=== PATIENT | female | born 1980 | race Caucasian/White ===

== ENCOUNTER 2025-05-09 12:32 | Emergency (ER) | payer BC, SELFPAY ==
--- OUTSIDE RECORDS SUMMARY | 2025-05-09 12:47 | XMS_ITS | Encounter Summary ---
Author Organization [facility] Address [address] [place] [address] Care Team Providers Care Glue Clamp Operator Name Role Phone Buck Santana MD Unavailable Mar Gomez APRN Primary Care Provider [phone] Provider, Historical Unavailable Unavailable Shlomo Bess PA-C Unavailable [phone] Rosa Carr Unavailable Unavailable Buck Green MD Unavailable Sylvester Patel PA-C Unavailable Alejandra Doan RN Unavailable Unavailable Radha Duran LPN Unavailable Unavailable Theresa Colon HEALTH ASSISTANT Unavailable [phone] Little Koo MD Unavailable Mariana Schultz HEALTH ASSISTANT Unavailable Trino Wolff THREADER Unavailable Unavailable Blanca Whittington THREADER Unavailable Unavailab Blanca Monson THREADER Unavailable Unavailable Desmond Tubbs APRN Primary Care Provider [phone] Enma Sneed LPN Unavailable Unavailable Reason for Referral * Consultation (Routine) - Closed Specialty Diagnoses / Procedures Referred By Contac t Referred To Contact Diagnoses Edema, unspecified edema Left atrial dilation Mild mitral regurgitation Mild tricuspid regurgitation Mar Gomez APRN [id number] [place] [address] Phone: tel: fax: Mane Resendiz MD [address] [place] [address] Phone: tel: fax: Referral ID Status Reason Start Date Expiration Date Visits Re quested Visits Authorized [id number] Closed 02/19/2016 1 1 Encounter Details Date Type Department Care Team (Late st Contact Info) Description 02/19/2016 Orders Only [facility] [address] [place] [address] Mar Gomez APRN [address] [place], [place] [id number] Edema, unspecified edema (Primary Dx); Left atrial dilation; Mild mitral regurgitation; Mild tricuspid regurgitation Social History Tobacco Use Types Packs/Day Years Used Date Smoking Tobacco: Every Day Cigarettes 0.3 10 Smokeless Tobacco: Former Quit: 03/10/2013 Alcohol Use Standard Drinks/Week Comments No 0 (1 standard drink = 0.6 oz pur e alcohol) Comments No Sex and Gender Information Value Date Recorded Sex Assigned at Not on file Legal Sex Female 8:37 PM EST Gender Identity Not on file Sexual Orientation Not on file documented as of this encounter Plan of Treatment Scheduled Referrals Name Type Priority Associated Diagnoses Orde r Schedule Ambulatory Referral to Cardiology Outpatient Referral Routine Edema, unspecified edema Left atrial dilation Mild mitral regurgitation Mild tricuspid regurgitation Ordered: 02/19/2016 documented as of this encounter Visit Diagnoses Diagnosis Edema, unspecified edema- Primary Left atrial dilation Cardiomegaly Mild mitral regurgitation Mild tricuspid regurgitation Diseases of tricuspid valve documented in this encounter Additional Health Concerns Infection Onset Date Last Indicated Resolved Time Covid-19 (rule out) 05/07/2022 05/07/2022 05/08/20 22 12:33 AM EDT Covid-19 (confirmed) 11/05/2022 11/06/2022 023 10:12 PM EST documented as of this encounter Care Teams Glue Clamp Operator Relationship Specialty Start Date End Date Mar Gomez APRN [address] [place] [address] PCP - General Nurse Practitioner 02/18/16 10/02/24 Desmond Tubbs APRN [id number] [place] [address] PCP - General Nurse Practitioner 12/30/24 Buck Santana MD [facility] Stack[employer] [place] [id number] Orthopedic Surgery 09/21/12 Provider, Historical 10/07/16 Shlomo Bess PA-C [address] [place] [address] [address] [place] [address] Physician Licensed Loan Officer Assistant 07/13/20 Rosa Carr 09/03/21 Buck Green MD [address] [place] [address] [address] [place] [address] Obstetrics & Gynecology 09/04/21 Sylvester Patel PA-C [address] [place] [address] [address] [place] [address] Physician Licensed Loan Officer Assistant 09/09/21 Alejandra Doan, RN 09/09/21 Radha Duran LPN LPN 11/01/21 Theresa Colon APRN [address] [facility] [address] [place], [place] [id number] Nurse Practitioner 11/27/21 Little Koo MD [address] [place] [address] [address] [place] [address] Gastroenterology 11/27/21 Mariana Schultz APRN [address] [place] [address] Nurse Practitioner Gastroenterology 01/28/22 Trino Wolff, THREADER THREADER 04/16/22 Blanca Whittington, THREADER THREADER 05/05/22 Blanca Reagan, THREADER THREADER 06/30/22 Enma Sneed, THREADER THREADER 05/09/25 documented as of this encounter
--- OUTSIDE RECORDS SUMMARY | 2025-05-09 12:47 | XMS_ITS | Encounter Summary ---
Author Organization [facility] Address [address] [place] [address] Care Team Providers Care Continuous Dryout Operator Name Role Phone Buck Santana MD Unavailable Provider, Historical Unavailable Unavailable Shlomo Bess PA-C Unavailable [phone] Rosa Carr Unavailable Unavailable Buck Green MD Unavailable Sylvester Patel PA-C Unavailable [phone] Alejandra Doan RN Unavailable Unavailable Radha Duran LPN Unavailable Unavailable Theresa Colon SENIOR INVESTMENT ANALYST Unavailable [phone] Little Koo MD Unavailable Mariana Schultz SENIOR INVESTMENT ANALYST Unavailable Trino Wolff PANTS PRESSER AUTOMATIC Unavailable Unavailable Blanca Whittington PANTS PRESSER AUTOMATIC Unavailable Unavailab Blanca Monson PANTS PRESSER AUTOMATIC Unavailable Unavailable Desmond Tubbs SENIOR INVESTMENT ANALYST Primary Care Provider Enma Sneed LPN Unavailable Unavailable Reason for Visit * Reason Onset Date Comments Other 05/09/2025 Heavy Vaginal Bl eeding Encounter Details Date Type Department Care Team (Late st Contact Info) Description 05/09/2025 Telephone [facility] [address] [place] [address], [facility], [address] [place] [address] Enma Sneed LPN Other (Heavy Vaginal Bleeding) Social History Tobacco Use Types Packs/Day Years Used Date Smoking Tobacco: Former Cigarettes 0.3 15 0 10/29/2006 - 10/29/2021 Passive Smoke Exposure: Never Smokeless Tobacco: Never Quit: 03/10/2013 Alcohol Use Standard Drinks/Week Comments No 0 (1 standard drink = 0.6 oz pur e alcohol) [facility] Utilities Answer Date Recorded In the past 12 months has th e [employer], gas, oil, or water company threatened to shut off services in your home? No 07/29/2024 Humiliation, Afraid, Rape, and Kick questionnair e Answer Date Recorded Within the last year, have y ou been afraid of your partner or ex-partner? No 07/29/2024 Emotionally Abused Not on file 07/29/2024 Physically Abused Not on file 07/29/2024 Sexually Abused Not on file 07/29/2024 PHQ-2 Answer Date Recorded PHQ-2 SCORE 0 12/25/2024 Hunger Vital Sign Answer Date Recorded Worried About Running Out of Food in the Last Ye ar Not on file 07/29/2024 Within the past 12 months, t he food you bought just didn't last and you didn't have money to get more. Never true 07/29/2024 PRAPARE - Transportation Answer Date Re corded In the past 12 months, has l ack of transportation kept you from medical appointments or from getting medications? No 07/29/2024 Lack of Transportation (Non-Medical) Not on file 07/29/2024 Housing Stability Vital Sign Answer Jay e Recorded Unable to Pay for Housing in the Last Year Not o n file 07/29/2024 Number of Places Lived in the Last Year Not on f ile 07/29/2024 In the last 12 months, was t here a time when you did not have a steady place to sleep or slept in a nursing home (including now)? No 07/29/2024 Comments No Sex and Gender Information Value Date Recorded Sex Assigned at Not on file Legal Sex Female 8:37 PM EST Gender Identity Not on file Sexual Orientation Not on file documented as of this encounter Miscellaneous Notes * Telephone Encounter - Enma Sneed LPN - 05/09/2025 11:50 AM EDT Spoke with patient about her extreme heavy bleeding and pelvic pressure. Advised patient since she was out of town we would recommend going to her nearest ER. Patient verbalized understanding. documented in this encounter Plan of Treatment Not on file documented as of this encounter Visit Diagnoses Not on filedocumented in this encounter Care Teams Continuous Dryout Operator Relationship Specialty Start Date End Date Desmond Tubbs APRN [id number] [address] PCP - General Nurse Practitioner 12/30/24 Buck Santana MD [address] [place], [place] [id number] Orthopedic Surgery 09/21/12 Provider, Historical 10/07/16 Shlomo Bess PA-C [address] [place] [address] [address] [place] [address] Physician Workers Compensation Claims Assistant 07/13/20 Rosa Carr 09/03/21 Buck Green MD [address] [place] [address] [place] [address] Obstetrics & Gynecology 09/04/21 Sylvester Patel PA-C [address] [place] [address] [address] [place] [address] Physician Workers Compensation Claims Assistant 09/09/21 Alejandra Doan, RN 09/09/21 Radha Duran LPN LPN 11/01/21 Theresa Colon APRN [address] [place] [address] [address] [place] [address] Nurse Practitioner 11/27/21 Little Koo MD [address] [place] [address] Gastroenterology 11/27/21 Mariana Schultz APRN [address] [place] [address] Nurse Practitioner Gastroenterology 01/28/22 Trino Wolff, PANTS PRESSER AUTOMATIC PANTS PRESSER AUTOMATIC 04/16/22 Blanca Whittington, PANTS PRESSER AUTOMATIC PANTS PRESSER AUTOMATIC 05/05/22 Blanca Reagan, PANTS PRESSER AUTOMATIC PANTS PRESSER AUTOMATIC 06/30/22 Enma Sneed, PANTS PRESSER AUTOMATIC PANTS PRESSER AUTOMATIC 05/09/25 documented as of this encounter
--- OUTSIDE RECORDS SUMMARY | 2025-05-09 12:47 | XMS_ITS | Encounter Summary ---
Author Organization [facility] Address [address] [place] [address] Care Team Providers Care Pottery Decoration Designer Name Role Phone Bennie Jo DO Primary Care Provider [phone] Vikram Duncan MD Primary Care Provider [phone] Aniyah Trammell RETAIL BAKERY MANAGER Primary Care Provider Buck Santana MD Unavailable Mar Gomez RETAIL BAKERY MANAGER Primary Care Provider Provider, Historical Unavailable Unavailable Shlomo BessC Unavailable [phone] Rosa Carr Unavailable Unavailable Buck Green MD Unavailable [phone] Sylvester Patel-C Unavailable [phone] Alejandra Doan RN Unavailable Unavailable Radha Duran MULTICRAFT OPERATOR Unavailable Unavailable Theresa Colon RETAIL BAKERY MANAGER Unavailable [phone] Little Koo MD Unavailable [phone] Mariana Schultz RETAIL BAKERY MANAGER Unavailable [phone] Trino Wolff MULTICRAFT OPERATOR Unavailable Unavailable Blanca Whittington MULTICRAFT OPERATOR Unavailable Unavailab Blanca Monson MULTICRAFT OPERATOR Unavailable Unavailable Desmond Tubbs APRN Primary Care Provider Enma Sneed MULTICRAFT OPERATOR Unavailable Unavailable Encounter Details Date Type Department Care Team (Late st Contact Info) Description 09/19/2004 Historical Encounter Global Shae Trammell APRN [address] [facility] [place] [address] Social History Tobacco Use Types Packs/Day Years Used Date Smoking Tobacco: Never Assessed Comments Unknown Sex and Gender Information Value Date Recorded Sex Assigned at Not on file Legal Sex Female 8:37 PM EST Gender Identity Not on file Sexual Orientation Not on file documented as of this encounter Plan of Treatment Not on file documented as of this encounter Visit Diagnoses Not on filedocumented in this encounter Additional Health Concerns Infection Onset Date Last Indicated Resolved Time Covid-19 (rule out) 05/07/2022 05/07/2022 05/08/20 22 12:33 AM EDT Covid-19 (confirmed) 11/05/2022 11/06/2022 023 10:12 PM EST documented as of this encounter Care Teams Pottery Decoration Designer Relationship Specialty Start Date End Date Bennie Jo DO PCP - General 04/24/09 09/20/12 Vikram Duncan MD [address] [place] [address] PCP - General 08/14/08 04/23/09 Aniyah Trammell APRN [address] [place] [address] PCP - General Nurse Practitioner 09/21/12 02/17/16 Mar Gomez APRN [address] [place] [address] PCP - General Nurse Practitioner 02/18/16 10/02/24 Desmond Tubbs APRN [address] [address] PCP - General Nurse Practitioner 12/30/24 Buck Santana MD [facility] [place] [address] Orthopedic Surgery 09/21/12 Provider, Historical 10/07/16 Shlomo Bess PA-C [address] [place] [address] [address] [place] [address] Physician Dishwasher 07/13/20 Rosa Carr 09/03/21 Buck Green MD [address] [place] [address] [address] [place] [address] Obstetrics & Gynecology 09/04/21 Sylvester Patel PA-C [address] [place] [address] [address] [place] [address] Physician Dishwasher 09/09/21 Alejandra Doan, SHANIA 09/09/21 Radha Duran LPN LPN 11/01/21 Theresa Colon APRN [address] [place] [address] [address] [place] [address] Nurse Practitioner 11/27/21 Little Koo MD [address] [place] [address] [address] [place] [address] Gastroenterology 11/27/21 Mariana Schultz APRN [address] [place] [address] [address] [place] [address] Nurse Practitioner Gastroenterology 01/28/22 Trino Wolff LPN MULTICRAFT OPERATOR 04/16/22 Blanca Whittington, MULTICRAFT OPERATOR MULTICRAFT OPERATOR 05/05/22 Blanca Reagan, MULTICRAFT OPERATOR MULTICRAFT OPERATOR 06/30/22 Enma Sneed, MULTICRAFT OPERATOR MULTICRAFT OPERATOR 05/09/25 documented as of this encounter
--- OUTSIDE RECORDS SUMMARY | 2025-05-09 12:47 | XMS_ITS | Encounter Summary ---
Author Organization [facility] Address [address] [place] [address] Care Team Providers Care Crime Lab Technician Name Role Phone Bennie Jo DO Primary Care Provider [phone] Vikarm Duncan MD Primary Care Provider [phone] Aniyah Trammell CAR FERRY CAPTAIN Primary Care Provider Buck Santana MD Unavailable Mar Gomez CAR FERRY CAPTAIN Primary Care Provider Provider, Historical Unavailable Unavailable Shlomo BessC Unavailable [phone] Rosa Carr Unavailable Unavailable Buck Green MD Unavailable [phone] Sylvester Patel-C Unavailable [phone] Alejandra Doan RN Unavailable Unavailable Radha Duran TRAFFIC AGENT Unavailable Unavailable Theresa Colon CAR FERRY CAPTAIN Unavailable [phone] Little Koo MD Unavailable [phone] Mariana Schultz CAR FERRY CAPTAIN Unavailable [phone] Trino Wolff TRAFFIC AGENT Unavailable Unavailable Blanca Whittington TRAFFIC AGENT Unavailable Unavailab Blanca Monson TRAFFIC AGENT Unavailable Unavailable Desmond Tubbs APRN Primary Care Provider Enma Sneed TRAFFIC AGENT Unavailable Unavailable Encounter Details Date Type Department Care Team (Late st Contact Info) Description 09/18/2004 Historical Encounter Global Rik Maradiaga MD [address] [id number] Social History Tobacco Use Types Packs/Day Years [...] documented as of this encounter Care Teams Crime Lab Technician Relationship Specialty Start Date End Date Bennie Jo DO PCP - General 04/24/09 09/20/12 Vikram Duncan MD [address] [place], [place] [id number] PCP - General 08/14/08 04/23/09 Aniyah Trammell APRN [address] [place] [address] PCP - General Nurse Practitioner 09/21/12 02/17/16 Mar Gomez APRN [address] [place] [address] PCP - General Nurse Practitioner 02/18/16 10/02/24 Desmond Tubbs APRN [address] [address] PCP - General Nurse Practitioner 12/30/24 Buck Santana MD [facility] [place] [address] Orthopedic Surgery 09/21/12 Provider, Historical 10/07/16 Shlomo Bess PA-C [address] [place] [address] [address] [place] [address] Physician Epic Specialist 07/13/20 Rosa Carr 09/03/21 Buck Green MD [address] [place] [address] [address] [place] [address] Obstetrics & Gynecology 09/04/21 Sylvester Patel PA-C [address] [place] [address] [address] [place] [address] Physician Epic Specialist 09/09/21 Alejandra Doan, SHANIA 09/09/21 Radha Duran LPN LPN 11/01/21 Theresa Colon APRN [address] [place] [address] [address] [place] [address] Nurse Practitioner 11/27/21 Little Koo MD [address] [place] [address] [address] [place] [address] Gastroenterology 11/27/21 Mariana Schultz APRN [address] [place] [address] [address] [place] [address] Nurse Practitioner Gastroenterology 01/28/22 Trino Wolff TRAFFIC AGENT TRAFFIC AGENT 04/16/22 Blanca Whittington, TRAFFIC AGENT TRAFFIC AGENT 05/05/22 Blanca Reagan, TRAFFIC AGENT TRAFFIC AGENT 06/30/22 Enma Sneed, TRAFFIC AGENT TRAFFIC AGENT 05/09/25 documented as of this encounter
--- OUTSIDE RECORDS SUMMARY | 2025-05-09 12:47 | XMS_ITS | Encounter Summary ---
Author Organization [facility] Address [address] [place] [address] Care Team Providers Care X Ray Control Equipment Repairer Name Role Phone Aniyah Trammell APRN Primary Care Provider [phone] Buck Santana MD Unavailable Mar Gomez FOOT PIECE ASSEMBLER Primary Care Provider [phone] Provider, Historical Unavailable Unavailable Shlomo Bess-C Unavailable Rosa Carr Unavailable Unavailable Buck Green MD Unavailable Sylvester Patel PA-C Unavailable Alejandra Doan RN Unavailable Unavailable Radha Duran LPN Unavailable Unavailable Theresa Colon FOOT PIECE ASSEMBLER Unavailable Little Koo MD Unavailable Mariana Schultz FOOT PIECE ASSEMBLER Unavailable Trino Wolff ETCHER APPRENTICE Unavailable Unavailable Blanca Whittington ETCHER APPRENTICE Unavailable Unavailab Blanca Monson ETCHER APPRENTICE Unavailable Unavailable Desmond Tubbs APRN Primary Care Provider [phone] Enma Sneed ETCHER APPRENTICE Unavailable Unavailable Reason for Visit * Reason Onset Date Comments Nurse Triage Call 02/13/2016 Encounter Details Date Type Department Care Team (Late st Contact Info) Description 02/13/2016 Telephone [facility] [place] [address] [place] [address] Aniyah Trammell, FOOT PIECE ASSEMBLER [address] [place] [address] Nurse Triage Call Social History Tobacco Use Types Packs/Day Years [...] as of this encounter Miscellaneous Notes * Nurse Triage - Saranya Sue - 02/15/2016 10:12 AM EDT Follow up call to Mila Coelho concerning Nurse Triage phone call for chest pain. No answer at this time. No VM available * Telephone Encounter - Gael Hirsch RN - 02/14/2016 11:31 AM EDT Phone call placed to follow up on nurse triage call. No answer. No voice mail available. Pt was seen in ED last night. * Telephone Encounter - Jeanette Tran - 02/13/2016 8:30 PM EDT Patient called from ED exam room Stating ED doctor has been rude to her States she was told to got to ED for evaluation by a nurse earlier today. She is having Chest pain, shortness of breath and hands are swelling, weakness and fatigue Wanting to know if she should stay in the ED or go somewhere else. Advised she should have someone eval her. If she did not care for a particular provider, she could request to see a different one if available Understanding rommel Penn in ED contacted and advised of patients complaint, states Patient rep. has been called to speak with patient * Nurse Triage - Candace Knight - 02/13/2016 3:09 PM EDT Call Start time: 1509 Call End Time: 1518. Total Minutes spent seasonal package handler: 9 minutes, Physical address: [address] [place] [address] Number calling from: [phone] Mila Coelho is an 35 y.o. female phoned in for Difficulty Breathing. Patient stating Wokeup this AM swelling located bilat LE and hands, pt states It's so bad today It usually goes away after I move around but today it hasn't and I can't even wrap my hands around the steering wheel, they are red pt states she Had ECHO done at hospital today- d/t chest pressure for last 2wks. C/O non productive cough. Unable to lay down, states if I do, I won't be able to breathe Past medical history includes: Past Medical History Diagnosis Date ??? Asthma A CHILD ??? Community acquired pneumonia 2007 . The patient phoned in with complaints of dyspnea and nonproductive cough. . Symptoms are aggravatedby nothing, alleviated by nothing and have been associated with chest pain (Location: mid chest, Quality: pressure-like), palpitations, leg pain and leg swelling. Fever is untaken. Pulse is untaken. R isks for [place] include Age > 30, smoking and family Hx. Risks for PE include recent surgery. Care prior to arrival consisted of rest and antacids, with no relief. Severity is Defined As: Mild: Speaks normally in sentences, minimal shortness of breath at rest andmild shortness of breath with walking, can lay down, no retractions, pulse < 100. Moderate: Speaks in phrases, difficulty breathing even at rest, shortness of breath worsens with exertion and prefers to sit, mild retractions, audible wheezing, pulse 100-120. Severe: Speaks in single words, struggling to breathe sitting hunched forward, retractions, pulse > 120. Difficulty breathing is ratedas moderate. BREATHING DIFFICULTY Triage Assessment Questions Call EMS 911 Now: ?? Breathing stopped and hasn't returned. FIRST AID: Begin mouth to mouth breathing--denies ?? Choking on something. FIRST AID: If breathing stopped, quickly discuss the abdominal thrust maneuver (Heimlich)--denies SEVERE difficulty breathing (struggling for each breath, speaks in single works, pulse > 120)--denies ?? Bluish lips, tongue, or face now--denies ?? Difficult to awaken or acting confused (disoriented, slurred speech)--denies ?? Passed out (fainted, collapsed and was not responding)--denies ?? Wheezing started suddenly after medicine, and allergic food, or bee sting--denies ?? Stridor--denies ?? Slow, shallow and weak breathing--denies ?? Sounds like a life-threatening emergency to triage nurse--no Recommendations: none Go to ED Now: ?? MODERATE difficulty breathing (speaks in phrases, shortness of breath even at rest, pulse 100-120)--complains of ?? Wheezing can be heard across the room--complains of ?? Drooling or spitting out saliva (because can't swallow)--denies ?? Any history of prior blood clot in leg or lungs Note: A blood clot typically would have required treatment with heparin or coumadin. Reason: Increased risk of thromboembolism--denies ?? Recent illness requiring prolonged bed rest (immbolization)--denies ?? Hip or leg fracture in past 2 months (or had cast on leg or ankle)--denies ?? Major surgery in the past month--denies ?? Recent long distance travel with prolonged time in car, bus, plan, or train (hours sitting in one spot). Reason: Immobilization during prolonged travel increases risk of pulmonary embolus--denies ?? Extra heart beats OR irregular heart beating (palpitations)--complains of Recommendations: Advised pt to go to ED for evaluations, pt agreable states she will have family member drive to ED now, reminded of 27/04 identity access management architect ED called report given to Suzanne Aragon Advice/Followup Home Care Advice: ?? Fever Medicines Call Back if: ?? You become worse Notes HOME CARE ADVICE FOR BREATHING DIFFICULTY (Pending Office Visit) 1) Fever Medicines: For fevers above 101 degrees take acetaminophen or ibuprofen. The goal of fevertherapy is to bring the fever down to a comfortable level. Remember that fever medicine usually lowers fever 2 degrees. Acetaminophen is thought to be safer than ibuprofen in people over 65 years old. Reference: Adult telephone protocols Office version/3rd edition. Mane Hernández MD, FACEP Pages 37 to 39 documented in this encounter Plan of Treatment Not on file documented as of this encounter Visit Diagnoses Not on filedocumented in this encounter Additional Health Concerns Infection Onset Date Last Indicated Resolved Time Covid-19 (rule out) 05/07/2022 05/07/2022 05/08/20 22 12:33 AM EDT Covid-19 (confirmed) 11/05/2022 11/06/2022 023 10:12 PM EST documented as of this encounter Care Teams X Ray Control Equipment Repairer Relationship Specialty Start Date End Date Aniyah Trammell APRN [address] [place] [address] PCP - General Nurse Practitioner 09/21/12 02/17/16 Mar Gomez APRN [address] [place] [address] PCP - General Nurse Practitioner 02/18/16 10/02/24 Desmond Tubbs APRN [id number] [address] PCP - General Nurse Practitioner 12/30/24 Buck Santana MD [address] [email or web address] [address] Orthopedic Surgery 09/21/12 Provider, Historical 10/07/16 Shlomo Bess PA-C [address] [place] [address] [address] [place] [address] Physician National Park Ranger 07/13/20 Rosa Carr 09/03/21 Buck Green MD [address] [place] [address] [address] [place] [address] Obstetrics & Gynecology 09/04/21 Sylvester Patel PA-C [address] [place] [address] [address] [place] [address] Physician National Park Ranger 09/09/21 Alejandra Doan, SHANIA 09/09/21 Radha Duran LPN ETCHER APPRENTICE 11/01/21 Theresa Colon APRN [address] [place] [address] [address] [place], [place] [id number] Nurse Practitioner 11/27/21 Little Koo MD [address] [place] [address] [address] [place] [address] Gastroenterology 11/27/21 Mariana Schultz APRN [address] [place] [address] [address] [place] [address] Nurse Practitioner Gastroenterology 01/28/22 Trino Wolff, ETCHER APPRENTICE ETCHER APPRENTICE 04/16/22 Blanca Whittington, ETCHER APPRENTICE ETCHER APPRENTICE 05/05/22 Blanca Reagan, ETCHER APPRENTICE ETCHER APPRENTICE 06/30/22 Enma Sneed, ETCHER APPRENTICE ETCHER APPRENTICE 05/09/25 documented as of this encounter
--- OUTSIDE RECORDS SUMMARY | 2025-05-09 12:47 | XMS_ITS | Encounter Summary ---
Author Organization [facility] Address [address] [place] [address] Care Team Providers Care Scale And Skip Car Operator Name Role Phone Buck Santana MD Unavailable Mar Gomez APRN Primary Care Provider Provider, Historical Unavailable Unavailable Shlomo Bess PA-C Unavailable [phone] Rosa Carr Unavailable Unavailable Buck Green MD Unavailable [phone] Sylvester Patel PA-C Unavailable [phone] Alejandra Doan RN Unavailable Unavailable Radha Duran LPN Unavailable Unavailable Theresa Colon SENIOR RISK MANAGER Unavailable Little Koo MD Unavailable Mariana Schultz SENIOR RISK MANAGER Unavailable Trino Wolff MACHINE I COREMAKER Unavailable Unavailable Blanca Whittington MACHINE I COREMAKER Unavailable Unavailab Blanca Monson MACHINE I COREMAKER Unavailable Unavailable Desmond Tubbs APRN Primary Care Provider Enma Sneed LPN Unavailable Unavailable Encounter Details Date Type Department Care Team (Latest Contact Info) Description 04/15/2021 Transcribe Orders [facility] Buck Green MD [address] [place] [address] [address] [place] [address] examination or test, unconfirmed (Primary Dx) Social History Tobacco Use Types Packs/Day Years Used Date Smoking Tobacco: Former Cigarettes 0.3 15 Smokeless Tobacco: Never Quit: 03/10/2013 Alcohol Use Standard Drinks/Week Comments No 0 (1 standard drink = 0.6 oz pur e alcohol) Comments Yes Sex and Gender Information Value Date Recorded Sex Assigned at Not on file Legal Sex Female 8:37 PM EST Gender Identity Not on file Sexual Orientation Not on file COVID-19 Exposure Response Date Recorded In the last month, have you been in contact with someone who was confirmed or suspected to have Coronavirus / COVID-19? No / Unsure 04/13/2021 10:33 AM EDT documented as of this encounter Plan of Treatment Not on file documented as of this encounter Procedures Procedure Name Priority Date/Time Associated Diagnosis Comments POCT URINE TESTS Routine 04/15/2021 3:50 PM EDT examination or test, unconfirmed documented in this encounter Results * POCT Urine Test (04/15/2021 3:50 PM EDT) TEST URINE neg Lot Number Expiration Date 04/15/2021 3:50 PM EDT Buck Green MD POINT OF CARE TEST ORDERAB LES Final Result documented in this encounter Visit Diagnoses Diagnosis examination or test, unconfirmed- Primary documented in this encounter Additional Health Concerns Infection Onset Date Last Indicated Resolved Time Covid-19 (rule out) 05/07/2022 05/07/2022 05/08/20 22 12:33 AM EDT Covid-19 (confirmed) 11/05/2022 11/06/2022 023 10:12 PM EST documented as of this encounter Care Teams Scale And Skip Car Operator Relationship Specialty Start Date End Date Mar Gomez APRN [address] [place] [address] PCP - General Nurse Practitioner 02/18/16 10/02/24 Desmond Tubbs APRN [address] [id number] PCP - General Nurse Practitioner 12/30/24 Buck Santana MD [address] [place] [address] Orthopedic Surgery 09/21/12 Provider, Historical 10/07/16 Shlomo Bess PA-C [address] [place] [address] [address] [place] [address] Physician Boiler Mechanic 07/13/20 Rosa Carr 09/03/21 Buck Green MD [address] [place] [address] [address] [place] [address] Obstetrics & Gynecology 09/04/21 Sylvester Patel PA-C [address] [place] [address] [address] [place] [address] Physician Boiler Mechanic 09/09/21 Alejandra Doan, SHANIA 09/09/21 Radha Duran LPN LPN 11/01/21 Theresa Colon APRN [address] [place] [address] [address] [place] [address] Nurse Practitioner 11/27/21 Little Koo MD [address] [place] [address] [address] [facility] [place] [place] [address] Gastroenterology 11/27/21 Mariana Schultz APRN [address] [place] [address] [address] [place] [address] Nurse Practitioner Gastroenterology 01/28/22 Trino Wolff, MACHINE I COREMAKER MACHINE I COREMAKER 04/16/22 Blanca Whittington, MACHINE I COREMAKER MACHINE I COREMAKER 05/05/22 Blanca Reagan, MACHINE I COREMAKER MACHINE I COREMAKER 06/30/22 Enma Sneed, MACHINE I COREMAKER MACHINE I COREMAKER 05/09/25 documented as of this encounter
--- OUTSIDE RECORDS SUMMARY | 2025-05-09 12:47 | XMS_ITS | Encounter Summary ---
Author Organization [facility] Address [address] [place] [address] Care Team Providers Care Control Systems Specialist Name Role Phone Bennie Jo DO Primary Care Provider [phone] Vikram Duncan MD Primary Care Provider [phone] Aniyah Trammell COMPUTER NETWORK ENGINEER Primary Care Provider Buck Santana MD Unavailable Mar Gomez COMPUTER NETWORK ENGINEER Primary Care Provider Provider, Historical Unavailable Unavailable Shlomo BessC Unavailable [phone] Rosa Carr Unavailable Unavailable Buck Green MD Unavailable [phone] Sylvester Patel-C Unavailable [phone] Alejandra Doan RN Unavailable Unavailable Radha Duran ANALYSIS LEAD Unavailable Unavailable Theresa Colon COMPUTER NETWORK ENGINEER Unavailable [phone] Little Koo MD Unavailable [phone] Mariana Schultz COMPUTER NETWORK ENGINEER Unavailable [phone] Trino Wolff ANALYSIS LEAD Unavailable Unavailable Blanca Whittington ANALYSIS LEAD Unavailable Unavailab Blanca Monson ANALYSIS LEAD Unavailable Unavailable Desmond Tubbs APRN Primary Care Provider Enma Sneed ANALYSIS LEAD Unavailable Unavailable Encounter Details Date Type Department Care Team (Late st Contact Info) Description 05/12/2005 Historical Encounter Global Tony Morton MD [address] [place] [address] Social History Tobacco Use Types Packs/Day Years [...] documented as of this encounter Care Teams Control Systems Specialist Relationship Specialty Start Date End Date Bennie Jo DO PCP - General 04/24/09 09/20/12 Vikram Duncan MD [facility] [place] [address] PCP - General 08/14/08 04/23/09 Aniyah Trammell APRN [address] [place] [address] PCP - General Nurse Practitioner 09/21/12 02/17/16 Mar Gomez APRN [address] [place] [address] PCP - General Nurse Practitioner 02/18/16 10/02/24 Desmond Tubbs APRN [address] [place] [address] PCP - General Nurse Practitioner 12/30/24 Buck Santana MD [facility] [place] [address] Orthopedic Surgery 09/21/12 Provider, Historical 10/07/16 Shlomo Bess PA-C [address] [place] [address] [facility] [address] [place] [address] Physician Concrete Carpenter 07/13/20 Rosa Carr 09/03/21 Buck Green MD [address] [place] [address] [address] [place] [address] Obstetrics & Gynecology 09/04/21 Sylvester Patel PA-C [address] [place] [address] [place] [address] Physician Concrete Carpenter 09/09/21 Alejandra Doan, SHANIA 09/09/21 Radha Duran LPN LPN 11/01/21 Theresa Colon APRN [address] [place] [address] [address] [place], [place] [address] Nurse Practitioner 11/27/21 Little Koo MD [address] [place] [address] [address] [place] [address] Gastroenterology 11/27/21 Mariana Schultz APRN [address] [place] [address] [place] [address] Nurse Practitioner Gastroenterology 01/28/22 Trino Wolff LPN ANALYSIS LEAD 04/16/22 Blanca Whittington, ANALYSIS LEAD ANALYSIS LEAD 05/05/22 Blanca Reagan, ANALYSIS LEAD ANALYSIS LEAD 06/30/22 Enma Sneed, ANALYSIS LEAD ANALYSIS LEAD 05/09/25 documented as of this encounter
--- OUTSIDE RECORDS SUMMARY | 2025-05-09 12:47 | XMS_ITS | Encounter Summary ---
Author Organization [facility] Address [address] [place] [address] Care Team Providers Care Photographic Equipment Mechanic Name Role Phone Bennie Jo DO Primary Care Provider [phone] Vikram Duncan MD Primary Care Provider [phone] Aniyah Trammell DOOR TO DOOR LEAD GENERATION Primary Care Provider Buck Santana MD Unavailable Mar Gomez DOOR TO DOOR LEAD GENERATION Primary Care Provider Provider, Historical Unavailable Unavailable Shlomo BessC Unavailable [phone] Rosa Carr Unavailable Unavailable Buck Green MD Unavailable [phone] Sylvester Patel-C Unavailable [phone] Alejandra Doan RN Unavailable Unavailable Radha Duran RANGE CONSERVATIONIST Unavailable Unavailable Theresa Colon DOOR TO DOOR LEAD GENERATION Unavailable [phone] Little Koo MD Unavailable [phone] Mariana Schultz DOOR TO DOOR LEAD GENERATION Unavailable [phone] Trino Wolff RANGE CONSERVATIONIST Unavailable Unavailable Blanca Whittington RANGE CONSERVATIONIST Unavailable Unavailab Blanca Monson RANGE CONSERVATIONIST Unavailable Unavailable Desmond Tubbs APRN Primary Care Provider Enma Sneed RANGE CONSERVATIONIST Unavailable Unavailable Encounter Details Date Type Department Care Team (Late st Contact Info) Description 09/19/2004 Historical Encounter Global Shae Trammell APRN [address] [facility] [place] [address] Social History Tobacco Use [...] documented as of this encounter Care Teams Photographic Equipment Mechanic Relationship Specialty Start Date End Date Bennie Jo DO PCP - General 04/24/09 09/20/12 Vikram Duncan MD [address] [place] [address] PCP - General 08/14/08 04/23/09 Aniyah Trammell APRN [address] [place] [address] PCP - General Nurse Practitioner 09/21/12 02/17/16 Mar Gomez APRN [address] [place] [address] PCP - General Nurse Practitioner 02/18/16 10/02/24 Desmond Tubbs APRN [id number] [address] PCP - General Nurse Practitioner 12/30/24 Buck Santana MD [facility] [place] [address] Orthopedic Surgery 09/21/12 Provider, Historical 10/07/16 Shlomo Bess PA-C [address] [place] [address] [address] [place] [address] Physician Gill Net Stringer 07/13/20 Rosa Carr 09/03/21 Buck Green MD [address] [place] [address] [address] [place] [address] Obstetrics & Gynecology 09/04/21 Sylvester Patel PA-C [address] [place] [address] [address] [place] [address] Physician Gill Net Stringer 09/09/21 Alejandra Doan, SHANIA 09/09/21 Radha Duran LPN LPN 11/01/21 Theresa Colon APRN [address] [place] [address] [address] [place] [address] Nurse Practitioner 11/27/21 Little Koo MD [address] [place] [address] [address] [place] [address] Gastroenterology 11/27/21 Mariana Schultz APRN [address] [place] [address] [address] [place] [address] Nurse Practitioner Gastroenterology 01/28/22 Trino Wolff LPN RANGE CONSERVATIONIST 04/16/22 Blanca Whittington, RANGE CONSERVATIONIST RANGE CONSERVATIONIST 05/05/22 Blanca Reagan, RANGE CONSERVATIONIST RANGE CONSERVATIONIST 06/30/22 Enma Sneed, RANGE CONSERVATIONIST RANGE CONSERVATIONIST 05/09/25 documented as of this encounter
--- OUTSIDE RECORDS SUMMARY | 2025-05-09 12:47 | XMS_ITS | Encounter Summary ---
Author Organization [facility] Address [address] [place] [address] Care Team Providers Care Compounder Sterile Products Name Role Phone Buck Santana MD Unavailable Mar Gomez APRN Primary Care Provider [phone] Provider, Historical Unavailable Unavailable Shlomo Bess PA-C Unavailable [phone] Rosa Carr Unavailable Unavailable Buck Green MD Unavailable [phone] Sylvester Patel PA-C Unavailable [phone] Alejandra Doan RN Unavailable Unavailable Radha Duran LPN Unavailable Unavailable Theresa Colon REPAIR SPECIALIST Unavailable Little Koo MD Unavailable [phone] Mariana Schultz REPAIR SPECIALIST Unavailable [phone] Trino Wolff BATT MACHINE OPERATOR Unavailable Unavailable Blanca Whittington BATT MACHINE OPERATOR Unavailable Unavailab Blanca Monson BATT MACHINE OPERATOR Unavailable Unavailable Desmond Tubbs APRN Primary Care Provider Enma Sneed LPN Unavailable Unavailable Encounter Details Date Type Department Care Team (Latest Contact Info) Description 08/28/2021 Transcribe Orders [facility] Buck Green MD [address] [place] [address] [address] [place] [address] examination or test, unconfirmed (Primary Dx) Social [...] have Coronavirus / COVID-19? No / Unsure 08/28/2021 11:12 AM EST documented as of this encounter Plan of Treatment Not on file documented as of this encounter Results * Test, Quant. (08/28/2021 11:17 AM EST) BETA HCG <5 m[iU]/L 08/28/2021 1:19 PM EST [facility] Comment: APPROXIMATE GESTATIONAL AGE APPROXIMATE hCG RANGE (mIU/ML) NON <5 0.2-1 WEEK 5-50 1-2 WEEKS 50-500 2-3 WEEKS 100-5,000 3-4 WEEKS 500-10,000 4-5 WEEKS 1,000-50,000 5-6 WEEKS 10,000-100,000 6-8 WEEKS 15,000-200,000 8-12 WEEKS 10,000-100,000 08/28/2021 11:1 7 AM EST 08/28/2021 12:30 PM EST us Buck Green MD CHEMISTRY ORDERABLES Final Result [facility] [address] [place] [address] [facility] [address] [place] [address] documented in this encounter Visit Diagnoses Diagnosis examination or test, unconfirmed- Primary documented in this encounter Additional Health Concerns Infection Onset Date Last Indicated Resolved Time Covid-19 (rule out) 05/07/2022 05/07/2022 05/08/20 22 12:33 AM EDT Covid-19 (confirmed) 11/05/2022 11/06/2022 023 10:12 PM EST documented as of this encounter Care Teams Compounder Sterile Products Relationship Specialty Start Date End Date Mar Gomez APRN [address] [place] [address] PCP - General Nurse Practitioner 02/18/16 10/02/24 Desmond Tubbs APRN [id number] [address] [place], [place] [address] PCP - General Nurse Practitioner 12/30/24 Buck Santana MD [facility] [address] [place], [place] [address] Orthopedic Surgery 09/21/12 Provider, Historical 10/07/16 Shlomo Bess PA-C [address] [place] [address] [address] [place] [address] Physician Metal Template Maker 07/13/20 Rosa Carr 09/03/21 Buck Green MD [address] [place] [address] [address] [place] [address] Obstetrics & Gynecology 09/04/21 Sylvester Patel PA-C [address] [place] [address] [address] [place] [address] Physician Metal Template Maker 09/09/21 Alejandra Doan, RN 09/09/21 Radha Duran LPN LPN 11/01/21 Theresa Colon APRN [address] [place] [address] [address] [place], [place] [address] Nurse Practitioner 11/27/21 Little Koo MD [address] [place] [address] Gastroenterology 11/27/21 Mariana Schultz APRN [address] [place] [address] Nurse Practitioner Gastroenterology 01/28/22 Trino Wolff, BATT MACHINE OPERATOR BATT MACHINE OPERATOR 04/16/22 Blanca Whittington, BATT MACHINE OPERATOR BATT MACHINE OPERATOR 05/05/22 Blanca Reagan, BATT MACHINE OPERATOR BATT MACHINE OPERATOR 06/30/22 Enma Sneed, BATT MACHINE OPERATOR BATT MACHINE OPERATOR 05/09/25 documented as of this encounter
--- OUTSIDE RECORDS SUMMARY | 2025-05-09 12:47 | XMS_ITS | Encounter Summary ---
Author Organization [facility] Address [address] [place] [address] Care Team Providers Care Service Center Technician Name Role Phone Buck Santana MD Unavailable Mar Gomez APRN Primary Care Provider Provider, Historical Unavailable Unavailable Shlomo Bess PA-C Unavailable [phone] Rosa Carr Unavailable Unavailable Buck Green MD Unavailable [phone] Sylvester Patel PA-C Unavailable [phone] Alejandra Doan RN Unavailable Unavailable Radha Duran LPN Unavailable Unavailable Theresa Colon BROOM MAKER Unavailable Little Koo MD Unavailable Mariana Schultz BROOM MAKER Unavailable Trino Wolff ANGIOGRAPHY NURSE Unavailable Unavailable Blanca Whittington ANGIOGRAPHY NURSE Unavailable Unavailab Blanca Monson ANGIOGRAPHY NURSE Unavailable Unavailable Desmond Tubbs APRN Primary Care Provider [phone] Enma Sneed LPN Unavailable Unavailable Encounter Details Date Type Department Care Team (Latest Contact Info) Description 04/12/2021 Transcribe Orders [facility] Buck Green MD [address] [place] [address] [address] [place] [address] examination or test, unconfirmed (Primary Dx); Less than 8 weeks gestation of Social History Tobacco Use Types Packs/Day Years [...] of this encounter Results * Test, Quant. (04/13/2021 10:34 AM EDT) BETA HCG <5 m[iU]/L 04/13/2021 4:11 PM EDT [facility] Comment: APPROXIMATE GESTATIONAL AGE APPROXIMATE hCG RANGE (mIU/ML) NON <5 0.2-1 WEEK 5-50 1-2 WEEKS 50-500 2-3 WEEKS 100-5,000 3-4 WEEKS 500-10,000 4-5 WEEKS 1,000-50,000 5-6 WEEKS 10,000-100,000 6-8 WEEKS 15,000-200,000 8-12 WEEKS 10,000-100,000 04/13/2021 10:3 4 AM EDT 04/13/2021 3:47 PM EDT us Buck Green MD CHEMISTRY ORDERABLES Final Result [facility] [address] [place] [address] [facility] [address] [place] [address] documented in this encounter Visit Diagnoses Diagnosis examination or test, unconfirmed- Primary Less than 8 weeks gestation of (HHS/HCC) documented in this encounter Additional Health Concerns Infection Onset Date Last Indicated Resolved Time Covid-19 (rule out) 05/07/2022 05/07/2022 05/08/20 22 12:33 AM EDT Covid-19 (confirmed) 11/05/2022 11/06/2022 023 10:12 PM EST documented as of this encounter Care Teams Service Center Technician Relationship Specialty Start Date End Date Mar Gomez APRN [address] [place], [place] [id number] PCP - General Nurse Practitioner 02/18/16 10/02/24 Desmond Tubbs APRN [id number] [address] [place], [place] [id number] PCP - General Nurse Practitioner 12/30/24 Buck Santana MD [facility] [employer] [place] [id number] Orthopedic Surgery 09/21/12 Provider, Historical 10/07/16 Shlomo Bess PA-C [address] [place] [address] [address] [place] [address] Physician Diving Judge 07/13/20 Rosa Carr 09/03/21 Buck Green MD [address] [place] [address] [place] [address] Obstetrics & Gynecology 09/04/21 Sylvester Patel PA-C [address] [place] [address] [address] [place] [address] Physician Diving Judge 09/09/21 Alejandra Doan, RN 09/09/21 Radha Duran LPN LPN 11/01/21 Theresa Colon APRN [address] [facility] [address] [place] [address] Nurse Practitioner 11/27/21 Little Koo MD [address] [place] [address] Gastroenterology 11/27/21 Mariana Schultz APRN [address] [place], [place] [address] Nurse Practitioner Gastroenterology 01/28/22 Trino Wolff, ANGIOGRAPHY NURSE ANGIOGRAPHY NURSE 04/16/22 Blanca Whittington, ANGIOGRAPHY NURSE ANGIOGRAPHY NURSE 05/05/22 Blanca Reagan, ANGIOGRAPHY NURSE ANGIOGRAPHY NURSE 06/30/22 Enma Sneed, ANGIOGRAPHY NURSE ANGIOGRAPHY NURSE 05/09/25 documented as of this encounter
--- OUTSIDE RECORDS SUMMARY | 2025-05-09 12:48 | XMS_ITS | Encounter Summary ---
Author Organization [facility] Address [address] [place] [address] Care Team Providers Care Warehouse Inventory Clerk Name Role Phone Bennie Jo DO Primary Care Provider [phone] Vikram Duncan MD Primary Care Provider [phone] Aniyah Trammell HALVER MACHINE OPERATOR Primary Care Provider Buck Santana MD Unavailable Mar Gomez HALVER MACHINE OPERATOR Primary Care Provider [phone] Provider, Historical Unavailable Unavailable Shlomo BessC Unavailable [phone] Rosa Carr Unavailable Unavailable Buck Green MD Unavailable [phone] Sylvester Patel-C Unavailable [phone] Alejandra Doan RN Unavailable Unavailable Radha Duran BELT FIXER Unavailable Unavailable Theresa Colon HALVER MACHINE OPERATOR Unavailable [phone] Little Koo MD Unavailable [phone] Mariana Schultz HALVER MACHINE OPERATOR Unavailable [phone] Trino Wolff BELT FIXER Unavailable Unavailable Blanca Whittington BELT FIXER Unavailable Unavailab Blanca Monson BELT FIXER Unavailable Unavailable Desmond Tubbs APRN Primary Care Provider Enma Sneed BELT FIXER Unavailable Unavailable Encounter Details Date Type Department Care Team (Late st Contact Info) Description 12/12/2004 Historical Encounter [facility] Massimo Tran Social History Tobacco Use Types Packs/Day Years [...] documented as of this encounter Care Teams Warehouse Inventory Clerk Relationship Specialty Start Date End Date Bennie Jo DO PCP - General 04/24/09 09/20/12 Vikram Duncan MD [address] [place], [place] [id number] PCP - General 08/14/08 04/23/09 Aniyah Trammell APRN [address] [place] [address] PCP - General Nurse Practitioner 09/21/12 02/17/16 Mar Gomez APRN [address] [place] [address] PCP - General Nurse Practitioner 02/18/16 10/02/24 Desmond Tubbs APRN [id number] [place], [place] [id number] PCP - General Nurse Practitioner 12/30/24 Buck Santana MD [address] [place] [address] Orthopedic Surgery 09/21/12 Provider, Historical 10/07/16 Shlomo Bess PA-C [address] [place] [address] [facility] [address] [place] [address] Physician [employer] Driver 07/13/20 Rosa Carr 09/03/21 Buck Green MD [address] [place] [address] [address] [place] [address] Obstetrics & Gynecology 09/04/21 Sylvester Patel PA-C [address] [place] [address] Physician [employer] Driver 09/09/21 Alejandra Doan, RN 09/09/21 Radha Duran LPN LPN 11/01/21 Theresa Colon APRN [address] [place] [address] [address] [place] [address] Nurse Practitioner 11/27/21 Little Koo MD [address] [place] [address] [address] [place] [address] Gastroenterology 11/27/21 Mariana Schultz APRN [address] [place] [address] Nurse Practitioner Gastroenterology 01/28/22 Trino Wolff, BELT FIXER BELT FIXER 04/16/22 Blanca Whittington LPN BELT FIXER 05/05/22 Blanca Reagan, BELT FIXER BELT FIXER 06/30/22 Enma Sneed LPN BELT FIXER 05/09/25 documented as of this encounter
--- OUTSIDE RECORDS SUMMARY | 2025-05-09 12:48 | XMS_ITS | Encounter Summary ---
Author Organization [facility] Address [address] [place] [address] Care Team Providers Care Sheet Rock Nailer Name Role Phone Bennie Jo DO Primary Care Provider [phone] Vikram Duncan MD Primary Care Provider [phone] Aniyah Trammell INVESTIGATIVE AGENT Primary Care Provider Buck Santana MD Unavailable Mar Gomez INVESTIGATIVE AGENT Primary Care Provider Provider, Historical Unavailable Unavailable Shlomo BessC Unavailable [phone] Rosa Carr Unavailable Unavailable Buck Green MD Unavailable [phone] Sylvester Patel-C Unavailable [phone] Alejandra Doan RN Unavailable Unavailable Radha Duran BRACELET FORM COVERER Unavailable Unavailable Theresa Colon INVESTIGATIVE AGENT Unavailable [phone] Little Koo MD Unavailable [phone] Mariana Schultz INVESTIGATIVE AGENT Unavailable [phone] Trino Wolff BRACELET FORM COVERER Unavailable Unavailable Blanca Whittington BRACELET FORM COVERER Unavailable Unavailab Blanca Monson BRACELET FORM COVERER Unavailable Unavailable Desmond Tubbs APRN Primary Care Provider Enma Sneed BRACELET FORM COVERER Unavailable Unavailable Encounter Details Date Type Department Care Team (Late st Contact Info) Description 09/09/2005 Historical Encounter Global Bill Mcfarlane MD [address] [place] [address] Social History Tobacco Use Types Packs/Day Years [...] Time Covid-19 (rule out) 05/07/2022 05/07/2022 05/08/20 12:33 AM EDT Covid-19 (confirmed) 11/05/2022 11/06/2022 023 10:12 PM EST documented as of this encounter Care Teams Sheet Rock Nailer Relationship Specialty Start Date End Date Bennie Jo DO PCP - General 04/24/09 09/20/12 Vikram Duncan MD [address] [place] [address] PCP - General 08/14/08 04/23/09 Aniyah Trammell APRN [id number] [place] [address] PCP - General Nurse Practitioner 09/21/12 02/17/16 Mar Gomez APRN [address] [place] [address] PCP - General Nurse Practitioner 02/18/16 10/02/24 Desmond Tubbs APRN [address]46[address] [address] [place], [place] [id number] PCP - General Nurse Practitioner 12/30/24 Buck Santana MD [facility] [address] Orthopedic Surgery 09/21/12 Provider, Historical 10/07/16 Shlomo Bess PA-C [address] [place] [address] [address] [place] [address] Physician Film Writer 07/13/20 Rosa Carr 09/03/21 Buck Green MD [address] [place] [address] [address] [place] [address] Obstetrics & Gynecology 09/04/21 Sylvester Patel PA-C [address] [place] [address] [address] [place] [address] Physician Film Writer 09/09/21 Alejandra Doan, SHANIA 09/09/21 Radha Duran LPN LPN 11/01/21 Theresa Colon APRN [address] [place] [address] [address] [place] [address] Nurse Practitioner 11/27/21 Little Koo MD [address] [place] [address] [address] [place] [address] Gastroenterology 11/27/21 Mariana Schultz APRN [address] [place] [address] [place] [address] Nurse Practitioner Gastroenterology 01/28/22 Trino Wolff LPN BRACELET FORM COVERER 04/16/22 Blanca Whittington, BRACELET FORM COVERER BRACELET FORM COVERER 05/05/22 Blanca Reagan, BRACELET FORM COVERER BRACELET FORM COVERER 06/30/22 Enma Sneed, BRACELET FORM COVERER BRACELET FORM COVERER 05/09/25 documented as of this encounter
--- OUTSIDE RECORDS SUMMARY | 2025-05-09 12:48 | XMS_ITS | Clinical Summary ---
Author Organization [facility] Address [address] [place] [address] Care Team Providers Care Human Service Specialist Name Role Phone Buck Santana MD Unavailable Provider, Historical Unavailable Unavailable Shlomo Bess PA-C Unavailable Rosa Carr Unavailable Unavailable Buck Green MD Unavailable Sylvester Patel PA-C Unavailable [phone] Alejandra Doan RN Unavailable Unavailable Radha Duran LPN Unavailable Unavailable Theresa Colon PHOTOGRAPHIC ENLARGER OPERATOR Unavailable [phone] Little Koo MD Unavailable Mariana Schultz PHOTOGRAPHIC ENLARGER OPERATOR Unavailable [phone] Trino Wolff EMULSIFICATION OPERATOR Unavailable Unavailable Blanca Whittington EMULSIFICATION OPERATOR Unavailable Unavailab Blanca Monson EMULSIFICATION OPERATOR Unavailable Unavailable Desmond Tubbs APRN Primary Care Provider [phone] Enma Sneed EMULSIFICATION OPERATOR Unavailable Unavailable Allergies Active Allergy Reactions Criticality Noted Date Comments Erythromycin Hives 04/24/2009 Cephalexin Hives 04/24/2009 Levofloxacin Nausea And Vomiting 04/24/2009 Medications HYDROcodone-acet aminophen (NORCO) 5-325 mg per tabletIndication s:Postoperative pain Take 1-2 Tabs by mouth Every 4 to 6 Hours as needed. 8 Tablet 02/02/2025 Active ibuprofen (MOTRIN) 600 mg tabletIndication s:Postoperative pain Take 1 Tablet by mouth Three times a day as needed. 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 Epigastric pain 11/27/2021 Overview (11/27/2021): Added automatically from request for surgery [id number] Nausea 11/27/2021 Overview (11/27/2021): Added automatically from request for surgery [id number] Dry heaves 11/27/2021 Overview (11/27/2021): Added automatically from request for surgery [id number] 23 weeks gestation of ([facility] 2020 affected by previo us bariatric surgery, currently in second trimester ([facility]) 02/07/2021 IUGR (intrauterine growth re striction) affecting care of mother, second trimester, other fetus ([facility]) 02/07/2021 Advanced maternal age in [place], second trimester ([facility]) 02/07/2021 Essential hypertension affec ting in second trimester ([facility]) 02/07/2021 Iron deficiency anemia 04/17/2017 S/P gastric bypass 01/10/2015 Malabsorption ([facility]) 01/10/2015 Resolved Problems Problem Noted Date Diagnosed Date Resolved Date 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 02/07/2021 Overview (03/19/2018): Left shoulder and right thigh B12 deficiency 07/31/2017 02/07/2021 Upper GI bleed 03/20/2017 02/07/2021 Menstrual cycle disorder 03/16/201703/2021 Ovarian cyst, right 03/16/2017 02/08/20 Uterine fibroid 03/16/2017 02/07/2021 Pelvic pain in female 11/19/20152020 Hydrosalpinx 11/18/2015 02/07/2021 Ischemic chest pain 09/06/2015 11/18/19 16 Left leg numbness 09/06/2015 11/19/2015 Tobacco abuse 09/06/2015 02/07/2021 Syncope and collapse 03/05/2010 016 Encounters Date Type Department Care Team Description 05/09/[address], [address] [place] [phone] Enma Sneed LPN Other (Heavy Vaginal Bleeding) 04/12/2025 Telephone Patient Access Center [address] [place], [place] [id number] Desmond Tubbs APRN Preventative Care (Mammogram ) 03/15/2025 Telephone Patient Access Center [address] [place] [address] [id number] Desmond Tubbs APRN Preventative Care (Mammogram) 02/20/2025 10:00 AM EDT Surgical Consult [address], [address] [place] [phone] Sylvester Patel PA-C Frederick, James B., MD Postop check (Primary Dx) 02/20/2025 Travel from Last 3 Months Family History Medical History Relation Name Comments Renal Disease Brother Epilepsy Father Heart Disease Father Hypertension Father Breast Cancer Maternal Aunt 30's Breast Cancer Maternal Grandmother 60's Cancer Maternal Grandmother 60's Heart Disease Maternal Grandmother 60's Diabetes Mother Heart Disease Mother Hypertension Mother Breast Cancer Paternal Aunt 30's or 40's Asthma Sister Relation Name Status Comments Brother Alive Father Alive Maternal Aunt 30's Maternal Grandmother 60's Mother Alive Paternal Aunt 30's or 40's Alive Sister Alive Social History Tobacco Use Types Packs/Day Years Used Date Smoking Tobacco: Former Cigarettes 0.3 15 0 10/29/2006 - 10/29/2021 Passive Smoke Exposure: Never Smokeless Tobacco: Never Quit: 03/10/2013 Tobacco Cessation:Counseling Given: Not Answered Alcohol Use Standard Drinks/Week Comments No 0 (1 standard drink = 0.6 oz pur e alcohol) [facility] Utilities Answer Date Recorded In the past 12 months has th e electric, gas, oil, or water company threatened to [...] place to sleep or slept in a fdc (including now)? No 07/29/2024 Comments No Sex and Gender Information Value Date Recorded Sex Assigned at Not on file Legal Sex Female 8:37 PM EST Gender Identity Not on file Sexual Orientation Not on file Last Filed Vital Signs Vital Sign Reading Time Taken Comments Blood Pressure 113/74 02/20/2025 9:58 AM EDT Pulse 65 02/20/2025 9:58 AM EDT Temperature 36.7 C (98 F) 02/02/2025 2:10 PM EDT Respiratory Rate 15 02/02/2025 2:31 PM EDT Oxygen Saturation 98% 02/02/2025 2:31 PM EDT Inhaled Oxygen Concentration - - Weight 72.6 kg (160 lb) 02/20/2025 9:58 AM EDT Height 154.9 cm (5' 1 ) 02/02/2025 10:11 AM EDT Body Mass Index 30.23 02/02/2025 10:11 AM EDT Plan of Treatment Health Maintenance Due Date Last Done Comments ANNUAL MAMMOGRAM 2021 10/10/2019 INFLUENZA VACCINE (#1) 2025 06/12/2022 ANNUAL WELLNESS EXAM 01/17/2026 01/16/2025 PAP SMEAR EVERY 3 YR (Cervical Cancer Screen) 01/17/2028 01/16/2025, 02/09/2017, 05/20/2011 DTAP/TDAP/TD VACCINE (2 - Td or Tdap) 09/30/2032 09/30/2022 HEP C SCREENING Completed 10/11/2020 HEP A VACCINE Aged Out No longer elig ible based on patient's age to complete this topic HIB VACCINE Aged Out No longer eligi ble based on patient's age to complete this topic ROTOVIRUS VACCINE Aged Out No longer eligible based on patient's age to complete this topic Procedures Procedure Name Priority Date/Time Associated Diagnosis Comments WHEEL ADJUSTER CASES Routine 01/16/2025 10:28 AM EDT HEPATITIS C ANTIBODY W CONFIRMATION Routine 10/11/2020 10:40 AM EST care, subsequent , first trimester 6 weeks gestation of MAMMO DIAGNOSTIC (3D) BILATERAL Routine 10/10/2019 1:50 PM EST Lump in lower outer quadrant of right breast from Last 3 Months or Most Recently Relevant to Health Maintenance Results * Drop Machine Operator Cases (01/16/2025 10:28 AM EDT) WHEEL ADJUSTER CASES SEE BELOW [facility] Comment: [place] [address] Department of Cytology MILA ESCOBAR [id number] The information contained in this report is meant to be interpreted by the ordering physician/health care provider in the context of the patient's clinical findings. Please refer to your physician/health care provider for follow up care. SPECIMEN SUBMITTED: CERVICAL VAGINAL THIN PREP - IMAGED RELEVANT LMP....None Contraceptive HISTORY: Provided ....IUD Comment: 20 ml fixed clear fluid with white flecks./CM,WORLD DESIGNER SPECIMEN ADEQUACY SATISFACTORY FOR EVALUATION ENDOCERVICAL/TRANSFORMATION ZONE COMPONENT PRESENT GENERAL CATEGORIZATION NEGATIVE FOR INTRAEPITHELIAL LESIONS OR MALIGNANCY INTERPRETATION BENIGN CYTOLOGY NOTES Specimen successfully analyzed by ThinPrep Imaging System (Manufactured by [employer], [place], [place]) Following automated imaging, selected garcia were reviewed by a radiagraph operator Tube Sorter(s) <Sign Out Dr. Kennedy> EITAN PENA (CT, ASCP) Page 1 of 1 Cervical/Vaginal ThinPrep 01/16/2025 10:28 AM EDT 01/17/2025 12:13 PM EDT Sylvester Patel PA-C PATHOLOGY/CYTOLOGY ORDERABLES Final Result Performing Organization Address City/[facility]/ZIP Co de Phone Number [facility] [address] [place] [address] * Hepatitis C Antibody W Confirmation (10/11/2020 10:40 AM EST) Hepatitis C Antibody NEGATIVE Negative 10/12/2020 5:05 PM EST [facility] 10/11/2020 10:4 0 AM EST 10/11/2020 3:02 PM EST Buck Green MD CHEMISTRY ORDERABLES Final Result Performing Organization Address City/[facility] [[email or web address]] Co de Phone Number [facility] [address] [place] [address] [facility] [address] [place] [address] * Mammo Diagnostic (3D) Bilateral (10/10/2019 1:50 PM EST) Anatomical Region Laterality Modality breast Bilateral Mammography Narrative 10/10/2019 3:21 PM EST Examination: Diagnostic 3D bilateral mammogram and limited right breast ultrasound Clinical Indication: Palpable lump in the lower outer quadrant right breast (pea sized just under the skin). Risk Factors: Family history of breast cancer in maternal grandmother (60s), maternal aunt (30s), paternal aunt (30s 40s). History of bilateral axillary surgical intervention in 2007. Comparison: Outside facility examinations from [facility] dated 08/16/2014. Tissue Density B: Scattered fibroglandular densities that could obscure a lesion. Findings: Digital C-view as well as CC and MLO tomosynthesis views reveal scattered benign appearing calcifications and background nodular breast parenchymal pattern. Palpable marker at the lower outer quadrant right breast middle depth is noted. Subsequently, grayscale and color Doppler assessment was performed. The area of concern corresponds to the 7 o c lock position 4 cm from the nipple revealing an epidermal inclusion cyst/sebaceous cyst measuring up 7 x 6 x 3 mm. No suspicious mass identified. Impression: Benign findings. ACR BI-RADS CATEGORY 2 Recommendations: Annual screening mammogram. Patient information entered into a reminder system with a target due date for the next mammogram. Computer-aided detection was utilized for the interpretation of this exam. Eight to ten percent of breast cancers are not detected by mammography. Annual breast exams by your physician and monthly self-examinations are strongly recommended. This combined with mammography will increase the likelihood for early detection of breast cancer. SM/pb Panda Robin MD [facility] MAMMOGRAPHY ORDERABLES F inal Result from Last 3 Months or Most Recently Relevant to Health Maintenance [place] [address] [place] [address] Advance Directives * Full Code (Latest Code Status on File) Date Activated Date Inactivated Comments 02/02/2025 9:58 AM 02/02/2025 6:56 PM * Full Code Date Activated Date Inactivated Comments 12/05/2021 9:43 AM 12/05/2021 4:46 PM * Full Code Date Activated Date Inactivated Comments 02/06/2021 11:28 PM 02/08/2021 6:51 PM Care Teams Human Service Specialist Relationship Specialty Start Date End Date Desmond Tubbs APRN [address] [place] [address] PCP - General Nurse Practitioner 12/30/24 Buck [place]ana MD [facility] [place] [id number] Orthopedic Surgery 09/21/12 Provider, Historical 10/07/16 Shlomo Bess PA-C [address] [place] [address] [facility] [address] [place] [id number] Physician A Auxiliary 07/13/20 Rosa Carr 09/03/21 Buck Green MD [address] [place] [address] Obstetrics & Gynecology 09/04/21 Sylvester Patel PA-C [address] [place] [address] [place] [address] Physician A Auxiliary 09/09/21 Alejandra Doan, SHANIA 09/09/21 Radha Duran LPN LPN 11/01/21 Theresa Colon APRN [address] [place] [address] [address] [place] [address] Nurse Practitioner 11/27/21 Little Koo MD [address] [place] [address] Gastroenterology 11/27/21 Mariana Schultz APRN [address] [place] [address] Nurse Practitioner Gastroenterology 01/28/22 Trino Wolff LPN LPN 04/16/22 Blanca Whittington LPN LPN 05/05/22 Blanca Reagan, EMULSIFICATION OPERATOR EMULSIFICATION OPERATOR 06/30/22 Enma Sneed, EMULSIFICATION OPERATOR EMULSIFICATION OPERATOR 05/09/25
--- OUTSIDE RECORDS SUMMARY | 2025-05-09 12:48 | XMS_ITS | Encounter Summary ---
Author Organization [facility] Address [address] [place] [address] Care Team Providers Care Real Estate Legal Secretary Name Role Phone Buck Santana MD Unavailable Mar Gomez APRN Primary Care Provider [phone] Provider, Historical Unavailable Unavailable Shlomo Bess PA-C Unavailable [phone] Rosa Carr Unavailable Unavailable Buck Green MD Unavailable [phone] Sylvester Patel PA-C Unavailable Alejandra Doan RN Unavailable Unavailable Radha Duran LPN Unavailable Unavailable Theresa Colon CHILD CARE COOK Unavailable [phone] Little Koo MD Unavailable Mariana Schultz CHILD CARE COOK Unavailable Trino Wolff GRINDER WATCH PARTS Unavailable Unavailable Blanca Whittington GRINDER WATCH PARTS Unavailable Unavailab Blanca Monson GRINDER WATCH PARTS Unavailable Unavailable Desmond Tubbs APRN Primary Care Provider [phone] Enma Sneed LPN Unavailable Unavailable Encounter Details Date Type Department Care Team (Latest Contact Info) Description 03/19/2017 Transcribe Orders [facility] Buck Green MD [address] [place] [address] [address] [place] [address] examination or test, unconfirmed (Primary Dx); Less [...] of this encounter Plan of Treatment Scheduled Orders Name Type Priority Associated Diagnoses Orde r Schedule Venipuncture Lab Today examination or test, unconfirmed Less than 8 weeks gestation of 1 Occurrences starting 03/19/2017 until 03/19/2018 documented as of this encounter Results * Test, Quant. (03/19/2017 11:40 AM EDT) BETA HCG <5 m[iU]/L 03/19/2017 3:[address] [facility] Comment: APPROXIMATE GESTATIONAL AGE APPROXIMATE hCG RANGE (mIU/ML) NON <5 0.2-1 WEEK 5-50 1-2 WEEKS 50-500 2-3 WEEKS 100-5,000 3-4 WEEKS 500-10,000 4-5 WEEKS 1,000-50,000 5-6 WEEKS 10,000-100,000 6-8 WEEKS 15,000-200,000 8-12 WEEKS 10,000-100,000 03/19/2017 11:4 0 AM EDT 03/19/2017 3:09 PM EDT us Buck Green MD CHEMISTRY ORDERABLES Final Result [facility] [address] [place] [address] documented in this encounter Visit Diagnoses Diagnosis examination or test, unconfirmed- Primary Less than 8 weeks gestation of ([facility]) documented in this encounter Additional Health Concerns Infection Onset Date Last Indicated Resolved Time Covid-19 (rule out) 05/07/2022 05/07/2022 05/08/20 22 12:33 AM EDT Covid-19 (confirmed) 11/05/2022 11/06/2022 023 10:12 PM EST documented as of this encounter Care Teams Real Estate Legal Secretary Relationship Specialty Start Date End Date Mar Gomez APRN [address] [place] [address] PCP - General Nurse Practitioner 02/18/16 10/02/24 Desmond Tubbs APRN [id number] [id number] PCP - General Nurse Practitioner 12/30/24 Buck Santana MD [facility] [place] [id number] Orthopedic Surgery 09/21/12 Provider, Historical 10/07/16 Shlomo Bess PA-C [address] [place] [address] [address] [place] [address] Physician Associate Vice President 07/13/20 Rosa Carr 09/03/21 Buck Green MD [address] [place] [address] [place] [address] Obstetrics & Gynecology 09/04/21 Sylvester Patel PA-C [address] [place] [address] [address] [place] [address] Physician Associate Vice President 09/09/21 Alejandra Doan, RN 09/09/21 Radha Duran LPN LPN 11/01/21 Theresa Colon APRN [address] [place] [address] [address] [place] [address] Nurse Practitioner 11/27/21 Little Koo MD [address] [place] [address] [place] [address] Gastroenterology 11/27/21 Mariana Schultz APRN [address] [place] [address] Nurse Practitioner Gastroenterology 01/28/22 Trino Wolff, GRINDER WATCH PARTS GRINDER WATCH PARTS 04/16/22 Blanca Whittington, GRINDER WATCH PARTS GRINDER WATCH PARTS 05/05/22 Blanca Reagan, GRINDER WATCH PARTS GRINDER WATCH PARTS 06/30/22 Enma Sneed, GRINDER WATCH PARTS GRINDER WATCH PARTS 05/09/25 documented as of this encounter
--- OUTSIDE RECORDS SUMMARY | 2025-05-09 12:48 | XMS_ITS | Encounter Summary ---
Author Organization [facility] Address [address] [place] [address] Care Team Providers Care Filling Separator Name Role Phone Bennie Jo DO Primary Care Provider [phone] Vikram Duncan MD Primary Care Provider [phone] Aniyah Trammell PATTERN STAMPER Primary Care Provider Buck Santana MD Unavailable Mar Gomez PATTERN STAMPER Primary Care Provider Provider, Historical Unavailable Unavailable Shlomo BessC Unavailable [phone] Rosa Carr Unavailable Unavailable Buck Green MD Unavailable [phone] Sylvester Patel-C Unavailable [phone] Alejandra Doan RN Unavailable Unavailable Radha Duran MISSIONARY COORDINATOR Unavailable Unavailable Theresa Colon PATTERN STAMPER Unavailable [phone] Little Koo MD Unavailable [phone] Mariana Schultz PATTERN STAMPER Unavailable [phone] Trino Wolff MISSIONARY COORDINATOR Unavailable Unavailable Blanca Whittington MISSIONARY COORDINATOR Unavailable Unavailab Blanca Monson MISSIONARY COORDINATOR Unavailable Unavailable Desmond Tubbs APRN Primary Care Provider Enma Sneed MISSIONARY COORDINATOR Unavailable Unavailable Encounter Details Date Type Department Care Team (Late st Contact Info) Description 11/10/2005 Historical Encounter Global Bill Mcfarlane MD [address] [place] [address] Social History Tobacco Use Types [...] documented as of this encounter Care Teams Filling Separator Relationship Specialty Start Date End Date Bennie Jo DO PCP - General 04/24/09 09/20/12 Vikram [place] MD [address] [place] [address] PCP - General 08/14/08 04/23/09 Aniyah Trammell APRN [address] [place] [address] PCP - General Nurse Practitioner 09/21/12 02/17/16 Mar Gomez APRN [address] [place] [address] PCP - General Nurse Practitioner 02/18/16 10/02/24 Desmond Tubbs APRN [id number] [address] [place], [place] 5[address] PCP - General Nurse Practitioner 12/30/24 Buck Santana MD [facility] [place] [address] Orthopedic Surgery 09/21/12 Provider, Historical 10/07/16 Shlomo Bess PA-C [address] [place] [address] [address] [place] [address] Physician Tin Container Straightener 07/13/20 Rosa Carr 09/03/21 Buck Green MD [address] [place] [address] [address] [place] [address] Obstetrics & Gynecology 09/04/21 Sylvester Patel PA-C [address] [place] [address] [place] [address] Physician Tin Container Straightener 09/09/21 Alejandra Doan, SHANIA 09/09/21 Radha Duran LPN LPN 11/01/21 Theresa Colon APRN [address] [place] [address] [address] [place] [address] Nurse Practitioner 11/27/21 Little Koo MD [address] [place] [address] [address] [place] [address] Gastroenterology 11/27/21 Mariana Schultz APRN [address] [place] [address] [place] [address] Nurse Practitioner Gastroenterology 01/28/22 Trino Wolff LPN MISSIONARY COORDINATOR 04/16/22 Blanca Whittington, MISSIONARY COORDINATOR MISSIONARY COORDINATOR 05/05/22 Blanca Reagan, MISSIONARY COORDINATOR MISSIONARY COORDINATOR 06/30/22 Enma Sneed, MISSIONARY COORDINATOR MISSIONARY COORDINATOR 05/09/25 documented as of this encounter
--- OUTSIDE RECORDS SUMMARY | 2025-05-09 12:48 | XMS_ITS | Encounter Summary ---
Author Organization [facility] Address [address] [place] [address] Care Team Providers Care Quiller Tender Name Role Phone Bennie Jo DO Primary Care Provider [phone] Vikram [place] MD Primary Care Provider [phone] Aniyah Trammell AUTO BODY ESTIMATOR Primary Care Provider Buck Santana MD Unavailable Mar Gomez AUTO BODY ESTIMATOR Primary Care Provider [phone] Provider, Historical Unavailable Unavailable Shlomo BessC Unavailable [phone] Rosa Carr Unavailable Unavailable Buck Green MD Unavailable [phone] Sylvester Patel-C Unavailable [phone] Alejandra Doan RN Unavailable Unavailable Radha Duran GOLF TECHNICIAN Unavailable Unavailable Theresa Colon AUTO BODY ESTIMATOR Unavailable [phone] Little Koo MD Unavailable [phone] Mariana Schultz AUTO BODY ESTIMATOR Unavailable [phone] Trino Wolff GOLF TECHNICIAN Unavailable Unavailable Blanca Whittington GOLF TECHNICIAN Unavailable Unavailab Blnaca Monson GOLF TECHNICIAN Unavailable Unavailable Desmond Tubbs APRN Primary Care Provider [phone] Enma Sneed GOLF TECHNICIAN Unavailable Unavailable Encounter Details Date Type Department Care Team (Late st Contact Info) Description 02/26/2006 Historical Encounter Global Bill Mcfarlane MD [address] [place] [address] Social History Tobacco Use Types [...] documented as of this encounter Care Teams Quiller Tender Relationship Specialty Start Date End Date Bennie Jo DO PCP - General 04/24/09 09/20/12 Vikram [place] MD [address] [place] [address] PCP - General 08/14/08 04/23/09 Aniyah Trammell APRN [address] [place] [address] PCP - General Nurse Practitioner 09/21/12 02/17/16 Mar Gomez APRN [address] [place] [address] PCP - General Nurse Practitioner 02/18/16 10/02/24 Desmond Tubbs APRN [address] [address] [place], [place] [address] PCP - General Nurse Practitioner 12/30/24 Buck Santana MD [facility] [place] [address] Orthopedic Surgery 09/21/12 Provider, Historical 10/07/16 Shlomo Bess PA-C [address] [place] [address] [address] [place] [address] Physician Welding Inspector 07/13/20 Rosa Carr 09/03/21 Buck Green MD [address] [place] [address] [address] [place] [address] Obstetrics & Gynecology 09/04/21 Sylvester Patel PA-C [address] [place] [address] [address] [place] [address] Physician Welding Inspector 09/09/21 Alejandra Doan, SHANIA 09/09/21 Radha Duran LPN LPN 11/01/21 Theresa Colon APRN [address] [place] [address] [address] [place] [address] Nurse Practitioner 11/27/21 Little Koo MD [address] [place] [address] [address] [place] [address] Gastroenterology 11/27/21 Mariana Schultz APRN [address] [place] [address] [place] [address] Nurse Practitioner Gastroenterology 01/28/22 Trino Wolff LPN GOLF TECHNICIAN 04/16/22 Blanca Whittington, GOLF TECHNICIAN GOLF TECHNICIAN 05/05/22 Blanca Reagan, GOLF TECHNICIAN GOLF TECHNICIAN 06/30/22 Enma Sneed, GOLF TECHNICIAN GOLF TECHNICIAN 05/09/25 documented as of this encounter
--- OUTSIDE RECORDS SUMMARY | 2025-05-09 12:48 | XMS_ITS | Encounter Summary ---
Author Organization [facility] Address [address] [place] [address] Care Team Providers Care Soil Conservation Teacher Name Role Phone Buck Santana MD Unavailable Mar Gomez APRN Primary Care Provider [phone] Provider, Historical Unavailable Unavailable Shlomo Bess PA-C Unavailable [phone] Rosa Carr Unavailable Unavailable Buck Green MD Unavailable Sylvester Patel PA-C Unavailable [phone] Alejandra Doan RN Unavailable Unavailable Radha Duran LPN Unavailable Unavailable Theresa Colon HAND STRIPPER Unavailable [phone] Little Koo MD Unavailable [phone] Mariana Schultz HAND STRIPPER Unavailable Trino Wolff DRILLER HELPER Unavailable Unavailable Blanca Whittington DRILLER HELPER Unavailable Unavailab Blanca Monson DRILLER HELPER Unavailable Unavailable Desmond Tubbs APRN Primary Care Provider Enma Sneed LPN Unavailable Unavailable Reason for Referral * Consultation (Routine) - Closed Specialty Diagnoses / Procedures Referred By Contjessica t Referred To Contact Hematology and Oncology Diagnoses Iron deficiency anemia secondary to inadequate dietary iron intake Mar Gomez APRN [address] [place] [address] Phone: tel: fax: Louie Uriarte MD [address] [address] Phone: tel: fax: Referral ID Status Reason Start Date Expiration Date Visits Re quested Visits Authorized [id number] Closed 01/15/2017 01/15/2018 1 1 Encounter Details Date Type Department Care Team (Late st Contact Info) Description 01/15/2017 Orders Only [facility] [address] [place] [address] Mar Gomez APRN [address] [place], [place] 95[address] Iron deficiency anemia secondary to inadequate dietary iron intake (Primary Dx) Social History Tobacco Use Types [...] Scheduled Referrals Name Type Priority Associated Diagnoses Order Schedule Ambulatory referral to Hematology Outpatient Referral Routine Iron deficiency anemia secondary to inadequate dietary iron intake Ordered: 01/15/2017 documented as of this encounter Visit Diagnoses Diagnosis Iron deficiency anemia secondary to inadequate dietary iron intake- Primary documented in this encounter Additional Health Concerns Infection Onset Date Last Indicated Resolved Time Covid-19 (rule out) 05/07/2022 05/07/2022 05/08/20 22 12:33 AM EDT Covid-19 (confirmed) 11/05/2022 11/06/2022 023 10:12 PM EST documented as of this encounter Care Teams Soil Conservation Teacher Relationship Specialty Start Date End Date Mar Gomez APRN [address] [place] [address] PCP - General Nurse Practitioner 02/18/16 10/02/24 Desmond Tubbs APRN [id number] [id number] PCP - General Nurse Practitioner 12/30/24 Buck Santana MD [facility] [place] [address] Orthopedic Surgery 09/21/12 Provider, Historical 10/07/16 Shlomo Bess PA-C [address] [place] [address] [address] [place] [address] Physician Business Process Lead 07/13/20 Rosa Carr 09/03/21 Buck Green MD [address] [place] [address] [place] [address] Obstetrics & Gynecology 09/04/21 Sylvester Patel PA-C [address] [place] [address] [address] [place] [address] Physician Business Process Lead 09/09/21 Alejandra Doan, SHANIA 09/09/21 Radha Duran LPN LPN 11/01/21 Theresa Colon APRN [address] [place] [address] [address] [place] [address] Nurse Practitioner 11/27/21 Little Koo MD [address] [place] [address] [address] [place] [address] Gastroenterology 11/27/21 Mariana Schultz APRN [address] [place] [address] Nurse Practitioner Gastroenterology 01/28/22 Trino Wolff, DRILLER HELPER DRILLER HELPER 04/16/22 Blanca Whittington, DRILLER HELPER DRILLER HELPER 05/05/22 Blanca Reagan, DRILLER HELPER DRILLER HELPER 06/30/22 Enma Sneed, DRILLER HELPER DRILLER HELPER 05/09/25 documented as of this encounter
--- OUTSIDE RECORDS SUMMARY | 2025-05-09 12:48 | XMS_ITS | Encounter Summary ---
Author Organization [facility] Address [address] [place] [address] Care Team Providers Care Machine Featheredger And Reducer Name Role Phone Buck Santana MD Unavailable Mar Gomez APRN Primary Care Provider [phone] Provider, Historical Unavailable Unavailable Shlomo Bess PA-C Unavailable [phone] Rosa Carr Unavailable Unavailable Buck Green MD Unavailable [phone] Sylvester Patel PA-C Unavailable [phone] Alejandra Doan RN Unavailable Unavailable Radha Duran LPN Unavailable Unavailable Theresa Colon CUSTOMER ACQUISITION SPECIALIST Unavailable Little Koo MD Unavailable [phone] Mariana Schultz CUSTOMER ACQUISITION SPECIALIST Unavailable [phone] Trino Wolff NC MACHINIST Unavailable Unavailable Blanca Whittington NC MACHINIST Unavailable Unavailab Blanca Monson NC MACHINIST Unavailable Unavailable Desmond Tubbs APRN Primary Care Provider Enma Sneed LPN Unavailable Unavailable Encounter Details Date Type Department Care Team (Latest Contact Info) Description 05/20/2021 Transcribe Orders [facility] Buck Green MD [address] [place] [address] [address] [place] [address] examination or test, unconfirmed (Primary Dx); Less [...] have Coronavirus / COVID-19? No / Unsure 05/20/2021 4:20 PM EDT documented as of this encounter Plan of Treatment Not on file documented as of this encounter Results * Test, Quant. (05/20/2021 4:23 PM EDT) BETA HCG <5 m[iU]/L 05/20/2021 11:38 PM EDT [facility] Comment: APPROXIMATE GESTATIONAL AGE APPROXIMATE hCG RANGE (mIU/ML) NON <5 0.2-1 WEEK 5-50 1-2 WEEKS 50-500 2-3 WEEKS 100-5,000 3-4 WEEKS 500-10,000 4-5 WEEKS 1,000-50,000 5-6 WEEKS 10,000-100,000 6-8 WEEKS 15,000-200,000 8-12 WEEKS 10,000-100,000 05/20/2021 4:23 PM EDT 05/20/2021 11:10 PM EDT us Buck Green MD CHEMISTRY ORDERABLES Final Result [facility] [address] [place] [address] [facility] [address] [place] [address] documented in this encounter Visit Diagnoses Diagnosis examination or test, unconfirmed- Primary Less than 8 weeks gestation of ([facility]) documented in this encounter Additional Health Concerns Infection Onset Date Last Indicated Resolved Time Covid-19 (rule out) 05/07/2022 05/07/2022 05/08/20 22 12:33 AM EDT Covid-19 (confirmed) 11/05/2022 11/06/2022 023 10:12 PM EST documented as of this encounter Care Teams Machine Featheredger And Reducer Relationship Specialty Start Date End Date Mar Gomez APRN [address] [place], [place] [id number] PCP - General Nurse Practitioner 02/18/16 10/02/24 Desmond Tubbs APRN [address] [address] [place], [place] [id number] PCP - General Nurse Practitioner 12/30/24 Buck Santana MD [facility] [employer] [place] [id number] Orthopedic Surgery 09/21/12 Provider, Historical 10/07/16 Shlomo Bess PA-C [address] [place] [address] [address] [place] [address] Physician Prospecting Driller Helper 07/13/20 Rosa Carr 09/03/21 Buck Green MD [address] [place] [address] [address] [place] [address] Obstetrics & Gynecology 09/04/21 Sylvester Patel PA-C [address] [place] [address] [place] [address] Physician Prospecting Driller Helper 09/09/21 Alejandra Doan, RN 09/09/21 Radha Duran LPN LPN 11/01/21 Theresa Colon APRN [address] [facility] [address] [place] [address] Nurse Practitioner 11/27/21 Little Koo MD [address] [place] [address] 430 [place] [address] Gastroenterology 11/27/21 Mariana Schultz APRN [address] [place] [address] Nurse Practitioner Gastroenterology 01/28/22 Trino Wolff, NC MACHINIST NC MACHINIST 04/16/22 Blanca Whittington, NC MACHINIST NC MACHINIST 05/05/22 Blanca Reagan, NC MACHINIST NC MACHINIST 06/30/22 Enma Sneed, NC MACHINIST NC MACHINIST 05/09/25 documented as of this encounter
--- OUTSIDE RECORDS SUMMARY | 2025-05-09 12:48 | XMS_ITS | Encounter Summary ---
Author Organization [facility] Address [address] [place] [address] Care Team Providers Care Fire Control Technician Name Role Phone Buck Santana MD Unavailable Mar Gomez APRN Primary Care Provider [phone] Provider, Historical Unavailable Unavailable Shlomo Bess PA-C Unavailable [phone] Rosa Carr Unavailable Unavailable Buck Green MD Unavailable Sylvester Patel PA-C Unavailable [phone] Alejandra Doan RN Unavailable Unavailable Radha Duran LPN Unavailable Unavailable Theresa Colon 4TH GRADE TEACHER Unavailable Little Koo MD Unavailable Mariana Schultz 4TH GRADE TEACHER Unavailable Trino Wolff CHIEF OF PARTY Unavailable Unavailable Blanca Whittington CHIEF OF PARTY Unavailable Unavailab Blanca Monson CHIEF OF PARTY Unavailable Unavailable Desmond Tubbs APRN Primary Care Provider Enma Sneed LPN Unavailable Unavailable Encounter Details Date Type Department Care Team (Latest Contact Info) Description 07/22/2021 Transcribe Orders [facility] Buck Green MD [address] [place] [address] [address] [place] [address] (work) examination or test, unconfirmed (Primary Dx) Social [...] of this encounter Results * Test, Quant. (09/04/2021 8:26 AM EST) BETA HCG <5 m[iU]/L 09/04/2021 10:29 AM EST [facility] Comment: APPROXIMATE GESTATIONAL AGE APPROXIMATE hCG RANGE (mIU/ML) NON <5 0.2-1 WEEK 5-50 1-2 WEEKS 50-500 2-3 WEEKS 100-5,000 3-4 WEEKS 500-10,000 4-5 WEEKS 1,000-50,000 5-6 WEEKS 10,000-100,000 6-8 WEEKS 15,000-200,000 8-12 WEEKS 10,000-100,000 09/04/2021 8:26 AM EST 09/04/2021 8:39 AM EST Buck Green MD CHEMISTRY ORDERABLES Final Result Performing Organization Address City/State/[facility] Co de Phone Number [facility] [address] [place] [address] [facility] [address] [place] [address] documented in this encounter Visit Diagnoses Diagnosis examination or test, unconfirmed- Primary documented in this encounter Additional Health Concerns Infection Onset Date Last Indicated Resolved Time Covid-19 (rule out) 05/07/2022 05/07/2022 05/08/20 22 12:33 AM EDT Covid-19 (confirmed) 11/05/2022 11/06/2022 023 10:12 PM EST documented as of this encounter Care Teams Fire Control Technician Relationship Specialty Start Date End Date Mar Gomez APRN [address] [place] [address] PCP - General Nurse Practitioner 02/18/16 10/02/24 Desmond Tubbs APRN [address] [address] [place] [address] PCP - General Nurse Practitioner 12/30/24 Buck Santana MD [address] [place], [place] [address] Orthopedic Surgery 09/21/12 Provider, Historical 10/07/16 Shlomo Bess PA-C [address] [place] [address] [address] [place] [address] Physician Certification Engineer 07/13/20 Rosa Carr 09/03/21 Buck Green MD [address] [place] [address] [address] [place] [address] Obstetrics & Gynecology 09/04/21 Sylvester Patel PA-C [address] [place] [address] [address] [place] [address] Physician Certification Engineer 09/09/21 Alejandra Doan, RN 09/09/21 Radha Duran LPN LPN 11/01/21 Theresa Colon APRN [address] [place] [address] [address] [place] [address] Nurse Practitioner 11/27/21 Little Koo MD [address] [place] [address] [address] [facility] [place], [place] [address] Gastroenterology 11/27/21 Mariana Schultz APRN [address] [place] [address] Nurse Practitioner Gastroenterology 01/28/22 Trino Wolff, CHIEF OF PARTY CHIEF OF PARTY 04/16/22 Blanca Whittington, CHIEF OF PARTY CHIEF OF PARTY 05/05/22 Blanca Reagan, CHIEF OF PARTY CHIEF OF PARTY 06/30/22 Enma Sneed, CHIEF OF PARTY CHIEF OF PARTY 05/09/25 documented as of this encounter
--- OUTSIDE RECORDS SUMMARY | 2025-05-09 12:48 | XMS_ITS | Encounter Summary ---
Author Organization [facility] Address [address] [place] [address] Care Team Providers Care Health Promotion Manager Name Role Phone Bennie Jo DO Primary Care Provider [phone] Vikram Duncan MD Primary Care Provider [phone] Aniyah Trammell ALARM SIGNALER Primary Care Provider Buck Santana MD Unavailable Mar Gomez ALARM SIGNALER Primary Care Provider Provider, Historical Unavailable Unavailable Shlomo BessC Unavailable [phone] Rosa Carr Unavailable Unavailable Buck Green MD Unavailable [phone] Sylvester Patel-C Unavailable [phone] Alejandra Doan RN Unavailable Unavailable Radha Duran HAIR CUTTER Unavailable Unavailable Theresa Colon ALARM SIGNALER Unavailable [phone] Little Koo MD Unavailable [phone] Mariana Schultz ALARM SIGNALER Unavailable [phone] Trino Wolff HAIR CUTTER Unavailable Unavailable Blanca Whittington HAIR CUTTER Unavailable Unavailab Blanca Monson HAIR CUTTER Unavailable Unavailable Desmond Tubbs APRN Primary Care Provider Enma Sneed HAIR CUTTER Unavailable Unavailable Encounter Details Date Type Department Care Team (Late st Contact Info) Description 10/01/2005 Historical Encounter Global Bill Mcfarlane MD [address] [place] [address] Social History Tobacco Use Types [...] documented as of this encounter Care Teams Health Promotion Manager Relationship Specialty Start Date End Date Bennie Jo DO PCP - General 04/24/09 09/20/12 Vikram Duncan MD [address] [place] [address] PCP - General 08/14/08 04/23/09 Aniyah Trammell APRN [address] [place] [address] PCP - General Nurse Practitioner 09/21/12 02/17/16 Mar Gomez APRN [address] [place] [address] PCP - General Nurse Practitioner 02/18/16 10/02/24 Desmond Tubbs APRN [id number] [address] [place], [place] [id number] PCP - General Nurse Practitioner 12/30/24 Buck Santana MD [facility] [place] [address] Orthopedic Surgery 09/21/12 Provider, Historical 10/07/16 Shlomo Bess PA-C [address] [place] [address] [address] [place] [address] Physician Water/Wastewater Project Manager 07/13/20 Rosa Carr 09/03/21 Buck Green MD [address] [place] [address] [address] [place] [address] Obstetrics & Gynecology 09/04/21 Sylvester Patel PA-C [address] [place] [address] [address] [place] [address] Physician Water/Wastewater Project Manager 09/09/21 Alejandra Doan, SHANIA 09/09/21 Radha Duran LPN LPN 11/01/21 Theresa Colon APRN [address] [place] [address] 203 [place] [address] Nurse Practitioner 11/27/21 Little Koo MD [address] [place] [address] [address] [place] [address] Gastroenterology 11/27/21 Mariana Schultz APRN [address] [place] [address] [place] [address] Nurse Practitioner Gastroenterology 01/28/22 Trino Wolff LPN HAIR CUTTER 04/16/22 Blanca Whittington, HAIR CUTTER HAIR CUTTER 05/05/22 Blanca Reagan, HAIR CUTTER HAIR CUTTER 06/30/22 Enma Sneed, HAIR CUTTER HAIR CUTTER 05/09/25 documented as of this encounter
--- OUTSIDE RECORDS SUMMARY | 2025-05-09 12:48 | XMS_ITS | Encounter Summary ---
Author Organization [facility] Address [address] [place] [address] Care Team Providers Care Filler Blender Name Role Phone Bennie Jo DO Primary Care Provider [phone] Vikram Duncan MD Primary Care Provider [phone] Aniyah Trammell FLIGHT READINESS TECHNICIAN Primary Care Provider Buck Santana MD Unavailable Mar Gomez FLIGHT READINESS TECHNICIAN Primary Care Provider Provider, Historical Unavailable Unavailable Shlomo BessC Unavailable [phone] Rosa Carr Unavailable Unavailable Buck Green MD Unavailable [phone] Sylvester Patel-C Unavailable [phone] Alejandra Doan RN Unavailable Unavailable Radha Duran AGRICULTURE MECHANIC Unavailable Unavailable Theresa Colon FLIGHT READINESS TECHNICIAN Unavailable [phone] Little Koo MD Unavailable [phone] Mariana Schultz FLIGHT READINESS TECHNICIAN Unavailable [phone] Trino Wolff AGRICULTURE MECHANIC Unavailable Unavailable Blanca Whittington AGRICULTURE MECHANIC Unavailable Unavailab Blanca Monson AGRICULTURE MECHANIC Unavailable Unavailable Desmond Tubbs APRN Primary Care Provider Enma Sneed AGRICULTURE MECHANIC Unavailable Unavailable Encounter Details Date Type Department Care Team (Late st Contact Info) Description 02/10/2006 Historical Encounter Global Bill Mcfarlane MD [address] [place] [address] Social History Tobacco Use Types [...] documented as of this encounter Care Teams Filler Blender Relationship Specialty Start Date End Date Bennie Jo DO PCP - General 04/24/09 09/20/12 Vikram Duncan MD 5 [place] [address] PCP - General 08/14/08 04/23/09 Aniyah Trammell APRN [address] [place] [address] PCP - General Nurse Practitioner 09/21/12 02/17/16 Mar Gomez APRN [address] [place] [address] PCP - General Nurse Practitioner 02/18/16 10/02/24 Desmond Tubbs APRN 10165 [address] [place], [place] [id number] PCP - General Nurse Practitioner 12/30/24 Buck Santana MD [facility] [place] [address] Orthopedic Surgery 09/21/12 Provider, Historical 10/07/16 Shlomo Bess PA-C [address] [place] [address] [address] [place] [address] Physician Primer Inspector 07/13/20 Rosa Carr 09/03/21 Buck Green MD [address] [place] [address] 415 [place] [address] Obstetrics & Gynecology 09/04/21 Sylvester Patel PA-C [address] [place] [address] [address] [place] [address] Physician Primer Inspector 09/09/21 Alejandra Doan, SHANIA 09/09/21 Radha Duran LPN LPN 11/01/21 Theresa Colon APRN [address] [place] [address] 203 [place] [address] Nurse Practitioner 11/27/21 Little Koo MD [address] [place] [address] [address] [place] [address] Gastroenterology 11/27/21 Mariana Schultz APRN [address] [place] [address] [place] [address] Nurse Practitioner Gastroenterology 01/28/22 Trino Wolff LPN AGRICULTURE MECHANIC 04/16/22 Blanca Whittington, AGRICULTURE MECHANIC AGRICULTURE MECHANIC 05/05/22 Blanca Reagan, AGRICULTURE MECHANIC AGRICULTURE MECHANIC 06/30/22 Enma Sneed, AGRICULTURE MECHANIC AGRICULTURE MECHANIC 05/09/25 documented as of this encounter
--- OUTSIDE RECORDS SUMMARY | 2025-05-09 12:48 | XMS_ITS | Encounter Summary ---
Author Organization [facility] Address [address] [place] [address] Care Team Providers Care Financial Processing Clerk Name Role Phone Bennie Jo DO Primary Care Provider [phone] Vikram Duncan MD Primary Care Provider [phone] Aniyah Trammell CASE MANAGER Primary Care Provider Buck Santana MD Unavailable Mar Gomez CASE MANAGER Primary Care Provider Provider, Historical Unavailable Unavailable Shlomo BessC Unavailable [phone] Rosa Carr Unavailable Unavailable Buck Green MD Unavailable [phone] Sylvester Patel-C Unavailable [phone] Alejandra Doan RN Unavailable Unavailable Radha Duran APPLIED BIOLOGY PROFESSOR Unavailable Unavailable Theresa Colon CASE MANAGER Unavailable [phone] Little Koo MD Unavailable [phone] Mariana Schultz CASE MANAGER Unavailable [phone] Trino Wolff APPLIED BIOLOGY PROFESSOR Unavailable Unavailable Blanca Whittington APPLIED BIOLOGY PROFESSOR Unavailable Unavailab Blanca Monson APPLIED BIOLOGY PROFESSOR Unavailable Unavailable Desmond Tubbs APRN Primary Care Provider Enma Sneed APPLIED BIOLOGY PROFESSOR Unavailable Unavailable Encounter Details Date Type Department Care Team (Late st Contact Info) Description 12/30/2005 Historical Encounter Global Bill Mcfarlane MD [address] [place] [address] Social History Tobacco Use Types [...] documented as of this encounter Care Teams Financial Processing Clerk Relationship Specialty Start Date End Date Bennie Jo DO PCP - General 04/24/09 09/20/12 Vikram Duncan MD 5 [place] [address] PCP - General 08/14/08 04/23/09 Aniyah Trammell APRN [address] [place] [address] PCP - General Nurse Practitioner 09/21/12 02/17/16 Mar Gomez APRN [address] [place] [address] PCP - General Nurse Practitioner 02/18/16 10/02/24 Desmond Tubbs APRN [id number] [address] [place], [place] [id number] PCP - General Nurse Practitioner 12/30/24 Buck Santana MD [facility] [place] [address] Orthopedic Surgery 09/21/12 Provider, Historical 10/07/16 Shlomo Bess PA-C [address] [place] [address] [address] [place] [address] Physician Retread Supervisor 07/13/20 Rosa Carr 09/03/21 Buck Green MD [address] [place] [address] 415 [place] [address] Obstetrics & Gynecology 09/04/21 Sylvester Patel PA-C [address] [place] [address] [address] [place] [address] Physician Retread Supervisor 09/09/21 Alejandra Doan, SHANIA 09/09/21 Radha Duran LPN LPN 11/01/21 Theresa Colon APRN [address] [place] [address] 203 [place] [address] Nurse Practitioner 11/27/21 Little Koo MD [address] [place] [address] [address] [place] [address] Gastroenterology 11/27/21 Mariana Schultz APRN [address] [place] [address] [place] [address] Nurse Practitioner Gastroenterology 01/28/22 Trino oWlff LPN APPLIED BIOLOGY PROFESSOR 04/16/22 Blanca Whittington, APPLIED BIOLOGY PROFESSOR APPLIED BIOLOGY PROFESSOR 05/05/22 Blanca Reagan, APPLIED BIOLOGY PROFESSOR APPLIED BIOLOGY PROFESSOR 06/30/22 Enma Sneed, APPLIED BIOLOGY PROFESSOR APPLIED BIOLOGY PROFESSOR 05/09/25 documented as of this encounter
--- OUTSIDE RECORDS SUMMARY | 2025-05-09 12:48 | XMS_ITS | Encounter Summary ---
Author Organization [facility] Address [address] [place] [address] Care Team Providers Care Cardroom Plastic Card Grader Name Role Phone Buck Santana MD Unavailable Mar Gomez APRN Primary Care Provider [phone] Provider, Historical Unavailable Unavailable Shlomo Bess PA-C Unavailable [phone] Rosa Carr Unavailable Unavailable Buck Green MD Unavailable Sylvester Patel PA-C Unavailable Alejandra Doan RN Unavailable Unavailable Radha Duran LPN Unavailable Unavailable Theresa Colon DUST COLLECTOR Unavailable Little Koo MD Unavailable Mariana Schultz DUST COLLECTOR Unavailable [phone] Trino Wolff PHOTOENGRAVING PHOTOGRAPHER Unavailable Unavailable Blanca Whittington PHOTOENGRAVING PHOTOGRAPHER Unavailable Unavailab Blanca Monson PHOTOENGRAVING PHOTOGRAPHER Unavailable Unavailable Desmond Tubbs APRN Primary Care Provider [phone] Enma Sneed LPN Unavailable Unavailable Reason for Visit * Reason Onset Date Comments Follow-up 01/22/2017 Encounter Details Date Type Department Care Team (Late st Contact Info) Description 01/22/2017 Telephone Patient Access Center [address] [place], [place] [id number] Mar Gomez APRN [id number] [place] [address] Follow-up Social History Tobacco Use Types Packs/Day Years [...] encounter Miscellaneous Notes * Telephone Encounter - Radha Hyatt RT - 01/28/2017 10:55 AM EDT Left message again asking pt if she wants a referral to [facility] or [facility]. Number provided. * Telephone Encounter - Radha Hyatt RT - 01/23/2017 11:11 AM EDT Left message for pt to call us regarding referral to [facility] or [facility]. We need to know if this is OK. * Telephone Encounter - Anita James RN - 01/22/2017 3:47 PM EDT Patient was calling for Holter monitor results and during that call mentioned she was not able to get into until April. She wanted to know if there was anybody she could get into sooner so she could start feeling bettersooner? She is requesting a call back. * Telephone Encounter - Anita James RN - 01/22/2017 3:47 PM EDT ----- Message from Thelma Dick sent at 01/22/2017 3:34 PM EDT ----- Regarding: results Contact: Patient is needing return call regarding Holter monitor results and MRI Reuslts documented in this encounter Plan of Treatment Not on file documented as of this encounter Visit Diagnoses Not on filedocumented in this encounter Additional Health Concerns Infection Onset Date Last Indicated Resolved Time Covid-19 (rule out) 05/07/2022 05/07/2022 05/08/20 22 12:33 AM EDT Covid-19 (confirmed) 11/05/2022 11/06/2022 023 10:12 PM EST documented as of this encounter Care Teams Cardroom Plastic Card Grader Relationship Specialty Start Date End Date Mar Gomez APRN [address] [place] [address] PCP - General Nurse Practitioner 02/18/16 10/02/24 Desmond Tubbs APRN [id number] [id number] PCP - General Nurse Practitioner 12/30/24 Buck Santana MD [address] [place], [place] [address] Orthopedic Surgery 09/21/12 Provider, Historical 10/07/16 Shlomo Bess PA-C [address] [place] [address] [address] [place] [address] Physician Clinical Assistant 07/13/20 Rosa Carr 09/03/21 Buck Green MD [address] [place] [address] [address] [place] [id number] Obstetrics & Gynecology 09/04/21 Sylvester Patel PA-C [address] [place] [address] [address] [place] [address] Physician Clinical Assistant 09/09/21 Alejandra Doan, RN 09/09/21 Radha Duran, PHOTOENGRAVING PHOTOGRAPHER PHOTOENGRAVING PHOTOGRAPHER 11/01/21 Theresa Colon APRN 17[address] [facility] [address] [place] [address] Nurse Practitioner 11/27/21 Little Koo MD [address] [place] [address] [address] [place] [address] Gastroenterology 11/27/21 Mariana Schultz APRN [address] [place] [address] [address] [place] [address] Nurse Practitioner Gastroenterology 01/28/22 Trino Wolff, PHOTOENGRAVING PHOTOGRAPHER PHOTOENGRAVING PHOTOGRAPHER 04/16/22 Blanca Whittington, PHOTOENGRAVING PHOTOGRAPHER PHOTOENGRAVING PHOTOGRAPHER 05/05/22 Blanca Reagan, PHOTOENGRAVING PHOTOGRAPHER PHOTOENGRAVING PHOTOGRAPHER 06/30/22 Enma Sneed, PHOTOENGRAVING PHOTOGRAPHER PHOTOENGRAVING PHOTOGRAPHER 05/09/25 documented as of this encounter
--- OUTSIDE RECORDS SUMMARY | 2025-05-09 12:48 | XMS_ITS | Encounter Summary ---
Author Organization [facility] Address [address] [place] [address] Care Team Providers Care Locomotive Driver Name Role Phone Bennie Jo DO Primary Care Provider [phone] Vikram Duncan MD Primary Care Provider [phone] Aniyah Trammell WELDING SPECIALIST Primary Care Provider Buck Santana MD Unavailable Mar Gomez WELDING SPECIALIST Primary Care Provider Provider, Historical Unavailable Unavailable Shlomo BessC Unavailable [phone] Rosa Carr Unavailable Unavailable Buck Green MD Unavailable [phone] Sylvester Patel-C Unavailable [phone] Alejandra Doan RN Unavailable Unavailable Radha Duran SENIOR SAFETY MANAGEMENT CONSULTANT Unavailable Unavailable Theresa Colon WELDING SPECIALIST Unavailable [phone] Ltitle Koo MD Unavailable [phone] Mariana Schultz WELDING SPECIALIST Unavailable [phone] Trino Wolff SENIOR SAFETY MANAGEMENT CONSULTANT Unavailable Unavailable Blanca Whittington SENIOR SAFETY MANAGEMENT CONSULTANT Unavailable Unavailab Blanca Monson SENIOR SAFETY MANAGEMENT CONSULTANT Unavailable Unavailable Desmond Tubsb APRN Primary Care Provider Enma Sneed SENIOR SAFETY MANAGEMENT CONSULTANT Unavailable Unavailable Encounter Details Date Type Department Care Team (Late st Contact Info) Description 08/10/2005 Historical Encounter Global Jake Joyner MD [facility] Emergency Dept. [address] [facility]. [place], [place] [id number] Social History Tobacco Use Types Packs/Day Years [...] documented as of this encounter Care Teams Locomotive Driver Relationship Specialty Start Date End Date Bennie Jo DO PCP - General 04/24/09 09/20/12 Vikram Duncan MD [address] [place] [address] PCP - General 08/14/08 04/23/09 Aniyah Tarmmell APRN [address] [place] [address] PCP - General Nurse Practitioner 09/21/12 02/17/16 Mar Gomez [place]N [address] [place] [address] PCP - General Nurse Practitioner 02/18/16 10/02/24 Desmond Tubbs APRN 70214 [address] [place], [place] [id number] PCP - General Nurse Practitioner 12/30/24 Buck Santana MD [facility] [place] [address] Orthopedic Surgery 09/21/12 Provider, Historical 10/07/16 Shlomo Bess PA-C [address] [place] [address] [address] [place] [address] Physician Ship Wirer 07/13/20 Rosa Carr 09/03/21 Buck Green MD [address] [place] [address] [address] [place] [address] Obstetrics & Gynecology 09/04/21 Sylvester Patel PA-C [address] [place] [address] [address] [place] [address] Physician Ship Wirer 09/09/21 Alejandra Doan, SHANIA 09/09/21 Radha Duran LPN LPN 11/01/21 Theresa Colon APRN [address] [place] [address] 203 [place] [address] Nurse Practitioner 11/27/21 Little Koo MD [address] [place] [address] [address] [place] [address] Gastroenterology 11/27/21 Mariana Schultz APRN [address] [place] [address] [address] [place] [address] Nurse Practitioner Gastroenterology 01/28/22 Trino Wolff LPN SENIOR SAFETY MANAGEMENT CONSULTANT 04/16/22 Blanca Whittington, SENIOR SAFETY MANAGEMENT CONSULTANT SENIOR SAFETY MANAGEMENT CONSULTANT 05/05/22 Blanca Reagan, SENIOR SAFETY MANAGEMENT CONSULTANT SENIOR SAFETY MANAGEMENT CONSULTANT 06/30/22 Enma Sneed, SENIOR SAFETY MANAGEMENT CONSULTANT SENIOR SAFETY MANAGEMENT CONSULTANT 05/09/25 documented as of this encounter
--- OUTSIDE RECORDS SUMMARY | 2025-05-09 12:48 | XMS_ITS | Encounter Summary ---
Author Organization [facility] Address [address] [place] [address] Care Team Providers Care Manager Configuration Name Role Phone Bennie Jo DO Primary Care Provider [phone] Vikram Duncan MD Primary Care Provider [phone] Aniyah Trammell ASSEMBLER UTILITY BUILDINGS Primary Care Provider Buck Santana MD Unavailable Mar Gomez ASSEMBLER UTILITY BUILDINGS Primary Care Provider [phone] Provider, Historical Unavailable Unavailable Shlomo BessC Unavailable [phone] Rosa Carr Unavailable Unavailable Buck Green MD Unavailable [phone] Sylvester Patel-C Unavailable [phone] Alejandra Doan RN Unavailable Unavailable Radha Duran CHILD CARE CENTER ADMINISTRATOR Unavailable Unavailable Theresa Colon ASSEMBLER UTILITY BUILDINGS Unavailable [phone] Little Koo MD Unavailable [phone] Mariana Schultz ASSEMBLER UTILITY BUILDINGS Unavailable [phone] Trino Wolff CHILD CARE CENTER ADMINISTRATOR Unavailable Unavailable Blanca Whittington CHILD CARE CENTER ADMINISTRATOR Unavailable Unavailab Blanca Monson CHILD CARE CENTER ADMINISTRATOR Unavailable Unavailable Desmond Tubbs APRN Primary Care Provider [phone] Enma Sneed CHILD CARE CENTER ADMINISTRATOR Unavailable Unavailable Encounter Details Date Type Department Care Team (Late st Contact Info) Description 10/01/2005 Historical Encounter Global Bill Mcfarlane MD [address] [place] [address] Social History Tobacco Use Types [...] documented as of this encounter Care Teams Manager Configuration Relationship Specialty Start Date End Date Bennie Jo DO PCP - General 04/24/09 09/20/12 Vikram Duncan MD [address] [place] [address] PCP - General 08/14/08 04/23/09 Aniyah Trammell APRN [address] [place] [address] PCP - General Nurse Practitioner 09/21/12 02/17/16 Mar Gomez APRN [address] [place] [address] PCP - General Nurse Practitioner 02/18/16 10/02/24 Desmond Tubbs APRN 36942 [address] [place], [place] [address] PCP - General Nurse Practitioner 12/30/24 Buck Santana MD [facility] [place] [address] Orthopedic Surgery 09/21/12 Provider, Historical 10/07/16 Shlomo Bess PA-C [address] [place] [address] [address] [place] [address] Physician Aids Social Worker 07/13/20 Rosa Carr 09/03/21 Buck Green MD [address] [place] [address] [address] [place] [address] Obstetrics & Gynecology 09/04/21 Sylvester Patel PA-C [address] [place] [address] [address] [place] [address] Physician Aids Social Worker 09/09/21 Alejandra Doan, SHANIA 09/09/21 Radha Duran LPN LPN 11/01/21 Theresa Colon APRN [address] [place] [address] 203 [place] [address] Nurse Practitioner 11/27/21 Little Koo MD [address] [place] [address] [address] [place] [address] Gastroenterology 11/27/21 Mariana Schultz APRN [address] [place] [address] [place] [address] Nurse Practitioner Gastroenterology 01/28/22 Trino Wolff LPN CHILD CARE CENTER ADMINISTRATOR 04/16/22 Blanca Whittington, CHILD CARE CENTER ADMINISTRATOR CHILD CARE CENTER ADMINISTRATOR 05/05/22 Blanca Reagan, CHILD CARE CENTER ADMINISTRATOR CHILD CARE CENTER ADMINISTRATOR 06/30/22 Enma Sneed, CHILD CARE CENTER ADMINISTRATOR CHILD CARE CENTER ADMINISTRATOR 05/09/25 documented as of this encounter
--- OUTSIDE RECORDS SUMMARY | 2025-05-09 12:48 | XMS_ITS | Encounter Summary ---
Author Organization [facility] Address [address] [place] [address] Care Team Providers Care Utility Clerk Name Role Phone Bennie Jo DO Primary Care Provider [phone] Vikram Duncan MD Primary Care Provider [phone] Aniyah Trammell TRAFFIC ADMINISTRATOR Primary Care Provider Buck Santana MD Unavailable Mar Gomez TRAFFIC ADMINISTRATOR Primary Care Provider Provider, Historical Unavailable Unavailable Shlomo BessC Unavailable [phone] Rosa Carr Unavailable Unavailable Buck Green MD Unavailable [phone] Sylvester Patel-C Unavailable [phone] Alejandra Doan RN Unavailable Unavailable Radha Duran PAPIER MACHE' MOLDER Unavailable Unavailable Theresa Colon TRAFFIC ADMINISTRATOR Unavailable [phone] Little Koo MD Unavailable [phone] Mariana Schultz TRAFFIC ADMINISTRATOR Unavailable [phone] Trino Wolff PAPIER MACHE' MOLDER Unavailable Unavailable Blanca Whittington PAPIER MACHE' MOLDER Unavailable Unavailab Blanca Monson PAPIER MACHE' MOLDER Unavailable Unavailable Desmond Tubbs APRN Primary Care Provider Enma Sneed PAPIER MACHE' MOLDER Unavailable Unavailable Encounter Details Date Type Department Care Team (Late st Contact Info) Description 01/05/2006 Historical Encounter Global Buck Green MD [address] [place] [address] [address] [place], [place] [id number] Social History Tobacco Use Types Packs/Day Years [...] documented as of this encounter Care Teams Utility Clerk Relationship Specialty Start Date End Date Bennie Jo DO PCP - General 04/24/09 09/20/12 Vikram Duncan MD [address] [place] [id number] PCP - General 08/14/08 04/23/09 Aniyah Trammell APRN [address] [place] [address] PCP - General Nurse Practitioner 09/21/12 02/17/16 Mar Gomez APRN [address] [place] [address] PCP - General Nurse Practitioner 02/18/16 10/02/24 Desmond Tubbs APRN [address] [address] PCP - General Nurse Practitioner 12/30/24 Buck Santana MD [facility] [place] [address] Orthopedic Surgery 09/21/12 Provider, Historical 10/07/16 Shlomo Bess PA-C [address] [place] [address] [address] [place] [address] Physician Patient Service Associate 07/13/20 Rosa Carr 09/03/21 Buck Green MD [address] [place] [address] [address] [place] [address] Obstetrics & Gynecology 09/04/21 Sylvester Patel PA-C [address] [place] [address] [address] [place] [address] Physician Patient Service Associate 09/09/21 Alejandra Doan, RN 09/09/21 Radha Duran LPN LPN 11/01/21 Theresa Colon APRN [address] [place] [address] [address] [place], [place] [address] Nurse Practitioner 11/27/21 Little Koo MD [address] [place] [address] [place] [address] Gastroenterology 11/27/21 Mariana Schultz APRN [address] [place] [address] [address] [place] [address] Nurse Practitioner Gastroenterology 01/28/22 Trino Wolff, PAPIER MACHE' MOLDER PAPIER MACHE' MOLDER 04/16/22 Blanca Whittington, PAPIER MACHE' MOLDER PAPIER MACHE' MOLDER 05/05/22 Blanca Reagan, PAPIER MACHE' MOLDER PAPIER MACHE' MOLDER 06/30/22 Enma Sneed, PAPIER MACHE' MOLDER PAPIER MACHE' MOLDER 05/09/25 documented as of this encounter
--- OUTSIDE RECORDS SUMMARY | 2025-05-09 12:48 | XMS_ITS | Encounter Summary ---
Author Organization [facility] Address [address] [place] [address] Care Team Providers Care Financial Accountant Name Role Phone Bennie Jo DO Primary Care Provider [phone] Vikram Duncan MD Primary Care Provider [phone] Aniyah Trammell AERONAUTICAL RESEARCH ENGINEER Primary Care Provider Buck Santana MD Unavailable Mar Gomez AERONAUTICAL RESEARCH ENGINEER Primary Care Provider Provider, Historical Unavailable Unavailable Shlomo BessC Unavailable [phone] Rosa Carr Unavailable Unavailable Buck Green MD Unavailable [phone] Sylvester Patel-C Unavailable [phone] Alejandra Doan RN Unavailable Unavailable Radha Duran CRIMINAL DEFENSE LAWYER Unavailable Unavailable Theresa Colon AERONAUTICAL RESEARCH ENGINEER Unavailable [phone] Little Koo MD Unavailable [phone] Mariana Schultz AERONAUTICAL RESEARCH ENGINEER Unavailable [phone] Trino Wolff CRIMINAL DEFENSE LAWYER Unavailable Unavailable Blanca Whittington CRIMINAL DEFENSE LAWYER Unavailable Unavailab Blanca Monson CRIMINAL DEFENSE LAWYER Unavailable Unavailable Desmond Tubbs APRN Primary Care Provider [phone] Enma Sneed CRIMINAL DEFENSE LAWYER Unavailable Unavailable Encounter Details Date Type Department Care Team (Late st Contact Info) Description 09/23/2005 Historical Encounter Global Bill Mcfarlane MD [address] [place] [address] Social History Tobacco Use Types [...] as of this encounter Care Teams Financial Accountant Relationship Specialty Start Date End Date Bennie Jo DO PCP - General 04/24/09 09/20/12 Vikram Dunacn MD [address] [place] [address] PCP - General 08/14/08 04/23/09 Aniyah Trammell APRN [id number] [place] [address] PCP - General Nurse Practitioner 09/21/12 02/17/16 Mar Gomez APRN [id number] [place] [address] PCP - General Nurse Practitioner 02/18/16 10/02/24 Desmond Tubbs APRN [id number] [address] [place], [place] [id number] PCP - General Nurse Practitioner 12/30/24 Buck Santana MD [facility] [place] [address] Orthopedic Surgery 09/21/12 Provider, Historical 10/07/16 Shlomo Bess PA-C [address] [place] [address] [address] [place] [address] Physician Probate Lawyer 07/13/20 Rosa Carr 09/03/21 Buck Green MD [address] [place] [address] [address] [place] [address] Obstetrics & Gynecology 09/04/21 Sylvester Patel PA-C [address] [place] [address] [address] [place] [address] Physician Probate Lawyer 09/09/21 Alejandra Doan, SHANIA 09/09/21 Radha Duran LPN LPN 11/01/21 Theresa Colon APRN [address] [place] [address] [address] [place] [address] Nurse Practitioner 11/27/21 Little Koo MD [address] [place] [address] [address] [place] [address] Gastroenterology 11/27/21 Mariana Schultz APRN [address] [place] [address] [place] [address] Nurse Practitioner Gastroenterology 01/28/22 Trino Wolff LPN CRIMINAL DEFENSE LAWYER 04/16/22 Blanca Whittington, CRIMINAL DEFENSE LAWYER CRIMINAL DEFENSE LAWYER 05/05/22 Blanca Reagan, CRIMINAL DEFENSE LAWYER CRIMINAL DEFENSE LAWYER 06/30/22 Enma Sneed, CRIMINAL DEFENSE LAWYER CRIMINAL DEFENSE LAWYER 05/09/25 documented as of this encounter
--- OUTSIDE RECORDS SUMMARY | 2025-05-09 12:48 | XMS_ITS | Encounter Summary ---
Author Organization [facility] Address [address] [place] [address] Care Team Providers Care Sales Executive Name Role Phone Bennie Jo DO Primary Care Provider [phone] Vikram Duncan MD Primary Care Provider [phone] Aniyah Trammell PLASTIC SHEETS SUPERVISOR Primary Care Provider Buck Santana MD Unavailable Mar Gomez PLASTIC SHEETS SUPERVISOR Primary Care Provider Provider, Historical Unavailable Unavailable Shlomo BessC Unavailable [phone] Rosa Carr Unavailable Unavailable Buck Green MD Unavailable [phone] Sylvester Patel-C Unavailable [phone] Alejandra Doan RN Unavailable Unavailable Radha Duran DIKE SUPERVISOR Unavailable Unavailable Theresa Colon PLASTIC SHEETS SUPERVISOR Unavailable [phone] Little Koo MD Unavailable [phone] Mariana Schultz PLASTIC SHEETS SUPERVISOR Unavailable [phone] Trino Wolff DIKE SUPERVISOR Unavailable Unavailable Blanca Whittington DIKE SUPERVISOR Unavailable Unavailab Blanca Monson DIKE SUPERVISOR Unavailable Unavailable Desmond Tubbs APRN Primary Care Provider Enma Sneed DIKE SUPERVISOR Unavailable Unavailable Encounter Details Date Type Department Care Team (Late st Contact Info) Description 10/01/2005 Historical Encounter Global Bill Mcfarlane MD [address] [place] [address] Social History Tobacco Use Types [...] documented as of this encounter Care Teams Sales Executive Relationship Specialty Start Date End Date Bennie Jo DO PCP - General 04/24/09 09/20/12 Vikram Duncan MD [address] [place] [address] PCP - General 08/14/08 04/23/09 Aniyah Trammell APRN [address] [place] [address] PCP - General Nurse Practitioner 09/21/12 02/17/16 Mar Gomez APRN [address] [place] [address] PCP - General Nurse Practitioner 02/18/16 10/02/24 Desmond Tubbs APRN [id number] 23 [place], [place] [id number] PCP - General Nurse Practitioner 12/30/24 Buck Santana MD [facility] [place] [address] Orthopedic Surgery 09/21/12 Provider, Historical 10/07/16 Shlomo Bess PA-C [address] [place] [address] [address] [place] [address] Physician Lawn Sprinkler Servicer 07/13/20 Rosa Carr 09/03/21 Buck Green MD [address] [place] [address] [address] [place] [address] Obstetrics & Gynecology 09/04/21 Sylvester Patel PA-C [address] [place] [address] [address] [place] [address] Physician Lawn Sprinkler Servicer 09/09/21 Alejandra Doan, SHANIA 09/09/21 Radha Duran LPN LPN 11/01/21 Theresa Colon APRN [address] [place] [address] 203 [place] [address] Nurse Practitioner 11/27/21 Little Koo MD [address] [place] [address] [address] [place] [address] Gastroenterology 11/27/21 Mariana Schultz APRN [address] [place] [address] [place] [address] Nurse Practitioner Gastroenterology 01/28/22 Trino Wolff LPN DIKE SUPERVISOR 04/16/22 Blanca Whittington, DIKE SUPERVISOR DIKE SUPERVISOR 05/05/22 Blanca Reagan, DIKE SUPERVISOR DIKE SUPERVISOR 06/30/22 Enma Sneed, DIKE SUPERVISOR DIKE SUPERVISOR 05/09/25 documented as of this encounter
--- OUTSIDE RECORDS SUMMARY | 2025-05-09 12:48 | XMS_ITS | Encounter Summary ---
Author Organization [facility] Address [address] [place] [address] Care Team Providers Care Smooth Plater Name Role Phone Buck Santana MD Unavailable Mar Gomez APRN Primary Care Provider [phone] Provider, Historical Unavailable Unavailable Shlomo Bess PA-C Unavailable [phone] Rosa Carr Unavailable Unavailable Buck Green MD Unavailable Sylvester Patel PA-C Unavailable [phone] Alejandra Doan RN Unavailable Unavailable Radha Duran LPN Unavailable Unavailable Theresa Colon GREASE AND TALLOW PUMPER Unavailable [phone] Little Koo MD Unavailable [phone] Mariana Schultz GREASE AND TALLOW PUMPER Unavailable Trino Wolff INTERNET MARKETING ASSISTANT Unavailable Unavailable Blanca Whittington INTERNET MARKETING ASSISTANT Unavailable Unavailab Blanca Monson INTERNET MARKETING ASSISTANT Unavailable Unavailable Desmond Tubbs GREASE AND TALLOW PUMPER Primary Care Provider Enma Sneed LPN Unavailable Unavailable Reason for Visit * Reason Onset Date Comments Other 09/03/2021 PATIENT CALLED Honorio BELTRÁN APPBrenda Encounter Details Date Type Department Care Team (Late st Contact Info) Description 09/03/2021 Telephone [facility] Women's Health [address] [place] [phone] JaiRosa bucio Other (PATIENT CALLED WANTING APPT) Social History Tobacco Use Types Packs/Day Years [...] have Coronavirus / COVID-19? No / Unsure 09/04/2021 8:18 AM EST documented as of this encounter Miscellaneous Notes * Telephone Encounter - Rosa Carr - 09/03/2021 5:32 PM EST PT. CALLED WANTING APPT. NO MENSTRUAL CYCLES HCG NEG. documented in this encounter Plan of Treatment Not on file documented as of this encounter Visit Diagnoses Not on filedocumented in this encounter Additional Health Concerns Infection Onset Date Last Indicated Resolved Time Covid-19 (rule out) 05/07/2022 05/07/2022 05/08/20 22 12:33 AM EDT Covid-19 (confirmed) 11/05/2022 11/06/2022 023 10:12 PM EST documented as of this encounter Care Teams Smooth Plater Relationship Specialty Start Date End Date Mar Gomez APRN [address] [place] [address] PCP - General Nurse Practitioner 02/18/16 10/02/24 Desmond Tubbs APRN [id number] [address] PCP - General Nurse Practitioner 12/30/24 Buck Santana MD [address] [place] [address] Orthopedic Surgery 09/21/12 Provider, Historical 10/07/16 Shlomo Bess PA-C [address] [place] [address] [address] [facility] [address] [place] [address] Physician Fireworks Maker 07/13/20 Rosa Carr 09/03/21 Buck Green MD [address] [place] [address] [address] [place] [address] Obstetrics & Gynecology 09/04/21 Sylvester Patel PA-C [address] [place] [address] [address] [place] [address] Physician Fireworks Maker 09/09/21 Alejandra Doan, RN 09/09/21 Radha Duran, INTERNET MARKETING ASSISTANT INTERNET MARKETING ASSISTANT 11/01/21 Theresa Colon APRN [address] [place] [address] 203 [place], [place] [id number] Nurse Practitioner 11/27/21 Little Koo MD [address] [place] [address] [address] [place] [address] Gastroenterology 11/27/21 Mariana Schultz APRN [address] [place] [address] [address] [place] [address] Nurse Practitioner Gastroenterology 01/28/22 Trino Wolff, INTERNET MARKETING ASSISTANT INTERNET MARKETING ASSISTANT 04/16/22 Blanca Whittington, INTERNET MARKETING ASSISTANT INTERNET MARKETING ASSISTANT 05/05/22 Blanca Reagan, INTERNET MARKETING ASSISTANT INTERNET MARKETING ASSISTANT 06/30/22 Enma Sneed, INTERNET MARKETING ASSISTANT INTERNET MARKETING ASSISTANT 05/09/25 documented as of this encounter
--- OUTSIDE RECORDS SUMMARY | 2025-05-09 12:48 | XMS_ITS | Encounter Summary ---
Author Organization [facility] Address [address] [place] [address] Care Team Providers Care Leather Staker Name Role Phone Bennie Jo DO Primary Care Provider [phone] Vikram Duncan MD Primary Care Provider [phone] Aniyah Trammell BUSINESS CONTINUITY GLOBAL DIRECTOR Primary Care Provider Buck Santana MD Unavailable Mar Gomez BUSINESS CONTINUITY GLOBAL DIRECTOR Primary Care Provider [phone] Provider, Historical Unavailable Unavailable Shlomo BessC Unavailable [phone] Rosa Carr Unavailable Unavailable Buck Green MD Unavailable [phone] Sylvester Patel-C Unavailable [phone] Alejandra Doan RN Unavailable Unavailable Radha Duran COST COORDINATOR Unavailable Unavailable Theresa Colon BUSINESS CONTINUITY GLOBAL DIRECTOR Unavailable [phone] Little Koo MD Unavailable [phone] Mariana Schultz BUSINESS CONTINUITY GLOBAL DIRECTOR Unavailable [phone] Trino Wolff COST COORDINATOR Unavailable Unavailable Blanca Whittington COST COORDINATOR Unavailable Unavailab Blanca Monson COST COORDINATOR Unavailable Unavailable Desmond Tubbs APRN Primary Care Provider Enma Sneed COST COORDINATOR Unavailable Unavailable Encounter Details Date Type Department Care Team (Late st Contact Info) Description 11/07/2005 Historical Encounter Global Rik Maradiaga MD [address] [id number] Social History Tobacco Use Types Packs/Day Years [...] documented as of this encounter Care Teams Leather Staker Relationship Specialty Start Date End Date Bennie Jo DO PCP - General 04/24/09 09/20/12 Vikram Duncan MD [address] [place], [place] [id number] PCP - General 08/14/08 04/23/09 Aniyah Trammell APRN [address] [place] [address] PCP - General Nurse Practitioner 09/21/12 02/17/16 Mar Gomez APRN [address] [place] [address] PCP - General Nurse Practitioner 02/18/16 10/02/24 Desmond Tubbs APRN [id number] [address] PCP - General Nurse Practitioner 12/30/24 Buck Santana MD [facility] [place] [address] Orthopedic Surgery 09/21/12 Provider, Historical 10/07/16 Shlomo Bess PA-C [address] [place] [address] [address] [place] [address] Physician Manager Of Training 07/13/20 Rosa Carr 09/03/21 Buck Green MD [address] [place] [address] [address] [place] [address] Obstetrics & Gynecology 09/04/21 Sylvester Patel PA-C [address] [place] [address] [address] [place] [address] Physician Manager Of Training 09/09/21 Alejandra Doan, SHANIA 09/09/21 Radha Duran LPN LPN 11/01/21 Theresa Colon APRN [address] [place] [address] [address] [place] [address] Nurse Practitioner 11/27/21 Little Koo MD [address] [place] [address] [address] [place] [address] Gastroenterology 11/27/21 Mariana Schultz APRN [address] [place] [address] [address] [place] [address] Nurse Practitioner Gastroenterology 01/28/22 Trino Wolff COST COORDINATOR COST COORDINATOR 04/16/22 Blanca Whittington, COST COORDINATOR COST COORDINATOR 05/05/22 Blanca Reagan, COST COORDINATOR COST COORDINATOR 06/30/22 Enma Sneed, COST COORDINATOR COST COORDINATOR 05/09/25 documented as of this encounter
--- OUTSIDE RECORDS SUMMARY | 2025-05-09 12:48 | XMS_ITS | Encounter Summary ---
Author Organization [facility] Address [address] [place] [address] Care Team Providers Care Attendant [facility] Name Role Phone Bennie Jo DO Primary Care Provider [phone] Vikram Duncan MD Primary Care Provider [phone] Aniyah Trammell SERVICE STATION OPERATOR Primary Care Provider Buck Santana MD Unavailable Mar Gomez SERVICE STATION OPERATOR Primary Care Provider Provider, Historical Unavailable Unavailable Shlomo BessC Unavailable [phone] Rosa Carr Unavailable Unavailable Buck Green MD Unavailable [phone] Sylvester Patel-C Unavailable [phone] Alejandra Doan RN Unavailable Unavailable Radha Duran STAND UP FORKLIFT OPERATOR Unavailable Unavailable Theresa Colon SERVICE STATION OPERATOR Unavailable [phone] Little Koo MD Unavailable [phone] Mariana Schultz SERVICE STATION OPERATOR Unavailable [phone] Trino Wolff STAND UP FORKLIFT OPERATOR Unavailable Unavailable Blanca Whittington STAND UP FORKLIFT OPERATOR Unavailable Unavailab Blanca Monson STAND UP FORKLIFT OPERATOR Unavailable Unavailable Desmond Tubbs APRN Primary Care Provider Enma Sneed STAND UP FORKLIFT OPERATOR Unavailable Unavailable Encounter Details Date Type Department Care Team (Late st Contact Info) Description 09/23/2004 Historical Encounter Global Garima Maxwell MD [address] [place] [address] [address] [id number] Social History Tobacco Use Types Packs/Day Years [...] documented as of this encounter Care Teams Attendant [facility] Relationship Specialty Start Date End Date Bennie Jo DO PCP - General 04/24/09 09/20/12 Vikram Duncan MD [address] [place] [id number] PCP - General 08/14/08 04/23/09 Aniyah Trammell APRN [address] [place] [address] PCP - General Nurse Practitioner 09/21/12 02/17/16 Mar Gomez APRN [address] [place] [address] PCP - General Nurse Practitioner 02/18/16 10/02/24 Desmond Tubbs APRN [address] [address] PCP - General Nurse Practitioner 12/30/24 Buck Santana MD [facility] [place] [address] Orthopedic Surgery 09/21/12 Provider, Historical 10/07/16 Shlomo Bess PA-C [address] [place] [address] [address] [place] [address] Physician Ell Teacher 07/13/20 Rosa Carr 09/03/21 Buck Green MD [address] [place] [address] [address] [place] [address] Obstetrics & Gynecology 09/04/21 Sylvester Patel PA-C [address] [place] [address] [address] [place] [address] Physician Ell Teacher 09/09/21 Alejandra Doan, SHANIA 09/09/21 Radha Duran LPN LPN 11/01/21 Theresa Colon APRN [address] [place] [address] [address] [place] [address] Nurse Practitioner 11/27/21 Little Koo MD [address] [place] [address] [address] [place] [address] Gastroenterology 11/27/21 Mariana Schultz APRN [address] [place] [address] [address] [place] [address] Nurse Practitioner Gastroenterology 01/28/22 Trino Wolff LPN STAND UP FORKLIFT OPERATOR 04/16/22 Blanca Whittington, STAND UP FORKLIFT OPERATOR STAND UP FORKLIFT OPERATOR 05/05/22 Blanca Reagan, STAND UP FORKLIFT OPERATOR STAND UP FORKLIFT OPERATOR 06/30/22 Enma Sneed, STAND UP FORKLIFT OPERATOR STAND UP FORKLIFT OPERATOR 05/09/25 documented as of this encounter
--- OUTSIDE RECORDS SUMMARY | 2025-05-09 12:48 | XMS_ITS | Encounter Summary ---
Author Organization [facility] Address [address] [place] [address] Care Team Providers Care Commercial Portfolio Manager Name Role Phone Buck Santana MD Unavailable Mar Gomez APRN Primary Care Provider [phone] Provider, Historical Unavailable Unavailable Shlomo Bess PA-C Unavailable [phone] Rosa Carr Unavailable Unavailable Buck Green MD Unavailable Sylvester Patel PA-C Unavailable Alejandra Doan RN Unavailable Unavailable Radha Duran LPN Unavailable Unavailable Theresa Colon SECURITY LEAD Unavailable Little Koo MD Unavailable Mariana Schultz SECURITY LEAD Unavailable Trino Wolff FINANCIAL HEALTH COUNSELOR Unavailable Unavailable Blanca Whittington FINANCIAL HEALTH COUNSELOR Unavailable Unavailab Blanca Monson FINANCIAL HEALTH COUNSELOR Unavailable Unavailable Desmond Tubbs APRN Primary Care Provider Enma Sneed LPN Unavailable Unavailable Encounter Details Date Type Department Care Team (Latest Contact Info) Description 02/09/2017 Transcribe Orders [facility] Buck Green MD [address] [place] [address] [address] [place] [address] Routine cervical smear (Primary Dx) Social History Tobacco Use Types [...] documented as of this encounter Results * Bilingual Customer Service Specialist Cases (02/09/2017 1:37 PM EDT) CARBURETOR REBUILDER CASES SEE BELOW [facility] Comment: [facility] [address] [place] [address] Department of Cytology MILA ESCOBAR [id number] SPECIMEN SUBMITTED: CERVICAL VAGINAL THIN PREP - IMAGED RELEVANT LMP....None HISTORY: Provided Prev.abnormal.... Prev Pos Yes HPV....05/2011 SPECIMEN ADEQUACY SATISFACTORY FOR EVALUATION ENDOCERVICAL/TRANSFORMATION ZONE COMPONENT PRESENT GENERAL CATEGORIZATION NEGATIVE FOR INTRAEPITHELIAL LESIONS OR MALIGNANCY INTERPRETATION REACTIVE CHANGES NOTES Specimen successfully analyzed by ThinPrep Imaging System (Manufactured by [employer], [place], [place]) Following automated imaging, selected garcia were reviewed by a research and development tester and required physician interpretation Deputy Of Counter Intelligence(s) <Sign Out Dr. Kennedy> DEMETRIUS EWING, ([place], ASCP) KATIE MADRIGAL D.O., Pathologist JEANETTE FRAUSTO, (CT, ASCP) Page 1 of 1 Cervical/Vaginal ThinPrep (Cervix) 02/09/2017 1:37 PM EDT 02/09/2017 3:52 PM EDT us Buck Green MD PATHOLOGY/CYTOLOGY ORDERAB LES Final Result [facility] [address] [place] [address] documented in this encounter Visit Diagnoses Diagnosis Routine cervical smear- Primary Screening for malignant neoplasm of the cervix documented in this encounter Additional Health Concerns Infection Onset Date Last Indicated Resolved Time Covid-19 (rule out) 05/07/2022 05/07/2022 05/08/20 22 12:33 AM EDT Covid-19 (confirmed) 11/05/2022 11/06/2022 023 10:12 PM EST documented as of this encounter Care Teams Commercial Portfolio Manager Relationship Specialty Start Date End Date Mar Gomez APRN [address] [place] [address] PCP - General Nurse Practitioner 02/18/16 10/02/24 Desmond Tubbs APRN 146[address] [address] [place], [place] [id number] PCP - General Nurse Practitioner 12/30/24 Buck Santana MD [facility] [address] Orthopedic Surgery 09/21/12 Provider, Historical 10/07/16 Shlomo Bess PA-C [address] [place] [address] [address] [place] [address] Physician Primer Inserting Machine Adjuster 07/13/20 Rosa Carr 09/03/21 Buck Green MD [address] [place] [address] [address] [place] [address] Obstetrics & Gynecology 09/04/21 Sylvester Patel PA-C [address] [place] [address] [address] [place] [address] Physician Primer Inserting Machine Adjuster 09/09/21 Alejandra Doan, RN 09/09/21 Radha Duran LPN LPN 11/01/21 Theresa Colon APRN [address] [place] [address] [address] [place] [address] Nurse Practitioner 11/27/21 Little Koo MD [address] [place] [address] [address] [place] [address] Gastroenterology 11/27/21 Mariana Schultz APRN [address] [place] [address] [place] [address] Nurse Practitioner Gastroenterology 01/28/22 Trino Wolff, FINANCIAL HEALTH COUNSELOR FINANCIAL HEALTH COUNSELOR 04/16/22 Blanca Whittington, FINANCIAL HEALTH COUNSELOR FINANCIAL HEALTH COUNSELOR 05/05/22 Blanca Reagan, FINANCIAL HEALTH COUNSELOR FINANCIAL HEALTH COUNSELOR 06/30/22 Enma Sneed, FINANCIAL HEALTH COUNSELOR FINANCIAL HEALTH COUNSELOR 05/09/25 documented as of this encounter
--- OUTSIDE RECORDS SUMMARY | 2025-05-09 12:48 | XMS_ITS | Encounter Summary ---
Author Organization [facility] Address [address] [place] [address] Care Team Providers Care Manager Intel Name Role Phone Bennie Jo DO Primary Care Provider [phone] Vikram Duncan MD Primary Care Provider [phone] Aniyah Trammell MENTAL HEALTH ASSISTANT Primary Care Provider Buck Santana MD Unavailable Mar Gomez MENTAL HEALTH ASSISTANT Primary Care Provider Provider, Historical Unavailable Unavailable Shlomo BessC Unavailable [phone] Rosa Carr Unavailable Unavailable Buck Green MD Unavailable [phone] Sylvester Patel-C Unavailable [phone] Alejandra Doan RN Unavailable Unavailable Radha Duran ICT SALES ASSISTANT Unavailable Unavailable Theresa Colon MENTAL HEALTH ASSISTANT Unavailable [phone] Little Koo MD Unavailable [phone] Mariana Schultz MENTAL HEALTH ASSISTANT Unavailable [phone] Trino Wolff ICT SALES ASSISTANT Unavailable Unavailable Blanca Whittington ICT SALES ASSISTANT Unavailable Unavailab Blanca Monson ICT SALES ASSISTANT Unavailable Unavailable Desmond Tubbs APRN Primary Care Provider Enma Sneed ICT SALES ASSISTANT Unavailable Unavailable Encounter Details Date Type Department Care Team (Late st Contact Info) Description 11/03/2004 Historical Encounter Global Tony Morton MD [address] [place] [address] Social History Tobacco Use Types [...] as of this encounter Care Teams Manager Intel Relationship Specialty Start Date End Date Bennie Jo DO PCP - General 04/24/09 09/20/12 Vikram Duncan MD [facility] [place] [address] PCP - General 08/14/08 04/23/09 Aniyah Trammell APRN [id number] [place] [address] PCP - General Nurse Practitioner 09/21/12 02/17/16 Mar Gomez APRN [address] [place] [address] PCP - General Nurse Practitioner 02/18/16 10/02/24 Desmond Tubbs APRN [address] [place] [address] PCP - General Nurse Practitioner 12/30/24 Buck Santana MD [facility] [place] [address] Orthopedic Surgery 09/21/12 Provider, Historical 10/07/16 Shlomo Bess PA-C [address] [place] [address] B [facility] [address] [place] [address] Physician Flooring Mechanic 07/13/20 Rosa Carr 09/03/21 Buck Green MD [address] [place] [address] [address] [place] [address] Obstetrics & Gynecology 09/04/21 Sylvester Patel PA-C [address] [place] [address] [address] [place] [address] Physician Flooring Mechanic 09/09/21 Alejandra Doan, SHANIA 09/09/21 Radha Duran LPN LPN 11/01/21 Theresa Colon APRN [address] [place] [address] 203 [place], [place] [id number] Nurse Practitioner 11/27/21 Little Koo MD [address] [place] [address] 430 [place] [address] Gastroenterology 11/27/21 Mariana Schultz APRN [address] [place] [address] [place] [address] Nurse Practitioner Gastroenterology 01/28/22 Trino Wolff LPN ICT SALES ASSISTANT 04/16/22 Blanca Whittington, ICT SALES ASSISTANT ICT SALES ASSISTANT 05/05/22 Blnaca Reagan, ICT SALES ASSISTANT ICT SALES ASSISTANT 06/30/22 Enma Sneed, ICT SALES ASSISTANT ICT SALES ASSISTANT 05/09/25 documented as of this encounter
--- OUTSIDE RECORDS SUMMARY | 2025-05-09 12:48 | XMS_ITS | Encounter Summary ---
Author Organization [facility] Address [address] [place] [address] Care Team Providers Care Flour Tester Name Role Phone Buck Santana MD Unavailable Mar Gomez APRN Primary Care Provider [phone] Provider, Historical Unavailable Unavailable Shlomo Bess PA-C Unavailable [phone] Rosa Carr Unavailable Unavailable Buck Green MD Unavailable Sylvester Patel PA-C Unavailable [phone] Alejandra Doan RN Unavailable Unavailable Radha Duran RESEARCH TEST ENGINE EVALUATOR Unavailable Unavailable Theresa Colon MASTER IN CHANCERY Unavailable [phone] Little Koo MD Unavailable [phone] Mariana Schultz MASTER IN CHANCERY Unavailable Trino Wolff RESEARCH TEST ENGINE EVALUATOR Unavailable Unavailable Blanca Whittington RESEARCH TEST ENGINE EVALUATOR Unavailable Unavailab Blanca Monson RESEARCH TEST ENGINE EVALUATOR Unavailable Unavailable Desmond Tubbs APRN Primary Care Provider Enma Sneed LPN Unavailable Unavailable Encounter Details Date Type Department Care Team (Late st Contact Info) Description 01/28/2017 Telephone [facility] [address] [place] [address] Mar Gomez APRN [address] [place] [address] Social History Tobacco Use Types Packs/Day Years [...] documented as of this encounter Care Teams Flour Tester Relationship Specialty Start Date End Date Mar Gomez APRN [address] [place] [address] PCP - General Nurse Practitioner 02/18/16 10/02/24 Desmond Tubbs APRN [id number] [address] PCP - General Nurse Practitioner 12/30/24 Buck Santana MD [facility] [place] [id number] Orthopedic Surgery 09/21/12 Provider, Historical 10/07/16 Shlomo Bess PA-C [address] [place] [address] [place] [address] Physician Examination Proctor 07/13/20 Rosa Carr 09/03/21 Buck Green MD [address] [place] [address] [address] [place] [address] Obstetrics & Gynecology 09/04/21 Sylvester Patel PA-C [address] [place] [address] [address] [place] [address] Physician Examination Proctor 09/09/21 Alejandra Doan, RN 09/09/21 Radha Duran, RESEARCH TEST ENGINE EVALUATOR RESEARCH TEST ENGINE EVALUATOR 11/01/21 Theresa Colon APRN [address] [place] [address] [address] [place], [place] [id number] Nurse Practitioner 11/27/21 Little Koo MD [address] [place] [address] [address] [place] [address] Gastroenterology 11/27/21 Mariana Schultz APRN [address] [place] [address] [address] [place] [address] Nurse Practitioner Gastroenterology 01/28/22 Trino Wolff, RESEARCH TEST ENGINE EVALUATOR RESEARCH TEST ENGINE EVALUATOR 04/16/22 Blanca Whittington, RESEARCH TEST ENGINE EVALUATOR RESEARCH TEST ENGINE EVALUATOR 05/05/22 Blanca Reagan, RESEARCH TEST ENGINE EVALUATOR RESEARCH TEST ENGINE EVALUATOR 06/30/22 Enma Sneed, RESEARCH TEST ENGINE EVALUATOR RESEARCH TEST ENGINE EVALUATOR 05/09/25 documented as of this encounter
--- OUTSIDE RECORDS SUMMARY | 2025-05-09 12:48 | XMS_ITS | Encounter Summary ---
Author Organization [facility] Address [address] [place] [address] Care Team Providers Care Propagation Manager Name Role Phone Bennie Jo DO Primary Care Provider [phone] Vikram Duncan MD Primary Care Provider [phone] Aniyah Trammell CONCRETE BLOCK MASON Primary Care Provider Buck Santana MD Unavailable Mar Gomez CONCRETE BLOCK MASON Primary Care Provider [phone] Provider, Historical Unavailable Unavailable Shlomo BessC Unavailable [phone] Rosa Carr Unavailable Unavailable Buck Green MD Unavailable [phone] Sylvester Patel-C Unavailable [phone] Alejandra Doan RN Unavailable Unavailable Radha Duran ALTERNATIVE FINANCING SPECIALIST Unavailable Unavailable Theresa Colon CONCRETE BLOCK MASON Unavailable [phone] Little Koo MD Unavailable [phone] Mariana Schultz CONCRETE BLOCK MASON Unavailable [phone] Trino Wolff ALTERNATIVE FINANCING SPECIALIST Unavailable Unavailable Blanca Whittington ALTERNATIVE FINANCING SPECIALIST Unavailable Unavailab Blanca Monson ALTERNATIVE FINANCING SPECIALIST Unavailable Unavailable Desmond Tubbs APRN Primary Care Provider Enma Sneed ALTERNATIVE FINANCING SPECIALIST Unavailable Unavailable Encounter Details Date Type Department Care Team (Late st Contact Info) Description 02/03/2006 Historical Encounter Global Jake Joyner MD [facility] [address] [facility] [place], [place] [id number] Social History Tobacco Use Types Packs/Day Years [...] documented as of this encounter Care Teams Propagation Manager Relationship Specialty Start Date End Date Bennie Jo DO PCP - General 04/24/09 09/20/12 Vikram Duncan MD [address] [place] [address] PCP - General 08/14/08 04/23/09 Aniyah Trammell APRN [id number] [place] [address] PCP - General Nurse Practitioner 09/21/12 02/17/16 Mar Gomez APRN [address] [place] [address] PCP - General Nurse Practitioner 02/18/16 10/02/24 Desmond Tubbs APRN [id number] [address] [place], [place] [address] PCP - General Nurse Practitioner 12/30/24 [place] Santana MD [facility] [place] [address] Orthopedic Surgery 09/21/12 Provider, Historical 10/07/16 Shlomo Bess PA-C [address] [place] [address] [address] [place] [address] Physician Automation Test Engineer 07/13/20 Rosa Carr 09/03/21 Buck Green MD [address] [place] [address] [address] [place] [address] Obstetrics & Gynecology 09/04/21 Sylvester Patel PA-C [address] [place] [address] [address] [place] [address] Physician Automation Test Engineer 09/09/21 Alejnadra Doan, SHANIA 09/09/21 Radha Duran LPN LPN 11/01/21 Theresa Colon APRN [address] [place] [address] [address] [place] [address] Nurse Practitioner 11/27/21 Little Koo MD [address] [place] [address] [address] [place] [address] Gastroenterology 11/27/21 Mariana Schultz APRN [address] [place] [address] [address] [place] [address] Nurse Practitioner Gastroenterology 01/28/22 Trino Wolff LPN ALTERNATIVE FINANCING SPECIALIST 04/16/22 Blanca Whittington, ALTERNATIVE FINANCING SPECIALIST ALTERNATIVE FINANCING SPECIALIST 05/05/22 Blanca Reagan, ALTERNATIVE FINANCING SPECIALIST ALTERNATIVE FINANCING SPECIALIST 06/30/22 Enma Sneed, ALTERNATIVE FINANCING SPECIALIST ALTERNATIVE FINANCING SPECIALIST 05/09/25 documented as of this encounter
--- OUTSIDE RECORDS SUMMARY | 2025-05-09 12:48 | XMS_ITS | Encounter Summary ---
Author Organization [facility] Address [address] [place] [address] Care Team Providers Care Sewer Digger Name Role Phone Bennie Jo DO Primary Care Provider [phone] Vikram Duncan MD Primary Care Provider [phone] Aniyah Trammell BROADBAND INSTALLER Primary Care Provider Buck Santana MD Unavailable Mar Gomez BROADBAND INSTALLER Primary Care Provider Provider, Historical Unavailable Unavailable Shlomo BessC Unavailable [phone] Rsoa Carr Unavailable Unavailable Buck Green MD Unavailable [phone] Sylvester Patel-C Unavailable [phone] Alejandra Doan RN Unavailable Unavailable Radha Duran UNIFORM FORCE CAPTAIN Unavailable Unavailable Theresa Colon BROADBAND INSTALLER Unavailable [phone] Little oKo MD Unavailable [phone] Mariana Schultz BROADBAND INSTALLER Unavailable [phone] Trino Wolff UNIFORM FORCE CAPTAIN Unavailable Unavailable Blanca Whittington UNIFORM FORCE CAPTAIN Unavailable Unavailab Blanca Monson UNIFORM FORCE CAPTAIN Unavailable Unavailable Desmond Tubbs APRN Primary Care Provider Enma Sneed UNIFORM FORCE CAPTAIN Unavailable Unavailable Encounter Details Date Type Department Care Team (Late st Contact Info) Description 09/07/2005 Historical Encounter Global Timo Dewey MD [address] [place], [place] [id number] Social History Tobacco Use Types Packs/Day Years [...] documented as of this encounter Care Teams Sewer Digger Relationship Specialty Start Date End Date Bennie Jo DO PCP - General 04/24/09 09/20/12 Vikram Duncan MD [address] [place] [id number] PCP - General 08/14/08 04/23/09 Aniyah Trammell APRN [address] [place] [address] PCP - General Nurse Practitioner 09/21/12 02/17/16 Mar Gomez APRN [address] [place] [address] PCP - General Nurse Practitioner 02/18/16 10/02/24 Desmond Tubbs APRN [id number] [address] PCP - General Nurse Practitioner 12/30/24 Buck Santana MD Formerly named [facility] [place] [address] Orthopedic Surgery 09/21/12 Provider, Historical 10/07/16 Shlomo Bess PA-C [address] [place] [address] [address] [place] [address] Physician Choir Singer 07/13/20 Rosa Carr 09/03/21 Buck Green MD [address] [place] [address] [address] [place] [address] Obstetrics & Gynecology 09/04/21 Sylvester Patel PA-C [address] [place] [address] [address] [place] [address] Physician Choir Singer 09/09/21 Alejandra Doan, RN 09/09/21 Radha Duran LPN LPN 11/01/21 Theresa Colon APRN [address] [place] [address] [address] [place] [address] Nurse Practitioner 11/27/21 Little Koo MD [address] [place] [address] [address] [place] [address] Gastroenterology 11/27/21 Mariana Schultz APRN [address] [place] [address] [address] [place] [address] Nurse Practitioner Gastroenterology 01/28/22 Trino Wolff, UNIFORM FORCE CAPTAIN UNIFORM FORCE CAPTAIN 04/16/22 Blanca Whittington, UNIFORM FORCE CAPTAIN UNIFORM FORCE CAPTAIN 05/05/22 Blanca Reagan, UNIFORM FORCE CAPTAIN UNIFORM FORCE CAPTAIN 06/30/22 Enma Sneed, UNIFORM FORCE CAPTAIN UNIFORM FORCE CAPTAIN 05/09/25 documented as of this encounter
--- OUTSIDE RECORDS SUMMARY | 2025-05-09 12:48 | XMS_ITS | Encounter Summary ---
Author Organization [facility] Address [address] [place] [address] Care Team Providers Care Belt And Link Shop Supervisor Name Role Phone Buck Santana MD Unavailable Mar Gomez APRN Primary Care Provider [phone] Provider, Historical Unavailable Unavailable Shlomo Bess PA-C Unavailable [phone] Rosa Carr Unavailable Unavailable Buck Green MD Unavailable Sylvester Patel PA-C Unavailable Alejandra Doan RN Unavailable Unavailable Radha Duran LPN Unavailable Unavailable Theresa Colon MANAGER OF DATA Unavailable [phone] Little Koo MD Unavailable Mariana Schultz MANAGER OF DATA Unavailable Trino Wolff DRENCHER Unavailable Unavailable Blanca Whittington DRENCHER Unavailable Unavailab Blanca Monson DRENCHER Unavailable Unavailable Desmond Tubbs MANAGER OF DATA Primary Care Provider Enma Sneed LPN Unavailable Unavailable Encounter Details Date Type Department Care Team (Late st Contact Info) Description 11/01/2021 Orders Only [facility] [address] [place] [address] [address] [place] [address] Radha Duran LPN Social History Tobacco Use Types Packs/Day Years Used Date Smoking Tobacco: Former Cigarettes 0.3 15 0 10/29/2006 - 10/29/2021 Smokeless Tobacco: Never Quit: 03/10/2013 Alcohol Use [...] have Coronavirus / COVID-19? No / Unsure 11/01/2021 6:31 AM EST documented as of this encounter Plan of Treatment Not on file documented as of this encounter Visit Diagnoses Not on filedocumented in this encounter Additional Health Concerns Infection Onset Date Last Indicated Resolved Time Covid-19 (rule out) 05/07/2022 05/07/2022 05/08/20 22 12:33 AM EDT Covid-19 (confirmed) 11/05/2022 11/06/2022 023 10:12 PM EST documented as of this encounter Care Teams Belt And Link Shop Supervisor Relationship Specialty Start Date End Date Mar Gomez APRN [address] [place] [address] PCP - General Nurse Practitioner 02/18/16 10/02/24 Desmond Tubbs APRN [id number] [address] PCP - General Nurse Practitioner 12/30/24 Buck Santana MD [address] [place] [address] Orthopedic Surgery 09/21/12 Provider, Historical 10/07/16 Shlomo Bess PA-C [address] [place] [address] [address] [place] [address] Physician Cloth Calender 07/13/20 Rosa Carr 09/03/21 Buck Green MD [address] [place] [address] [address] [place] [address] Obstetrics & Gynecology 09/04/21 Sylvester Patel PA-C [address] [place] [address] [address] [place] [address] Physician Cloth Calender 09/09/21 Alejandra Doan, RN 09/09/21 Radha Duran LPN LPN 11/01/21 Theresa Colon APRN [address] [place] [address] [address] [place], [place] [address] Nurse Practitioner 11/27/21 Little Koo MD [address] [place] [address] [address] [place] [address] Gastroenterology 11/27/21 Mariana Schultz APRN [address] [place] [address] [address] [place] [address] Nurse Practitioner Gastroenterology 01/28/22 Trino Wolff, DRENCHER DRENCHER 04/16/22 Blanca Whittington, DRENCHER DRENCHER 05/05/22 Blanca Reagan, DRENCHER DRENCHER 06/30/22 Enma Sneed, DRENCHER DRENCHER 05/09/25 documented as of this encounter
--- OUTSIDE RECORDS SUMMARY | 2025-05-09 12:49 | XMS_ITS | Encounter Summary ---
Author Organization [facility] Address [address] [place] [address] Care Team Providers Care Guest Service Host Name Role Phone Bennie Jo DO Primary Care Provider [phone] Vikram Duncan MD Primary Care Provider [phone] Aniyah Trammell EDUCATIONAL GUIDANCE COUNSELOR Primary Care Provider Buck Santana MD Unavailable Mar Gomez EDUCATIONAL GUIDANCE COUNSELOR Primary Care Provider [phone] Provider, Historical Unavailable Unavailable Shlomo BessC Unavailable [phone] Rosa Carr Unavailable Unavailable Buck Green MD Unavailable [phone] Sylvester Patel-C Unavailable [phone] Alejnadra Doan RN Unavailable Unavailable Radha Duran RACE CAR DRIVER Unavailable Unavailable Theresa Colon EDUCATIONAL GUIDANCE COUNSELOR Unavailable [phone] Little Koo MD Unavailable [phone] Mariana Schultz EDUCATIONAL GUIDANCE COUNSELOR Unavailable [phone] Trino Wolff RACE CAR DRIVER Unavailable Unavailable Blanca Whittington RACE CAR DRIVER Unavailable Unavailab Blanca Monson RACE CAR DRIVER Unavailable Unavailable Desmond Tubbs APRN Primary Care Provider [phone] Enma Sneed RACE CAR DRIVER Unavailable Unavailable Encounter Details Date Type Department Care Team (Late st Contact Info) Description 03/05/2006 Historical Encounter Global Bill Mcfarlnae MD [address] [place] [address] Social History Tobacco Use Types [...] documented as of this encounter Care Teams Guest Service Host Relationship Specialty Start Date End Date Bennie Jo DO PCP - General 04/24/09 09/20/12 Vikram Duncan MD [address] [place] [address] PCP - General 08/14/08 04/23/09 Aniyah Trammell APRN [address] [place] [address] PCP - General Nurse Practitioner 09/21/12 02/17/16 Mar Gomez APRN [address] [place] [address] PCP - General Nurse Practitioner 02/18/16 10/02/24 Desmond Tubbs APRN [address] [address] [place], [place] [address] PCP - General Nurse Practitioner 12/30/24 Buck Santana MD [facility] [place] [address] Orthopedic Surgery 09/21/12 Provider, Historical 10/07/16 Shlomo Bess PA-C [address] [place] [address] [address] [place] [address] Physician Sulfide Head Operator 07/13/20 Rosa Carr 09/03/21 Buck Green MD [address] [place] [address] [address] [place] [address] Obstetrics & Gynecology 09/04/21 Sylvester Patel PA-C [address] [place] [address] [address] [place] [address] Physician Sulfide Head Operator 09/09/21 Alejandra Doan, SHANIA 09/09/21 Radha Duran LPN LPN 11/01/21 Theresa Colon APRN [address] [place] [address] [address] [place] [address] Nurse Practitioner 11/27/21 Little Koo MD [address] [place] [address] [address] [place] [address] Gastroenterology 11/27/21 Mariana Schultz APRN [address] [place] [address] [place] [address] Nurse Practitioner Gastroenterology 01/28/22 Trino Wolff LPN RACE CAR DRIVER 04/16/22 Blanca Whittington, RACE CAR DRIVER RACE CAR DRIVER 05/05/22 Blanca Reagan, RACE CAR DRIVER RACE CAR DRIVER 06/30/22 Enma Sneed, RACE CAR DRIVER RACE CAR DRIVER 05/09/25 documented as of this encounter
--- OUTSIDE RECORDS SUMMARY | 2025-05-09 12:49 | XMS_ITS | Encounter Summary ---
Author Organization [facility] Address [address] [place] [address] Care Team Providers Care Bromination Equipment Operator Name Role Phone Aniyah Trammell APRN Primary Care Provider [phone] Buck Santana MD Unavailable Mar Gomez AUTOMATIC NAILING MACHINE OPERATOR Primary Care Provider Provider, Historical Unavailable Unavailable Shlomo Bess-C Unavailable Rosa Carr Unavailable Unavailable Buck Green MD Unavailable Sylvester Patel PA-C Unavailable Alejandra Doan RN Unavailable Unavailable Radha Duran LPN Unavailable Unavailable Theresa Colon AUTOMATIC NAILING MACHINE OPERATOR Unavailable [phone] Little Koo MD Unavailable [phone] Mariana Schultz AUTOMATIC NAILING MACHINE OPERATOR Unavailable Trino Wolff SISAL OPERATOR Unavailable Unavailable Blanca Whittington SISAL OPERATOR Unavailable Unavailab Blanca Monson SISAL OPERATOR Unavailable Unavailable Desmond Tubbs APRN Primary Care Provider Enma Sneed SISAL OPERATOR Unavailable Unavailable Encounter Details Date Type Department Care Team (Late st Contact Info) Description 08/24/2015 Telephone [facility]EM[facility] ONCOLOGY [address] [place] [address] Louie Uriarte MD [address] [place] [address] 500 [place] [address] Social History Tobacco Use Types Packs/Day Years [...] encounter Miscellaneous Notes * Telephone Encounter - Mariana Ray - 08/24/2015 2:39 PM EST Patient failed to keep appointments with [facility]. Do not reschedule. Confirmation letter mailed to patient. documented in this encounter Plan of Treatment Not on file documented as of this encounter Visit Diagnoses Not on filedocumented in this encounter Additional Health Concerns Infection Onset Date Last Indicated Resolved Time Covid-19 (rule out) 05/07/2022 05/07/2022 05/08/20 22 12:33 AM EDT Covid-19 (confirmed) 11/05/2022 11/06/2022 023 10:12 PM EST documented as of this encounter Care Teams Bromination Equipment Operator Relationship Specialty Start Date End Date Aniyah Trammell APRN [address] [place] [address] PCP - General Nurse Practitioner 09/21/12 02/17/16 Mar Gomez APRN [address] [place] [address] PCP - General Nurse Practitioner 02/18/16 10/02/24 Desmond Tubbs APRN [address] [address] [place], [place] [address] PCP - General Nurse Practitioner 12/30/24 Buck Santana MD [facility] [place] [address] Orthopedic Surgery 09/21/12 Provider, Historical 10/07/16 Shlomo Bess PA-C [address] [place] [address] [address] [place] [address] Physician Binding Cutter Synthetic Cloth 07/13/20 Rosa Carr 09/03/21 Buck Green MD [address] [place] [address] [address] [place] [address] Obstetrics & Gynecology 09/04/21 Sylvester Patel PA-C [address] [place] [address] [address] [place] [address] Physician Binding Cutter Synthetic Cloth 09/09/21 Alejandra Doan, SHANIA 09/09/21 Radha Duran LPN LPN 11/01/21 Theresa Colon APRN [address] [place] [address] 203 [place] [address] Nurse Practitioner 11/27/21 Little Koo MD [address] [place] [address] [address] [place] [address] Gastroenterology 11/27/21 Mariana Schultz APRN [address] [place] [address] [address] [place] [address] Nurse Practitioner Gastroenterology 01/28/22 Trino Wolff LPN SISAL OPERATOR 04/16/22 Blanca Whittington, SISAL OPERATOR SISAL OPERATOR 05/05/22 Blanca Reagan, SISAL OPERATOR SISAL OPERATOR 06/30/22 Enma Sneed, SISAL OPERATOR SISAL OPERATOR 05/09/25 documented as of this encounter
--- OUTSIDE RECORDS SUMMARY | 2025-05-09 12:49 | XMS_ITS | Encounter Summary ---
Author Organization [facility] Address [address] [place] [address] Care Team Providers Care Proced Tech Name Role Phone Buck Santana MD Unavailable Mar Gomez APRN Primary Care Provider [phone] Provider, Historical Unavailable Unavailable Shlomo Bess PA-C Unavailable [phone] Rosa Carr Unavailable Unavailable Buck Green MD Unavailable Sylvester Patel PA-C Unavailable [phone] Alejandra Doan RN Unavailable Unavailable Radha Duran LPN Unavailable Unavailable Theresa Colon REAL ESTATE BROKER ASSOCIATE Unavailable Little Koo MD Unavailable Mariana Schultz REAL ESTATE BROKER ASSOCIATE Unavailable [phone] Trino Wolff CO FOUNDER AND DIRECTOR Unavailable Unavailable Blanca Whittington CO FOUNDER AND DIRECTOR Unavailable Unavailab Blanca Monson CO FOUNDER AND DIRECTOR Unavailable Unavailable Desmond Tubbs APRN Primary Care Provider Enma Sneed LPN Unavailable Unavailable Encounter Details Date Type Department Care Team (Latest Contact Info) Description 12/17/2020 Transcribe Orders [facility] Buck Green MD [address] [place] [address] [address] [place] [address] (work) Encounter for supervision of normal first in second trimester (Primary Dx); 16 weeks gestation of Social History Tobacco Use Types Packs/Day Years Used Date Smoking Tobacco: Every Day Cigarettes 0.3 15 Smokeless Tobacco: Never Quit: [...] or suspected to have Coronavirus / COVID-19? Unable to assess 12/20/2020 5:05 PM EDT documented as of this encounter Plan of Treatment Not on file documented as of this encounter Procedures Procedure Name Priority Date/Time Associated Diagnosis Comments POCT URINALYSIS DIPSTICK (CLINITEK) Routine 12/17/2020 8:45 AM EDT Encounter for supervision of normal first in second trimester 16 weeks gestation of documented in this encounter Results * POCT Urinalysis Dipstick (Clinitek) (12/17/2020 8:45 AM EDT) GLUCOSE URINE, POC neg BILIRUBIN RECHECK neg KETONES, POC neg SPECIFIC GRAVITY, POC >1.030 1.005 - 1.030 BLOOD URINE, POC neg PH, POC 6.0 5.0 - 9.0 PROTEIN, POC 10 UROBILINOGEN, POC norm 0.2 - 1.0 NITRITE neg LEUKOCYTE EST, POC 25 Lot Number Expiration Date 12/17/2020 8:45 AM EDT us Buck Green MD POINT OF CARE TEST ORDERAB LES Final Result documented in this encounter Visit Diagnoses Diagnosis Encounter for supervision of normal first in second trimester (HHS/HCC)- Primary 16 weeks gestation of (HHS/HCC) documented in this encounter Additional Health Concerns Infection Onset Date Last Indicated Resolved Time Covid-19 (rule out) 05/07/2022 05/07/2022 05/08/20 22 12:33 AM EDT Covid-19 (confirmed) 11/05/2022 11/06/2022 023 10:12 PM EST documented as of this encounter Care Teams Proced Tech Relationship Specialty Start Date End Date Mar Gomez APRN [id number] [place] [address] PCP - General Nurse Practitioner 02/18/16 10/02/24 Desmond Tubbs APRN [id number] [address] [place], [place] [id number] PCP - General Nurse Practitioner 12/30/24 Buck Santana MD [address] [place], [place] [address] Orthopedic Surgery 09/21/12 Provider, Historical 10/07/16 Shlomo Bess PA-C [address] [place] [address] [address] [place] [address] Physician Process Eng 07/13/20 Rosa Carr 09/03/21 Buck Green MD [address] [place] [address] [address] [place] [address] Obstetrics & Gynecology 09/04/21 Sylvester Patel PA-C [address] [place] [address] [address] [place] [address] Physician Process Eng 09/09/21 Alejandra Doan, RN 09/09/21 Radha Duran LPN LPN 11/01/21 Theresa Colon APRN [address] [place] [address] [address] [place], [place] [address] Nurse Practitioner 11/27/21 Little Koo MD [address] [place] [address] Gastroenterology 11/27/21 Mariana Schultz APRN [address] [place] [address] Nurse Practitioner Gastroenterology 01/28/22 Trino Wolff, CO FOUNDER AND DIRECTOR CO FOUNDER AND DIRECTOR 04/16/22 Blanca Whittington, CO FOUNDER AND DIRECTOR CO FOUNDER AND DIRECTOR 05/05/22 Blanca Reagan, CO FOUNDER AND DIRECTOR CO FOUNDER AND DIRECTOR 06/30/22 Enma Sneed, CO FOUNDER AND DIRECTOR CO FOUNDER AND DIRECTOR 05/09/25 documented as of this encounter
--- OUTSIDE RECORDS SUMMARY | 2025-05-09 12:49 | XMS_ITS | Encounter Summary ---
Author Organization [facility] Address [address] [place] [address] Care Team Providers Care Battery Installer Name Role Phone Bennie Jo DO Primary Care Provider [phone] Vikram Duncan MD Primary Care Provider [phone] Aniyah Trammell FIXED INCOME TRADING VICE PRESIDENT Primary Care Provider Buck Santana MD Unavailable Mar Gomez FIXED INCOME TRADING VICE PRESIDENT Primary Care Provider Provider, Historical Unavailable Unavailable Shlomo BessC Unavailable [phone] Rosa Carr Unavailable Unavailable Buck Green MD Unavailable [phone] Sylvester Patel-C Unavailable [phone] Alejandra Doan RN Unavailable Unavailable Radha Duran SCRAP HOIST OPERATOR Unavailable Unavailable Theresa Colon FIXED INCOME TRADING VICE PRESIDENT Unavailable [phone] Little Koo MD Unavailable [phone] Mariana Schultz FIXED INCOME TRADING VICE PRESIDENT Unavailable [phone] Trino Wolff SCRAP HOIST OPERATOR Unavailable Unavailable Blanca Whittington SCRAP HOIST OPERATOR Unavailable Unavailab Blanca Monson SCRAP HOIST OPERATOR Unavailable Unavailable Desmond Tubbs APRN Primary Care Provider Enma Sneed SCRAP HOIST OPERATOR Unavailable Unavailable Encounter Details Date Type Department Care Team (Late st Contact Info) Description 02/21/2006 Historical Encounter Global Abraham Eli MD Social History Tobacco Use Types Packs/Day Years [...] documented as of this encounter Care Teams Battery Installer Relationship Specialty Start Date End Date Bennie Jo DO PCP - General 04/24/09 09/20/12 Vikram Duncan MD [address] [place] [address] PCP - General 08/14/08 04/23/09 Aniyah Trammell, NISH [address] [place] [address] PCP - General Nurse Practitioner 09/21/12 02/17/16 Mar Gomez APRN [address] [place] [address] PCP - General Nurse Practitioner 02/18/16 10/02/24 Desmond Tubbs APRN [id number] [place], [place] [id number] PCP - General Nurse Practitioner 12/30/24 Buck Santana MD [facility] [place] [address] Orthopedic Surgery 09/21/12 Provider, Historical 10/07/16 Shlomo Bess PA-C [address] [place] [address] [facility] [address] [place] [address] Physician Screw Remover 07/13/20 Rosa Carr 09/03/21 Buck Green MD [address] [place] [address] [place] [address] Obstetrics & Gynecology 09/04/21 Sylvester Patel PA-C [address] [place] [address] Physician Screw Remover 09/09/21 Alejandra Doan, RN 09/09/21 Radha Duran LPN LPN 11/01/21 Theresa Colon APRN [address] [place] [address] [address] [place] [address] Nurse Practitioner 11/27/21 Little Koo MD [address] [place] [address] Gastroenterology 11/27/21 Mariana Schultz APRN [address] [place] [address] Nurse Practitioner Gastroenterology 01/28/22 Trino Wolff LPN LPN 04/16/22 Blanca Whittington LPN SCRAP HOIST OPERATOR 05/05/22 Blanca Reagan LPN SCRAP HOIST OPERATOR 06/30/22 Enma Sneed LPN SCRAP HOIST OPERATOR 05/09/25 documented as of this encounter
--- OUTSIDE RECORDS SUMMARY | 2025-05-09 12:49 | XMS_ITS | Encounter Summary ---
Author Organization [facility] Address [address] [place] [address] Care Team Providers Care Metallurgical Inspector Name Role Phone Bennie Jo DO Primary Care Provider [phone] Vikram Duncan MD Primary Care Provider [phone] Aniyah Trammell ATTENDANT COIN OPERATED LAUNDRY Primary Care Provider Buck Santana MD Unavailable Mar Goemz ATTENDANT COIN OPERATED LAUNDRY Primary Care Provider [phone] Provider, Historical Unavailable Unavailable Shlomo BessC Unavailable [phone] Rosa Carr Unavailable Unavailable Buck Green MD Unavailable [phone] Sylvester Patel-C Unavailable [phone] Alejandra Doan RN Unavailable Unavailable Radha Duran GAME BIRD FARMER Unavailable Unavailable Theresa Colon ATTENDANT COIN OPERATED LAUNDRY Unavailable [phone] Little Koo MD Unavailable [phone] Mariana Schultz ATTENDANT COIN OPERATED LAUNDRY Unavailable [phone] Trino Wolff GAME BIRD FARMER Unavailable Unavailable Blanca Whittington GAME BIRD FARMER Unavailable Unavailab Blanca Monson GAME BIRD FARMER Unavailable Unavailable Desmond Tubbs APRN Primary Care Provider Enma Sneed GAME BIRD FARMER Unavailable Unavailable Encounter Details Date Type Department Care Team (Late st Contact Info) Description 03/11/2004 Historical Encounter Global Aron Odonnell MD [facility] [address] [facility] [place], [place] [id number] Social History Tobacco Use Types Packs/Day Years [...] documented as of this encounter Care Teams Metallurgical Inspector Relationship Specialty Start Date End Date Bennie Jo DO PCP - General 04/24/09 09/20/12 Vikram Duncan MD [facility] [place] [address] PCP - General 08/14/08 04/23/09 Aniyah Trammell APRN [id number] [place] [address] PCP - General Nurse Practitioner 09/21/12 02/17/16 Mar Gomez APRN [address] [place] [address] PCP - General Nurse Practitioner 02/18/16 10/02/24 Desmond Tubbs APRN [id number] [address] PCP - General Nurse Practitioner 12/30/24 Buck Santana MD [facility] [place] [address] Orthopedic Surgery 09/21/12 Provider, Historical 10/07/16 Shlomo Bess PA-C [address] [place] [address] [address] [place] [address] Physician Clay Dry Press Operator 07/13/20 Rosa Carr 09/03/21 Buck Green MD [address] [place] [address] [address] [place] [address] Obstetrics & Gynecology 09/04/21 Sylvester Patel PA-C [address] [place] [address] [address] [place] [address] Physician Clay Dry Press Operator 09/09/21 Alejandra Doan, RN 09/09/21 Radha Duran LPN LPN 11/01/21 Theresa Colon APRN [address] [place] [address] [address] [place], [place] [address] Nurse Practitioner 11/27/21 Little Koo MD [address] [place] [address] [facility] [address] Gastroenterology 11/27/21 Mariana Schultz APRN [address] [place] [address] [address] [place] [address] Nurse Practitioner Gastroenterology 01/28/22 Trino Wolff, GAME BIRD FARMER GAME BIRD FARMER 04/16/22 Blanca Whittington, GAME BIRD FARMER GAME BIRD FARMER 05/05/22 Blanca Reagan, GAME BIRD FARMER GAME BIRD FARMER 06/30/22 Enma Sneed, GAME BIRD FARMER GAME BIRD FARMER 05/09/25 documented as of this encounter
--- OUTSIDE RECORDS SUMMARY | 2025-05-09 12:49 | XMS_ITS | Encounter Summary ---
Author Organization [facility] Address [address] [place] [address] Care Team Providers Care Senior Maintenance Technician Name Role Phone Bennie Jo DO Primary Care Provider [phone] Vikram Duncan MD Primary Care Provider [phone] Aniyah Trammell REHABILITATION COUNSELLOR Primary Care Provider Buck Santana MD Unavailable Mar Gomez REHABILITATION COUNSELLOR Primary Care Provider Provider, Historical Unavailable Unavailable Shlomo BessC Unavailable [phone] Rosa Carr Unavailable Unavailable Buck Green MD Unavailable [phone] Sylvester Patel-C Unavailable [phone] Alejandra Doan RN Unavailable Unavailable Radha Duran GARAGE DOOR SERVICE TECHNICIAN Unavailable Unavailable Theresa Colon REHABILITATION COUNSELLOR Unavailable [phone] Little Koo MD Unavailable [phone] Mariana Schultz REHABILITATION COUNSELLOR Unavailable [phone] Trino Wolff GARAGE DOOR SERVICE TECHNICIAN Unavailable Unavailable Blanca Whittington GARAGE DOOR SERVICE TECHNICIAN Unavailable Unavailab Blanca Monson GARAGE DOOR SERVICE TECHNICIAN Unavailable Unavailable Desmond Tubbs APRN Primary Care Provider Enma Sneed GARAGE DOOR SERVICE TECHNICIAN Unavailable Unavailable Encounter Details Date Type Department Care Team (Late st Contact Info) Description 02/16/2006 Historical Encounter Global Bill Mcfarlane MD [address] [place] [address] Social History Tobacco Use Types [...] documented as of this encounter Care Teams Senior Maintenance Technician Relationship Specialty Start Date End Date Bennie Jo DO PCP - General 04/24/09 09/20/12 Vikram Duncan MD [address] [place] [address] PCP - General 08/14/08 04/23/09 Aniyah Trammell APRN [id number] [place] [address] PCP - General Nurse Practitioner 09/21/12 02/17/16 Mar Gomez APRN [address] [place] [address] PCP - General Nurse Practitioner 02/18/16 10/02/24 Desmond Tubbs APRN [id number] [address] [place], [place] [address] PCP - General Nurse Practitioner 12/30/24 Buck Santana MD [facility] [place] [address] Orthopedic Surgery 09/21/12 Provider, Historical 10/07/16 Shlomo Bess PA-C [address] [place] [address] [address] [place] [address] Physician [place] Warden 07/13/20 Rosa Carr 09/03/21 Buck Green MD [address] [place] [address] [address] [place] [address] Obstetrics & Gynecology 09/04/21 Sylvester Patel PA-C [address] [place] [address] [address] [place] [address] Physician [place] W[place] 09/09/21 Alejandra Doan, SHANIA 09/09/21 Radha Duran LPN LPN 11/01/21 Theresa Colon APRN [address] [place] [address] [address] [place] [address] Nurse Practitioner 11/27/21 Little Koo MD [address] [place] [address] [address] [place] [address] Gastroenterology 11/27/21 Mariana Schultz APRN [address] [place] [address] [place] [address] Nurse Practitioner Gastroenterology 01/28/22 Trino Wolff LPN GARAGE DOOR SERVICE TECHNICIAN 04/16/22 Blanca Whittington, GARAGE DOOR SERVICE TECHNICIAN GARAGE DOOR SERVICE TECHNICIAN 05/05/22 Blanca Reagan, GARAGE DOOR SERVICE TECHNICIAN GARAGE DOOR SERVICE TECHNICIAN 06/30/22 Enma Sneed, GARAGE DOOR SERVICE TECHNICIAN GARAGE DOOR SERVICE TECHNICIAN 05/09/25 documented as of this encounter
--- OUTSIDE RECORDS SUMMARY | 2025-05-09 12:49 | XMS_ITS | Encounter Summary ---
Author Organization [facility] Address [address] [place] [address] Care Team Providers Care Sed Middle School Teacher Name Role Phone Buck Santana MD Unavailable Mar Gomez APRN Primary Care Provider [phone] Provider, Historical Unavailable Unavailable Shlomo Bess PA-C Unavailable [phone] Rosa Carr Unavailable Unavailable Buck Green MD Unavailable [phone] Sylvester Patel PA-C Unavailable [phone] Alejandra Doan RN Unavailable Unavailable Radha Duran MEASURER MACHINE Unavailable Unavailable Theresa Colon ORACLE FINANCIALS DEVELOPER Unavailable [phone] Little Koo MD Unavailable Mariana Schultz ORACLE FINANCIALS DEVELOPER Unavailable Trino Wolff MEASURER MACHINE Unavailable Unavailable Blanca Whittington MEASURER MACHINE Unavailable Unavailab Blanca Monson MEASURER MACHINE Unavailable Unavailable Desmond Tubbs ORACLE FINANCIALS DEVELOPER Primary Care Provider Enma Sneed LPN Unavailable Unavailable Encounter Details Date Type Department Care Team (Late st Contact Info) Description 09/09/2021 Orders Only [facility] [address] [place] [address] [address] [place] [address] Alejandra Doan, RN Social History Tobacco Use Types Packs/Day Years [...] have Coronavirus / COVID-19? No / Unsure 09/09/2021 9:45 AM EST documented as of this encounter Plan of Treatment Not on file documented as of this encounter Visit Diagnoses Not on filedocumented in this encounter Additional Health Concerns Infection Onset Date Last Indicated Resolved Time Covid-19 (rule out) 05/07/2022 05/07/2022 05/08/20 22 12:33 AM EDT Covid-19 (confirmed) 11/05/2022 11/06/2022 023 10:12 PM EST documented as of this encounter Care Teams Sed Middle School Teacher Relationship Specialty Start Date End Date Mar Gomez APRN [address] [place] [address] PCP - General Nurse Practitioner 02/18/16 10/02/24 Desmond Tubbs APRN [address] [address] [place], [place] [address] PCP - General Nurse Practitioner 12/30/24 Buck Santana MD [address] [place] [address] Orthopedic Surgery 09/21/12 Provider, Historical 10/07/16 Shlomo Bess PA-C [address] [place] [address] [address] [place] [address] Physician Hot Mill Worker 07/13/20 Rosa Carr 09/03/21 Buck Green MD [address] [place] [address] [address] [place] [address] Obstetrics & Gynecology 09/04/21 Sylvester Patel PA-C [address] [place] [address] [address] [place] [address] Physician Hot Mill Worker 09/09/21 Alejandra Doan, RN 09/09/21 Radha Duran LPN MEASURER MACHINE 11/01/21 Theresa Colon APRN [address] [place] [address] [address] [place] [address] Nurse Practitioner 11/27/21 Little Koo MD [address] [place] [address] [address] [place] [address] Gastroenterology 11/27/21 Mariana Schultz APRN [address] [place] [address] [address] [place] [address] Nurse Practitioner Gastroenterology 01/28/22 Trino Wolff, MEASURER MACHINE MEASURER MACHINE 04/16/22 Blanca Whittington, MEASURER MACHINE MEASURER MACHINE 05/05/22 Blanca Reagan, MEASURER MACHINE MEASURER MACHINE 06/30/22 Enma Sneed, MEASURER MACHINE MEASURER MACHINE 05/09/25 documented as of this encounter
--- OUTSIDE RECORDS SUMMARY | 2025-05-09 12:49 | XMS_ITS | Encounter Summary ---
Author Organization [facility] Address [address] [place] [address] Care Team Providers Care Cadd Instructor Name Role Phone Bennie Jo DO Primary Care Provider [phone] Vikram Duncan MD Primary Care Provider [phone] Aniyah Trammell CAN MAKER Primary Care Provider Buck Santana MD Unavailable Mar Gomez CAN MAKER Primary Care Provider Provider, Historical Unavailable Unavailable Shlomo BessC Unavailable [phone] Rosa Carr Unavailable Unavailable Buck Green MD Unavailable [phone] Sylvester Patel-C Unavailable [phone] Alejandra Doan RN Unavailable Unavailable Radha Duran REELING OPERATOR Unavailable Unavailable Theresa Colon CAN MAKER Unavailable [phone] Little Koo MD Unavailable [phone] Mariana Schultz CAN MAKER Unavailable [phone] Trino Wolff REELING OPERATOR Unavailable Unavailable Blanca Whittington REELING OPERATOR Unavailable Unavailab Blanca Monson REELING OPERATOR Unavailable Unavailable Desmond Tubbs APRN Primary Care Provider Enma Sneed REELING OPERATOR Unavailable Unavailable Encounter Details Date Type Department Care Team (Late st Contact Info) Description 04/15/2006 Historical Encounter Global Bill Mcfarlane MD [address] [place] [address] Social History Tobacco Use Types [...] documented as of this encounter Care Teams Cadd Instructor Relationship Specialty Start Date End Date Bennie Jo DO PCP - General 04/24/09 09/20/12 Vikram Duncan MD [address] [place] [address] PCP - General 08/14/08 04/23/09 Aniyah Trammell APRN [address] [place] [address] PCP - General Nurse Practitioner 09/21/12 02/17/16 Mar Gomez APRN [address] [place] [address] PCP - General Nurse Practitioner 02/18/16 10/02/24 Desmond Tubbs APRN [address] [address] [place], [place] [address] PCP - General Nurse Practitioner 12/30/24 Buck Santana MD [facility] [place] [address] Orthopedic Surgery 09/21/12 Provider, Historical 10/07/16 Shlomo Bess PA-C [address] [place] [address] [address] [place] [address] Physician Courseware Developer 07/13/20 Rosa Carr 09/03/21 Buck Green MD [address] [place] [address] [address] [place] [address] Obstetrics & Gynecology 09/04/21 Sylvester Paetl PA-C [address] [place] [address] [address] [place] [address] Physician Courseware Developer 09/09/21 Alejandra Doan, SHANIA 09/09/21 Radha Duran LPN LPN 11/01/21 Theresa Colon APRN [address] [place] [address] 203 [place] [address] Nurse Practitioner 11/27/21 Little Koo MD [address] [place] [address] [address] [place] [address] Gastroenterology 11/27/21 Mariana Schulzt APRN [address] [place] [address] [place] [address] Nurse Practitioner Gastroenterology 01/28/22 Trino Wolff LPN REELING OPERATOR 04/16/22 Blanca Whittington, REELING OPERATOR REELING OPERATOR 05/05/22 Blanca Reagan, REELING OPERATOR REELING OPERATOR 06/30/22 Enma Sneed, REELING OPERATOR REELING OPERATOR 05/09/25 documented as of this encounter
--- OUTSIDE RECORDS SUMMARY | 2025-05-09 12:49 | XMS_ITS | Encounter Summary ---
Author Organization [facility] Address [address] [place] [address] Care Team Providers Care Electrical Tech/Project Manager Name Role Phone Buck Santana MD Unavailable Mar Gomez APRN Primary Care Provider [phone] Provider, Historical Unavailable Unavailable Shlomo Bess PA-C Unavailable [phone] Rosa Carr Unavailable Unavailable Buck Green MD Unavailable Sylvester Patel PA-C Unavailable Alejandra Doan RN Unavailable Unavailable Radha Duran LPN Unavailable Unavailable Theresa Colon BROOM BUILDER Unavailable [phone] Little Koo MD Unavailable [phone] Mariana Schultz BROOM BUILDER Unavailable Trino Wolff BUTTON SEWING MACHINE OPERATOR Unavailable Unavailable Blanca Whittington BUTTON SEWING MACHINE OPERATOR Unavailable Unavailab Blanca Monson BUTTON SEWING MACHINE OPERATOR Unavailable Unavailable Desmond Tubbs APRN Primary Care Provider Enma Sneed LPN Unavailable Unavailable Encounter Details Date Type Department Care Team (Latest Contact Info) Description 12/20/2020 Transcribe Orders Maternal Medicine [address] [place] [id number] Buck Green MD [address] [place] [address] [place] [address] AMA (advanced maternal age) multigravida 35+, second trimester (Primary Dx); Hx of gastric bypass; History of delivery, currently in second trimester; History of labor, current , second trimester; History of reversal of tubal ligation Social History Tobacco Use Types Packs/Day Years [...] documented as of this encounter Results * [facility] US COMPLETE ANATOMY (12/31/2020 12:19 PM EDT) Anatomical Region Laterality Modality Abdomen Ultrasound Buck Green MD [facility] ORDERABLES Final Resu lt documented in this encounter Visit Diagnoses Diagnosis AMA (advanced maternal age) multigravida 35+, second trimester (HHS/HCC)- Primary Hx of gastric bypass History of delivery, currently in second trimester (HHS/HCC) History of labor, current , second trimester (HHS/HCC) History of reversal of tubal ligation documented in this encounter Additional Health Concerns Infection Onset Date Last Indicated Resolved Time Covid-19 (rule out) 05/07/2022 05/07/2022 05/08/20 22 12:33 AM EDT Covid-19 (confirmed) 11/05/2022 11/06/2022 023 10:12 PM EST documented as of this encounter Care Teams Electrical Tech/Project Manager Relationship Specialty Start Date End Date Mar Gomez APRN [address] [place] [address] PCP - General Nurse Practitioner 02/18/16 10/02/24 Desmond Tubbs APRN [id number] [address] PCP - General Nurse Practitioner 12/30/24 Buck Santana MD [facility] [place] [id number] Orthopedic Surgery 09/21/12 Provider, Historical 10/07/16 Shlomo Bess PA-C [address] [place] [address] [address] [place] [address] Physician Chef De Cuisine 07/13/20 Rosa Carr 09/03/21 Buck Green MD [address] [place] [address] [address] [place] [address] Obstetrics & Gynecology 09/04/21 Sylvester Patel PA-C [address] [place] [address] [address] [place] [address] Physician Chef De Cuisine 09/09/21 Alejandra Doan, RN 09/09/21 Radha Duran LPN LPN 11/01/21 Theresa Colon APRN [address] [facility] [address] [place], [place] [address] Nurse Practitioner 11/27/21 Little Koo MD [address] [place] [address] [address] [place] [address] Gastroenterology 11/27/21 Mariana Schultz APRN [address] [place] [address] Nurse Practitioner Gastroenterology 01/28/22 Trino Wolff, BUTTON SEWING MACHINE OPERATOR BUTTON SEWING MACHINE OPERATOR 04/16/22 Blanca Whittington, BUTTON SEWING MACHINE OPERATOR BUTTON SEWING MACHINE OPERATOR 05/05/22 Blanca Reagan, BUTTON SEWING MACHINE OPERATOR BUTTON SEWING MACHINE OPERATOR 06/30/22 Enma Sneed, BUTTON SEWING MACHINE OPERATOR BUTTON SEWING MACHINE OPERATOR 05/09/25 documented as of this encounter
--- OUTSIDE RECORDS SUMMARY | 2025-05-09 12:49 | XMS_ITS | Encounter Summary ---
Author Organization [facility] Address [address] [place] [address] Care Team Providers Care Perioperative Assistant Name Role Phone Bukc Santana MD Unavailable Mar Gomez APRN Primary Care Provider [phone] Provider, Historical Unavailable Unavailable Shlomo Bess PA-C Unavailable [phone] Rosa Carr Unavailable Unavailable Buck Green MD Unavailable [phone] Sylvester Patel PA-C Unavailable [phone] Alejandra Doan RN Unavailable Unavailable Radha Duran LPN Unavailable Unavailable Theresa Colon KNITTER MACHINE Unavailable [phone] Little Koo MD Unavailable [phone] Mariana Schultz KNITTER MACHINE Unavailable Trino Wolff HEAD CHARRER Unavailable Unavailable Blanca Whittington HEAD CHARRER Unavailable Unavailab Blanca Monson HEAD CHARRER Unavailable Unavailable Desmond Tubbs APRN Primary Care Provider Enma Sneed LPN Unavailable Unavailable Encounter Details Date Type Department Care Team (Latest Contact Info) Description 10/23/2020 Transcribe Orders [facility] Buck Green MD [address] [place] [address] [address] [place] [address] (work) Encounter for supervision of normal first in first trimester (Primary Dx); 8 weeks gestation of Social History Tobacco [...] have Coronavirus / COVID-19? No / Unsure 10/11/2020 11:31 AM EST documented as of this encounter Plan of Treatment Not on file documented as of this encounter Procedures Procedure Name Priority Date/Time Associated Diagnosis Comments POCT URINALYSIS DIPSTICK (CLINITEK) Routine 10/23/2020 10:56 AM EST Encounter for supervision of normal first in first trimester 8 weeks gestation of documented in this encounter Results * POCT Urinalysis Dipstick (Clinitek) (10/23/2020 10:56 AM EST) GLUCOSE URINE, POC neg BILIRUBIN RECHECK neg KETONES, POC neg SPECIFIC GRAVITY, POC <1.005 1.005 - 1.030 BLOOD URINE, POC neg PH, POC 7.0 5.0 - 9.0 PROTEIN, POC neg UROBILINOGEN, POC norm 0.2 - 1.0 NITRITE neg LEUKOCYTE EST, POC neg Lot Number Expiration Date 10/23/2020 10:5 6 AM EST us Buck Green MD POINT OF CARE TEST ORDERAB LES Final Result documented in this encounter Visit Diagnoses Diagnosis Encounter for supervision of normal first in first trimester (HHS/HCC)- Primary 8 weeks gestation of (HHS/HCC) documented in this encounter Additional Health Concerns Infection Onset Date Last Indicated Resolved Time Covid-19 (rule out) 05/07/2022 05/07/2022 05/08/20 22 12:33 AM EDT Covid-19 (confirmed) 11/05/2022 11/06/2022 023 10:12 PM EST documented as of this encounter Care Teams Perioperative Assistant Relationship Specialty Start Date End Date Mar Gomez APRN [address] [place] [address] PCP - General Nurse Practitioner 02/18/16 10/02/24 Desmond Tubbs APRN [id number] [address] [place], [place] [id number] PCP - General Nurse Practitioner 12/30/24 Buck Santana MD [facility] [place], [place] 6[address] Orthopedic Surgery 09/21/12 Provider, Historical 10/07/16 Shlomo Bess PA-C [address] [place] [address] [address] [place] [address] Physician Contract Attorney 07/13/20 Rosa Carr 09/03/21 Buck Green MD [address] [place] [address] [address] [place] [address] Obstetrics & Gynecology 09/04/21 Sylvester Patel PA-C [address] [place] [address] [address] [place] [address] Physician Contract Attorney 09/09/21 Alejandra Doan, RN 09/09/21 Radha Duran LPN LPN 11/01/21 Theresa Colon APRN [address] [place] [address] [address] [place], [place] [address] Nurse Practitioner 11/27/21 Little Koo MD [address] [place] [address] Gastroenterology 11/27/21 Mariana Schultz APRN [address] [place] [address] Nurse Practitioner Gastroenterology 01/28/22 Trino Wolff, HEAD CHARRER HEAD CHARRER 04/16/22 Blanca Whittington, HEAD CHARRER HEAD CHARRER 05/05/22 Blanca Reagan, HEAD CHARRER HEAD CHARRER 06/30/22 Enma Sneed, HEAD CHARRER HEAD CHARRER 05/09/25 documented as of this encounter
--- OUTSIDE RECORDS SUMMARY | 2025-05-09 12:49 | XMS_ITS | Encounter Summary ---
Author Organization [facility] Address [address] [place] [address] Care Team Providers Care Renewable Energy Division Manager Name Role Phone Buck Santana MD Unavailable Mar Gomez APRN Primary Care Provider [phone] Provider, Historical Unavailable Unavailable Shlomo Bess PA-C Unavailable [phone] Rosa Carr Unavailable Unavailable Buck Green MD Unavailable [phone] Sylvester Patel PA-C Unavailable [phone] Alejandra Doan RN Unavailable Unavailable Radha Duran LPN Unavailable Unavailable Theresa Colon EXPERIMENTAL OUTBOARD MOTORS MECHANIC Unavailable Little Koo MD Unavailable Mariana Schultz EXPERIMENTAL OUTBOARD MOTORS MECHANIC Unavailable [phone] Trino Wolff FAN RUNNER Unavailable Unavailable Blanca Whittington FAN RUNNER Unavailable Unavailab Blanca Monson FAN RUNNER Unavailable Unavailable Desmond Tubbs APRN Primary Care Provider Enma Sneed LPN Unavailable Unavailable Encounter Details Date Type Department Care Team (Latest Contact Info) Description 01/09/2021 Transcribe Orders [facility] Buck Green MD [address] [place] [address] [address] [place] [address] (work) Encounter for supervision of normal first in second trimester (Primary Dx); 19 weeks gestation of Social History Tobacco Use [...] have Coronavirus / COVID-19? No / Unsure 01/11/2021 8:57 PM EDT documented as of this encounter Plan of Treatment Not on file documented as of this encounter Procedures Procedure Name Priority Date/Time Associated Diagnosis Comments POCT URINALYSIS DIPSTICK (CLINITEK) Routine 01/09/2021 1:37 PM EDT Encounter for supervision of normal first in second trimester 19 weeks gestation of documented in this encounter Results * POCT Urinalysis Dipstick (Clinitek) (01/09/2021 1:37 PM EDT) GLUCOSE URINE, POC neg BILIRUBIN RECHECK neg KETONES, POC neg SPECIFIC GRAVITY, POC 1.020 1.005 - 1.030 BLOOD URINE, POC trace PH, POC 6.0 5.0 - 9.0 PROTEIN, POC neg UROBILINOGEN, POC norm 0.2 - 1.0 NITRITE neg LEUKOCYTE EST, POC 25 Lot Number Expiration Date 01/09/2021 1:37 PM EDT us Buck Green MD POINT OF CARE TEST ORDERAB LES Final Result documented in this encounter Visit Diagnoses Diagnosis Encounter for supervision of normal first in second trimester (HHS/HCC)- Primary 19 weeks gestation of (HHS/HCC) documented in this encounter Additional Health Concerns Infection Onset Date Last Indicated Resolved Time Covid-19 (rule out) 05/07/2022 05/07/2022 05/08/20 22 12:33 AM EDT Covid-19 (confirmed) 11/05/2022 11/06/2022 023 10:12 PM EST documented as of this encounter Care Teams Renewable Energy Division Manager Relationship Specialty Start Date End Date Mar Gomez APRN [address] [place] [address] PCP - General Nurse Practitioner 02/18/16 10/02/24 Desmond Tubbs APRN [id number] [address] [place], [place] [address] PCP - General Nurse Practitioner 12/30/24 Buck Santana MD [address] [place], [place] 9[address] Orthopedic Surgery 09/21/12 Provider, Historical 10/07/16 Shlomo Bess PA-C [address] [place] [address] [address] [place] [address] Physician Head Athletic Trainer/Strength Coach 07/13/20 Rosa Carr 09/03/21 Buck Green MD [address] [place] [address] [address] [place] [address] Obstetrics & Gynecology 09/04/21 Sylvester Patel PA-C [address] [place] [address] [address] [place] [address] Physician Head Athletic Trainer/Strength Coach 09/09/21 Alejandra Doan, RN 09/09/21 Radha Duran LPN LPN 11/01/21 Theresa Colon APRN [address] [place] [address] [address] [place], [place] [address] Nurse Practitioner 11/27/21 Little Koo MD [address] [place] [address] Gastroenterology 11/27/21 Mariana Schultz APRN [address] [place] [address] Nurse Practitioner Gastroenterology 01/28/22 Trino Wolff, FAN RUNNER FAN RUNNER 04/16/22 Blanca Whittington, FAN RUNNER FAN RUNNER 05/05/22 Blanca Reagan, FAN RUNNER FAN RUNNER 06/30/22 Enma Sneed, FAN RUNNER FAN RUNNER 05/09/25 documented as of this encounter
--- OUTSIDE RECORDS SUMMARY | 2025-05-09 12:49 | XMS_ITS | Encounter Summary ---
Author Organization [facility] Address [address] [place] [address] Care Team Providers Care High Speed Printer Operator Name Role Phone Bennie Jo DO Primary Care Provider [phone] Vikram Duncan MD Primary Care Provider [phone] Aniyah Trammell TUBER MACHINE OPERATOR Primary Care Provider Buck Santana MD Unavailable Mar Gomez TUBER MACHINE OPERATOR Primary Care Provider [phone] Provider, Historical Unavailable Unavailable Shlomo BessC Unavailable [phone] Rosa Carr Unavailable Unavailable Buck Green MD Unavailable [phone] Sylvester Patel-C Unavailable [phone] Alejandra Doan RN Unavailable Unavailable Radha Duran BLEND TECHNICIAN Unavailable Unavailable Theresa Colon TUBER MACHINE OPERATOR Unavailable [phone] Little Koo MD Unavailable [phone] Mariana Schultz TUBER MACHINE OPERATOR Unavailable [phone] Trino Wolff BLEND TECHNICIAN Unavailable Unavailable Blanca Whittington BLEND TECHNICIAN Unavailable Unavailab Blanca Monson BLEND TECHNICIAN Unavailable Unavailable Desmond Tubbs APRN Primary Care Provider [phone] Enma Sneed BLEND TECHNICIAN Unavailable Unavailable Encounter Details Date Type Department Care Team (Late st Contact Info) Description 04/16/2006 Historical Encounter Global Bill Mcfarlane MD [address] [place] [address] Social History Tobacco Use Types [...] documented as of this encounter Care Teams High Speed Printer Operator Relationship Specialty Start Date End Date Bennie Jo DO PCP - General 04/24/09 09/20/12 Vikram Duncan MD [address] [place] [address] PCP - General 08/14/08 04/23/09 Aniyah Trammell APRN [address] [place] [address] PCP - General Nurse Practitioner 09/21/12 02/17/16 Mar Gomez APRN [address] [place] [address] PCP - General Nurse Practitioner 02/18/16 10/02/24 Desmond Tubbs APRN [id number] [address] [place], [place] [id number] PCP - General Nurse Practitioner 12/30/24 Buck Santana MD [facility] [place] [address] Orthopedic Surgery 09/21/12 Provider, Historical 10/07/16 Shlomo Bess PA-C [address] [place] [address] [address] [place] [address] Physician Tin Pourer 07/13/20 Rosa Carr 09/03/21 Buck Green MD [address] [place] [address] [address] [place] [address] Obstetrics & Gynecology 09/04/21 Sylvester Patel PA-C [address] [place] [address] [address] [place] [address] Physician Tin Pourer 09/09/21 Alejandra Doan, SHANIA 09/09/21 Radha Duran LPN LPN 11/01/21 Theresa Colon APRN [address] [place] [address] [address] [place] [address] Nurse Practitioner 11/27/21 Little Koo MD [address] [place] [address] [address] [place] [address] Gastroenterology 11/27/21 Mariana Schultz APRN [address] [place] [address] [place] [address] Nurse Practitioner Gastroenterology 01/28/22 Trino Wolff LPN BLEND TECHNICIAN 04/16/22 Blanca Whittington, BLEND TECHNICIAN BLEND TECHNICIAN 05/05/22 Blanca Reagan, BLEND TECHNICIAN BLEND TECHNICIAN 06/30/22 Enma Sneed, BLEND TECHNICIAN BLEND TECHNICIAN 05/09/25 documented as of this encounter
--- OUTSIDE RECORDS SUMMARY | 2025-05-09 12:49 | XMS_ITS | Encounter Summary ---
Author Organization [facility] Address [address] [place] [address] Care Team Providers Care Life Cycle Assessment Analyst Name Role Phone Buck Santana MD Unavailable Mar Gomez APRN Primary Care Provider [phone] Provider, Historical Unavailable Unavailable Shlomo Bess PA-C Unavailable [phone] Rosa Carr Unavailable Unavailable Buck Green MD Unavailable Sylvester Patel PA-C Unavailable [phone] Alejandra Doan RN Unavailable Unavailable Radha Duran LPN Unavailable Unavailable Theresa Colon DRUG AND ALCOHOL COUNSELLOR Unavailable [phone] Little Koo MD Unavailable Mariana Schultz DRUG AND ALCOHOL COUNSELLOR Unavailable Trino Wolff CONDOMINIUM ASSOCIATION MANAGER Unavailable Unavailable Blanca Whittington CONDOMINIUM ASSOCIATION MANAGER Unavailable Unavailab Blanca Monson CONDOMINIUM ASSOCIATION MANAGER Unavailable Unavailable Desmond Tubbs DRUG AND ALCOHOL COUNSELLOR Primary Care Provider Enma Sneed LPN Unavailable Unavailable Encounter Details Date Type Department Care Team (Late st Contact Info) Description 03/15/2024 Orders Only Main Operating Room [address] [place] [address] Asael Melo MD [address] [place] [address] Morbid obesity (Primary Dx); Essential hypertension affecting in second trimester; Abdominal obesity and metabolic syndrome; BMI 40.0-44.9, adult Social History Tobacco Use Types Packs/Day Years [...] as of this encounter Visit Diagnoses Diagnosis Morbid obesity (CMS/HCC)- Primary Morbid obesity Essential hypertension affecting in second trimester (HHS/HCC) Abdominal obesity and metabolic syndrome BMI 40.0-44.9, adult (CMS/HCC) Body Mass Index 40.0-44.9, adult documented in this encounter Care Teams Life Cycle Assessment Analyst Relationship Specialty Start Date End Date Mar Gomez APRN [address] [place] [address] PCP - General Nurse Practitioner 02/18/16 10/02/24 Desmond Tubbs APRN [id number] [id number] PCP - General Nurse Practitioner 12/30/24 Buck Santana MD [address] [place] [address] Orthopedic Surgery 09/21/12 Provider, Historical 10/07/16 Shlomo Bess PA-C [address] [place] [address] [address] [place] [address] Physician Customer Engagement Manager 07/13/20 Rosa Carr 09/03/21 Buck Green MD [address] [place] [address] [address] [place] [address] Obstetrics & Gynecology 09/04/21 Sylvester Patel PA-C [address] [place] [address] [address] [place] [address] Physician Customer Engagement Manager 09/09/21 Alejandra Doan, RN 09/09/21 Radha Duran LPN CONDOMINIUM ASSOCIATION MANAGER 11/01/21 Theresa Colon APRN [address] [place] [address] [address] [place] [address] Nurse Practitioner 11/27/21 Little Koo MD [address] [place] [address] [address] [place] [address] Gastroenterology 11/27/21 Mariana Schultz APRN [address] [place] [address] [address] [place] [address] Nurse Practitioner Gastroenterology 01/28/22 Trino Wolff, CONDOMINIUM ASSOCIATION MANAGER CONDOMINIUM ASSOCIATION MANAGER 04/16/22 Blanca Whittington, CONDOMINIUM ASSOCIATION MANAGER CONDOMINIUM ASSOCIATION MANAGER 05/05/22 Blanca Reagan, CONDOMINIUM ASSOCIATION MANAGER CONDOMINIUM ASSOCIATION MANAGER 06/30/22 Enma Sneed, CONDOMINIUM ASSOCIATION MANAGER CONDOMINIUM ASSOCIATION MANAGER 05/09/25 documented as of this encounter
--- OUTSIDE RECORDS SUMMARY | 2025-05-09 12:49 | XMS_ITS | Encounter Summary ---
Author Organization [facility] Address [address] [place] [address] Care Team Providers Care Toys And Games Hand Finisher Name Role Phone Bennie Jo DO Primary Care Provider [phone] Vikram Duncan MD Primary Care Provider [phone] Aniyah Trammell COLORIST FORMULATOR Primary Care Provider Buck Santana MD Unavailable Mar Gomez COLORIST FORMULATOR Primary Care Provider Provider, Historical Unavailable Unavailable Shlomo BessC Unavailable [phone] Rosa Carr Unavailable Unavailable Buck Green MD Unavailable [phone] Sylvester Patel-C Unavailable [phone] Alejandra Doan RN Unavailable Unavailable Radha Duran DEBONE SUPERVISOR Unavailable Unavailable Theresa Colon COLORIST FORMULATOR Unavailable [phone] Little Koo MD Unavailable [phone] Mariana Schultz COLORIST FORMULATOR Unavailable [phone] Trino Wolff DEBONE SUPERVISOR Unavailable Unavailable Blanca Whittington DEBONE SUPERVISOR Unavailable Unavailab Blanca Monson DEBONE SUPERVISOR Unavailable Unavailable Desmond Tubbs APRN Primary Care Provider Enma Sneed DEBONE SUPERVISOR Unavailable Unavailable Encounter Details Date Type Department Care Team (Late st Contact Info) Description 11/14/2005 Historical Encounter Global Theron Simmons DO Social History Tobacco Use Types Packs/Day Years [...] documented as of this encounter Care Teams Toys And Games Hand Finisher Relationship Specialty Start Date End Date Bennie Jo DO PCP - General 04/24/09 09/20/12 Vikram Duncan MD [address] [place] [address] PCP - General 08/14/08 04/23/09 Aniyah Trammell APRN [id number] [place] [address] PCP - General Nurse Practitioner 09/21/12 02/17/16 Mar Gomez APRN [address] [place] [address] PCP - General Nurse Practitioner 02/18/16 10/02/24 Desmond Tubbs APRN [address] [place] [address] PCP - General Nurse Practitioner 12/30/24 Buck Santana MD [address] [place] [address] Orthopedic Surgery 09/21/12 Provider, Historical 10/07/16 Shlomo Bess PA-C [address] [place] [address] [facility] [address] [place] [id number] Physician [facility] 07/13/20 Rosa Carr 09/03/21 Buck Green MD [address] [place], [place] [address] Obstetrics & Gynecology 09/04/21 Sylvester Patel PA-C [address] [place] [address] Physician [facility] 09/09/21 Alejandra Doan, RN 09/09/21 Radha Duran LPN LPN 11/01/21 Theresa Colon APRN [address] [place] [address] [address] [place] [address] Nurse Practitioner 11/27/21 Little Koo MD [address] [place] [address] Gastroenterology 11/27/21 Mariana Schultz APRN [address] [place] [address] Nurse Practitioner Gastroenterology 01/28/22 Trino Wolff, DEBONE SUPERVISOR DEBONE SUPERVISOR 04/16/22 Blanca Whittington LPN DEBONE SUPERVISOR 05/05/22 Blanca Reagan LPN DEBONE SUPERVISOR 06/30/22 Enma Sneed LPN DEBONE SUPERVISOR 05/09/25 documented as of this encounter
--- OUTSIDE RECORDS SUMMARY | 2025-05-09 12:49 | XMS_ITS | Encounter Summary ---
Author Organization [facility] Address [address] [place] [address] Care Team Providers Care Track Broom Operator Name Role Phone Buck Santana MD Unavailable Mar Gomez APRN Primary Care Provider [phone] Provider, Historical Unavailable Unavailable Shlomo Bess PA-C Unavailable [phone] Rosa Carr Unavailable Unavailable Buck Green MD Unavailable Sylvester Patel PA-C Unavailable [phone] Alejandra Doan RN Unavailable Unavailable Radha Duran LPN Unavailable Unavailable Theresa Colon WICK TENDER Unavailable Little Koo MD Unavailable [phone] Mariana Schultz WICK TENDER Unavailable [phone] Trino Wolff JUMPBASTING MACHINE OPERATOR Unavailable Unavailable Blanca Whittington JUMPBASTING MACHINE OPERATOR Unavailable Unavailab Blanca Monson JUMPBASTING MACHINE OPERATOR Unavailable Unavailable Desmond Tubbs APRN Primary Care Provider [phone] Enma Sneed LPN Unavailable Unavailable Encounter Details Date Type Department Care Team (Latest Contact Info) Description 11/26/2020 Transcribe Orders [facility] Buck Green MD [address] [place] [address] [address] [place] [address] (work) Encounter for supervision of normal first in second trimester (Primary Dx); 13 weeks gestation of Social History Tobacco Use [...] Diagnosis Comments POCT URINALYSIS DIPSTICK (CLINITEK) Routine 11/26/2020 3:41 PM EST Encounter for supervision of normal first in second trimester 13 weeks gestation of documented in this encounter Results * POCT Urinalysis Dipstick (Clinitek) (11/26/2020 3:41 PM EST) GLUCOSE URINE, POC neg BILIRUBIN RECHECK neg KETONES, POC neg SPECIFIC GRAVITY, POC 1.025 1.005 - 1.030 BLOOD URINE, POC neg PH, POC 6.5 5.0 - 9.0 PROTEIN, POC neg UROBILINOGEN, POC norm 0.2 - 1.0 NITRITE neg LEUKOCYTE EST, POC neg Lot Number Expiration Date 11/26/2020 3:41 PM EST Buck Green MD POINT OF CARE TEST ORDERAB LES Final Result documented in this encounter Visit Diagnoses Diagnosis Encounter for supervision of normal first in second trimester (HHS/HCC)- Primary 13 weeks gestation of (HHS/HCC) documented in this encounter Additional Health Concerns Infection Onset Date Last Indicated Resolved Time Covid-19 (rule out) 05/07/2022 05/07/2022 05/08/20 22 12:33 AM EDT Covid-19 (confirmed) 11/05/2022 11/06/2022 023 10:12 PM EST documented as of this encounter Care Teams Track Broom Operator Relationship Specialty Start Date End Date Mar Gomez APRN [id number] [place] [address] PCP - General Nurse Practitioner 02/18/16 10/02/24 Desmond Tubbs APRN [id number] [address] [place] [address] PCP - General Nurse Practitioner 12/30/24 Buck Santana MD [address] [place], [place] [id number] Orthopedic Surgery 09/21/12 Provider, Historical 10/07/16 Shlomo Bess PA-C [address] [place] [address] [address] [place] [address] Physician Manufacturing Finance Manager 07/13/20 Rosa Carr 09/03/21 Buck Green MD [address] [place] [address] [address] [place] [id number] Obstetrics & Gynecology 09/04/21 Sylvester Patel PA-C [address] [place] [address] [address] [place] [address] Physician Manufacturing Finance Manager 09/09/21 Alejandra Doan, RN 09/09/21 Radha Duran LPN LPN 11/01/21 Theresa Colon APRN [address] [place] [address] [address] [place] [address] Nurse Practitioner 11/27/21 Little Koo MD [address] [place] [address] [address] [facility] [place], [place] [id number] Gastroenterology 11/27/21 Mariana Schultz APRN [address] [place] [address] Nurse Practitioner Gastroenterology 01/28/22 Trino Wolff, JUMPBASTING MACHINE OPERATOR JUMPBASTING MACHINE OPERATOR 04/16/22 Blanca Whittington, JUMPBASTING MACHINE OPERATOR JUMPBASTING MACHINE OPERATOR 05/05/22 Blanca Reagan, JUMPBASTING MACHINE OPERATOR JUMPBASTING MACHINE OPERATOR 06/30/22 Enma Sneed, JUMPBASTING MACHINE OPERATOR JUMPBASTING MACHINE OPERATOR 05/09/25 documented as of this encounter
--- OUTSIDE RECORDS SUMMARY | 2025-05-09 12:49 | XMS_ITS | Encounter Summary ---
Author Organization [facility] Address [address] [place] [address] Care Team Providers Care Leather Scraper Name Role Phone Bennie Jo DO Primary Care Provider [phone] Vikram Duncan MD Primary Care Provider [phone] Aniyah Trammell SAND DRIER Primary Care Provider Buck Santana MD Unavailable Mar Gomez SAND DRIER Primary Care Provider Provider, Historical Unavailable Unavailable Shlomo BessC Unavailable [phone] Rosa Carr Unavailable Unavailable Buck Green MD Unavailable [phone] Sylvester Patel-C Unavailable [phone] Alejandra Doan RN Unavailable Unavailable Radha Duran MOTORCYCLE SUBASSEMBLER Unavailable Unavailable Theresa Colon SAND DRIER Unavailable [phone] Little Koo MD Unavailable [phone] Mariana Schultz SAND DRIER Unavailable [phone] Trino Wolff MOTORCYCLE SUBASSEMBLER Unavailable Unavailable Blanca Whittington MOTORCYCLE SUBASSEMBLER Unavailable Unavailab Blanca Monson MOTORCYCLE SUBASSEMBLER Unavailable Unavailable Desmond Tubbs APRN Primary Care Provider Enma Sneed MOTORCYCLE SUBASSEMBLER Unavailable Unavailable Encounter Details Date Type Department Care Team (Late st Contact Info) Description 04/10/2006 Historical Encounter Global Bill Mcfarlane MD [address] [place] [address] Social History Tobacco Use Types [...] as of this encounter Care Teams Leather Scraper Relationship Specialty Start Date End Date Bennie Jo DO PCP - General 04/24/09 09/20/12 Vikarm Duncan MD [address] [place] [address] PCP - General 08/14/08 04/23/09 Aniyah Trammell APRN [address] [place] [address] PCP - General Nurse Practitioner 09/21/12 02/17/16 Mar Gomez APRN [address] [place] [address] PCP - General Nurse Practitioner 02/18/16 10/02/24 Desmond Tubbs APRN [address] [address] [place], [place] [id number] PCP - General Nurse Practitioner 12/30/24 Buck Santana MD [facility] [place] [address] Orthopedic Surgery 09/21/12 Provider, Historical 10/07/16 Shlomo Bess PA-C [address] [place] [address] [address] [place] [address] Physician Climatology Professor 07/13/20 Rosa Carr 09/03/21 Buck Green MD [address] [place] [address] [address] [place] [address] Obstetrics & Gynecology 09/04/21 Sylvester Patel PA-C [address] [place] [address] [address] [place] [address] Physician Climatology Professor 09/09/21 Alejandra Doan, SHANIA 09/09/21 Radah Duran LPN LPN 11/01/21 Theresa Colon APRN [address] [place] [address] [address] [place] [address] Nurse Practitioner 11/27/21 Little Koo MD [address] [place] [address] [address] [place] [address] Gastroenterology 11/27/21 Mariana Schultz APRN [address] [place] [address] [place] [address] Nurse Practitioner Gastroenterology 01/28/22 Trino Wolff LPN MOTORCYCLE SUBASSEMBLER 04/16/22 Blanca Whittington, MOTORCYCLE SUBASSEMBLER MOTORCYCLE SUBASSEMBLER 05/05/22 Blanca Reagan, MOTORCYCLE SUBASSEMBLER MOTORCYCLE SUBASSEMBLER 06/30/22 Enma Sneed, MOTORCYCLE SUBASSEMBLER MOTORCYCLE SUBASSEMBLER 05/09/25 documented as of this encounter
--- OUTSIDE RECORDS SUMMARY | 2025-05-09 12:49 | XMS_ITS | Encounter Summary ---
Author Organization [facility] Address [address] [place] [address] Care Team Providers Care University Archivist Name Role Phone Buck Santana MD Unavailable Mar Gomez APRN Primary Care Provider [phone] Provider, Historical Unavailable Unavailable Shlomo Bess PA-C Unavailable [phone] Rosa Carr Unavailable Unavailable Buck Green MD Unavailable Sylvester Patel PA-C Unavailable [phone] Alejandra Doan RN Unavailable Unavailable Radha Duran LPN Unavailable Unavailable Theresa Colon MACHINE SKIVER Unavailable [phone] Little Koo MD Unavailable [phone] Mariana Schultz MACHINE SKIVER Unavailable Trino Wolff TRACK GRINDER Unavailable Unavailable Blanca Whittington TRACK GRINDER Unavailable Unavailab Blanca Monson TRACK GRINDER Unavailable Unavailable Desmond Tubbs APRN Primary Care Provider [phone] Enma Sneed LPN Unavailable Unavailable Encounter Details Date Type Department Care Team (Latest Contact Info) Description 10/11/2020 Transcribe Orders [facility] Buck Green MD [address] [place] [address] [address] [place] [address] (work) care, subsequent , first trimester (Primary Dx); 6 weeks gestation of Social History Tobacco Use [...] Diagnosis Comments POCT URINALYSIS DIPSTICK (CLINITEK) Routine 10/11/2020 11:28 AM EST care, subsequent , first trimester 6 weeks gestation of documented in this encounter Results * Rapid Tox Screen, Urine ([facility]) (10/11/2020 11:32 AM EST) CANNABINOID NEGATIVE Cutoff: 50 ng/mL 10/11/2020 4:12 PM EST [facility] PHENCYCLIDINE NEGATIVE Cutoff: 25 ng/mL 10/11/2020 4:12 PM EST [facility] COCAINE NEGATIVE Cutoff: 300 ng/mL 10/11/2020 4:12 PM EST [facility] OPIATES NEGATIVE Cutoff: 300 ng/mL 10/11/2020 4:12 PM EST [facility] FENTANYL NEGATIVE Cutoff: 200 ng/mL 10/11/2020 4:12 PM EST [facility] BUPRENORPHINE NEGATIVE Cutoff: 5 ng/mL 10/11/2020 4:12 PM EST [facility] Comment:Note, cutoff changed from 10 to 5 ng/mL 08/19/18. AMPHETAMINES NEGATIVE Cutoff: 1000 ng/mL 10/11/2020 4:12 PM EST [facility] BENZODIAZEPINE NEGATIVE Cutoff: 200 ng/mL 10/11/2020 4:12 PM EST [facility] TRICYCLICS NEGATIVE Cutoff: 300 ng/mL 10/11/2020 4:12 PM EST [facility] METHADONE NEGATIVE Cutoff: 300 ng/mL 10/11/2020 4:12 PM EST [facility] BARBITURATES NEGATIVE Cutoff: 200 ng/mL 10/11/2020 4:12 PM EST [facility] OXYCODONE NEGATIVE Cutoff: 300 ng/mL 10/11/2020 4:12 PM EST [facility] PROPOXYPHENE NEGATIVE Cutoff: 300 ng/mL 10/11/2020 4:12 PM EST [facility] Comment: IMPORTANT This is a screening method. The test results are to be used for medical purposes only. Many common compounds can cause false positive results. Confirmation of a positive result is available upon request. 10/11/2020 11:3 2 AM EST 10/11/2020 3:03 PM EST Narrative [facility] - 10/11/2020 4:12 PM EST Buck Green MD CHEMISTRY ORDERABLES Final Result Performing Organization Address [facility]/State/ZIP Co de Phone Number [facility] [address] [place], [place] [id number] [place] [address] LAB [address] [place] [address] * (ABNORMAL) Urinalysis (UA) Non-Infectious (10/11/2020 11:32 AM EST) UR GLUCOSE Normal NEGATIVE mg/dL 10/11/2020 4:11 PM EST [facility] UR BILIRUBIN Negative NEGATIVE mg/dL 10/11/2020 4:11 PM EST [facility] UR KETONE Negative NEGATIVE mg/dL 10/11/2020 4:11 PM EST [facility] UR SP GRAVITY 1.017 1.005 - 1.030 10/11/2020 4:11 PM EST [facility] UR BLOOD Negative NEGATIVE mg/dL 10/11/2020 4:11 PM EST [facility] UR PH 7.5 5.0 - 9.0 10/11/2020 4:11 PM EST [facility] UR PROTEIN Negative NEGATIVE mg/dL 10/11/2020 4:11 PM EST [facility] UR UROBILINOGEN Normal <2.0 4:11 PM EST [facility] UR NITRITE Negative NEGATIVE mg/dL 10/11/2020 4:11 PM EST [facility] UR LEUKOCYTE Negative NEGATIVE 10/11/2020 4:11 PM EST [facility] UR COLOR Light-Yellow YELLOW 10/11/2020 4:11 PM EST [facility] UR CLARITY Clear CLEAR 10/11/2020 4:11 PM EST [facility] UR WBC 1-3 1 - 3 [HPF] 10/11/2020 4:11 PM EST [facility] UR RBC 1-3 1 - 3 [HPF] 10/11/2020 4:11 PM EST [facility] UR SQUAMOUS EPI 1-3 3 - 5 [HPF] 10/11/19 4:11 PM EST [facility] UR MUCOUS Rare NONE SEEN [HPF] 10/11/2020 4:11 PM EST [facility] UR BACTERIA Few(A) NONE SEEN [HPF] 10/11/2020 4:11 PM EST [facility] Urine 10/11/2020 11:3 2 AM EST 10/11/2020 3:03 PM EST Narrative [facility] - 10/11/2020 4:11 PM EST us Buck Green MD URINE ORDERABLES Final Res ult Performing Organization Address City/State/[facility] Co de Phone Number [facility] [address] [place] [address] [facility] [address] [place] [address] * POCT Urinalysis Dipstick (Clinitek) (10/11/2020 11:28 AM EST) GLUCOSE URINE, POC neg BILIRUBIN RECHECK neg KETONES, POC neg SPECIFIC GRAVITY, POC 1.015 1.005 - 1.030 BLOOD URINE, POC neg PH, POC 8.0 5.0 - 9.0 PROTEIN, POC neg UROBILINOGEN, POC norm 0.2 - 1.0 NITRITE neg LEUKOCYTE EST, POC neg Lot Number Expiration Date 10/11/2020 11:2 8 AM EST Buck Green MD POINT OF CARE TEST ORDERAB LES Final Result * Hiv 1 And 2 Antibodies (10/11/2020 10:40 AM EST) HIV NEGATIVE Negative 10/12/2020 5:05 PM EST [facility] 10/11/2020 10:4 0 AM EST 10/11/2020 3:02 PM EST Buck Green MD CHEMISTRY ORDERABLES Final Result Performing Organization Address City/[facility]/ZIP Co de Phone Number [facility] [address] [place] [address] * Syphilis Ab, Total, S (10/11/2020 10:40 AM EST) Syphilis Ab, Total, S Non-Reacti ve Non-Reacti ve 10/12/2020 3:59 PM EST [facility] 10/11/2020 10:4 0 AM EST 10/11/2020 3:02 PM EST Buck Green MD CHEMISTRY ORDERABLES Final Result Performing Organization Address City/[facility] Co de Phone Number [facility] [address] [place], [place] [id number] [place] [address] [place] [address] * Rubella IgG, QL, S (10/11/2020 10:40 AM EST) RUBELLA IGG, QL, S POSITIVE 10/12/2020 3:59 PM EST [facility] Comment: Negative: Indicates non-immunity. Equivocal: Recommend follow-up testing in 10-14 days. Positive: Indicates prior exposure or a convalescent stage of the infection. Performed at: [facility] [address], [place] [address] 10/11/2020 10:4 0 AM EST 10/11/2020 3:02 PM EST Buck Green MD LAB SEND OUT ORDERABLES Fi nal Result Performing Organization Address [facility] Co de Phone Number [facility] [address] [place] [address] [facility] [address] [place] [address] * Hepatitis C Antibody W Confirmation (10/11/2020 10:40 AM EST) Hepatitis C Antibody NEGATIVE Negative 10/12/2020 5:05 PM EST [facility] 10/11/2020 10:4 0 AM EST 10/11/2020 3:02 PM EST Buck Green MD CHEMISTRY ORDERABLES Final Result Performing Organization Address [facility] de Phone Number [facility] [address] [place] [address] [facility] [address] [place] [address] * HBSAG (10/11/2020 10:40 AM EST) HBSAG NEGATIVE Negative 10/12/2020 5:05 PM EST [facility] 10/11/2020 10:4 0 AM EST 10/11/2020 3:02 PM EST Buck Green MD CHEMISTRY ORDERABLES Final Result Performing Organization Address [facility] de Phone Number [facility] [address] [place] [address] [facility] [address] [place] [address] * Type And Screen (10/11/2020 10:40 AM EST) ABO AND RH TYPE B NEG 3:37 PM EST [facility] Antibody Screen NEG 3:37 PM EST [facility] Other Venipuncture / Unknown 10/11/2020 10:40 AM EST 10/11/2020 2:53 PM EST us Buck Green MD HEMATOLOGY ORDERABLES Sandra ernie Result [facility]ARE [address] [place] [address] * (ABNORMAL) CBC (10/11/2020 10:40 AM EST) WBC 6.7 4.5 - 11.0 10*3/uL 10/11/2020 3:32 PM EST [facility] RBC 4.32 4.00 - 5.20 10*6/uL 10/11/2020 3:32 PM EST [facility] HGB 10.9(L) 12.0 - 16.0 g/dL 10/11/2020 3:32 PM EST [facility] HCT 34.4 33.0 - 51.0 % 10/11/2020 3:32 PM EST [facility] MCV 79.6(L) 80.0 - 100.0 fL 10/11/2020 3:32 PM EST [facility] MCHC 31.6(L) 32.0 - 36.0 g/dL 10/11/2020 3:32 PM EST [facility] MCH 25.2(L) 26.0 - 34.0 pg 10/11/2020 3:32 PM EST [facility] RDW 15.6(H) 11.5 - 13.1 % 10/11/2020 3:32 PM EST [facility] MPV 8.7 6.5 - 10.0 fL 10/11/2020 3:32 PM EST [facility] Platelet Cnt 263 150 - 450 10*3/uL 10/11/2020 3:32 PM EST [facility] Differential Type Auto 021 3:32 PM EST [facility] Neutrophils 58.2 35.0 - 66.0 % 10/11/2020 3:32 PM EST [facility] Lymphocytes 33.1 24.0 - 44.0 % 10/11/2020 3:32 PM EST [facility] Monocytes 6.5 2.1 - 13.3 % 10/11/2020 3:32 PM EST [facility] Eosinophils 1.4 0.3 - 5.0 % 10/11/2020 3:32 PM EST [facility] Basophils 0.8 0.0 - 1.0 % 10/11/2020 3:32 PM EST [facility] Neutrophils Abs 3.9 1.5 - 8.5 10*3/uL 10/11/2020 3:32 PM EST [facility] Lymphocytes Abs 2.2 1.1 - 5.0 10*3/uL 10/11/2020 3:32 PM EST [facility] Monocytes Abs 0.4 0.0 - 1.4 10*3/uL 10/11/2020 3:32 PM EST [facility] Eosinophils Abs 0.1 0.0 - 0.5 10*3/uL 10/11/2020 3:32 PM EST [facility] Basophils Abs 0.1 0.0 - 0.1 10*3/uL 10/11/2020 3:32 PM EST [facility] 10/11/2020 10:4 0 AM EST 10/11/2020 3:03 PM EST us Buck Green MD HEMATOLOGY ORDERABLES Sandra ernie Result [facility] [address] LAB [address] [place] [address] documented in this encounter Visit Diagnoses Diagnosis care, subsequent , first trimester (HHS/HCC)- Primary 6 weeks gestation of ([facility]/HCC) documented in this encounter Additional Health Concerns Infection Onset Date Last Indicated Resolved Time Covid-19 (rule out) 05/07/2022 05/07/2022 05/08/20 22 12:33 AM EDT Covid-19 (confirmed) 11/05/2022 11/06/2022 023 10:12 PM EST documented as of this encounter Care Teams University Archivist Relationship Specialty Start Date End Date Mar Gomez APRN [address] [place] [address] PCP - General Nurse Practitioner 02/18/16 10/02/24 Desmond Tubbs APRN [address] [id number] PCP - General Nurse Practitioner 12/30/24 Buck Santana MD [address] [place] [id number] Orthopedic Surgery 09/21/12 Provider, Historical 10/07/16 Shlomo Bess PA-C [address] [place] [address] [address] [place] [address] Physician Servomechanism Assembler 07/13/20 Rosa Carr 09/03/21 Buck Green MD [address] [place] [address] [address] [place] [address] Obstetrics & Gynecology 09/04/21 Sylvester Patel PA-C [address] [place] [address] [address] [place] [address] Physician Servomechanism Assembler 09/09/21 Alejandra Doan, SHANIA 09/09/21 Radha Duran LPN LPN 11/01/21 Theresa Colon APRN [address] [place] [address] [address] [place] [address] Nurse Practitioner 11/27/21 Little Koo MD [address] [place] [address] [address] [place] [address] Gastroenterology 11/27/21 Mariana Schultz APRN [facility] [address] [place] [address] Nurse Practitioner Gastroenterology 01/28/22 Trino Wolff, TRACK GRINDER TRACK GRINDER 04/16/22 Blanca Whittington, TRACK GRINDER TRACK GRINDER 05/05/22 Blanca Reagan, TRACK GRINDER TRACK GRINDER 06/30/22 Enma Sneed, TRACK GRINDER TRACK GRINDER 05/09/25 documented as of this encounter
--- OUTSIDE RECORDS SUMMARY | 2025-05-09 12:49 | XMS_ITS | Encounter Summary ---
Author Organization [facility] Address [address] [place] [address] Care Team Providers Care Staff Reporter Name Role Phone Buck Santana MD Unavailable Mar Gomez APRN Primary Care Provider [phone] Provider, Historical Unavailable Unavailable Shlomo Bess PA-C Unavailable [phone] Rosa Carr Unavailable Unavailable Buck Green MD Unavailable [phone] Sylvester Patel PA-C Unavailable Alejandra Doan RN Unavailable Unavailable Radha Duran LPN Unavailable Unavailable Theresa Colon GEOSCIENCES ASSOCIATE PROFESSOR Unavailable Little Koo MD Unavailable Mariana Schultz GEOSCIENCES ASSOCIATE PROFESSOR Unavailable Trino Wolff NUTRITION PARTNER Unavailable Unavailable Blanca Whittington NUTRITION PARTNER Unavailable Unavailab Blanca Monson NUTRITION PARTNER Unavailable Unavailable Desmond Tubbs GEOSCIENCES ASSOCIATE PROFESSOR Primary Care Provider Enma Sneed LPN Unavailable Unavailable Reason for Visit * Reason Onset Date Comments Nurse Triage Call 06/01/2017 Follow-up 06/02/2017 Encounter Details Date Type Department Care Team (Late st Contact Info) Description 06/01/2017 Telephone [facility] [address] [place] [address] Mar Gomez APRN [address] [place] [address] Nurse Triage Call; Follow-up Social History Tobacco Use Types Packs/Day Years Used Date Smoking Tobacco: Every Day Cigarettes 0.3 15 Smokeless Tobacco: Former Quit: 03/10/2013 Alcohol Use Standard Drinks/Week Comments No 0 (1 standard drink = 0.6 oz pur e alcohol) Comments No Sex and Gender Information Value Date Recorded Sex Assigned at Not on file Legal Sex Female 8:37 PM EST Gender Identity Not on file Sexual Orientation Not on file documented as of this encounter Miscellaneous Notes * Telephone Encounter - Moni Campo RN - 06/02/2017 11:26 AM EDT Triage follow up call placed to patient. Patient states she did not go to urgent care due to takingson to dentist. States she is going to the provider today. States it is not getting any better. Advised of care 27/04 access if further assistance is needed. * Nurse Triage - Jeanette Tran - 06/01/2017 9:24 AM EDT Call Start time: 0920. Call End Time: 09 Total Minutes spent hall monitor: 6 minutes, 29 seconds Physical address: [address] [place] [address] (M) [phone] (H) Mila Escobar is an 36 y.o. female phoned in for Itching/rash Patient stating began on Thursday withscalp itching on back of head. States Sister put hair dye on her on Thursday, different kind than hasused before States rash and itching have become worse, today has, knots red whelps, on scalp and legs that feel like bruised and are itching worse. Denies fever. States took Benadryl last night that helped but'knocked her out' Past medical history includes: Past Medical History: Diagnosis Date ??? Asthma A CHILD ??? Community acquired pneumonia 2007 ??? Heart abnormality . Mila Escobar phoned in for a rash involving the head and lower extremity. Rash started 3 days ago. Lesions are red in color, and raised in texture. Rash has changed over time. Rash is painful and is pruritic. Associated symptoms: no associated symptoms. Patient denies: fever. Patient has not had contacts with similar rash. Patient has had new exposures (soaps, lotions, laundry detergents, foods, medications, plants, insects or animals.) Fever is absent DEFINITION: Rash over most of the body (widespread or generalized). Occasionally just on hand, feet, and buttocks-but symmetrical. Cause of rash is unknown. Red or pink rash (erythema). Smooth (macular) or slightly bumpy (papular). Small spots, large spots or solid red. RASH, WIDESPREAD AND CAUSE UNKNOWN Triage Assessment Questions Call EMS 911 Now: ?? Sudden onset of rash (within last 2 hours) and difficulty breathing or swallowing--denies ?? Difficult to awaken or acting confused (disoriented, slurred speech)--denies ?? Fever and purple or blood-colored spots or dots. Note: It may be difficult to determine the rashcolor in people with darker-colored skin--denies ?? Too weak or sick to stand--denies ?? Life-threatening reaction (anaphylaxis) in the past to similar substance (food, insect bite/sting, chemical) and < 2 hours since exposure--denies ?? Sounds like a life threatening emergency to the triage nurse--no Recommendations: none Go to ED Now (or Office With PCP Approval): ?? Bright red, sunburn like rash and current tampon use--denies ?? Bright red, sunburn like rash and current tampon use or nasal packing--denies. Note: It may be difficult to determine the rash color in people with darker colored skin--denies ?? Bright red, sunburn-like rash and wound infection or recent surgery--denies ?? Bright red skin that peels off in sheets--denies ?? Stiff neck (can't touch chin to chest)--denies ?? Patient sounds very sick or weak to the triage nurse--no Recommendations: none Go to Office Now: ?? Fever--denies ?? Face becomes swollen--denies ?? Headache--denies ?? Purple or blood colored spots or dots (no fever). Note: In comparison to other red rases, petechiae and purpura do not temporarily ana maria (fade) when pressure is applied to a spot. It may be difficult to determine the rash color in people with darker colored skin--denies ?? Joint pain or swelling--denies ?? Sores in mouth--denies ?? Rash looks like large or small blisters (fluid filled bubbles or sacs on the skin)--denies Recommendations: none Callback by PCP or Sub specialist Within 1 Hour ?? --denies ?? Rash began within 4 hours of new prescription medication--denies Recommendations: none See Today in Office: ?? Severe itching--complains of ?? Sore throat--denies ?? Ring like appearance of rash (or ask Does it look like a target or bulls eye? )--denies ?? Patient want to be seen--yes Recommendations: No available appointments with PCP, advised to go to for eval and is agreeable S Advice/Followup Home Care Advice: ?? Reassurance ?? Advised to go to ?? Contagiousness ?? Expected Course Call Back if: ?? You become worse ?? Advised of 27/04 Nurse access, understanding verbalized ?? Will follow up Notes HOME CARE ADVICE FOR WIDESPREAD RASHES (PENDING OFFICE VISIT) 1) Reassurance: There are many causes of wide-spread rashes and most of the time they are not serious. Common causes include viral illness (cold viruses) and allergic reactions (to a food, medicine or environmental exposure). 2) For Non- Itchy Rashes: No treatment is necessary, except for heat rashes, which respond to cool baths. 3) For Itchy Rashes: Wash the skin once with gentle non-perfumed soap to remove any irritants. Rinse the soap off thoroughly. You may also take an oatmeal (Aveeno) bathor take an antihistamine medication by mouth to help reduce the itching. 4) Oatmeal Aveeno Bath forItching: Sprinkle contents of one Aveeno packet under running faucet with comfortably warm water. Bathe for 15-20 minutes, 1-2 times daily. Pat dry with a towel. Do not rub the rash. 5) Oral Antihistamine Medication for Itching: Take an antihistamine like diphenhydramine (Benadryl) for widespread rashes that itch. Adult dosage of Benadryl is 25-50 mg by mouth 4 times daily. An OTC antihistamine that causes less sleepiness is loratadine (Alavert or Claritin). Adult dosage is 25-50. Caution: Thistype of medication may cause sleepiness. Do not drink alcohol, drive, or operate dangerous machinery while taking antihistamines. Do not take these medications fi you have prostate enlargement. 6) Contagiousness: Avoid contact with women until a diagnosis is made. Most viral rashes are contagious (especially if a fever is present). You can return to work or school after the rash is gone or when your doctor says it is safe to return with the rash. 7) Expected Course: Most viral rashes disappear within 48 hours. Reference: Adult telephone protocols Office version/3rd edition. Mane Hernández MD, FACEP Pages 209 to 211 documented in this encounter Plan of Treatment Not on file documented as of this encounter Visit Diagnoses Not on filedocumented in this encounter Additional Health Concerns Infection Onset Date Last Indicated Resolved Time Covid-19 (rule out) 05/07/2022 05/07/2022 05/08/20 22 12:33 AM EDT Covid-19 (confirmed) 11/05/2022 11/06/2022 023 10:12 PM EST documented as of this encounter Care Teams Staff Reporter Relationship Specialty Start Date End Date Mar Gomez APRN [address] [place] [address] PCP - General Nurse Practitioner 02/18/16 10/02/24 Desmond Tubbs APRN [id number] [address] PCP - General Nurse Practitioner 12/30/24 Buck Santana MD [address] [place] [address] Orthopedic Surgery 09/21/12 Provider, Historical 10/07/16 Shlomo Bess PA-C [address] [place] [address] [address] [place] [address] Physician Swine Nutritionist 07/13/20 Rosa Carr 09/03/21 Buck Green MD [address] [place] [address] [address] [place] [address] Obstetrics & Gynecology 09/04/21 Sylvester Patel PA-C [address] [place] [address] [address] [place] [address] Physician Swine Nutritionist 09/09/21 Alejandra Doan, RN 09/09/21 Radha Duran, NUTRITION PARTNER NUTRITION PARTNER 11/01/21 Theresa Colon APRN [address] [place] [address] [address] [place] [address] Nurse Practitioner 11/27/21 Little Koo MD [address] [place] [address] [address] [place] [address] Gastroenterology 11/27/21 Mariana Schultz APRN [address] [place] [address] [address] [place] [address] Nurse Practitioner Gastroenterology 01/28/22 Trino Wolff, NUTRITION PARTNER NUTRITION PARTNER 04/16/22 Blanca Whittington, NUTRITION PARTNER NUTRITION PARTNER 05/05/22 Blanca Reagan, NUTRITION PARTNER NUTRITION PARTNER 06/30/22 Enma Sneed APARNA NUTRITION PARTNER 05/09/25 documented as of this encounter
--- OUTSIDE RECORDS SUMMARY | 2025-05-09 12:49 | XMS_ITS | Encounter Summary ---
Author Organization [facility] Address [address] [place] [address] Care Team Providers Care Certified Nurse Midwife Name Role Phone Bennie Jo DO Primary Care Provider [phone] Vikram Duncan MD Primary Care Provider [phone] Aniyah Trammell NUTRITION INTERN Primary Care Provider Buck Santana MD Unavailable Mar Gomez NUTRITION INTERN Primary Care Provider [phone] Provider, Historical Unavailable Unavailable Shlomo BessC Unavailable [phone] Rosa Carr Unavailable Unavailable Buck Green MD Unavailable [phone] Sylvester Patel-C Unavailable [phone] Alejandra Doan RN Unavailable Unavailable Radha Duran ENVIRONMENTAL SAFETY SPECIALIST Unavailable Unavailable Theresa Colon NUTRITION INTERN Unavailable [phone] Little Koo MD Unavailable [phone] Mariana Schultz NUTRITION INTERN Unavailable [phone] Trino Wolff ENVIRONMENTAL SAFETY SPECIALIST Unavailable Unavailable Blanca Whittington ENVIRONMENTAL SAFETY SPECIALIST Unavailable Unavailab Blanca Monson ENVIRONMENTAL SAFETY SPECIALIST Unavailable Unavailable Desmond Tubbs APRN Primary Care Provider Enma Sneed ENVIRONMENTAL SAFETY SPECIALIST Unavailable Unavailable Encounter Details Date Type Department Care Team (Late st Contact Info) Description 04/13/2006 Historical Encounter Global Bill Mcfarlane MD [address] [place] [address] Social History Tobacco Use Types [...] documented as of this encounter Care Teams Certified Nurse Midwife Relationship Specialty Start Date End Date Bennie Jo DO PCP - General 04/24/09 09/20/12 Vikram Duncan MD [address] [place] [address] PCP - General 08/14/08 04/23/09 Aniyah Trammell APRN [address] [place] [address] PCP - General Nurse Practitioner 09/21/12 02/17/16 Mar Gomez APRN [address] [place] [address] PCP - General Nurse Practitioner 02/18/16 10/02/24 Desmond Tubbs APRN [address] [address] [place], [place] [address] PCP - General Nurse Practitioner 12/30/24 Buck Santana MD [facility] [place] [address] Orthopedic Surgery 09/21/12 Provider, Historical 10/07/16 Shlomo Bess PA-C [address] [place] [address] [address] [place] [address] Physician Yarn Cleaner 07/13/20 Rosa Carr 09/03/21 Buck Green MD [address] [place] [address] [address] [place] [address] Obstetrics & Gynecology 09/04/21 Sylvester Patel PA-C [address] [place] [address] [address] [place] [address] Physician Yarn Cleaner 09/09/21 Alejandra Doan, SHANIA 09/09/21 Radha Duran LPN LPN 11/01/21 Theresa Colon APRN [address] [place] [address] [address] [place] [address] Nurse Practitioner 11/27/21 Little Koo MD [address] [place] [address] [address] [place] [address] Gastroenterology 11/27/21 Mariana Schultz APRN [address] [place] [address] [place] [address] Nurse Practitioner Gastroenterology 01/28/22 Trino Wolff LPN ENVIRONMENTAL SAFETY SPECIALIST 04/16/22 Blanca Whittington, ENVIRONMENTAL SAFETY SPECIALIST ENVIRONMENTAL SAFETY SPECIALIST 05/05/22 Blanca Reagan, ENVIRONMENTAL SAFETY SPECIALIST ENVIRONMENTAL SAFETY SPECIALIST 06/30/22 Enma Sneed, ENVIRONMENTAL SAFETY SPECIALIST ENVIRONMENTAL SAFETY SPECIALIST 05/09/25 documented as of this encounter
--- OUTSIDE RECORDS SUMMARY | 2025-05-09 12:49 | XMS_ITS | Encounter Summary ---
Author Organization [facility] Address [address] [place] [address] Care Team Providers Care Satellite Installation Technician Name Role Phone Buck Santana MD Unavailable Mar Gomez APRN Primary Care Provider [phone] Provider, Historical Unavailable Unavailable Shlomo Bess PA-C Unavailable [phone] Rosa Carr Unavailable Unavailable Buck Green MD Unavailable Sylvester Patel PA-C Unavailable Alejandra Doan RN Unavailable Unavailable Radha Duran LPN Unavailable Unavailable Theresa Colon PAINT STOCKMAN Unavailable Little Koo MD Unavailable [phone] Mariana Schultz PAINT STOCKMAN Unavailable [phone] Trino Wolff CLINICAL PHLEBOTOMIST Unavailable Unavailable Blanca Whittington CLINICAL PHLEBOTOMIST Unavailable Unavailab Blanca Monson CLINICAL PHLEBOTOMIST Unavailable Unavailable Desmond Tubbs PAINT STOCKMAN Primary Care Provider [phone] Enma Sneed LPN Unavailable Unavailable Reason for Visit * Reason Onset Date Comments Medication Not Covered by Insurance 03/14/2024 Zepbound Encounter Details Date Type Department Care Team (Late st Contact Info) Description 03/14/2024 Telephone [facility] [address] [place] [address], [address] [place] [address] Asael Melo MD [address] [place] [address] Medication Not Covered by Insurance (Zepbound) Social History Tobacco Use Types Packs/Day Years [...] encounter Miscellaneous Notes * Telephone Encounter - Alize Godfrey - 03/14/2024 4:06 PM EDT Patient called in stated that Zebound is not covered by their [employer] insurance. Requesting that something else be called in its place. She stated her insurance covered Mounjaro and Ozempic, but not Wegovy. Thank you. She'd like a call back to let her know. documented in this encounter Plan of Treatment Not on file documented as of this encounter Visit Diagnoses Not on filedocumented in this encounter Care Teams Satellite Installation Technician Relationship Specialty Start Date End Date Mar Gomez APRN [address] [place] [address] PCP - General Nurse Practitioner 02/18/16 10/02/24 Desmond Tubbs APRN [address] [address] PCP - General Nurse Practitioner 12/30/24 Buck Santana MD [address] [place] [address] Orthopedic Surgery 09/21/12 Provider, Historical 10/07/16 Shlomo Bess PA-C [address] [place] [address] [address] [place] [address] Physician Plant Operations Worker 07/13/20 Rosa Carr 09/03/21 Buck Green MD [address] [place] [address] [address] [place] [address] Obstetrics & Gynecology 09/04/21 Sylvester Patel PA-C [address] [place] [address] [address] [place] [address] Physician Plant Operations Worker 09/09/21 Alejandra Doan, SHANIA 09/09/21 Radha Duran LPN CLINICAL PHLEBOTOMIST 11/01/21 Theresa Colon, NISH [address] [place] [address] [address] [place] [address] Nurse Practitioner 11/27/21 Little Koo MD [address] [place] [address] [address] [place] [address] Gastroenterology 11/27/21 Mariana Schultz APRN [address] [place] [address] [address] [place] [address] Nurse Practitioner Gastroenterology 01/28/22 Trino Wolff, CLINICAL PHLEBOTOMIST CLINICAL PHLEBOTOMIST 04/16/22 Blanca Whittington, CLINICAL PHLEBOTOMIST CLINICAL PHLEBOTOMIST 05/05/22 Blanca Reagan, CLINICAL PHLEBOTOMIST CLINICAL PHLEBOTOMIST 06/30/22 Enma Sneed, CLINICAL PHLEBOTOMIST CLINICAL PHLEBOTOMIST 05/09/25 documented as of this encounter
--- OUTSIDE RECORDS SUMMARY | 2025-05-09 12:49 | XMS_ITS | Encounter Summary ---
Author Organization [facility] Address [address] [place] [address] Care Team Providers Care Allergist/Immunologist Name Role Phone Bennie Jo DO Primary Care Provider [phone] Vikram Duncan MD Primary Care Provider [phone] Aniyah Trammell COTTON STOMPER Primary Care Provider Buck Santana MD Unavailable Mar Gomez COTTON STOMPER Primary Care Provider Provider, Historical Unavailable Unavailable Shlomo BessC Unavailable [phone] Rosa Carr Unavailable Unavailable Buck Green MD Unavailable [phone] Sylvester Patel-C Unavailable [phone] Alejandra Doan RN Unavailable Unavailable Radha Duran LATIN TEACHER Unavailable Unavailable Theresa Colon COTTON STOMPER Unavailable [phone] Little Koo MD Unavailable [phone] Mariana Schultz COTTON STOMPER Unavailable [phone] Trino Wolff LATIN TEACHER Unavailable Unavailable Blanca Whittington LATIN TEACHER Unavailable Unavailab Blanca Monson LATIN TEACHER Unavailable Unavailable Desmond Tubbs APRN Primary Care Provider Enma Sneed LATIN TEACHER Unavailable Unavailable Encounter Details Date Type Department Care Team (Late st Contact Info) Description 03/21/2004 Historical Encounter Global Shae Trammell APRN [address] [facility] [place] [address] Social History Tobacco Use [...] documented as of this encounter Care Teams Allergist/Immunologist Relationship Specialty Start Date End Date Bennie Jo DO PCP - General 04/24/09 09/20/12 Vikram Duncan MD [address] [place] [address] PCP - General 08/14/08 04/23/09 Aniyah Trammell APRN [address] [place] [address] PCP - General Nurse Practitioner 09/21/12 02/17/16 Mar Gomez APRN [address] [place] [address] PCP - General Nurse Practitioner 02/18/16 10/02/24 Desmond Tubbs APRN [address] [address] PCP - General Nurse Practitioner 12/30/24 Buck Santana MD [facility] [place] [address] Orthopedic Surgery 09/21/12 Provider, Historical 10/07/16 Shlomo Bess PA-C [address] [place] [address] [address] [place] [address] Physician Underwear Cutter 07/13/20 Rosa Carr 09/03/21 Buck Green MD [address] [place] [address] [address] [place] [address] Obstetrics & Gynecology 09/04/21 Sylvester Patel PA-C [address] [place] [address] [address] [place] [address] Physician Underwear Cutter 09/09/21 Alejandra Doan, SHANIA 09/09/21 Radha Duran LPN LPN 11/01/21 Theresa Colon APRN [address] [place] [address] [address] [place] [address] Nurse Practitioner 11/27/21 Little Koo MD [address] [place] [address] [address] [place] [address] Gastroenterology 11/27/21 Mariana Schultz APRN [address] [place] [address] [address] [place] [address] Nurse Practitioner Gastroenterology 01/28/22 Trino Wolff LPN LATIN TEACHER 04/16/22 Blanca Whittington, LATIN TEACHER LATIN TEACHER 05/05/22 Blanca Reagan, LATIN TEACHER LATIN TEACHER 06/30/22 Enma Sneed, LATIN TEACHER LATIN TEACHER 05/09/25 documented as of this encounter
--- OUTSIDE RECORDS SUMMARY | 2025-05-09 12:49 | XMS_ITS | Encounter Summary ---
Author Organization [facility] Address [address] [place] [address] Care Team Providers Care Importer Or Exporter Name Role Phone Bennie Jo DO Primary Care Provider [phone] Vikram Duncan MD Primary Care Provider [phone] Aniyah Trammell WATER RIGHTS SPECIALIST Primary Care Provider Buck Santana MD Unavailable Mar Gomez WATER RIGHTS SPECIALIST Primary Care Provider Provider, Historical Unavailable Unavailable Shlomo BessC Unavailable [phone] Rosa Carr Unavailable Unavailable Buck Green MD Unavailable [phone] Sylvester Patel-C Unavailable [phone] Alejandra Doan RN Unavailable Unavailable Radha Duran CONE WINDER Unavailable Unavailable Theresa Colon WATER RIGHTS SPECIALIST Unavailable [phone] Little Koo MD Unavailable [phone] Mariana Schultz WATER RIGHTS SPECIALIST Unavailable [phone] Trino Wolff CONE WINDER Unavailable Unavailable Blanca Whittington CONE WINDER Unavailable Unavailab Blanca Monson CONE WINDER Unavailable Unavailable Desmond Tubbs APRN Primary Care Provider Enma Sneed CONE WINDER Unavailable Unavailable Encounter Details Date Type Department Care Team (Late st Contact Info) Description 04/13/2006 Historical Encounter Global [place], [place] Social History Tobacco Use Types Packs/Day Years [...] documented as of this encounter Care Teams Importer Or Exporter Relationship Specialty Start Date End Date Bennie Jo DO PCP - General 04/24/09 09/20/12 Vikram Duncan MD [address] [employer] [place], [place] [address] PCP - General 08/14/08 04/23/09 Aniyah Trammell, NISH [address] [place] [address] PCP - General Nurse Practitioner 09/21/12 02/17/16 Mar Gomez APRN [address] [place] [address] PCP - General Nurse Practitioner 02/18/16 10/02/24 Desmond Tubbs APRN [address] [place] [address] PCP - General Nurse Practitioner 12/30/24 Buck Santana MD [facility] [email or web address] [address] Orthopedic Surgery 09/21/12 Provider, Historical 10/07/16 Shlomo Bess PA-C [address] [place] [address] [address] [facility] [address] [place] [address] Physician Paralegal 07/13/20 Rosa Carr 09/03/21 Buck Green MD [address] [place] [address] [place] [address] Obstetrics & Gynecology 09/04/21 Sylvester Patel PA-C [address] [place] [address] Physician Paralegal 09/09/21 Alejandra Doan, RN 09/09/21 Radha Duran LPN LPN 11/01/21 Theresa Colon APRN [address] [place] [address] [address] [place] [address] Nurse Practitioner 11/27/21 Little Koo MD [address] [place] [address] Gastroenterology 11/27/21 Mariana Schultz APRN [address] [place] [address] Nurse Practitioner Gastroenterology 01/28/22 Trino Wolff LPN LPN 04/16/22 Blanca Whittington LPN CONE WINDER 05/05/22 Blanca Reagan LPN CONE WINDER 06/30/22 Enma Sneed LPN CONE WINDER 05/09/25 documented as of this encounter
--- OUTSIDE RECORDS SUMMARY | 2025-05-09 12:49 | XMS_ITS | Encounter Summary ---
Author Organization [facility] Address [address] [place] [address] Care Team Providers Care Meat Lugger Name Role Phone Bennie Jo DO Primary Care Provider [phone] Vikram Duncan MD Primary Care Provider [phone] Aniyah Trammell SOLE MOLDING MACHINE OPERATOR Primary Care Provider Buck Santana MD Unavailable Mar Gomez SOLE MOLDING MACHINE OPERATOR Primary Care Provider [phone] Provider, Historical Unavailable Unavailable Shlomo BessC Unavailable [phone] Rosa Carr Unavailable Unavailable Buck Green MD Unavailable [phone] Sylvester Patel-C Unavailable [phone] Alejandra Doan RN Unavailable Unavailable Radha Duran HEALTHCARE MANAGEMENT CONSULTANT Unavailable Unavailable Theresa Colon SOLE MOLDING MACHINE OPERATOR Unavailable [phone] Little Koo MD Unavailable [phone] Mariana Schultz SOLE MOLDING MACHINE OPERATOR Unavailable [phone] Trino Wolff HEALTHCARE MANAGEMENT CONSULTANT Unavailable Unavailable Blanca Whittington HEALTHCARE MANAGEMENT CONSULTANT Unavailable Unavailab Blanca Monson HEALTHCARE MANAGEMENT CONSULTANT Unavailable Unavailable Desmond Tubbs APRN Primary Care Provider Enma Sneed HEALTHCARE MANAGEMENT CONSULTANT Unavailable Unavailable Encounter Details Date Type Department Care Team (Late st Contact Info) Description 05/25/2006 Historical Encounter Global Bill Mcfarlane MD [address] [place] [address] Social History Tobacco Use Types [...] documented as of this encounter Care Teams Meat Lugger Relationship Specialty Start Date End Date Bennie Jo DO PCP - General 04/24/09 09/20/12 Vikram Duncan MD [address] [place] [address] PCP - General 08/14/08 04/23/09 Aniyah Trammell APRN [id number] [place] [address] PCP - General Nurse Practitioner 09/21/12 02/17/16 Mar Gomez APRN [address] [place] [address] PCP - General Nurse Practitioner 02/18/16 10/02/24 Desmond Tubbs APRN [id number] [address] [place], [place] [address] PCP - General Nurse Practitioner 12/30/24 Buck Santana MD [facility] CORD:[place] [address] Orthopedic Surgery 09/21/12 Provider, Historical 10/07/16 Shlomo Bess PA-C [address] [place] [address] [address] [place] [address] Physician Heavy Forger 07/13/20 Rosa Carr 09/03/21 Buck Green MD [address] [place] [address] [address] [place] [address] Obstetrics & Gynecology 09/04/21 Sylvester Patel PA-C [address] [place] [address] [place] [address] Physician Heavy Forger 09/09/21 Alejandra Doan, SHANIA 09/09/21 Radha Duran LPN LPN 11/01/21 Theresa Colon APRN [address] [place] [address] [address] [place] [address] Nurse Practitioner 11/27/21 Little Koo MD [address] [place] [address] [address] [place] [address] Gastroenterology 11/27/21 Mariana Schultz APRN [address] [place] [address] [place] [address] Nurse Practitioner Gastroenterology 01/28/22 Trino Wolff LPN HEALTHCARE MANAGEMENT CONSULTANT 04/16/22 Blanca Whittington, HEALTHCARE MANAGEMENT CONSULTANT HEALTHCARE MANAGEMENT CONSULTANT 05/05/22 Blanca Reagan, HEALTHCARE MANAGEMENT CONSULTANT HEALTHCARE MANAGEMENT CONSULTANT 06/30/22 Enma Sneed, HEALTHCARE MANAGEMENT CONSULTANT HEALTHCARE MANAGEMENT CONSULTANT 05/09/25 documented as of this encounter
--- OUTSIDE RECORDS SUMMARY | 2025-05-09 12:49 | XMS_ITS | Encounter Summary ---
Author Organization [facility] Address [address] [place] [address] Care Team Providers Care Supervisor Liquefaction Name Role Phone Buck Santana MD Unavailable Mar Gomez APRN Primary Care Provider [phone] Provider, Historical Unavailable Unavailable Shlomo Bess PA-C Unavailable [phone] Rosa Carr Unavailable Unavailable Buck Green MD Unavailable Sylvester Patel PA-C Unavailable [phone] Alejandra Doan RN Unavailable Unavailable Radha Duran LPN Unavailable Unavailable Theresa Colon GLASS TECHNICIAN/INSTALLER Unavailable [phone] Little Koo MD Unavailable Mariana Schultz GLASS TECHNICIAN/INSTALLER Unavailable [phone] Trino Wolff CONTROL TOWER RADIO OPERATOR Unavailable Unavailable Blanca Whittington CONTROL TOWER RADIO OPERATOR Unavailable Unavailab Blanca Monson CONTROL TOWER RADIO OPERATOR Unavailable Unavailable Desmond Tubbs APRN Primary Care Provider Enma Sneed LPN Unavailable Unavailable Encounter Details Date Type Department Care Team (Latest Contact Info) Description 11/07/2020 Transcribe Orders [facility] Buck Green MD [address] [place] [address] [address] [place] [address] (work) Encounter for supervision of normal first in first trimester (Primary Dx); 10 weeks gestation of Social History Tobacco Use [...] Diagnosis Comments POCT URINALYSIS DIPSTICK (CLINITEK) Routine 11/07/2020 2:03 PM EST Encounter for supervision of normal first in first trimester 10 weeks gestation of documented in this encounter Results * POCT Urinalysis Dipstick (Clinitek) (11/07/2020 2:03 PM EST) GLUCOSE URINE, POC neg BILIRUBIN RECHECK neg KETONES, POC neg SPECIFIC GRAVITY, POC >1.030 1.005 - 1.030 BLOOD URINE, POC neg PH, POC 6.0 5.0 - 9.0 PROTEIN, POC 1+ UROBILINOGEN, POC neg 0.2 - 1.0 NITRITE neg LEUKOCYTE EST, POC neg Lot Number Expiration Date 11/07/2020 2:03 PM EST us Buck Green MD POINT OF CARE TEST ORDERAB LES Final Result documented in this encounter Visit Diagnoses Diagnosis Encounter for supervision of normal first in first trimester (HHS/HCC)- Primary 10 weeks gestation of (HHS/HCC) documented in this encounter Additional Health Concerns Infection Onset Date Last Indicated Resolved Time Covid-19 (rule out) 05/07/2022 05/07/2022 05/08/20 22 12:33 AM EDT Covid-19 (confirmed) 11/05/2022 11/06/2022 023 10:12 PM EST documented as of this encounter Care Teams Supervisor Liquefaction Relationship Specialty Start Date End Date Mar Gomez APRN [address] [place] [address] PCP - General Nurse Practitioner 02/18/16 10/02/24 Desmond Tubbs APRN [id number] [address] [place], [place] [id number] PCP - General Nurse Practitioner 12/30/24 Buck Santana MD [facility] [employer] [place], [place] [id number] Orthopedic Surgery 09/21/12 Provider, Historical 10/07/16 Shlomo Bess PA-C [address] [place] [address] [address] [place] [address] Physician Certified Low Vision Therapist 07/13/20 Rosa Carr 09/03/21 Buck Green MD [address] [place] [address] [address] [place] [address] Obstetrics & Gynecology 09/04/21 Sylvester Patel PA-C [address] [place] [address] [address] [place] [address] Physician Certified Low Vision Therapist 09/09/21 Alejandra Doan, RN 09/09/21 Radha Duran LPN LPN 11/01/21 Theresa Colon APRN [address] [place] [address] [address] [place], [place] [address] Nurse Practitioner 11/27/21 Little Koo MD [address] [place] [address] Gastroenterology 11/27/21 Mariana Schultz APRN [address] [place] [address] Nurse Practitioner Gastroenterology 01/28/22 Trino Wolff, CONTROL TOWER RADIO OPERATOR CONTROL TOWER RADIO OPERATOR 04/16/22 Blanca Whittington, CONTROL TOWER RADIO OPERATOR CONTROL TOWER RADIO OPERATOR 05/05/22 Blanca Reagan, CONTROL TOWER RADIO OPERATOR CONTROL TOWER RADIO OPERATOR 06/30/22 Enma Sneed, CONTROL TOWER RADIO OPERATOR CONTROL TOWER RADIO OPERATOR 05/09/25 documented as of this encounter
--- OUTSIDE RECORDS SUMMARY | 2025-05-09 12:49 | XMS_ITS | Encounter Summary ---
Author Organization [facility] Address [address] [place] [address] Care Team Providers Care Application Specialist Name Role Phone Bennie Jo DO Primary Care Provider [phone] Vikram Duncan MD Primary Care Provider [phone] Aniyah Trammell CAR WHACKER Primary Care Provider Buck Santana MD Unavailable Mar Gomez CAR WHACKER Primary Care Provider Provider, Historical Unavailable Unavailable Shlomo BessC Unavailable [phone] Rosa Carr Unavailable Unavailable Buck Green MD Unavailable [phone] Sylvester Patel-C Unavailable [phone] Alejandra Doan RN Unavailable Unavailable Radha Duran CHIEF HUMAN RESOURCES OFFICER Unavailable Unavailable Theresa Colon CAR WHACKER Unavailable [phone] Little Koo MD Unavailable [phone] Mariana Schultz CAR WHACKER Unavailable [phone] Trino Wolff CHIEF HUMAN RESOURCES OFFICER Unavailable Unavailable Blanca Whittington CHIEF HUMAN RESOURCES OFFICER Unavailable Unavailab Blanca Monson CHIEF HUMAN RESOURCES OFFICER Unavailable Unavailable Desmond Tubbs APRN Primary Care Provider [phone] Enma Sneed CHIEF HUMAN RESOURCES OFFICER Unavailable Unavailable Encounter Details Date Type Department Care Team (Late st Contact Info) Description 04/13/2006 Historical Encounter Global Bill Mcfarlane MD [address] [place] [address] Social History Tobacco Use Types [...] documented as of this encounter Care Teams Application Specialist Relationship Specialty Start Date End Date Bennie Jo DO PCP - General 04/24/09 09/20/12 Vikram Duncan MD [address] [place] [address] PCP - General 08/14/08 04/23/09 Aniyah Trammell APRN [address] [place] [address] PCP - General Nurse Practitioner 09/21/12 02/17/16 Mar Gomez APRN [address] [place] [address] PCP - General Nurse Practitioner 02/18/16 10/02/24 Desmond Tubbs APRN [id number] [address] [place], [place] [id number] PCP - General Nurse Practitioner 12/30/24 Buck Santana MD [facility] [place] [address] Orthopedic Surgery 09/21/12 Provider, Historical 10/07/16 Shlomo Bess PA-C [address] [place] [address] [address] [place] [address] Physician E Tailer 07/13/20 Rosa Carr 09/03/21 Buck Green MD [address] [place] [address] [address] [place] [address] Obstetrics & Gynecology 09/04/21 Sylvester Patel PA-C [address] [place] [address] [place] [address] Physician E Tailer 09/09/21 Alejandra Doan, SHANIA 09/09/21 Radha Duran LPN LPN 11/01/21 Theresa Colon APRN [address] [place] [address] [address] [place] [address] Nurse Practitioner 11/27/21 Little Koo MD [address] [place] [address] [address] [place] [address] Gastroenterology 11/27/21 Mariana Schultz APRN [address] [place] [address] [place] [address] Nurse Practitioner Gastroenterology 01/28/22 Trino Wolff LPN CHIEF HUMAN RESOURCES OFFICER 04/16/22 Blanca Whittington, CHIEF HUMAN RESOURCES OFFICER CHIEF HUMAN RESOURCES OFFICER 05/05/22 Blanca Reagan, CHIEF HUMAN RESOURCES OFFICER CHIEF HUMAN RESOURCES OFFICER 06/30/22 Enma Sneed, CHIEF HUMAN RESOURCES OFFICER CHIEF HUMAN RESOURCES OFFICER 05/09/25 documented as of this encounter
--- OUTSIDE RECORDS SUMMARY | 2025-05-09 12:49 | XMS_ITS | Clinical Summary ---
Author Organization [facility] Address [address] [place] [address] Care Team Providers Care Material Man Name Role Phone Praveen Gomez CNP Primary Care Provider [phone] Allergies Active Allergy Reactions Criticality Noted Date Comments Erythromycin 06/23/2023 As a child unsure of reaction Cephalexin 06/23/2023 As a child unsure of reaction Levofloxacin 06/23/2023 As a child unsure of reaction Medications Lactulose 10 GM/15ML Solution oral solutionIndicatio ns:S/P bypass gastrojejunostomy ,Constipation, unspecified constipation type Take 15 mL by mouth 3 times daily as needed. Max of 40gm/day 946 mL 3 10/27/2023 Active Multivitamin w/ minerals tablet Take 1 tablet by mouth daily. Active Calcium 500-2.5 MG-MCG Chew Tab Chew 1 tablet 2 times daily. Active FAMOTIDINE PO Take 1 tablet by mouth 2 times daily. Active Semaglutide-Weigh t Management (Wegovy) 0.25 MG/0.5ML Solution Auto-injectorIndi cations:Class 1 obesity with body mass index (BMI) of 34.0 to 34.9 in adult, unspecified obesity type, unspecified whether serious comorbidity present,Medicatio n management Inject 0.25 mg under the skin once a week. 2 mL 02/18/2024 Active Active Problems Problem Noted Date Diagnosed Date Dehydration 09/01/2023 Obesity 08/26/2023 Marginal ulcer 08/24/2023 Surgery, elective 08/24/2023 body mass index of 40.0-49.9 06/23/2023 Family History Medical History Relation Name Comments Stroke Brother Robby Hypertension Father Sourav Neurologic Disease Father Sourav Breast Cancer Maternal Grandmother Yeny Diabetes Mother Destini Hypertension Mother Destini Cancer- Other Paternal Aunt Rose Relation Name Status Comments Brother Robby Father Sourav Alive Maternal Grandmother Yeny Mother Destini Alive Paternal Aunt Rose Social History Tobacco Use Types Packs/Day Years Used Date Smoking Tobacco: Former Cigarettes Q uit: 09/04/2020 Passive Smoke Exposure: Past Smokeless Tobacco: Never Tobacco Cessation:Counseling Given: Not Answered Alcohol Use Standard Drinks/Week Comments Never 0 (1 standard drink = 0.6 oz pur e alcohol) Depression Answer Date Recorded PHQ-9 Total Score (Interpret ation of Total Score 1-4 = Minimal depression; 5-9 = Mild depression; 10-14 = Moderate depression; 15-19 = Moderately severe depression) 0 02/18/2024 Comments No Sex and Gender Information Value Date Recorded Sex Assigned at Not on file Legal Sex Female 11:21 AM EDT Gender Identity Not on file Sexual Orientation Not on file Last Filed Vital Signs Vital Sign Reading Time Taken Comments Blood Pressure 108/55 12/08/2023 9:15 AM EST Pulse 70 12/08/2023 9:15 AM EST Temperature 36.8 C (98.2 F) 12/08/2023 9:00 AM EST Respiratory Rate 19 12/08/2023 9:15 AM EST Oxygen Saturation 99% 12/08/2023 9:1 5 AM EST Inhaled Oxygen Concentration - - Weight 84.8 kg (187 lb) 02/18/2024 10:2 7 AM EDT Per pt, obtained:today Height 157.5 cm (5' 2 ) 05/19/2024 9:03 AM EDT Body Mass Index 34.2 02/18/2024 10:27 AM EDT Plan of Treatment Health Maintenance Due Date Last Done Comments HEP B VACCINE (1 of 3 - 19+ 3-dose series) 2000 CERVICAL CANCER SCREENING DISCUSSION 2002 LIPID SCREENING 2021 MAMMOGRAM SCREENING DISCUSSION 2021 10/10/2019 COVID-19 VACCINE (1 - 2023-2 5 season) 2024 INFLUENZA VACCINE (#1) 2025 06/12/2022 TETANUS 09/30/2032 09/30/2022 TDAP (ADULT) Completed 09/30/2022 HEPATITIS C VIRUS SCREENING Completed 08/24/2023 HIV SCREENING DISCUSSION Completed 023, 08/24/2023 HPV VACCINE Aged Out No longer eligi ble based on patient's age to complete this topic PNEUMOCOCCAL VACCINE SERIES Aged Out No longer eligible based on patient's age to complete this topic Procedures Procedure Name Priority Date/Time Associated Diagnosis Comments HIV 1 AND 2 ANTIBODIES/P24 ANTIGEN STAT 08/24/2023 1:58 PM EST HEPATITIS C ANTIBODY STAT 08/24/2023 1:58 PM EST from Last 3 Months or Most Recently Relevant to Health Maintenance Results * HIV 1 AND 2 ANTIBODIES/P24 ANTIGEN (08/24/2023 1:58 PM EST) HIV-1/HIV-2 Ab With p24 Antigen Non Reactive Non Reactive 08/24/2023 5:08 PM EST [facility] Blood 08/24/2023 1:58 PM EST 08/24/2023 1:58 PM EST Ned Fishman MD, MPH IMMUNOLOGY ORDERABLES Sandra l Result [facility] [address] [address] * HEPATITIS C ANTIBODY (08/24/2023 1:58 PM EST) Hepatitis C Antibody Negative Negative 08/24/2023 5:35 PM EST [facility] Blood 08/24/2023 1:58 PM EST 08/24/2023 1:58 PM EST us Ned Fishman MD, MPH IMMUNOLOGY ORDERABLES Sandra l Result [facility] [address] [address] from Last 3 Months or Most Recently Relevant to Health Maintenance Insurance [employer] Advance Directives For more information, please contact: [phone] (7:30 AM - 6PM [facility], Thursday-Thursday) * Full Code (Latest Code Status on File) Date Activated Date Inactivated Comments 09/01/2023 2:21 AM * Full Code Date Activated Date Inactivated Comments 08/24/2023 4:16 PM 09/01/2023 2:21 AM Care Teams Material Man Relationship Specialty Start Date End Date Praveen Gomez CNP [address] [place] [address] PCP - General Certified Nurse Practitioner 02/18/24
--- OUTSIDE RECORDS SUMMARY | 2025-05-09 12:49 | XMS_ITS | Encounter Summary ---
Author Organization [facility] Address [address] [place] [address] Care Team Providers Care Returned Goods Inspector Name Role Phone Bennie Jo DO Primary Care Provider [phone] Vikram Duncan MD Primary Care Provider [phone] Aniyah Trammell LAMP STACK DEVELOPER Primary Care Provider Buck Santana MD Unavailable Mar Gomez LAMP STACK DEVELOPER Primary Care Provider Provider, Historical Unavailable Unavailable Shlomo BessC Unavailable [phone] Rosa Carr Unavailable Unavailable Buck Green MD Unavailable [phone] Sylvester Patel-C Unavailable [phone] Alejandra Doan RN Unavailable Unavailable Radha Duran BATCH AND FURNACE OPERATOR Unavailable Unavailable Theresa Colon LAMP STACK DEVELOPER Unavailable [phone] Little Koo MD Unavailable [phone] Mariana Schultz LAMP STACK DEVELOPER Unavailable [phone] Trino Wolff BATCH AND FURNACE OPERATOR Unavailable Unavailable Blanca Whittington BATCH AND FURNACE OPERATOR Unavailable Unavailab Blanca Monson BATCH AND FURNACE OPERATOR Unavailable Unavailable Desmond Tubbs APRN Primary Care Provider Enma Sneed BATCH AND FURNACE OPERATOR Unavailable Unavailable Encounter Details Date Type Department Care Team (Late st Contact Info) Description 03/26/2004 Historical Encounter Global [facility]ell [facility] [place] [address] Social History Tobacco [...] documented as of this encounter Care Teams Returned Goods Inspector Relationship Specialty Start Date End Date Bennie Jo DO PCP - General 04/24/09 09/20/12 Vikram Duncan MD [address] [place] [address] PCP - General 08/14/08 04/23/09 Aniyah Trammell APRN [address] [place] [address] PCP - General Nurse Practitioner 09/21/12 02/17/16 Mar Gomez APRN [address] [place] [address] PCP - General Nurse Practitioner 02/18/16 10/02/24 Desmond Tubbs APRN [id number] [address] PCP - General Nurse Practitioner 12/30/24 Buck Santana MD [facility] [place] [address] Orthopedic Surgery 09/21/12 Provider, Historical 10/07/16 Shlomo Bess PA-C [address] [place] [address] [address] [place] [address] Physician Commercial Real Estate Attorney 07/13/20 Rosa Carr 09/03/21 Buck Green MD [address] [place] [address] [address] [place] [address] Obstetrics & Gynecology 09/04/21 Sylvester Patel PA-C [address] [place] [address] [address] [place] [address] Physician Commercial Real Estate Attorney 09/09/21 Alejandra Doan, SHANIA 09/09/21 Radha Duran LPN LPN 11/01/21 Theresa Colon APRN [address] [place] [address] [address] [place] [address] Nurse Practitioner 11/27/21 Little Koo MD [address] [place] [address] [address] [place] [address] Gastroenterology 11/27/21 Mariana Schultz APRN [address] [place] [address] [address] [place] [address] Nurse Practitioner Gastroenterology 01/28/22 Trino Wolff LPN BATCH AND FURNACE OPERATOR 04/16/22 Blanca Whittington, BATCH AND FURNACE OPERATOR BATCH AND FURNACE OPERATOR 05/05/22 Blanca Reagan, BATCH AND FURNACE OPERATOR BATCH AND FURNACE OPERATOR 06/30/22 Enma Sneed, BATCH AND FURNACE OPERATOR BATCH AND FURNACE OPERATOR 05/09/25 documented as of this encounter
[2025-05-09 12:50] VITALS: BP 118/76; PULSE 68; TEMP 37.1; O2SAT 99; BMI 30.2
--- OUTSIDE RECORDS SUMMARY | 2025-05-09 12:50 | XMS_ITS | Encounter Summary ---
Author Organization [facility] Address [address] [place] [address] Care Team Providers Care Electrolysist Name Role Phone Buck Santana MD Unavailable Mar Gomez APRN Primary Care Provider [phone] Provider, Historical Unavailable Unavailable Shlomo Bess PA-C Unavailable [phone] Rosa Carr Unavailable Unavailable Buck Green MD Unavailable Sylvester Patel PA-C Unavailable [phone] Alejandra Doan RN Unavailable Unavailable Radha Duran LPN Unavailable Unavailable Theresa Colon MONOGRAM AND LETTER PASTER Unavailable [phone] Little Koo MD Unavailable Mariana Schultz MONOGRAM AND LETTER PASTER Unavailable [phone] Trino Wolff GRAPPLE CREW LEADER Unavailable Unavailable Blanca Whittington GRAPPLE CREW LEADER Unavailable Unavailab Blanca Monson GRAPPLE CREW LEADER Unavailable Unavailable Desmond Tubbs APRN Primary Care Provider Enma Sneed LPN Unavailable Unavailable Encounter Details Date Type Department Care Team (Latest Contact Info) Description 02/20/2021 Transcribe Orders [facility] Buck Green MD [address] [place] [address] [address] [place] [address] Post depression (Primary Dx); Preeclampsia Social History Tobacco Use Types Packs/Day Years [...] have Coronavirus / COVID-19? Unable to assess 02/07/2021 3:06 PM EDT documented as of this encounter Plan of Treatment Not on file documented as of this encounter Results * Hepatic Function Panel (02/20/2021 2:34 PM EDT) T BILIRUBIN 0.2 0.2 - 1.0 mg/dL 02/20/2021 6:16 PM EDT [facility] D BILIRUBIN <0.1 0.0 - 0.2 mg/dL 02/20/2021 6:16 PM EDT [facility] Albumin 4.0 3.2 - 5.0 g/dL 02/20/2021 6:16 PM EDT [facility] ALT (SGPT) 18 10 - 60 [iU]/L 02/20/2021 6:16 PM EDT [facility] AST 16 10 - 42 [iU]/L 02/20/2021 6:16 PM EDT [facility] ALP 75 42 - 121 [iU]/L 02/20/2021 6:16 PM EDT [facility] PROTEIN TOTAL 8.1 6.7 - 8.2 g/dL 02/20/2021 6:16 PM EDT [facility] 02/20/2021 2:34 PM EDT 02/20/2021 5:44 PM EDT us Buck Green MD CHEMISTRY ORDERABLES Final Result [facility] [address] [facility] [place] [address] [facility] [address] [facility] [place] [address] * (ABNORMAL) CBC (02/20/2021 2:34 PM EDT) WBC 12.8(H) 4.5 - 11.0 10*3/uL 02/20/2021 5:46 PM EDT [facility] RBC 3.84(L) 4.00 - 5.20 10*6/uL 02/20/2021 5:46 PM EDT [facility] HGB 9.1(L) 12.0 - 16.0 g/dL 02/20/2021 5:46 PM EDT [facility] HCT 28.5(L) 33.0 - 51.0 % 02/20/2021 5:46 PM EDT [facility] MCV 74.2(L) 80.0 - 100.0 fL 02/20/2021 5:46 PM EDT [facility] MCHC 32.1 32.0 - 36.0 g/dL 02/20/2021 5:46 PM EDT [facility] MCH 23.8(L) 26.0 - 34.0 pg 02/20/2021 5:46 PM EDT [facility] RDW 17.6(H) 11.5 - 13.1 % 02/20/2021 5:46 PM EDT [facility] MPV 7.6 6.5 - 10.0 fL 02/20/2021 5:46 PM EDT [facility] Platelet Cnt 310 150 - 450 10*3/uL 02/20/2021 5:46 PM EDT [facility] Differential Type Auto 021 5:46 PM EDT [facility] Neutrophils 67.6(H) 35.0 - 66.0 % 02/20/2021 5:46 PM EDT [facility] Lymphocytes 24.1 24.0 - 44.0 % 02/20/2021 5:46 PM EDT [facility] Monocytes 6.1 2.1 - 13.3 % 02/20/2021 5:46 PM EDT [facility] Eosinophils 1.6 0.3 - 5.0 % 02/20/2021 5:46 PM EDT [facility] Basophils 0.6 0.0 - 1.0 % 02/20/2021 5:46 PM EDT [facility] Neutrophils Abs 8.7(H) 1.5 - 8.5 10*3/uL 02/20/2021 5:46 PM EDT [facility] Lymphocytes Abs 3.1 1.1 - 5.0 10*3/uL 02/20/2021 5:46 PM EDT [facility] Monocytes Abs 0.8 0.0 - 1.4 10*3/uL 02/20/2021 5:46 PM EDT [facility] Eosinophils Abs 0.2 0.0 - 0.5 10*3/uL 02/20/2021 5:46 PM EDT [facility] Basophils Abs 0.1 0.0 - 0.1 10*3/uL 02/20/2021 5:46 PM EDT [facility] 02/20/2021 2:34 PM EDT 02/20/2021 5:27 PM EDT Buck Green MD HEMATOLOGY ORDERABLES Sandra klein Result Performing Organization Address City/State/[facility] [[email or web address]] Co de Phone Number [facility] [address] [place] [address] [facility] [address] [place] [address] documented in this encounter Visit Diagnoses Diagnosis Post depression- Primary Mental disorders of mother, complicating , childbirth, or the puerperium, unspecified as to episode of care Preeclampsia (HHS/HCC) Mild or unspecified pre-eclampsia, unspecified as to episode of care documented in this encounter Additional Health Concerns Infection Onset Date Last Indicated Resolved Time Covid-19 (rule out) 05/07/2022 05/07/2022 05/08/20 22 12:33 AM EDT Covid-19 (confirmed) 11/05/2022 11/06/2022 023 10:12 PM EST documented as of this encounter Care Teams Electrolysist Relationship Specialty Start Date End Date Mar Gomez APRN [address] [place] [address] PCP - General Nurse Practitioner 02/18/16 10/02/24 Desmond Tubbs APRN [address] [address] [place] [address] PCP - General Nurse Practitioner 12/30/24 Buck Santana MD [facility] [place] [id number] Orthopedic Surgery 09/21/12 Provider, Historical 10/07/16 Shlomo Bess PA-C [address] [place] [address] [address] [place] [address] Physician Tankman 07/13/20 Rosa Carr 09/03/21 Buck Green MD [address] [place] [address] [address] [place] [address] Obstetrics & Gynecology 09/04/21 Sylvester Patel PA-C [address] [place] [address] [address] [place] [address] Physician Tankman 09/09/21 Alejandra Doan, RN 09/09/21 Radha Duran LPN LPN 11/01/21 Theresa Colon APRN [address] [facility] [address] [place], [place] [address] Nurse Practitioner 11/27/21 Little Koo MD [address] [place] [address] [address] [place] [address] Gastroenterology 11/27/21 Mariana Schultz APRN [address] [place] [address] Nurse Practitioner Gastroenterology 01/28/22 Trino Wolff, GRAPPLE CREW LEADER GRAPPLE CREW LEADER 04/16/22 Blanca Whittington, GRAPPLE CREW LEADER GRAPPLE CREW LEADER 05/05/22 Blanca Reagan, GRAPPLE CREW LEADER GRAPPLE CREW LEADER 06/30/22 Enma Sneed, GRAPPLE CREW LEADER GRAPPLE CREW LEADER 05/09/25 documented as of this encounter
--- OUTSIDE RECORDS SUMMARY | 2025-05-09 12:50 | XMS_ITS | Encounter Summary ---
Author Organization [facility] Address [address] [place] [address] Care Team Providers Care Sizing Machine And Drier Operator Name Role Phone DeysiBennie DO Primary Care Provider [phone] Aniyah Trammell WEB SIZER Primary Care Provider Buck Santana MD Unavailable Mar Gomez WEB SIZER Primary Care Provider Provider, Historical Unavailable Unavailable Shlomo Bess-C Unavailable [phone] Rosa Carr Unavailable Unavailable Buck Green MD Unavailable [phone] Sylvester Patel PA-C Unavailable [phone] Alejandra Doan RN Unavailable Unavailable Radha Duran TRAINING DEVELOPER Unavailable Unavailable Theresa Colon WEB SIZER Unavailable [phone] Little Koo MD Unavailable Mariana Schultz WEB SIZER Unavailable Trino Wolff LPN Unavailable Unavailable Blanca Whittington TRAINING DEVELOPER Unavailable Unavailab Blanca Monson TRAINING DEVELOPER Unavailable Unavailable Desmond Tubbs WEB SIZER Primary Care Provider Enma Sneed TRAINING DEVELOPER Unavailable Unavailable Encounter Details Date Type Department Care Team (Latest Contact Info) Description 11/07/2011 Transcribe Orders [facility] Bertha Abarca MD [address] [id number] Excessive or frequent menstruation (Primary Dx) Social History Tobacco Use Types Packs/Day Years Used Date Smoking Tobacco: Every Day Cigarettes 0.3 10 Alcohol Use Standard Drinks/Week Comments No 0 [...] Priority Associated Diagnoses Orde r Schedule Venipuncture Only Lab Today Excessive or frequent menstruation 1 Occurrences starting 11/07/2011 until 11/07/2012 documented as of this encounter Results * TSH (11/07/2011 10:30 AM EST) TSH 0.65 0.30 - 5.60 UIU/ML [facility] 11/07/2011 10:3 0 AM EST 11/07/2011 12:34 PM EST Bertha Abarca MD CHEMISTRY ORDERABLES Final Resul t Performing Organization Address City/[facility]/ZIP Co de Phone Number [facility] [address] [place] [address] * Prolactin (11/07/2011 10:30 AM EST) PROLACTIN 4.29 ng/ml [facility] Comment: EXPECTED VALUES PRL ng/ml MALES 2.64-13.13 FEMALES Premenopausal 3.34-26.72 (<50 years of age) Postmenopausal 2.74-19.64 (=>50 years of age) 11/07/2011 10:3 0 AM EST 11/07/2011 12:34 PM EST us Bertha Abarca MD CHEMISTRY ORDERABLES Final Resul t Performing Organization Address City/[facility]/ZIP Co de Phone Number [facility] [address] [place] [address] * LH (11/07/2011 10:30 AM EST) LH 4.93 mIU/ml [facility] Comment: REFERENCE RANGE MALES 1.24-8.62 mIU/ml FEMALES MID-FOLLICULAR PHASE 2.12-10.89 mIU/ml MID-CYCLE PEAK 19.18-103.03 mIU/ml MID-LUTEAL PHASE 1.20-12.86 mIU/ml POSTMENOPAUSAL 10.87-58.64 mIU/ml 11/07/2011 10:3 0 AM EST 11/07/2011 12:34 PM EST Bertha Abarca MD CHEMISTRY ORDERABLES Final Resul t Performing Organization Address [facility] Co de Phone Number [facility] [address] [place] [address]. [place] [address] * FSH (11/07/2011 10:30 AM EST) FOLLICLE STIMULATING HORMONE 7.77 mIU/ml [facility] Comment: REFERENCE RANGE MALES 1.27-19.26 mIU/ml FEMALES MID-FOLLICULAR PHASE 3.85-8.78 mIU/ml MID-CYCLE PEAK 4.54-22.51 mIU/ml MID-LUTEAL PHASE 1.79-5.12 mIU/ml POSTMENOPAUSAL 16.74-113.59 mIU/mL 11/07/2011 10:3 0 AM EST 11/07/2011 12:34 PM EST us Bertha Abarca MD CHEMISTRY ORDERABLES Final Resul t Performing Organization Address City/[facility] Co de Phone Number [facility] [address] [place] [address] * (ABNORMAL) CBC (11/07/2011 10:30 AM EST) WBC 7.0 3.4 - 11.3 THOU [facility] RBC 4.59 3.65 - 5.16 MIL [facility] HGB 14.3 11.1 - 15.4 G/DL [facility] HCT 43.2 33.3 - 45.5 % [facility] MCV 94.3 81.0 - 98.2 CU VANNESA [facility] MCH 31.1 27.0 - 31.1 PG [facility] MCHC 33.0 32.6 - 34.9 G/DL [facility] RDW 13.7 11.5 - 14.5 % [facility] MPV 9.2 6.9 - 9.9 fl [facility] Platelet Cnt 192 146 - 374 THOU [facility] Neutrophils 46.3(L) 48.8 - 75.9 % [facility] Lymphocytes 43.0 16.3 - 43.9 % [facility] Monocytes 4.7 2.1 - 13.3 % [facility] Eosinophils 5.3(H) 0.3 - 5.0 % [facility] Basophils 0.7 0.0 - 1.1 % [facility] Neutrophils Abs 3.2 1.6 - 8.5 10 3/uL [facility] Lymphocytes Abs 3.0 0.6 - 4.9 10 3/uL [facility] Monocytes Abs 0.3 0.0 - 1.4 10 3/uL [facility] Eosinophils Abs 0.4 0.0 - 0.5 10 3/uL [facility] Basophils Abs 0.1 0.0 - 0.1 10 3/uL [facility] 11/07/2011 10:3 0 AM EST 11/07/2011 12:37 PM EST Bertha Abarca MD HEMATOLOGY ORDERABLES Final Resu lt [facility] [address] [place] [address] documented in this encounter Visit Diagnoses Diagnosis Excessive or frequent menstruation- Primary documented in this encounter Additional Health Concerns Infection Onset Date Last Indicated Resolved Time Covid-19 (rule out) 05/07/2022 05/07/2022 05/08/20 22 12:33 AM EDT Covid-19 (confirmed) 11/05/2022 11/06/2022 023 10:12 PM EST documented as of this encounter Care Teams Sizing Machine And Drier Operator Relationship Specialty Start Date End Date Bennie Jo DO PCP - General 04/24/09 09/20/12 Aniyah Trammell APRN [address] [place] [address] PCP - General Nurse Practitioner 09/21/12 02/17/16 Mar Gomez APRN [address] [place] [address] PCP - General Nurse Practitioner 02/18/16 10/02/24 Desmond Tubbs APRN [address] [address] [place] [address] PCP - General Nurse Practitioner 12/30/24 Buck Santana MD [facility] [place] [id number] Orthopedic Surgery 09/21/12 Provider, Historical 10/07/16 Shlomo Bess PA-C [address] [place] [address] [address] [place] [address] Physician Head Cleaning Porter 07/13/20 Rosa Carr 09/03/21 Buck Green MD [address] [place] [address] [place] [address] Obstetrics & Gynecology 09/04/21 Sylvester Patel PA-C [address] [place] [address] [address] [place] [address] Physician Head Cleaning Porter 09/09/21 Alejandra Doan, RN 09/09/21 Radha Duran LPN LPN 11/01/21 Theresa Colon APRN [address] [place] [address] [address] [place] [address] Nurse Practitioner 11/27/21 Little Koo MD [address] [place] [address] Gastroenterology 11/27/21 Mariana Schultz APRN [address] [place] [address] Nurse Practitioner Gastroenterology 01/28/22 Trino Wolff, TRAINING DEVELOPER TRAINING DEVELOPER 04/16/22 Blanca Whittington, TRAINING DEVELOPER TRAINING DEVELOPER 05/05/22 Blanca Reagan, TRAINING DEVELOPER TRAINING DEVELOPER 06/30/22 Enma Sneed, TRAINING DEVELOPER TRAINING DEVELOPER 05/09/25 documented as of this encounter
--- OUTSIDE RECORDS SUMMARY | 2025-05-09 12:50 | XMS_ITS | Encounter Summary ---
Author Organization [facility] Address [address] [place] [address] Care Team Providers Care Energy Derivatives Trader Name Role Phone Bennie Jo DO Primary Care Provider [phone] Vikram Duncan MD Primary Care Provider [phone] Aniyah Trammell HOSPITAL TELEVISION RENTAL CLERK Primary Care Provider Buck Santana MD Unavailable Mar Gomez HOSPITAL TELEVISION RENTAL CLERK Primary Care Provider Provider, Historical Unavailable Unavailable Shlomo BessC Unavailable [phone] Rosa Carr Unavailable Unavailable Buck Green MD Unavailable [phone] Sylvester Patel-C Unavailable [phone] Alejandra Doan RN Unavailable Unavailable Radha Duran HAND SEWER SHOES Unavailable Unavailable Theresa Colon HOSPITAL TELEVISION RENTAL CLERK Unavailable [phone] Little Koo MD Unavailable [phone] Mariana Schultz HOSPITAL TELEVISION RENTAL CLERK Unavailable [phone] Trino Wolff HAND SEWER SHOES Unavailable Unavailable Blanca Whittington HAND SEWER SHOES Unavailable Unavailab Blanca Monson HAND SEWER SHOES Unavailable Unavailable Desmond Tubbs APRN Primary Care Provider Enma Sneed HAND SEWER SHOES Unavailable Unavailable Encounter Details Date Type Department Care Team (Late st Contact Info) Description 08/15/2004 Historical Encounter Global Erin Suárez NISH [address] [place] [address] Social History Tobacco Use Types Packs/Day Years [...] documented as of this encounter Care Teams Energy Derivatives Trader Relationship Specialty Start Date End Date Bennie Jo DO PCP - General 04/24/09 09/20/12 Vikram uDncan MD [address] [id number] PCP - General 08/14/08 04/23/09 Aniyah Trammell APRN [address] [place] [address] PCP - General Nurse Practitioner 09/21/12 02/17/16 Mar Gomez APRN [address] [place] [address] PCP - General Nurse Practitioner 02/18/16 10/02/24 Desmond Tubbs APRN [address] [address] PCP - General Nurse Practitioner 12/30/24 Buck Santana [place] [facility] [address] Orthopedic Surgery 09/21/12 Provider, Historical 10/07/16 Shlomo Bess PA-C [address] [place] [address] [address] [place] [address] Physician Pattern Drafter 07/13/20 Rosa Carr 09/03/21 Buck Green MD [address] [place] [address] [address] [place] [address] Obstetrics & Gynecology 09/04/21 Sylvester Patel PA-C [address] [place] [address] [address] [place] [address] Physician Pattern Drafter 09/09/21 Alejandra Doan, SHANIA 09/09/21 Radha Duran LPN LPN 11/01/21 Theresa Colon APRN [address] [place] [address] [address] [place] [address] Nurse Practitioner 11/27/21 Little Koo MD [address] [place] [address] [address] [place] [address] Gastroenterology 11/27/21 Mariana Schultz APRN [address] [place] [address] [address] [place] [address] Nurse Practitioner Gastroenterology 01/28/22 Trino Wolff HAND SEWER SHOES HAND SEWER SHOES 04/16/22 Blanca Whittington, HAND SEWER SHOES HAND SEWER SHOES 05/05/22 Blanca Reagan, HAND SEWER SHOES HAND SEWER SHOES 06/30/22 Enma Sneed, HAND SEWER SHOES HAND SEWER SHOES 05/09/25 documented as of this encounter
--- OUTSIDE RECORDS SUMMARY | 2025-05-09 12:50 | XMS_ITS | Encounter Summary ---
Author Organization [facility] Address [address] [place] [address] Care Team Providers Care Hyperbaric Welder Diver Name Role Phone Bennie Jo DO Primary Care Provider [phone] Vikram Duncan MD Primary Care Provider [phone] Aniyah Trammell PAYROLL SUPERVISOR Primary Care Provider Buck Santana MD Unavailable Mar Gomez PAYROLL SUPERVISOR Primary Care Provider [phone] Provider, Historical Unavailable Unavailable Shlomo BessC Unavailable [phone] Rosa Carr Unavailable Unavailable Buck Green MD Unavailable [phone] Sylvester Patel-C Unavailable [phone] Alejandra Doan RN Unavailable Unavailable Radha Duran WOOD HEEL CEMENTER Unavailable Unavailable Theresa Colon PAYROLL SUPERVISOR Unavailable [phone] Little Koo MD Unavailable [phone] Mariana Schultz PAYROLL SUPERVISOR Unavailable [phone] Trino Wolff WOOD HEEL CEMENTER Unavailable Unavailable Blanca Whittington WOOD HEEL CEMENTER Unavailable Unavailab Blanca Monson WOOD HEEL CEMENTER Unavailable Unavailable Desmond Tubbs APRN Primary Care Provider Enma Sneed WOOD HEEL CEMENTER Unavailable Unavailable Encounter Details Date Type Department Care Team (Late st Contact Info) Description 08/22/2004 Historical Encounter Global Shae Trammell APRN [address] [facility] [place] [address] Social History Tobacco [...] documented as of this encounter Care Teams Hyperbaric Welder Diver Relationship Specialty Start Date End Date Bennie Jo DO PCP - General 04/24/09 09/20/12 Vikram Duncan MD [address] [place] [address] PCP - General 08/14/08 04/23/09 Aniyah Trammell APRN [address] [place] [address] PCP - General Nurse Practitioner 09/21/12 02/17/16 Mar Gomez APRN [address] [place] [address] PCP - General Nurse Practitioner 02/18/16 10/02/24 Desmond Tubbs APRN [address] [address] PCP - General Nurse Practitioner 12/30/24 Buck Santana MD [facility] [place] [address] Orthopedic Surgery 09/21/12 Provider, Historical 10/07/16 Shlomo Bess PA-C [address] [place] [address] [address] [place] [address] Physician Photo Checker 07/13/20 Rosa Carr 09/03/21 Buck Green MD [address] [place] [address] [address] [place] [address] Obstetrics & Gynecology 09/04/21 Sylvester Patel PA-C [address] [place] [address] [address] [place] [address] Physician Photo Checker 09/09/21 Alejandra Doan, SHANIA 09/09/21 Radha Duran LPN LPN 11/01/21 Theresa Colon APRN [address] [place] [address] [address] [place] [address] Nurse Practitioner 11/27/21 Little Koo MD [address] [place] [address] [address] [place] [address] Gastroenterology 11/27/21 Mariana Schultz APRN [address] [place] [address] [address] [place] [address] Nurse Practitioner Gastroenterology 01/28/22 Trino Wolff LPN WOOD HEEL CEMENTER 04/16/22 Blanca Whittington, WOOD HEEL CEMENTER WOOD HEEL CEMENTER 05/05/22 Blanca Reagan, WOOD HEEL CEMENTER WOOD HEEL CEMENTER 06/30/22 Enma Sneed, WOOD HEEL CEMENTER WOOD HEEL CEMENTER 05/09/25 documented as of this encounter
--- OUTSIDE RECORDS SUMMARY | 2025-05-09 12:50 | XMS_ITS | Encounter Summary ---
Author Organization [facility] Address [address] [place] [address] Care Team Providers Care Biofuels Production Manager Name Role Phone Deysi Bennie DO Primary Care Provider [phone] Aniyah Trammell SAS PROGRAMMER REMOTE Primary Care Provider Buck Santana MD Unavailable Mar Gomez SAS PROGRAMMER REMOTE Primary Care Provider Provider, Historical Unavailable Unavailable Shlomo Bess-C Unavailable [phone] Rosa Carr Unavailable Unavailable Buck Green MD Unavailable [phone] Sylvester Patel PA-C Unavailable Alejandra Doan RN Unavailable Unavailable Radha Duran B2B APPOINTMENT SETTER Unavailable Unavailable Theresa Colon SAS PROGRAMMER REMOTE Unavailable [phone] Little Koo MD Unavailable [phone] Mariana Schultz SAS PROGRAMMER REMOTE Unavailable Trino Wolff LPN Unavailable Unavailable Blanca Whittington B2B APPOINTMENT SETTER Unavailable Unavailab Blanca Monson B2B APPOINTMENT SETTER Unavailable Unavailable Desmond Tubbs SAS PROGRAMMER REMOTE Primary Care Provider [phone] Enma Sneed B2B APPOINTMENT SETTER Unavailable Unavailable Encounter Details Date Type Department Care Team (Latest Contact Info) Description 05/20/2011 Transcribe Orders [facility] Bertha Abarca MD [address] [id number] Excessive or frequent menstruation (Primary Dx) Social [...] Schedule Venipuncture Only Lab Today Excessive or Frequent Menstruation 1 Occurrences starting 05/20/2011 until 05/20/2012 documented as of this encounter Results * TSH (05/20/2011 3:01 PM EDT) TSH 0.65 0.30 - 5.60 UIU/ML [facility] 05/20/2011 3:01 PM EDT 05/20/2011 4:54 PM EDT Betrha Abarca MD CHEMISTRY ORDERABLES Final Resul t [facility] [address] [facility] [place] [address] * (ABNORMAL) PT/APTT/INR (05/20/2011 3:01 PM EDT) PROTIME 9.8(L) 10.1 - 12.9 SEC [facility] INR 0.9 0.9 - 1.1 [facility] Comment: LEVEL OF THERAPY INDICATIONS TARGET INR RANGE STANDARD DOSE TREATMENT OF VENOUS THROMBOSIS 2.0-3.0 TREATMENT OF PULMONARY EMBOLUS PROPHYLAXIS AGAINST VENOUS THROMBOSIS BY SYSTEMIC EMBOLIZATION . HIGH DOSE HIGH RISK PATIENTS WITH 2.5-3.5 MECHANICAL HEART VALVES APTT 27.8 25.8 - 35.0 SEC [facility] 05/20/2011 3:01 PM EDT 05/20/2011 4:54 PM EDT us Bertha Abarca MD HEMATOLOGY ORDERABLES Final Resu lt Performing Organization Address [facility] Co de Phone Number [facility] [address] [employer] [facility] [place] [address] * Prolactin (05/20/2011 3:01 PM EDT) PROLACTIN 8.73 ng/ml [facility] Comment: EXPECTED VALUES PRL ng/ml MALES 2.64-13.13 FEMALES Premenopausal 3.34-26.72 (<50 years of age) Postmenopausal 2.74-19.64 (=>50 years of age) 05/20/2011 3:01 PM EDT 05/20/2011 4:54 PM EDT us Bertha Abarca MD CHEMISTRY ORDERABLES Final Resul t Performing Organization Address [facility] de Phone Number [facility] [address] [employer] [facility] [place] [address] * LH (05/20/2011 3:01 PM EDT) LH 57.01 mIU/ml [facility] Comment: REFERENCE RANGE MALES 1.24-8.62 mIU/ml FEMALES MID-FOLLICULAR PHASE 2.12-10.89 mIU/ml MID-CYCLE PEAK 19.18-103.03 mIU/ml MID-LUTEAL PHASE 1.20-12.86 mIU/ml POSTMENOPAUSAL 10.87-58.64 mIU/ml 05/20/2011 3:01 PM EDT 05/20/2011 4:54 PM EDT us Bertha Abarca MD CHEMISTRY ORDERABLES Final Resul t Performing Organization Address [facility] Co de Phone Number [facility] [address] [employer] [facility] [place] [address] * FSH (05/20/2011 3:01 PM EDT) FOLLICLE STIMULATING HORMONE 17.72 mIU/ml [facility] Comment: REFERENCE RANGE MALES 1.27-19.26 mIU/ml FEMALES MID-FOLLICULAR PHASE 3.85-8.78 mIU/ml MID-CYCLE PEAK 4.54-22.51 mIU/ml MID-LUTEAL PHASE 1.79-5.12 mIU/ml POSTMENOPAUSAL 16.74-113.59 mIU/mL 05/20/2011 3:01 PM EDT 05/20/2011 4:54 PM EDT Bertha Abarca MD CHEMISTRY ORDERABLES Final Resul t [facility] [address] [place] [address] * (ABNORMAL) CBC (05/20/2011 3:01 PM EDT) WBC 8.0 3.4 - 11.3 THOU [facility] RBC 4.42 3.65 - 5.16 MIL [facility] HGB 14.1 11.1 - 15.4 G/DL [facility] HCT 41.1 33.3 - 45.5 % [facility] MCV 92.9 81.0 - 98.2 CU VANNESA [facility] MCH 31.8(H) 27.0 - 31.1 PG [facility] MCHC 34.2 32.6 - 34.9 G/DIL [facility] RDW 13.6 11.5 - 14.5 % [facility] MPV 9.4 6.9 - 9.9 fl [facility] Platelet Cnt 182 146 - 374 THOU [facility] Neutrophils 49.9 48.8 - 75.9 % [facility] Lymphocytes 40.4 16.3 - 43.9 % [facility] Monocytes 4.5 2.1 - 13.3 % [facility] Eosinophils 4.6 0.3 - 5.0 % [facility] Basophils 0.6 0.0 - 1.1 % [facility] Neutrophils Abs 4.0 1.6 - 8.5 10 3/uL [facility] Lymphocytes Abs 3.2 0.6 - 4.9 10 3/uL [facility] Monocytes Abs 0.4 0.0 - 1.4 10 3/uL [facility] Eosinophils Abs 0.4 0.0 - 0.5 10 3/uL [facility] Basophils Abs 0.0 0.0 - 0.1 10 3/uL [facility] 05/20/2011 3:01 PM EDT 05/20/2011 4:54 PM EDT us Bertha Abarca MD HEMATOLOGY ORDERABLES Final Resu lt [facility] [address] [place] [address] documented in this encounter Visit Diagnoses Diagnosis Excessive or frequent menstruation- Primary documented in this encounter Additional Health Concerns Infection Onset Date Last Indicated Resolved Time Covid-19 (rule out) 05/07/2022 05/07/2022 05/08/20 22 12:33 AM EDT Covid-19 (confirmed) 11/05/2022 11/06/2022 023 10:12 PM EST documented as of this encounter Care Teams Biofuels Production Manager Relationship Specialty Start Date End Date Bennie Jo DO PCP - General 04/24/09 09/20/12 Aniyah Trammell APRN [id number] [place] [address] PCP - General Nurse Practitioner 09/21/12 02/17/16 Mar Gomez APRN [address] [place] [address] PCP - General Nurse Practitioner 02/18/16 10/02/24 Desmond Tubbs APRN 135[address] [place], [place] [id number] PCP - General Nurse Practitioner 12/30/24 Buck Santana MD [address] [place] [address] Orthopedic Surgery 09/21/12 Provider, Historical 10/07/16 Shlomo Bess PA-C [address] [place] [address] [address] [place] [address] Physician Galvanizer Zinc 07/13/20 Rosa Carr 09/03/21 Buck Green MD [address] [place] [address] [address] [place] [address] Obstetrics & Gynecology 09/04/21 Sylvester Patel PA-C [address] [place] [address] [address] [place] [address] Physician Galvanizer Zinc 09/09/21 Alejandra Doan, RN 09/09/21 Radha Duran LPN LPN 11/01/21 Theresa Colon APRN [address] [place] [address] [address] [place] [address] Nurse Practitioner 11/27/21 Little Koo MD [address] [place] [address] [address] [place] [address] Gastroenterology 11/27/21 Mariana Schultz APRN [address] [place] [address] [address] [place] [address] Nurse Practitioner Gastroenterology 01/28/22 Trino Wolff, B2B APPOINTMENT SETTER B2B APPOINTMENT SETTER 04/16/22 Blanca Whittington, B2B APPOINTMENT SETTER B2B APPOINTMENT SETTER 05/05/22 Blanca Reagan, B2B APPOINTMENT SETTER B2B APPOINTMENT SETTER 06/30/22 Enma Sneed, B2B APPOINTMENT SETTER B2B APPOINTMENT SETTER 05/09/25 documented as of this encounter
--- OUTSIDE RECORDS SUMMARY | 2025-05-09 12:50 | XMS_ITS | Encounter Summary ---
Author Organization [facility] Address [address] [place] [address] Care Team Providers Care Optician Apprentice Name Role Phone Bennie Jo DO Primary Care Provider [phone] Vikram Duncan MD Primary Care Provider [phone] Aniyah Trammell SEARCH ENGINE OPTIMIZER Primary Care Provider Buck Santana MD Unavailable Mar Gomez SEARCH ENGINE OPTIMIZER Primary Care Provider Provider, Historical Unavailable Unavailable Shlomo BessC Unavailable [phone] Rosa Carr Unavailable Unavailable Buck Green MD Unavailable [phone] Sylvester Patel-C Unavailable [phone] Alejandra Doan RN Unavailable Unavailable Radha Duran OTORHINOLARYNGOLOGIST Unavailable Unavailable Theresa oClon SEARCH ENGINE OPTIMIZER Unavailable [phone] Little Koo MD Unavailable [phone] Mariana Schultz SEARCH ENGINE OPTIMIZER Unavailable [phone] Trino Wolff OTORHINOLARYNGOLOGIST Unavailable Unavailable Blanca Whittington OTORHINOLARYNGOLOGIST Unavailable Unavailab Blanca Monson OTORHINOLARYNGOLOGIST Unavailable Unavailable Desmond Tubbs APRN Primary Care Provider Enma Sneed OTORHINOLARYNGOLOGIST Unavailable Unavailable Encounter Details Date Type Department Care Team (Late st Contact Info) Description 09/18/2004 Historical Encounter Global Erin Suárez NISH [address] [place] [address] Social History Tobacco Use Types Packs/Day Years [...] documented as of this encounter Care Teams Optician Apprentice Relationship Specialty Start Date End Date Bennie Jo DO PCP - General 04/24/09 09/20/12 Vikram Duncan MD [address] [id number] PCP - General 08/14/08 04/23/09 Aniyah Trammell APRN [id number] [place] [address] PCP - General Nurse Practitioner 09/21/12 02/17/16 Mar Gomez APRN [address] [place] [address] PCP - General Nurse Practitioner 02/18/16 10/02/24 Desmond Tubbs APRN [id number] [address] PCP - General Nurse Practitioner 12/30/24 Buck Santana MD [facility] [place] [address] Orthopedic Surgery 09/21/12 Provider, Historical 10/07/16 Shlomo Bess PA-C [address] [place] [address] [address] [place] [address] Physician Executive Coach 07/13/20 Rosa Carr 09/03/21 Buck Green MD [address] [place] [address] [address] [place] [address] Obstetrics & Gynecology 09/04/21 Sylvester Patel PA-C [address] [place] [address] [address] [place] [address] Physician Executive Coach 09/09/21 Alejandra Doan, SHANIA 09/09/21 Radha Duran LPN LPN 11/01/21 Theresa Colon APRN [address] [place] [address] [address] [place] [address] Nurse Practitioner 11/27/21 Little Koo MD [address] [place] [address] [address] [place] [address] Gastroenterology 11/27/21 Mariana Schultz APRN [address] [place] [address] [address] [place] [address] Nurse Practitioner Gastroenterology 01/28/22 Trino Wolff OTORHINOLARYNGOLOGIST OTORHINOLARYNGOLOGIST 04/16/22 Blanca [place], OTORHINOLARYNGOLOGIST OTORHINOLARYNGOLOGIST 05/05/22 Blanca Reagan, OTORHINOLARYNGOLOGIST OTORHINOLARYNGOLOGIST 06/30/22 Enma Sneed, OTORHINOLARYNGOLOGIST OTORHINOLARYNGOLOGIST 05/09/25 documented as of this encounter
--- OUTSIDE RECORDS SUMMARY | 2025-05-09 12:50 | XMS_ITS | Encounter Summary ---
Author Organization [facility] Address [address] [place] [address] Care Team Providers Care Wireless Team Member Name Role Phone Buck Santana MD Unavailable Mar Gomez APRN Primary Care Provider [phone] Provider, Historical Unavailable Unavailable Shlomo Bess PA-C Unavailable [phone] Rosa Carr Unavailable Unavailable Buck Green MD Unavailable [phone] Sylvester Patel PA-C Unavailable [phone] Alejandra Doan RN Unavailable Unavailable Radha Duran DIRECTOR OF OPTIMIZATION Unavailable Unavailable Theresa Colon DIRECTOR OF HEALTHCARE SYSTEMS Unavailable [phone] Little Koo MD Unavailable Mariana Schultz DIRECTOR OF HEALTHCARE SYSTEMS Unavailable [phone] Trino Wolff DIRECTOR OF OPTIMIZATION Unavailable Unavailable Blanca Whittington DIRECTOR OF OPTIMIZATION Unavailable Unavailab Blanca Monson DIRECTOR OF OPTIMIZATION Unavailable Unavailable Desmond Tubbs DIRECTOR OF HEALTHCARE SYSTEMS Primary Care Provider Enma Sneed LPN Unavailable Unavailable Encounter Details Date Type Department Care Team (Latest Contact Info) Description 01/07/2021 Transcribe Orders [facility] Sylvester Patel PA-C [address] [place] [address] Encounter for supervision of normal first in [...] have Coronavirus / COVID-19? No / Unsure 01/09/2021 1:14 PM EDT documented as of this encounter Plan of Treatment Not on file documented as of this encounter Procedures Procedure Name Priority Date/Time Associated Diagnosis Comments POCT URINALYSIS DIPSTICK (CLINITEK) Routine 01/07/2021 11:45 AM EDT Encounter for supervision of normal first in second trimester 19 weeks gestation of documented in this encounter Results * POCT Urinalysis Dipstick (Clinitek) (01/07/2021 11:45 AM EDT) GLUCOSE URINE, POC neg BILIRUBIN RECHECK neg KETONES, POC neg SPECIFIC GRAVITY, POC >1.030 1.005 - 1.030 BLOOD URINE, POC trace PH, POC 5.5 5.0 - 9.0 PROTEIN, POC trace UROBILINOGEN, POC 1+ 0.2 - 1.0 NITRITE neg LEUKOCYTE EST, POC neg Lot Number Expiration Date 01/07/2021 11:4 5 AM EDT us Sylvester Patel PA-C POINT OF CARE TEST ORDERABLES Final Result documented in this encounter Visit [...] documented as of this encounter Care Teams Wireless Team Member Relationship Specialty Start Date End Date Mar Gomez APRN [address] [place] [address] PCP - General Nurse Practitioner 02/18/16 10/02/24 Desmond Tubbs APRN [id number] [address] [place], [place] [id number] PCP - General Nurse Practitioner 12/30/24 Buck Santana MD [address] [employer] [place], [place] [address] Orthopedic Surgery 09/21/12 Provider, Historical 10/07/16 Shlomo Bess PA-C [address] [place] [address] [address] [place] [address] Physician Residential Substance Abuse Counselor 07/13/20 Rosa Carr 09/03/21 Buck Green MD [address] [place] [address] [address] [place] [address] Obstetrics & Gynecology 09/04/21 Sylvester Patel PA-C [address] [place] [address] [address] [place] [address] Physician Residential Substance Abuse Counselor 09/09/21 Alejandra Doan, RN 09/09/21 Radha Duran LPN LPN 11/01/21 Theresa Colon APRN [address] [place] [address] Nurse Practitioner 11/27/21 Little Koo MD [address] [place] [address] [place] [address] Gastroenterology 11/27/21 Mariana Schultz APRN [address] [place] [address] [place] [address] Nurse Practitioner Gastroenterology 01/28/22 Trino Wolff, DIRECTOR OF OPTIMIZATION DIRECTOR OF OPTIMIZATION 04/16/22 Blanca Whitting[place], DIRECTOR OF OPTIMIZATION DIRECTOR OF OPTIMIZATION 05/05/22 Blanca Reagan, DIRECTOR OF OPTIMIZATION DIRECTOR OF OPTIMIZATION 06/30/22 Enma Sneed, DIRECTOR OF OPTIMIZATION DIRECTOR OF OPTIMIZATION 05/09/25 documented as of this encounter
--- OUTSIDE RECORDS SUMMARY | 2025-05-09 12:50 | XMS_ITS | Encounter Summary ---
Author Organization [facility] Address [address] [place] [address] Care Team Providers Care Life Agent Name Role Phone Bennie Jo DO Primary Care Provider [phone] Vikram Duncan MD Primary Care Provider [phone] Aniyah Trammell LIVESTOCK YARD SUPERVISOR Primary Care Provider Buck Santana MD Unavailable Mar Gomez LIVESTOCK YARD SUPERVISOR Primary Care Provider Provider, Historical Unavailable Unavailable Shlomo BessC Unavailable [phone] Rosa Carr Unavailable Unavailable Buck Green MD Unavailable [phone] Sylvester Patel-C Unavailable [phone] Alejandra Doan RN Unavailable Unavailable Radha Duran BOOKKEEPERS SUPERVISOR Unavailable Unavailable Theresa Colon LIVESTOCK YARD SUPERVISOR Unavailable [phone] Little Koo MD Unavailable [phone] Mariana Schultz LIVESTOCK YARD SUPERVISOR Unavailable [phone] Trino Wolff BOOKKEEPERS SUPERVISOR Unavailable Unavailable Blanca Whittington BOOKKEEPERS SUPERVISOR Unavailable Unavailab Blanca Monson BOOKKEEPERS SUPERVISOR Unavailable Unavailable Desmond Tubbs APRN Primary Care Provider [phone] Enma Sneed BOOKKEEPERS SUPERVISOR Unavailable Unavailable Encounter Details Date Type Department Care Team (Late st Contact Info) Description 03/04/2004 Historical Encounter Global Amor Clemons MD [address] [place], [place] [id number] Social History Tobacco Use Types Packs/Day Years [...] documented as of this encounter Care Teams Life Agent Relationship Specialty Start Date End Date Bennie Jo DO PCP - General 04/24/09 09/20/12 Vikram Duncan MD [address] [place] [address] PCP - General 08/14/08 04/23/09 Aniyah Trammell APRN [address] [place] [address] PCP - General Nurse Practitioner 09/21/12 02/17/16 Mar Gomez APRN [address] [place] [address] PCP - General Nurse Practitioner 02/18/16 10/02/24 Desmond Tubbs APRN [id number] [address] [place], [place] [address] PCP - General Nurse Practitioner 12/30/24 uBck Santana MD [facility] [place] [address] Orthopedic Surgery 09/21/12 Provider, Historical 10/07/16 Shlomo Bess PA-C [address] [place] [address] [facility] [address] [place] [address] Physician Sealer Dry Cell 07/13/20 Rosa Carr 09/03/21 Buck Green MD [address] [place] [address] [address] [place] [address] Obstetrics & Gynecology 09/04/21 Sylvester Patel PA-C [address] [place] [address] [address] [place] [address] Physician Sealer Dry Cell 09/09/21 Alejandra Doan, SHANIA 09/09/21 Radha Duran LPN LPN 11/01/21 Theresa Colon APRN [address] [place] [address] [address] [place], [place] [address] Nurse Practitioner 11/27/21 Little Koo MD [address] [place] [address] [address] [place] [address] Gastroenterology 11/27/21 Mariana Schultz APRN [address] [place] [address] [place] [address] Nurse Practitioner Gastroenterology 01/28/22 Trino Wolff LPN BOOKKEEPERS SUPERVISOR 04/16/22 Blanca Whitting[place], BOOKKEEPERS SUPERVISOR BOOKKEEPERS SUPERVISOR 05/05/22 Blanca Reagan, BOOKKEEPERS SUPERVISOR BOOKKEEPERS SUPERVISOR 06/30/22 Enma Sneed, BOOKKEEPERS SUPERVISOR BOOKKEEPERS SUPERVISOR 05/09/25 documented as of this encounter
--- OUTSIDE RECORDS SUMMARY | 2025-05-09 12:50 | XMS_ITS | Encounter Summary ---
Author Organization [facility] Address [address] [place] [address] Care Team Providers Care Lockstitch Pocket Setter Name Role Phone Bennie Jo DO Primary Care Provider [phone] Vikram Duncan MD Primary Care Provider [phone] Aniyah Trammell AUTOMOBILE MECHANIC RADIATOR Primary Care Provider Buck Santana MD Unavailable Mar Gomez AUTOMOBILE MECHANIC RADIATOR Primary Care Provider Provider, Historical Unavailable Unavailable Shlomo BessC Unavailable [phone] Rosa Carr Unavailable Unavailable Buck Green MD Unavailable [phone] Sylvester Patel-C Unavailable [phone] Alejandra Doan RN Unavailable Unavailable Radha Duran TRANSPORTATION ESCORT Unavailable Unavailable Theresa Colon AUTOMOBILE MECHANIC RADIATOR Unavailable [phone] Little Koo MD Unavailable [phone] Mariana Schultz AUTOMOBILE MECHANIC RADIATOR Unavailable [phone] Trino Wolff TRANSPORTATION ESCORT Unavailable Unavailable Blanca Whittington TRANSPORTATION ESCORT Unavailable Unavailab Blanca Monson TRANSPORTATION ESCORT Unavailable Unavailable Desmond Tubbs APRN Primary Care Provider Enma Sneed TRANSPORTATION ESCORT Unavailable Unavailable Encounter Details Date Type Department Care Team (Late st Contact Info) Description 09/03/2004 Historical Encounter Global Anibal Dennis [facility] Social History Tobacco Use Types Packs/Day Years [...] documented as of this encounter Care Teams Lockstitch Pocket Setter Relationship Specialty Start Date End Date Bennie Jo DO PCP - General 04/24/09 09/20/12 Vikram Duncan MD [address] [place] [address] PCP - General 08/14/08 04/23/09 Aniyah Trammell APRN [address] [place] [address] PCP - General Nurse Practitioner 09/21/12 02/17/16 Mar Gomez APRN [address] [place] [address] PCP - General Nurse Practitioner 02/18/16 10/02/24 Desmond Tubbs APRN [address] [place] [address] PCP - General Nurse Practitioner 12/30/24 Buck Santana MD [address] [place] [address] Orthopedic Surgery 09/21/12 Provider, Historical 10/07/16 Shlomo Bess PA-C [address] [place] [address] [address] [facility] [address] [place] [address] Physician Chopper Feeder 07/13/20 Rosa Carr 09/03/21 Buck Green MD [address] [place] [address] [place] [address] Obstetrics & Gynecology 09/04/21 Sylvester Patel PA-C [address] [place] [address] Physician Chopper Feeder 09/09/21 Alejandra Doan, RN 09/09/21 Radha Duran LPN LPN 11/01/21 Theresa Colon APRN [address] [place] [address] [address] [place] [address] Nurse Practitioner 11/27/21 Little Koo MD [address] [place] [address] Gastroenterology 11/27/21 Mariana Schultz APRN [address] [place] [address] Nurse Practitioner Gastroenterology 01/28/22 Trino Wolff LPN LPN 04/16/22 Blanca Whittington LPN TRANSPORTATION ESCORT 05/05/22 Blanca Reagan LPN TRANSPORTATION ESCORT 06/30/22 Enma Sneed LPN TRANSPORTATION ESCORT 05/09/25 documented as of this encounter
--- OUTSIDE RECORDS SUMMARY | 2025-05-09 12:50 | XMS_ITS | Encounter Summary ---
Author Organization [facility] Address [address] [place] [address] Care Team Providers Care Senior Project Controls Specialist Name Role Phone Aniyah Trammell APRN Primary Care Provider [phone] Buck Santana MD Unavailable Mar Gomez COAT FELLER Primary Care Provider [phone] Provider, Historical Unavailable Unavailable Shlomo Bess-C Unavailable Rosa Carr Unavailable Unavailable Buck Green MD Unavailable [phone] Sylvester Patel PA-C Unavailable Alejandra Doan RN Unavailable Unavailable Radha Duran LPN Unavailable Unavailable Theresa Colon COAT FELLER Unavailable Little Koo MD Unavailable Mariana Schultz COAT FELLER Unavailable [phone] Trino Wolff HIGH SCHOOL MUSIC TEACHER Unavailable Unavailable Blanca Whittington HIGH SCHOOL MUSIC TEACHER Unavailable Unavailab Blanca Monson HIGH SCHOOL MUSIC TEACHER Unavailable Unavailable Desmond Tubbs APRN Primary Care Provider Enma Sneed HIGH SCHOOL MUSIC TEACHER Unavailable Unavailable Reason for Visit * Reason Onset Date Comments Follow-up 11/22/2015 talked to pt Encounter Details Date Type Department Care Team (Late st Contact Info) Description 11/22/2015 Telephone Pediatrics [address] [place] [address] Mary Kay Bryant, SHANIA Follow-up (talked to pt) Social History Tobacco Use Types Packs/Day Years [...] as of this encounter Care Teams Senior Project Controls Specialist Relationship Specialty Start Date End Date Aniyah Trammell APRN [address] [place] [address] PCP - General Nurse Practitioner 09/21/12 02/17/16 Mar Gomez APRN [address] [place] [address] PCP - General Nurse Practitioner 02/18/16 10/02/24 Desmond Tubbs APRN [address] [place], [place] [address] PCP - General Nurse Practitioner 12/30/24 Buck Santana MD [address] [employer] [place] [address] Orthopedic Surgery 09/21/12 Provider, Historical 10/07/16 Shlomo Bess PA-C [address] [place] [address] [address] [place] [address] Physician Administrative Nursing Supervisor 07/13/20 Rosa Carr 09/03/21 Buck Green MD [address] [place] [address] [address] [place] [address] Obstetrics & Gynecology 09/04/21 Sylvester Patel PA-C [address] [place] [address] [address] [place] [address] Physician Administrative Nursing Supervisor 09/09/21 Alejandra Doan, SHANIA 09/09/21 Radha Duran, HIGH SCHOOL MUSIC TEACHER HIGH SCHOOL MUSIC TEACHER 11/01/21 Theresa Colon APRN [address] [place] [address] [address] [place] [address] Nurse Practitioner 11/27/21 Little Koo MD [address] [place] [address] [address] [place] [address] Gastroenterology 11/27/21 Mariana Schultz APRN [address] [place] [address] [address] [place] [address] Nurse Practitioner Gastroenterology 01/28/22 Trino Wolff, HIGH SCHOOL MUSIC TEACHER HIGH SCHOOL MUSIC TEACHER 04/16/22 Blanca Whittington, HIGH SCHOOL MUSIC TEACHER HIGH SCHOOL MUSIC TEACHER 05/05/22 Blanca Reagan, HIGH SCHOOL MUSIC TEACHER HIGH SCHOOL MUSIC TEACHER 06/30/22 Enma Sneed, HIGH SCHOOL MUSIC TEACHER HIGH SCHOOL MUSIC TEACHER 05/09/25 documented as of this encounter
--- OUTSIDE RECORDS SUMMARY | 2025-05-09 12:50 | XMS_ITS | Encounter Summary ---
Author Organization [facility] Address [address] [place] [address] Care Team Providers Care Investigator Claims Name Role Phone Bennie Jo DO Primary Care Provider [phone] Vikram Duncan MD Primary Care Provider [phone] Aniyah Trammell DESOLDERER Primary Care Provider Buck Santana MD Unavailable Mar Gomez DESOLDERER Primary Care Provider Provider, Historical Unavailable Unavailable Shlomo BessC Unavailable [phone] Rosa Carr Unavailable Unavailable Buck Green MD Unavailable [phone] Sylvester Patel-C Unavailable [phone] Alejandra Doan RN Unavailable Unavailable Radha Duran SYRUP MIXER Unavailable Unavailable Theresa Colno DESOLDERER Unavailable [phone] Little Koo MD Unavailable [phone] Mariana Schultz DESOLDERER Unavailable [phone] Trino Wolff SYRUP MIXER Unavailable Unavailable Blanca Whittington SYRUP MIXER Unavailable Unavailab Blanca Monson SYRUP MIXER Unavailable Unavailable Desmond Tubbs APRN Primary Care Provider Enma Sneed SYRUP MIXER Unavailable Unavailable Encounter Details Date Type Department Care Team (Late st Contact Info) Description 07/30/2004 Historical Encounter Global Aron Odonnell MD [facility] Emergency Dept. [address] [facility] [place], [place] [id number] Social History Tobacco Use Types Packs/Day Years [...] documented as of this encounter Care Teams Investigator Claims Relationship Specialty Start Date End Date Bennie Jo DO PCP - General 04/24/09 09/20/12 Vikram Duncan MD [facility] [place] [address] PCP - General 08/14/08 04/23/09 Aniyah Trammell APRN [address] [place] [address] PCP - General Nurse Practitioner 09/21/12 02/17/16 Mar Gomez APRN [address] [place] [address] PCP - General Nurse Practitioner 02/18/16 10/02/24 Desmond Tubbs APRN [id number] [address] PCP - General Nurse Practitioner 12/30/24 Buck Santana MD [facility] [place] [address] Orthopedic Surgery 09/21/12 Provider, Historical 10/07/16 Shlomo Bess PA-C [address] [place] [address] [address] [place] [address] Physician Director Validation 07/13/20 Rosa Carr 09/03/21 Buck Green MD [address] [place] [address] [address] [place] [address] Obstetrics & Gynecology 09/04/21 Sylvester Patel PA-C [address] [place] [address] [address] [place] [address] Physician Director Validation 09/09/21 Alejandra Doan, RN 09/09/21 Radha Duran LPN LPN 11/01/21 Theresa Colon APRN [address] [place] [address] [address] [place], [place] [address] Nurse Practitioner 11/27/21 Little Koo MD [address] [place] [address] [address] [facility] [place] [place] [address] Gastroenterology 11/27/21 Mariana Schultz APRN [address] [place] [address] [address] [place] [address] Nurse Practitioner Gastroenterology 01/28/22 Trino Wolff, SYRUP MIXER SYRUP MIXER 04/16/22 Blanca Whittington, SYRUP MIXER SYRUP MIXER 05/05/22 Blanca Reagan, SYRUP MIXER SYRUP MIXER 06/30/22 Enma Sneed, SYRUP MIXER SYRUP MIXER 05/09/25 documented as of this encounter
--- OUTSIDE RECORDS SUMMARY | 2025-05-09 12:50 | XMS_ITS | Encounter Summary ---
Author Organization [facility] Address [address] [id number] Care Team Providers Care Trophy Assembler Name Role Phone Buck Santana MD Unavailable Mar Gomez APRN Primary Care Provider [phone] Provider, Historical Unavailable Unavailable Shlomo Bess PA-C Unavailable [phone] Rosa Carr Unavailable Unavailable Buck Green MD Unavailable Sylvester Patel PA-C Unavailable Alejandra Doan RN Unavailable Unavailable Radha Duran LPN Unavailable Unavailable Theresa Colon DERRICK BOAT LEVERMAN Unavailable Little Koo MD Unavailable Mariana Schultz DERRICK BOAT LEVERMAN Unavailable [phone] Trino Wolff PIPE STEM ALIGNER Unavailable Unavailable Blanca Whittington PIPE STEM ALIGNER Unavailable Unavailab Blanca Monson PIPE STEM ALIGNER Unavailable Unavailable Desmond Tubbs DERRICK BOAT LEVERMAN Primary Care Provider [phone] Enma Sneed LPN Unavailable Unavailable Reason for Referral * Consultation (Routine) - Closed Specialty Diagnoses / Procedures Referred By Contjessica t Referred To Contact Plastic Surgery Diagnoses Skin lesions Louie Uriarte MD [address] [place] [address] Phone: tel: fax: Britton Almaraz MD Referral ID Status Reason Start Date Expiration Date Visits Re quested Visits Authorized [id number] Closed 01/25/2018 01/25/2019 1 1 Encounter Details Date Type Department Care Team (Late st Contact Info) Description 01/25/2018 Orders Only [facility] [address] [place] [address] Quinn Mirta Skin lesions (Primary Dx) Social History Tobacco Use Types [...] Associated Diagnoses Order Schedule Ambulatory referral to Dermatology Outpatient Referral Routine Skin lesions Ordered: 01/25/2018 documented as of this encounter Visit Diagnoses Diagnosis Skin lesions- Primary documented in this encounter Additional Health Concerns Infection Onset Date Last Indicated Resolved Time Covid-19 (rule out) 05/07/2022 05/07/2022 05/08/20 22 12:33 AM EDT Covid-19 (confirmed) 11/05/2022 11/06/2022 023 10:12 PM EST documented as of this encounter Care Teams Trophy Assembler Relationship Specialty Start Date End Date Mar Gomez APRN [address] [place] [address] PCP - General Nurse Practitioner 02/18/16 10/02/24 Desmond Tubbs APRN [id number] [place] [address] PCP - General Nurse Practitioner 12/30/24 Buck Santana MD [facility] [place] [address] Orthopedic Surgery 09/21/12 Provider, Historical 10/07/16 Shlomo Bess PA-C [address] [place] [address] [address] [place] [address] Physician Soil Analyst 07/13/20 Rosa Carr 09/03/21 Buck Green MD [address] [place] [address] [address] [place] [address] Obstetrics & Gynecology 09/04/21 Sylvester Patel PA-C [address] [place] [address] [address] [place] [address] Physician Soil Analyst 09/09/21 Alejandra Doan, RN 09/09/21 Radha Duran, PIPE STEM ALIGNER PIPE STEM ALIGNER 11/01/21 Theresa Colon APRN [address] [place] [address] [address] [place] [address] Nurse Practitioner 11/27/21 Little Koo MD [address] [place] [address] [address] [place] [address] Gastroenterology 11/27/21 Mariana Schultz APRN [address] [place] [address] [address] [place] [address] Nurse Practitioner Gastroenterology 01/28/22 Trino Wolff, PIPE STEM ALIGNER PIPE STEM ALIGNER 04/16/22 Blanca Whittington, PIPE STEM ALIGNER PIPE STEM ALIGNER 05/05/22 Blanca Reagan, PIPE STEM ALIGNER PIPE STEM ALIGNER 06/30/22 Enma Sneed, PIPE STEM ALIGNER PIPE STEM ALIGNER 05/09/25 documented as of this encounter
--- OUTSIDE RECORDS SUMMARY | 2025-05-09 12:50 | XMS_ITS | Encounter Summary ---
Author Organization [facility] Address [address] [place] [address] Care Team Providers Care Booking Prizer Name Role Phone Bennie Jo DO Primary Care Provider [phone] Vikram Duncan MD Primary Care Provider [phone] Aniyah Trammell OPTIONS ADVISOR Primary Care Provider Buck Santana MD Unavailable Mar Gomez OPTIONS ADVISOR Primary Care Provider Provider, Historical Unavailable Unavailable Shlomo BessC Unavailable [phone] Rosa Carr Unavailable Unavailable Buck Green MD Unavailable [phone] Sylvester Patel-C Unavailable [phone] Alejandra Doan RN Unavailable Unavailable Radha Duran DERRICKMAN HELPER Unavailable Unavailable Theresa Colon OPTIONS ADVISOR Unavailable [phone] Little Koo MD Unavailable [phone] Mariana Schultz OPTIONS ADVISOR Unavailable [phone] Trino Wolff DERRICKMAN HELPER Unavailable Unavailable Blanca Whittington DERRICKMAN HELPER Unavailable Unavailab Blanca Monson DERRICKMAN HELPER Unavailable Unavailable Desmond Tubbs APRN Primary Care Provider Enma Sneed DERRICKMAN HELPER Unavailable Unavailable Encounter Details Date Type Department Care Team (Late st Contact Info) Description 04/15/2004 Historical Encounter Global Shae Trammell APRN [address] [facility] [place] [address] Social History Tobacco [...] documented as of this encounter Care Teams Booking Prizer Relationship Specialty Start Date End Date Bennie Jo DO PCP - General 04/24/09 09/20/12 Vikram uDncan MD [address] [place] [address] PCP - General 08/14/08 04/23/09 Aniyah Trammell APRN [address] [place] [address] PCP - General Nurse Practitioner 09/21/12 02/17/16 Mar Gomez APRN [address] [place] [address] PCP - General Nurse Practitioner 02/18/16 10/02/24 Desmond Tubbs APRN [id number] [address] PCP - General Nurse Practitioner 12/30/24 Buck Santana MD [facility] [place] [address] Orthopedic Surgery 09/21/12 Provider, Historical 10/07/16 Shlomo Bess PA-C [address] [place] [address] [address] [place] [address] Physician Therapist Radiation 07/13/20 Rosa Carr 09/03/21 Buck Green MD [address] [place] [address] [address] [place] [address] Obstetrics & Gynecology 09/04/21 Sylvester Patel PA-C [address] [place] [address] [address] [place] [address] Physician Therapist Radiation 09/09/21 Alejandra Doan, SHANIA 09/09/21 Radha Duran LPN LPN 11/01/21 Theresa Colon APRN [address] [place] [address] [address] [place] [address] Nurse Practitioner 11/27/21 Little Koo MD [address] [place] [address] [address] [place] [address] Gastroenterology 11/27/21 Mariana Schultz APRN [address] [place] [address] [address] [place] [address] Nurse Practitioner Gastroenterology 01/28/22 Trino Wolff LPN DERRICKMAN HELPER 04/16/22 Blanca Whittington, DERRICKMAN HELPER DERRICKMAN HELPER 05/05/22 Blanca Reagan, DERRICKMAN HELPER DERRICKMAN HELPER 06/30/22 Enma Sneed, DERRICKMAN HELPER DERRICKMAN HELPER 05/09/25 documented as of this encounter
--- OUTSIDE RECORDS SUMMARY | 2025-05-09 12:50 | XMS_ITS | Encounter Summary ---
Author Organization [facility] Address [address] [place] [address] Care Team Providers Care Explosive Ordnance Technician Name Role Phone Bennie Jo DO Primary Care Provider [phone] Vikram Duncan MD Primary Care Provider [phone] Aniyah Trammell CHILD PSYCHOLOGY TEACHER Primary Care Provider Buck Santana MD Unavailable Mar Gomez CHILD PSYCHOLOGY TEACHER Primary Care Provider [phone] Provider, Historical Unavailable Unavailable Shlomo BessC Unavailable [phone] Rosa Carr Unavailable Unavailable Buck Green MD Unavailable [phone] Sylvester Patel-C Unavailable [phone] Alejandra Doan RN Unavailable Unavailable Radha Duran CAKE PUNCHER Unavailable Unavailable Theresa Colon CHILD PSYCHOLOGY TEACHER Unavailable [phone] Little Koo MD Unavailable [phone] Mariana Schultz CHILD PSYCHOLOGY TEACHER Unavailable [phone] Trino Wolff CAKE PUNCHER Unavailable Unavailable Blanca Whittington CAKE PUNCHER Unavailable Unavailab Balnca Monson CAKE PUNCHER Unavailable Unavailable Desmond Tubbs APRN Primary Care Provider [phone] Enma Sneed CAKE PUNCHER Unavailable Unavailable Encounter Details Date Type Department Care Team (Late st Contact Info) Description 01/19/2004 Historical Encounter Global Erin Suárez NISH [address] [place] [address] Social History Tobacco Use Types Packs/Day Years [...] documented as of this encounter Care Teams Explosive Ordnance Technician Relationship Specialty Start Date End Date Bennie Jo DO PCP - General 04/24/09 09/20/12 Vikram Duncan MD [address] [id number] PCP - General 08/14/08 04/23/09 Aniyah Trammell APRN [address] [place] [address] PCP - General Nurse Practitioner 09/21/12 02/17/16 Mar Gomez APRN [address] [place] [address] PCP - General Nurse Practitioner 02/18/16 10/02/24 Desmond Tubbs APRN [address] [address] PCP - General Nurse Practitioner 12/30/24 Buck Santana MD [facility] [place] [address] Orthopedic Surgery 09/21/12 Provider, Historical 10/07/16 Shlomo Bess PA-C [address] [place] [address] [address] [place] [address] Physician Customer Insight Analyst 07/13/20 Rosa Carr 09/03/21 Buck Green MD [address] [place] [address] [address] [place] [address] Obstetrics & Gynecology 09/04/21 Sylvester Patel PA-C [address] [place] [address] [address] [place] [address] Physician Customer Insight Analyst 09/09/21 Alejandra Doan, SHANIA 09/09/21 Radha Duran LPN LPN 11/01/21 Theresa Colon APRN [address] [place] [address] [address] [place] [address] Nurse Practitioner 11/27/21 Little Koo MD [address] [place] [address] [address] [place] [address] Gastroenterology 11/27/21 Mariana Schultz APRN [address] [place] [address] [address] [place] [address] Nurse Practitioner Gastroenterology 01/28/22 Trino Wolff CAKE PUNCHER CAKE PUNCHER 04/16/22 Blanca Whittington, CAKE PUNCHER CAKE PUNCHER 05/05/22 Blanca Reagan, CAKE PUNCHER CAKE PUNCHER 06/30/22 Enma Sneed, CAKE PUNCHER CAKE PUNCHER 05/09/25 documented as of this encounter
--- OUTSIDE RECORDS SUMMARY | 2025-05-09 12:50 | XMS_ITS | Encounter Summary ---
Author Organization [facility] Address [address] [place] [address] Care Team Providers Care Nutrition Worker Name Role Phone Bennie Jo DO Primary Care Provider [phone] Vikram Duncan MD Primary Care Provider [phone] Aniyah Trammell CASING TIER Primary Care Provider Buck Santana MD Unavailable Mar Gomez CASING TIER Primary Care Provider Provider, Historical Unavailable Unavailable Shlomo BessC Unavailable [phone] Rosa Carr Unavailable Unavailable Buck Green MD Unavailable [phone] Sylvester Patel-C Unavailable [phone] Alejandra Doan RN Unavailable Unavailable Radha Duran ENGINEERING OPERATIONS LEADER Unavailable Unavailable Theresa Colon CASING TIER Unavailable [phone] Little Koo MD Unavailable [phone] Mariana Schultz CASING TIER Unavailable [phone] Trino Wolff ENGINEERING OPERATIONS LEADER Unavailable Unavailable Blanca Whittington ENGINEERING OPERATIONS LEADER Unavailable Unavailab Blanca Monson ENGINEERING OPERATIONS LEADER Unavailable Unavailable Desmond Tubbs APRN Primary Care Provider Enma Sneed ENGINEERING OPERATIONS LEADER Unavailable Unavailable Encounter Details Date Type Department Care Team (Late st Contact Info) Description 01/13/2004 Historical Encounter Global Erin Suárez NISH [address] [place] [address] Social History Tobacco Use Types Packs/Day Years [...] documented as of this encounter Care Teams Nutrition Worker Relationship Specialty Start Date End Date Bennie Jo DO PCP - General 04/24/09 09/20/12 Vikram Duncan MD [address] [id number] PCP - General 08/14/08 04/23/09 Aniyah Trammell APRN [address] [place] [address] PCP - General Nurse Practitioner 09/21/12 02/17/16 Mar Gomez APRN [address] [place] [address] PCP - General Nurse Practitioner 02/18/16 10/02/24 Desmond Tubbs APRN [address] [address] PCP - General Nurse Practitioner 12/30/24 Buck Santana MD [facility] [place] [address] Orthopedic Surgery 09/21/12 Provider, Historical 10/07/16 Shlomo Bess PA-C [address] [place] [address] [address] [place] [address] Physician Vice President Of Academic Affairs 07/13/20 Rosa Carr 09/03/21 Buck Green MD [address] [place] [address] [address] [place] [address] Obstetrics & Gynecology 09/04/21 Sylvester Patel PA-C [address] [place] [address] [address] [place] [address] Physician Vice President Of Academic Affairs 09/09/21 Alejandra Doan, SHANIA 09/09/21 Radha Duran LPN LPN 11/01/21 Theresa Colon APRN [address] [place] [address] [address] [place] [address] Nurse Practitioner 11/27/21 Little Koo MD [address] [place] [address] [address] [place] [address] Gastroenterology 11/27/21 Mariana Schultz APRN [address] [place] [address] [address] [place] [address] Nurse Practitioner Gastroenterology 01/28/22 Trino Wolff ENGINEERING OPERATIONS LEADER ENGINEERING OPERATIONS LEADER 04/16/22 Blanca Whittington, ENGINEERING OPERATIONS LEADER ENGINEERING OPERATIONS LEADER 05/05/22 Blanca Reagan, ENGINEERING OPERATIONS LEADER ENGINEERING OPERATIONS LEADER 06/30/22 Enma Sneed, ENGINEERING OPERATIONS LEADER ENGINEERING OPERATIONS LEADER 05/09/25 documented as of this encounter
--- OUTSIDE RECORDS SUMMARY | 2025-05-09 12:50 | XMS_ITS | Encounter Summary ---
Author Organization [facility] Address [address] [place] [address] Care Team Providers Care Strategic Account Director Name Role Phone Buck Santana MD Unavailable Mar Gomez APRN Primary Care Provider [phone] Provider, Historical Unavailable Unavailable Shlomo Bess PA-C Unavailable [phone] Rosa Carr Unavailable Unavailable Buck Green MD Unavailable [phone] Sylvester Patel PA-C Unavailable [phone] Alejandra Doan RN Unavailable Unavailable Radha Duran LPN Unavailable Unavailable Theresa Colon PHYSICIAN RELATIONS SPECIALIST Unavailable Little Koo MD Unavailable Mariana Schultz PHYSICIAN RELATIONS SPECIALIST Unavailable Trino Wolff RESIDENTIAL CONCIERGE Unavailable Unavailable Blanca Whittington RESIDENTIAL CONCIERGE Unavailable Unavailab Blanca Monson RESIDENTIAL CONCIERGE Unavailable Unavailable Desmond Tubbs APRN Primary Care Provider [phone] Enma Sneed LPN Unavailable Unavailable Encounter Details Date Type Department Care Team (Latest Contact Info) Description 01/16/2021 Transcribe Orders [facility] Buck Green MD [address] [place] [address] [address] [place] [address] (work) Encounter for supervision of normal first in second trimester (Primary Dx); 20 weeks gestation of Social History Tobacco Use [...] Diagnosis Comments POCT URINALYSIS DIPSTICK (CLINITEK) Routine 01/16/2021 11:11 AM EDT Encounter for supervision of normal first in second trimester 20 weeks gestation of documented in this encounter Results * POCT Urinalysis Dipstick (Clinitek) (01/16/2021 11:11 AM EDT) GLUCOSE URINE, POC neg BILIRUBIN RECHECK neg KETONES, POC neg SPECIFIC GRAVITY, POC 1.025 1.005 - 1.030 BLOOD URINE, POC trace PH, POC 6.0 5.0 - 9.0 PROTEIN, POC 10 UROBILINOGEN, POC norm 0.2 - 1.0 NITRITE neg LEUKOCYTE EST, POC 75 Lot Number Expiration Date 01/16/2021 11:1 1 AM EDT us Buck Green MD POINT OF CARE TEST ORDERAB LES Final Result documented in this encounter Visit Diagnoses Diagnosis Encounter for supervision of normal first in second trimester (HHS/HCC)- Primary 20 weeks gestation of (HHS/HCC) documented in this encounter Additional Health Concerns Infection Onset Date Last Indicated Resolved Time Covid-19 (rule out) 05/07/2022 05/07/2022 05/08/20 22 12:33 AM EDT Covid-19 (confirmed) 11/05/2022 11/06/2022 023 10:12 PM EST documented as of this encounter Care Teams Strategic Account Director Relationship Specialty Start Date End Date Mar Gomez APRN [address] [place] [address] PCP - General Nurse Practitioner 02/18/16 10/02/24 Desmond Tubbs APRN [address] [address] [place], [place] [address] PCP - General Nurse Practitioner 12/30/24 Buck Santana MD [address] [place], [place] [address] Orthopedic Surgery 09/21/12 Provider, Historical 10/07/16 Shlomo Bess PA-C [address] [place] [address] [address] [place] [address] Physician Stock Pitcher 07/13/20 Rosa Carr 09/03/21 Buck Green MD [address] [place] [address] [address] [place] [address] Obstetrics & Gynecology 09/04/21 Sylvester Patel PA-C [address] [place] [address] [address] [place] [address] Physician Stock Pitcher 09/09/21 Alejandra Doan, RN 09/09/21 Radha Duran LPN LPN 11/01/21 Theresa Colon APRN [address] [place] [address] [address] [place], [place] [address] Nurse Practitioner 11/27/21 Little Koo MD [address] [place] [address] Gastroenterology 11/27/21 Mariana Schultz APRN [address] [place] [address] Nurse Practitioner Gastroenterology 01/28/22 Trino Wolff, RESIDENTIAL CONCIERGE RESIDENTIAL CONCIERGE 04/16/22 Blanca Whittington, RESIDENTIAL CONCIERGE RESIDENTIAL CONCIERGE 05/05/22 Blanca Reagan, RESIDENTIAL CONCIERGE RESIDENTIAL CONCIERGE 06/30/22 Enma Sneed, RESIDENTIAL CONCIERGE RESIDENTIAL CONCIERGE 05/09/25 documented as of this encounter
--- OUTSIDE RECORDS SUMMARY | 2025-05-09 12:50 | XMS_ITS | Encounter Summary ---
Author Organization [facility] Address [address] [place] [address] Care Team Providers Care Physician Assistant Name Role Phone Bennie Jo DO Primary Care Provider [phone] Vikram Duncan MD Primary Care Provider [phone] Aniyah Trammell BUILDINGS AND GROUNDS COORDINATOR Primary Care Provider Buck Santana MD Unavailable Mar oGmez BUILDINGS AND GROUNDS COORDINATOR Primary Care Provider Provider, Historical Unavailable Unavailable Shlomo BessC Unavailable [phone] Rosa Carr Unavailable Unavailable Buck Green MD Unavailable [phone] Sylvester Patel-C Unavailable [phone] Alejandra Doan RN Unavailable Unavailable Radha Duran AEROSPACE MEDICINE PHYSICIAN Unavailable Unavailable Theresa Colon BUILDINGS AND GROUNDS COORDINATOR Unavailable [phone] Little Koo MD Unavailable [phone] Mariana Schultz BUILDINGS AND GROUNDS COORDINATOR Unavailable [phone] Trino Wolff AEROSPACE MEDICINE PHYSICIAN Unavailable Unavailable Blanca Whittington AEROSPACE MEDICINE PHYSICIAN Unavailable Unavailab Blanca Monson AEROSPACE MEDICINE PHYSICIAN Unavailable Unavailable Desmond Tubbs APRN Primary Care Provider Enma Sneed AEROSPACE MEDICINE PHYSICIAN Unavailable Unavailable Encounter Details Date Type Department Care Team (Late st Contact Info) Description 08/28/2004 Historical Encounter [facility] Social History Tobacco Use Types Packs/Day Years [...] documented as of this encounter Care Teams Physician Assistant Relationship Specialty Start Date End Date Bennie Jo DO PCP - General 04/24/09 09/20/12 Vikram Duncan MD [address] [place] [address] PCP - General 08/14/08 04/23/09 Aniyah Trammell APRN [id number] [place] [address] PCP - General Nurse Practitioner 09/21/12 02/17/16 Mar Gomez APRN [address] [place] [address] PCP - General Nurse Practitioner 02/18/16 10/02/24 Desmond Tubbs APRN [id number] [place] [address] PCP - General Nurse Practitioner 12/30/24 Buck Santana MD [address] [place] [address] Orthopedic Surgery 09/21/12 Provider, Historical 10/07/16 Shlomo Bess PA-C [address] [place] [address] [facility] [address] [place] [id number] Physician Corporate Tax Preparer 07/13/20 Rosa Carr 09/03/21 Buck Grene MD [address] [place], [place] [address] Obstetrics & Gynecology 09/04/21 Sylvester Patel PA-C [address] [place] [address] Physician Corporate Tax Preparer 09/09/21 Alejandra Doan, RN 09/09/21 Radha Duran LPN LPN 11/01/21 Theresa Colon APRN [address] [place] [address] [address] [place] [address] Nurse Practitioner 11/27/21 Little Koo MD [address] [place] [address] Gastroenterology 11/27/21 Mariana Schultz APRN [address] [place] [address] Nurse Practitioner Gastroenterology 01/28/22 Trino Wolff, AEROSPACE MEDICINE PHYSICIAN AEROSPACE MEDICINE PHYSICIAN 04/16/22 Blanca Whittington LPN AEROSPACE MEDICINE PHYSICIAN 05/05/22 Blanca Reagan LPN AEROSPACE MEDICINE PHYSICIAN 06/30/22 Enma Sneed LPN AEROSPACE MEDICINE PHYSICIAN 05/09/25 documented as of this encounter
--- OUTSIDE RECORDS SUMMARY | 2025-05-09 12:50 | XMS_ITS | Encounter Summary ---
Author Organization [facility] Address [address] [place] [address] Care Team Providers Care Diesel Maintenance Electrician Name Role Phone Bennie Jo DO Primary Care Provider [phone] Vikram Duncan MD Primary Care Provider [phone] Aniyah Trammell CORDWOOD CUTTER Primary Care Provider Buck Santana MD Unavailable Mar Gomez CORDWOOD CUTTER Primary Care Provider Provider, Historical Unavailable Unavailable Shlomo BessC Unavailable [phone] Rosa Carr Unavailable Unavailable Buck Green MD Unavailable [phone] Sylvester Patel-C Unavailable [phone] Alejandra Doan RN Unavailable Unavailable Radha Duran WOOL CLEANER Unavailable Unavailable Theresa Colon CORDWOOD CUTTER Unavailable [phone] Little Koo MD Unavailable [phone] Mariana Schultz CORDWOOD CUTTER Unavailable [phone] Trino Wolff WOOL CLEANER Unavailable Unavailable Blanca Whittington WOOL CLEANER Unavailable Unavailab Blanca Monson WOOL CLEANER Unavailable Unavailable Desmond Tubbs APRN Primary Care Provider Enma Sneed WOOL CLEANER Unavailable Unavailable Encounter Details Date Type Department Care Team (Late st Contact Info) Description 05/07/2004 Historical Encounter [facility] Garima [place] MD [address] [place] [place] [address] [address] [address] Social History Tobacco Use Types Packs/Day Years [...] documented as of this encounter Care Teams Diesel Maintenance Electrician Relationship Specialty Start Date End Date Bennie Jo DO PCP - General 04/24/09 09/20/12 Vikram Duncan MD [address] [place] [address] PCP - General 08/14/08 04/23/09 Aniyah Trammell APRN [id number] [place] [address] PCP - General Nurse Practitioner 09/21/12 02/17/16 Mar Gomez APRN [address] [place] [address] PCP - General Nurse Practitioner 02/18/16 10/02/24 Desmond Tubbs APRN [id number] [address] PCP - General Nurse Practitioner 12/30/24 Buck Santana MD [facility] [place] [address] Orthopedic Surgery 09/21/12 Provider, Historical 10/07/16 Shlomo Bess PA-C [address] [place] [address] [address] [place] [address] Physician Conductor And Engineer 07/13/20 Rosa Carr 09/03/21 Buck Green MD [address] [place] [address] [address] [place] [address] Obstetrics & Gynecology 09/04/21 Sylvester Patel PA-C [address] [place] [address] [address] [place] [address] Physician Conductor And Engineer 09/09/21 Alejandra Doan, SHANIA 09/09/21 Radha Duran LPN LPN 11/01/21 Theresa Colon APRN [address] [place] [address] [address] [place] [address] Nurse Practitioner 11/27/21 Little Koo MD [address] [place] [address] [address] [place] [address] Gastroenterology 11/27/21 Mariana Schultz APRN [address] [place] [address] [address] [place] [address] Nurse Practitioner Gastroenterology 01/28/22 Trino Wolff LPN WOOL CLEANER 04/16/22 Blanca Whittington, WOOL CLEANER WOOL CLEANER 05/05/22 Blanca Reagan, WOOL CLEANER WOOL CLEANER 06/30/22 Enma Sneed, WOOL CLEANER WOOL CLEANER 05/09/25 documented as of this encounter
--- OUTSIDE RECORDS SUMMARY | 2025-05-09 12:50 | XMS_ITS | Encounter Summary ---
Author Organization [facility] Address [address] [place] [address] Care Team Providers Care Appliance Servicer Name Role Phone Bennie Jo DO Primary Care Provider [phone] Vikram Duncan MD Primary Care Provider [phone] Aniyah Trammell AUTOMATIC EDGER Primary Care Provider Buck Santana MD Unavailable Mar Gomez AUTOMATIC EDGER Primary Care Provider [phone] Provider, Historical Unavailable Unavailable Shlomo BessC Unavailable [phone] Rosa Carr Unavailable Unavailable Buck Green MD Unavailable [phone] Sylvester Patel-C Unavailable [phone] Alejandra Doan RN Unavailable Unavailable Radha Duran ENRICHMENT ASSISTANT Unavailable Unavailable Theresa Colon AUTOMATIC EDGER Unavailable [phone] Little Koo MD Unavailable [phone] Mariana Schultz AUTOMATIC EDGER Unavailable [phone] Trino Wolff ENRICHMENT ASSISTANT Unavailable Unavailable Blanca Whittington ENRICHMENT ASSISTANT Unavailable Unavailab Blanca Monson ENRICHMENT ASSISTANT Unavailable Unavailable Desmond Tubbs APRN Primary Care Provider Enma Sneed ENRICHMENT ASSISTANT Unavailable Unavailable Encounter Details Date Type Department Care Team (Late st Contact Info) Description 01/10/2004 Historical Encounter [facility] Garima Maxwell MD [address] [place] [address] [address] [address] Social History Tobacco Use Types Packs/Day Years [...] documented as of this encounter Care Teams Appliance Servicer Relationship Specialty Start Date End Date Bennie Jo DO PCP - General 04/24/09 09/20/12 Vikram Duncan MD [address] [place] [address] PCP - General 08/14/08 04/23/09 Aniyah Trammell APRN [address] [place] [address] PCP - General Nurse Practitioner 09/21/12 02/17/16 Mar Gomez APRN [address] [place] [address] PCP - General Nurse Practitioner 02/18/16 10/02/24 Desmond Tubbs APRN [id number] [address] PCP - General Nurse Practitioner 12/30/24 Buck Santana MD [facility] [place] [address] Orthopedic Surgery 09/21/12 Provider, Historical 10/07/16 Shlomo Bess PA-C [address] [place] [address] [address] [place] [address] Physician Inventory Control Clerk 07/13/20 Rosa Carr 09/03/21 Buck Green MD [address] [place] [address] [address] [place] [address] Obstetrics & Gynecology 09/04/21 Sylvester Ptael PA-C [address] [place] [address] [address] [place] [address] Physician Inventory Control Clerk 09/09/21 Alejandra Doan, SHANIA 09/09/21 Radha Duran LPN LPN 11/01/21 Theresa Colon APRN [address] [place] [address] [address] [place] [address] Nurse Practitioner 11/27/21 Little Koo MD [address] [place] [address] [address] [place] [address] Gastroenterology 11/27/21 Mariana Schultz APRN [address] [place] [address] [address] [place] [address] Nurse Practitioner Gastroenterology 01/28/22 Trino Wolff LPN ENRICHMENT ASSISTANT 04/16/22 Blanca Whittington, ENRICHMENT ASSISTANT ENRICHMENT ASSISTANT 05/05/22 Blanca Reagan, ENRICHMENT ASSISTANT ENRICHMENT ASSISTANT 06/30/22 Enma Sneed, ENRICHMENT ASSISTANT ENRICHMENT ASSISTANT 05/09/25 documented as of this encounter
--- OUTSIDE RECORDS SUMMARY | 2025-05-09 12:50 | XMS_ITS | Encounter Summary ---
Author Organization [facility] Address [address] [place] [address] Care Team Providers Care Drill Rig Operator Name Role Phone Bennie Jo DO Primary Care Provider [phone] Vikram Duncan MD Primary Care Provider [phone] Aniyah Trammell OIL AND GAS SPECIALIST Primary Care Provider Buck Santana MD Unavailable Mar Gomez OIL AND GAS SPECIALIST Primary Care Provider Provider, Historical Unavailable Unavailable Shlomo BessC Unavailable [phone] Rosa Carr Unavailable Unavailable Buck Green MD Unavailable [phone] Sylvester Patel-C Unavailable [phone] Alejandra Doan RN Unavailable Unavailable Radha Duran SPECIMEN TRANSPORTER Unavailable Unavailable Theresa Colon OIL AND GAS SPECIALIST Unavailable [phone] Little Koo MD Unavailable [phone] Mariana Schultz OIL AND GAS SPECIALIST Unavailable [phone] Trino Wolff SPECIMEN TRANSPORTER Unavailable Unavailable Blanca Whittington SPECIMEN TRANSPORTER Unavailable Unavailab Blanca Monson SPECIMEN TRANSPORTER Unavailable Unavailable Desmond Tubbs APRN Primary Care Provider Enma Sneed SPECIMEN TRANSPORTER Unavailable Unavailable Encounter Details Date Type Department Care Team (Late st Contact Info) Description 08/04/2004 Historical Encounter Global Jake Phillips [address] [place] [address] Social History Tobacco Use Types Packs/Day Years [...] documented as of this encounter Care Teams Drill Rig Operator Relationship Specialty Start Date End Date Bennie Jo DO PCP - General 04/24/09 09/20/12 Vikram Duncan MD [address] [place], [place] [address] PCP - General 08/14/08 04/23/09 Aniyah Trammell APRN [address] [place] [address] PCP - General Nurse Practitioner 09/21/12 02/17/16 Mar Gomez APRN [address] [place] [address] PCP - General Nurse Practitioner 02/18/16 10/02/24 Desmond Tubbs APRN [address] [address] [place], [place] [address] PCP - General Nurse Practitioner 3/28/25 Buck Santana MD [address] [place] [address] Orthopedic Surgery 09/21/12 Provider, Historical 10/07/16 Shlomo Bess PA-C [address] [place] [address] [address] [place] [address] Physician Instrumentation And Control Technician 07/13/20 Rosa Carr 09/03/21 Buck Green MD [address] [place] [address] Obstetrics & Gynecology 09/04/21 Sylvester Patel PA-C [address] [place] [address] Physician Instrumentation And Control Technician 09/09/21 Alejandra Doan, RN 09/09/21 Radha Duran LPN LPN 11/01/21 Theresa Colon APRN [address] [place] [address] [address] [place] [address] Nurse Practitioner 11/27/21 Little Koo MD [address] [place] [address] Gastroenterology 11/27/21 Mariana Schultz APRN [address] [place] [address] Nurse Practitioner Gastroenterology 01/28/22 Trino Wolff LPN LPN 04/16/22 Blanca Whittington LPN LPN 05/05/22 Blanca Reagan, SPECIMEN TRANSPORTER SPECIMEN TRANSPORTER 06/30/22 Enma Sneed, SPECIMEN TRANSPORTER SPECIMEN TRANSPORTER 05/09/25 documented as of this encounter
--- OUTSIDE RECORDS SUMMARY | 2025-05-09 12:50 | XMS_ITS | Encounter Summary ---
Author Organization [facility] Address [address] [place] [address] Care Team Providers Care Unix Engineer Name Role Phone Aniyah Trammell APRN Primary Care Provider [phone] Buck Santana MD Unavailable Mar Gomez TECHNOLOGY DEVELOPMENT INTERN Primary Care Provider [phone] Provider, Historical Unavailable Unavailable Shlomo Bess-C Unavailable [phone] Rosa Carr Unavailable Unavailable Buck Green MD Unavailable [phone] Sylvester Patel PA-C Unavailable [phone] Alejandra Doan RN Unavailable Unavailable Radha Duran LPN Unavailable Unavailable Theresa Colon TECHNOLOGY DEVELOPMENT INTERN Unavailable [phone] Little Koo MD Unavailable Mariana Schultz TECHNOLOGY DEVELOPMENT INTERN Unavailable Trino Wolff OPERATOR AUTOMATED PROCESS Unavailable Unavailable Blanca Whittington OPERATOR AUTOMATED PROCESS Unavailable Unavailab Blanca Monson OPERATOR AUTOMATED PROCESS Unavailable Unavailable Desmond Tubbs APRN Primary Care Provider [phone] Enma Sneed OPERATOR AUTOMATED PROCESS Unavailable Unavailable Reason for Visit * Reason Onset Date Comments Nurse Triage Call 02/04/2016 Encounter Details Date Type Department Care Team (Late st Contact Info) Description 02/04/2016 [place] [address] Aniyah Trammell, TECHNOLOGY DEVELOPMENT INTERN [address] [place] [address] Nurse Triage Call Social History Tobacco Use [...] encounter Miscellaneous Notes * Telephone Encounter - Gael Hirsch RN - 02/04/2016 9:52 AM EDT Phone call received from patient. She states she is concerned that her chest pain and pressure is still present and she doesn't have her echo until 02/13/16. She states she is winded after walking across the room and her feet are so swollen, she cant wear her shoes. She has been to the ER twice recently and they Will not do anything. Call Start time: 0950. Call End Time: 1000. Total Minutes spent control inspector: 10 minutes, Physical address: [address] [place] [address] Number calling from: [phone] (M) Mila Coelho is a 35 y.o. female phoned nurse triage nurse complaining of mild chest pain. Patient stating: She has been having chest pain and pressure for quite some time and has gone to er twice and seen Lena once with it. She states she gets winded walking across the room and her feet are so swollen she cannot get her shoes on.. Past medical history includes: Past Medical History Diagnosis Date ??? Asthma A CHILD ??? Community acquired pneumonia 2007 . Onset was unknown which began 1 week ago and lasting to the present time . She is alert, with moderate shortness of breath and none diaphoretic Other symptoms: anxious. Fever is untaken. Other history: smoking.. Chest pain is a challenging symptom from a triage perspective as there are a number of potentially life threatening causes of pain and no combination of symptoms that sufficiently discriminate serious from non serious pain. A conservative stance in triaging these patients is recommended. Adult Chest Pain Triage Assessment Questions Call EMS 911 Now: ?? Severe difficulty breathing (e.g., struggling for each breath, unable to speak)--denies. ?? Passed out (i.e., fainted, collapsed and was not responding)--denies. ?? Chest pain lasting longer than 5 minutes and ANY of the followin) Over 50 years old. 2) Over30 years old and at least one cardiac risk factor (i.e., high blood pressure, DM, high cholesterol,obesity, smoker, or strong family history of heart disease). 3) Pain is cursing, pressure like or heavy. 4) Took Nitroglycerin and chest pain was not relieved. 5) History of heart disease (angina, heart attack, bypass surgery, angioplasty, CHF)--denies ?? Visible sweat on face or sweat dripping down face--denies. ?? Rule out MT, acute, coronary syndrome--denies ?? Sounds like a life threatening emergency to the triage nurse--no Recommendations: none Go to ED Now: ?? SEVERE chest pain--denies ?? Pain also present in shoulder(s) or arm(s) or jaw--denies. ?? Difficulty breathing--complains of Recommendations: Spoke with Shelia at [facility] and she advise pt to go back to ER for evaluation. Advised patient to go to ER and to call back if needed. She is agreeable. Reference: Adult telephone protocols Office version/3rd edition. Mane Hernández MD, FACEP Pages 48 to 50 documented in this encounter Plan of Treatment Not on file documented as of this encounter Visit Diagnoses Not on filedocumented in this encounter Additional Health Concerns Infection Onset Date Last Indicated Resolved Time Covid-19 (rule out) 05/07/2022 05/07/2022 05/08/20 22 12:33 AM EDT Covid-19 (confirmed) 11/05/2022 11/06/2022 023 10:12 PM EST documented as of this encounter Care Teams Unix Engineer Relationship Specialty Start Date End Date Aniyah Trammell APRN [address] [place] [address] PCP - General Nurse Practitioner 09/21/12 02/17/16 Mar Gomez APRN [address] [place] [address] PCP - General Nurse Practitioner 02/18/16 10/02/24 Desmond Tubbs APRN [address] [place] [address] PCP - General Nurse Practitioner 12/30/24 Buck Santana MD [address] [place], [place] [address] Orthopedic Surgery 09/21/12 Provider, Historical 10/07/16 Shlomo Bess PA-C [address] [place] [address] [address] [place] [address] Physician Manager Security And Safety 07/13/20 Rosa Carr 09/03/21 Buck Green MD [address] [place] [address] [address] [place] [address] Obstetrics & Gynecology 09/04/21 Sylvester Patel PA-C [address] [place] [address] [address] [place] [address] Physician Manager Security And Safety 09/09/21 Alejandra Doan, RN 09/09/21 Radha Duran LPN LPN 11/01/21 Theresa Colon APRN [address] [place] [address] [address] [place], [place] [id number] Nurse Practitioner 11/27/21 Little Koo MD [address] [place] [address] Gastroenterology 11/27/21 Mariana Schultz APRN [address] [place] [address] Nurse Practitioner Gastroenterology 01/28/22 Trino Wolff, OPERATOR AUTOMATED PROCESS OPERATOR AUTOMATED PROCESS 04/16/22 Blanca Whittington, OPERATOR AUTOMATED PROCESS OPERATOR AUTOMATED PROCESS 05/05/22 Blanca Reagan, OPERATOR AUTOMATED PROCESS OPERATOR AUTOMATED PROCESS 06/30/22 Enma Sneed, OPERATOR AUTOMATED PROCESS OPERATOR AUTOMATED PROCESS 05/09/25 documented as of this encounter
--- OUTSIDE RECORDS SUMMARY | 2025-05-09 12:50 | XMS_ITS | Clinical Summary ---
Author Organization [facility] Address [address] [place] [address] Care Team Providers Care Apron Cleaner Name Role Phone Unavailable Primary Care Provider Unavailabl e Social History Tobacco Use Types Packs/Day Years Used Date Smoking Tobacco: Never Assessed Comments Unknown Sex and Gender Information Value Date Recorded Sex Assigned at Not on file Legal Sex Female 8:11 PM EDT Gender Identity Not on file Sexual Orientation Not on file Plan of Treatment Not on file
--- OUTSIDE RECORDS SUMMARY | 2025-05-09 12:50 | XMS_ITS | Encounter Summary ---
Author Organization [facility] Address [address] [place] [address] Care Team Providers Care Veneer Slicing Machine Operator Name Role Phone Buck Santana MD Unavailable Mar Gomez APRN Primary Care Provider Provider, Historical Unavailable Unavailable Shlomo Bess PA-C Unavailable [phone] Rosa Carr Unavailable Unavailable Buck Green MD Unavailable [phone] Sylvester Patel PA-C Unavailable [phone] Alejandra Doan RN Unavailable Unavailable Radha Duran BIODIESEL PROCESSING TECHNICIAN Unavailable Unavailable Theresa Colon STOCK UNLOADER Unavailable [phone] Little Koo MD Unavailable [phone] Mariana Schultz STOCK UNLOADER Unavailable Trino Wolff BIODIESEL PROCESSING TECHNICIAN Unavailable Unavailable Blanca Whittington BIODIESEL PROCESSING TECHNICIAN Unavailable Unavailab Blanca Monson BIODIESEL PROCESSING TECHNICIAN Unavailable Unavailable Desmond Tubbs STOCK UNLOADER Primary Care Provider [phone] Enma Sneed LPN Unavailable Unavailable Encounter Details Date Type Department Care Team (Latest Contact Info) Description 01/07/2021 Transcribe Orders [facility] Sylvester Patel PA-C [address] [place] [address] care, subsequent , second trimester (Primary Dx); 19 weeks gestation [...] documented as of this encounter Results * Protein, 24Hr Urine (01/09/2021 1:16 PM EDT) TOTAL VOLUME 650 01/09/2021 2:49 PM EDT [facility] PROTEIN URINE 17.0 mg/dL 01/09/2021 1:59 PM EDT [facility] PROTEIN, 24 HR URINE 111 0 - 149 mg/(24.h) 01/09/2021 2:49 PM EDT [facility] Urine (Urinary Bladder) 01/09/2021 1:16 PM EDT 01/09/2021 1:30 PM EDT Narrative [facility] - 01/09/2021 2:49 PM EDT TV 650 us Sylvester Patel PA-C CHEMISTRY ORDERABLES Final Re sult [facility] [address] [place] [address] [facility] [address] [place] [address] documented in this encounter Visit Diagnoses Diagnosis care, subsequent , second trimester (HHS/HCC)- Primary 19 weeks gestation of (HHS/HCC) documented in this encounter Additional Health Concerns Infection Onset Date Last Indicated Resolved Time Covid-19 (rule out) 05/07/2022 05/07/202204/20 22 12:33 AM EDT Covid-19 (confirmed) 11/05/2022 11/06/2022 023 10:12 PM EST documented as of this encounter Care Teams Veneer Slicing Machine Operator Relationship Specialty Start Date End Date Mar Gomez APRN [address] [place] [address] PCP - General Nurse Practitioner 02/18/16 10/02/24 Desmond Tubbs APRN [address] [address] [place], [place] [address] PCP - General Nurse Practitioner 12/30/24 Buck Santana MD [facility] [employer] [place], [place] [address] Orthopedic Surgery 09/21/12 Provider, Historical 10/07/16 Shlomo Bess PA-C [address] [place] [address] [address] [place] [address] Physician Aquatics Lifeguard 07/13/20 Rosa Carr 09/03/21 Buck Green MD [address] [place] [address] [address] [place] [address] Obstetrics & Gynecology 09/04/21 Sylvester Patel PA-C [address] [place] [address] [address] [place] [address] Physician Aquatics Lifeguard 09/09/21 Alejandra Doan, RN 09/09/21 Radha Duran LPN LPN 11/01/21 Theresa Colon APRN [address] [place] [address] [address] [place] [address] Nurse Practitioner 11/27/21 Little Koo MD [address] [place] [address] Gastroenterology 11/27/21 Mariana Schultz APRN [address] [place] [address] Nurse Practitioner Gastroenterology 01/28/22 Trino Wolff, BIODIESEL PROCESSING TECHNICIAN BIODIESEL PROCESSING TECHNICIAN 04/16/22 Blanca Whittington, BIODIESEL PROCESSING TECHNICIAN BIODIESEL PROCESSING TECHNICIAN 05/05/22 Blanca Reagan, BIODIESEL PROCESSING TECHNICIAN BIODIESEL PROCESSING TECHNICIAN 06/30/22 Enma Sneed, BIODIESEL PROCESSING TECHNICIAN BIODIESEL PROCESSING TECHNICIAN 05/09/25 documented as of this encounter
--- OUTSIDE RECORDS SUMMARY | 2025-05-09 12:50 | XMS_ITS | Encounter Summary ---
Author Organization [facility] Address [address] [place] [address] Care Team Providers Care Channel Sales Manager Name Role Phone Bennie Jo DO Primary Care Provider [phone] Vikram Duncan MD Primary Care Provider [phone] Aniyah Trammell CANDY DEPOSITING MACHINE OPERATOR Primary Care Provider Buck Santana MD Unavailable Mar Gomez CANDY DEPOSITING MACHINE OPERATOR Primary Care Provider [phone] Provider, Historical Unavailable Unavailable Shlomo BessC Unavailable [phone] Rosa Carr Unavailable Unavailable Buck Green MD Unavailable [phone] Sylvester Patel-C Unavailable [phone] Alejandra Doan RN Unavailable Unavailable Radha Duran APPLIANCE PARTS COUNTER CLERK Unavailable Unavailable Theresa Colon CANDY DEPOSITING MACHINE OPERATOR Unavailable [phone] Little Koo MD Unavailable [phone] Mariana Schultz CANDY DEPOSITING MACHINE OPERATOR Unavailable [phone] Trino Wolff APPLIANCE PARTS COUNTER CLERK Unavailable Unavailable Blanca Whittington APPLIANCE PARTS COUNTER CLERK Unavailable Unavailab Blanca Monson APPLIANCE PARTS COUNTER CLERK Unavailable Unavailable Desmond Tubbs APRN Primary Care Provider Enma Sneed APPLIANCE PARTS COUNTER CLERK Unavailable Unavailable Encounter Details Date Type Department Care Team (Late st Contact Info) Description 11/16/2007 Historical Encounter Global Addie Salcedo PA-C Social History Tobacco Use Types Packs/Day Years [...] documented as of this encounter Care Teams Channel Sales Manager Relationship Specialty Start Date End Date Bennie Jo DO PCP - General 04/24/09 09/20/12 Vikram Duncan MD [address] [place] [address] PCP - General 08/14/08 04/23/09 Aniyah Trammell APRN [id number] [place] [address] PCP - General Nurse Practitioner 09/21/12 02/17/16 Mar Gomez APRN [address] [place] [address] PCP - General Nurse Practitioner 02/18/16 10/02/24 Desmond Tubbs APRN [address] [place], [place] [address] PCP - General Nurse Practitioner 12/30/24 Buck Santana MD [facility] [place] [facility] [place] [address] Orthopedic Surgery 09/21/12 Provider, Historical 10/07/16 Shlomo Bess PA-C [address] [place] [address] B [facility] [address] [place] [id number] Physician Kids Activities Coach 07/13/20 Rosa Carr 09/03/21 Buck Green MD [address] [place] [address] [address] [place] [address] Obstetrics & Gynecology 09/04/21 Sylvester Patel PA-C [address] [place] [address] [place] [address] Physician Kids Activities Coach 09/09/21 Alejandra Doan, RN 09/09/21 Radha Duran LPN LPN 11/01/21 Theresa Colon APRN [address] [place] [address] [address] [place] [address] Nurse Practitioner 11/27/21 Little Koo MD [address] [place] [address] Gastroenterology 11/27/21 Mariana Schultz APRN [address] [place] [address] Nurse Practitioner Gastroenterology 01/28/22 Trino Wolff LPN LPN 04/16/22 Blanca Whittington LPN APPLIANCE PARTS COUNTER CLERK 05/05/22 Blanca Reagan APPLIANCE PARTS COUNTER CLERK APPLIANCE PARTS COUNTER CLERK 06/30/22 Enma Sneed LPN APPLIANCE PARTS COUNTER CLERK 05/09/25 documented as of this encounter
--- OUTSIDE RECORDS SUMMARY | 2025-05-09 12:50 | XMS_ITS | Encounter Summary ---
Author Organization [facility] Address [address] [place] [address] Care Team Providers Care Editor Name Role Phone Bennie Jo DO Primary Care Provider [phone] Vikram Duncan MD Primary Care Provider [phone] Aniyah Trammell BIZTALK CONSULTANT Primary Care Provider Buck Santana MD Unavailable Mar Gomez BIZTALK CONSULTANT Primary Care Provider Provider, Historical Unavailable Unavailable Shlomo BessC Unavailable [phone] Rsoa Carr Unavailable Unavailable Buck Green MD Unavailable [phone] Sylvester Patel-C Unavailable [phone] Alejandra Doan RN Unavailable Unavailable Radha Duran SILICATOR Unavailable Unavailable Theresa Colon BIZTALK CONSULTANT Unavailable [phone] Little Koo MD Unavailable [phone] Mariana Schultz BIZTALK CONSULTANT Unavailable [phone] Trino Wolff SILICATOR Unavailable Unavailable Blanca Whittington SILICATOR Unavailable Unavailab Blanca Monson SILICATOR Unavailable Unavailable Desmond Tubbs APRN Primary Care Provider Enma Sneed SILICATOR Unavailable Unavailable Encounter Details Date Type Department Care Team (Late st Contact Info) Description 10/14/2007 Historical Encounter Global Shae Paredes APRN [address] [place] [address] [place] [address] Social History Tobacco Use Types Packs/Day Years [...] documented as of this encounter Care Teams Editor Relationship Specialty Start Date End Date Bennie Jo DO PCP - General 04/24/09 09/20/12 Vikram Duncan MD [address] [place] [address] PCP - General 08/14/08 04/23/09 Aniyah Trammell APRN [address] [place] [address] PCP - General Nurse Practitioner 09/21/12 02/17/16 Mar Gomez APRN [address] [place] [address] PCP - General Nurse Practitioner 02/18/16 10/02/24 Desmond Tubbs APRN [id number] [place], [place] [address] PCP - General Nurse Practitioner 12/30/24 Buck Santana MD [facility] [place] [address] Orthopedic Surgery 09/21/12 Provider, Historical 10/07/16 Shlomo Bess PA-C [address] [place] [address] [address] [place] [address] Physician Electronic Warfare Linguist 07/13/20 Rosa Carr 09/03/21 Buck Green MD [address] [place] [address] [address] [place] [address] Obstetrics & Gynecology 09/04/21 Sylvester Patel PA-C [address] [place] [address] [address] [place] [address] Physician Electronic Warfare Linguist 09/09/21 Alejandra Doan, SHANIA 09/09/21 Radha Duran LPN LPN 11/01/21 Theresa Colon APRN [address] [place] [address] [address] [place] [address] Nurse Practitioner 11/27/21 Little Koo MD [address] [place] [address] [address] [facility] [place] [address] Gastroenterology 11/27/21 Mariana Schultz APRN [address] [place] [address] [address] [place] [address] Nurse Practitioner Gastroenterology 01/28/22 Trino Wolff LPN SILICATOR 04/16/22 Blanca Whittington, SILICATOR SILICATOR 05/05/22 Blanca Reagan, SILICATOR SILICATOR 06/30/22 Enma Sneed, SILICATOR SILICATOR 05/09/25 documented as of this encounter
--- OUTSIDE RECORDS SUMMARY | 2025-05-09 12:50 | XMS_ITS | Encounter Summary ---
Author Organization [facility] Address [address] [place] [address] Care Team Providers Care Assurance Assistant Name Role Phone Bennie Jo DO Primary Care Provider [phone] Vikram Duncan MD Primary Care Provider [phone] Aniyah Trammell CLAM PICKER Primary Care Provider Buck Santana MD Unavailable Mar Gomez CLAM PICKER Primary Care Provider [phone] Provider, Historical Unavailable Unavailable Shlomo BessC Unavailable [phone] Rosa Carr Unavailable Unavailable Buck Green MD Unavailable [phone] Sylvester Patel-C Unavailable [phone] Alejandra Doan RN Unavailable Unavailable Radha Duran MILLING/POLISHING OPERATOR Unavailable Unavailable Theresa Colon CLAM PICKER Unavailable [phone] Little Koo MD Unavailable [phone] Mariana Schultz CLAM PICKER Unavailable [phone] Trino Wolff MILLING/POLISHING OPERATOR Unavailable Unavailable Blanca Whittington MILLING/POLISHING OPERATOR Unavailable Unavailab Blanca Monson MILLING/POLISHING OPERATOR Unavailable Unavailable Desmond Tubbs APRN Primary Care Provider [phone] Enma Sneed MILLING/POLISHING OPERATOR Unavailable Unavailable Encounter Details Date Type Department Care Team (Late st Contact Info) Description 08/14/2008 Historical Encounter Global Rodri [place] Social History Tobacco Use Types Packs/Day [...] documented as of this encounter Care Teams Assurance Assistant Relationship Specialty Start Date End Date Bennie Jo DO PCP - General 04/24/09 09/20/12 Vikram Duncan MD [address] [employer] [place], [place] [id number] PCP - General 08/14/08 04/23/09 Aniyah Trammell, NISH [address] [place] [address] PCP - General Nurse Practitioner 09/21/12 02/17/16 Mar Gomez APRN [address] [place] [address] PCP - General Nurse Practitioner 02/18/16 10/02/24 Desmond Tubbs APRN [address] [place] [address] PCP - General Nurse Practitioner 12/30/24 Buck Santana MD [facility] [place] [address] Orthopedic Surgery 09/21/12 Provider, Historical 10/07/16 Shlomo Bess PA-C [address] [place] [address] [facility] [address] [place] [address] Physician Roof Bolter 07/13/20 Rosa Carr 09/03/21 Buck Green MD [address] [place] [address] [place] [address] Obstetrics & Gynecology 09/04/21 Sylvester Patel PA-C [address] [place] [address] Physician Roof Bolter 09/09/21 Alejandra Doan, RN 09/09/21 Radha Duran LPN LPN 11/01/21 Theresa Colon APRN [address] [place] [address] 203 [place] [address] Nurse Practitioner 11/27/21 Little Koo MD [address] [place] [address] Gastroenterology 11/27/21 Mariana Schultz APRN [address] [place] [address] Nurse Practitioner Gastroenterology 01/28/22 Trino Wolff LPN LPN 04/16/22 Blanca Whittington LPN MILLING/POLISHING OPERATOR 05/05/22 Blanca Reagan LPN MILLING/POLISHING OPERATOR 06/30/22 Enma Sneed LPN MILLING/POLISHING OPERATOR 05/09/25 documented as of this encounter
--- OUTSIDE RECORDS SUMMARY | 2025-05-09 12:51 | XMS_ITS | Encounter Summary ---
Author Organization [facility] Address [address] [place] [address] Care Team Providers Care Certified Tower Climber Name Role Phone Bennie Jo DO Primary Care Provider [phone] Vikram Duncan MD Primary Care Provider [phone] Aniyah Trammell CHINA DECORATOR Primary Care Provider Buck Santana MD Unavailable Mar Gomez CHINA DECORATOR Primary Care Provider Provider, Historical Unavailable Unavailable Shlomo BessC Unavailable [phone] Rosa Carr Unavailable Unavailable Buck Green MD Unavailable [phone] Sylvester Patel-C Unavailable [phone] Alejandra Doan RN Unavailable Unavailable Radha Duran REINSURANCE CLAIMS ANALYST Unavailable Unavailable Theresa Colon CHINA DECORATOR Unavailable [phone] Little Koo MD Unavailable [phone] Mariana Schultz CHINA DECORATOR Unavailable [phone] Trino Wolff REINSURANCE CLAIMS ANALYST Unavailable Unavailable Blanca Whittington REINSURANCE CLAIMS ANALYST Unavailable Unavailab Blanca Monson REINSURANCE CLAIMS ANALYST Unavailable Unavailable Desmond Tubbs APRN Primary Care Provider Enma Sneed REINSURANCE CLAIMS ANALYST Unavailable Unavailable Encounter Details Date Type Department Care Team (Late st Contact Info) Description 2003 Historical Encounter Global Shae Trammell APRN [address] [facility] [place] [address] Social History Tobacco [...] as of this encounter Care Teams Certified Tower Climber Relationship Specialty Start Date End Date Bennie Jo DO PCP - General 04/24/09 09/20/12 Vikram Duncan MD [address] [place] [address] PCP - General 08/14/08 04/23/09 Aniyah Trammell APRN [address] [place] [address] PCP - General Nurse Practitioner 09/21/12 02/17/16 Mar Gomez APRN [address] [place] [address] PCP - General Nurse Practitioner 02/18/16 10/02/24 Desmond Tubbs APRN [address] [address] PCP - General Nurse Practitioner 12/30/24 Buck Santana MD [facility] [place] [address] Orthopedic Surgery 09/21/12 Provider, Historical 10/07/16 Shlomo Bess PA-C [address] [place] [address] [address] [place] [address] Physician Overlock Operator 07/13/20 Rosa Carr 09/03/21 Buck Green MD [address] [place] [address] [address] [place] [address] Obstetrics & Gynecology 09/04/21 Sylvester Patel PA-C [address] [place] [address] [address] [place] [address] Physician Overlock Operator 09/09/21 Alejandra Doan, SHANIA 09/09/21 Radha Duran LPN LPN 11/01/21 Theresa Colon APRN [address] [place] [address] [address] [place] [address] Nurse Practitioner 11/27/21 Little Koo MD [address] [place] [address] [address] [place] [address] Gastroenterology 11/27/21 Mariana Schultz APRN [address] [place] [address] [address] [place] [address] Nurse Practitioner Gastroenterology 01/28/22 Trino Wolff LPN REINSURANCE CLAIMS ANALYST 04/16/22 Blanca Whittington, REINSURANCE CLAIMS ANALYST REINSURANCE CLAIMS ANALYST 05/05/22 Blanca Reagan, REINSURANCE CLAIMS ANALYST REINSURANCE CLAIMS ANALYST 06/30/22 Enma Sneed, REINSURANCE CLAIMS ANALYST REINSURANCE CLAIMS ANALYST 05/09/25 documented as of this encounter
--- OUTSIDE RECORDS SUMMARY | 2025-05-09 12:51 | XMS_ITS | Encounter Summary ---
Author Organization [facility] Address [address] [place] [address] Care Team Providers Care Animal Trapper Name Role Phone Bennie Jo DO Primary Care Provider [phone] Vikram Duncan MD Primary Care Provider [phone] Aniyah Trammell ETHYLBENZENE OXIDIZER Primary Care Provider Buck Santana MD Unavailable Mar Gomez ETHYLBENZENE OXIDIZER Primary Care Provider Provider, Historical Unavailable Unavailable Shlomo BessC Unavailable [phone] Rosa Carr Unavailable Unavailable Buck Green MD Unavailable [phone] Sylvester Patel-C Unavailable [phone] Alejandra Doan RN Unavailable Unavailable Radha Duran EVENT STAFF MEMBER Unavailable Unavailable Theresa Colon ETHYLBENZENE OXIDIZER Unavailable [phone] Little Koo MD Unavailable [phone] Mariana Schultz ETHYLBENZENE OXIDIZER Unavailable [phone] Trino Wolff EVENT STAFF MEMBER Unavailable Unavailable Blanca Whittington EVENT STAFF MEMBER Unavailable Unavailab Blanca Monson EVENT STAFF MEMBER Unavailable Unavailable Desmond Tubbs APRN Primary Care Provider [phone] Enma Sneed EVENT STAFF MEMBER Unavailable Unavailable Encounter Details Date Type Department Care Team (Late st Contact Info) Description 12/28/1991 Historical Encounter Global Social History Tobacco Use Types Packs/Day Years [...] documented as of this encounter Care Teams Animal Trapper Relationship Specialty Start Date End Date Bennie Jo DO PCP - General 04/24/09 09/20/12 Vikram Duncan MD [address] [place] [address] PCP - General 08/14/08 04/23/09 Aniyah Trammell APRN [address] [place] [address] PCP - General Nurse Practitioner 09/21/12 02/17/16 Mar Gomez APRN [address] [place] [address] PCP - General Nurse Practitioner 02/18/16 10/02/24 Desmond Tubbs APRN [address] [place], [place] [address] PCP - General Nurse Practitioner 12/30/24 Buck Santana MD [facility] [place] [address] Orthopedic Surgery 09/21/12 Provider, Historical 10/07/16 Shlomo Bess PA-C [address] [place] [address] B [facility] [address] [place] [address] Physician Asphalt Tamper 07/13/20 Rosa Carr 09/03/21 Buck Green MD [address] [place] [address] [address] [place] [address] Obstetrics & Gynecology 09/04/21 Sylvester Patel PA-C [address] [place] [address] [address] [place] [address] Physician Asphalt Tamper 09/09/21 Alejandra Doan, RN 09/09/21 Radha Duran LPN LPN 11/01/21 Theresa Colon APRN [address] [place] [address] 203 [place] [address] Nurse Practitioner 11/27/21 Little Koo MD [address] [place] [address] 430 [place] [address] Gastroenterology 11/27/21 Mariana Schultz APRN [address] [place] [address] Nurse Practitioner Gastroenterology 01/28/22 Trino Wolff, EVENT STAFF MEMBER EVENT STAFF MEMBER 04/16/22 Blanca Whittington LPN EVENT STAFF MEMBER 05/05/22 Blanca Reagan LPN EVENT STAFF MEMBER 06/30/22 Enma Sneed, EVENT STAFF MEMBER EVENT STAFF MEMBER 05/09/25 documented as of this encounter
--- OUTSIDE RECORDS SUMMARY | 2025-05-09 12:51 | XMS_ITS | Encounter Summary ---
Author Organization [facility] Address [address] [place] [address] Care Team Providers Care Accreditation Manager Name Role Phone Bennie Jo DO Primary Care Provider [phone] Vikram Duncan MD Primary Care Provider [phone] Aniyah Trammell JUNCTION MAKER Primary Care Provider Buck Santana MD Unavailable Mar Gomez JUNCTION MAKER Primary Care Provider [phone] Provider, Historical Unavailable Unavailable Shlomo BessC Unavailable [phone] Rosa Carr Unavailable Unavailable Buck Green MD Unavailable [phone] Sylvester Patel-C Unavailable [phone] Alejandra Doan RN Unavailable Unavailable Radha Duran BOILER MAKER Unavailable Unavailable Theresa Colon JUNCTION MAKER Unavailable [phone] Little Koo MD Unavailable [phone] Mariana Schultz JUNCTION MAKER Unavailable [phone] Trino Wolff BOILER MAKER Unavailable Unavailable Blanca Whittington BOILER MAKER Unavailable Unavailab Blanca Monson BOILER MAKER Unavailable Unavailable Desmond Tubbs APRN Primary Care Provider Enma Sneed BOILER MAKER Unavailable Unavailable Encounter Details Date Type Department Care Team (Late st Contact Info) Description 02/20/2003 Historical Encounter Global Pradeep Bird MD [address] [facility] [address] [place], [place] [id number] Social History Tobacco Use Types Packs/Day Years [...] documented as of this encounter Care Teams Accreditation Manager Relationship Specialty Start Date End Date Bennie Jo DO PCP - General 04/24/09 09/20/12 Vikram Duncan MD [address] [place] [address] PCP - General 08/14/08 04/23/09 Aniyah Trammell APRN [address] [place] [address] PCP - General Nurse Practitioner 09/21/12 02/17/16 Mar Gomez APRN [address] [place] [address] PCP - General Nurse Practitioner 02/18/16 10/02/24 Desmond Tubbs APRN [id number] [place] [address] PCP - General Nurse Practitioner 12/30/24 Buck Santana MD [address] [place] [place] [address] Orthopedic Surgery 09/21/12 Provider, Historical 10/07/16 Shlomo Bess PA-C [address] [place] [address] [address] [place] [address] Physician Seam Rubbing Machine Operator 07/13/20 Rosa Carr 09/03/21 Buck Green MD [address] [place] [address] [address] [place] [address] Obstetrics & Gynecology 09/04/21 Sylvester Patel PA-C [address] [place] [address] [address] [place] [address] Physician Seam Rubbing Machine Operator 09/09/21 Alejandra Doan, RN 09/09/21 Radha Duran LPN LPN 11/01/21 Theresa Colon APRN [address] [place] [address] [address] [place], [place] [address] Nurse Practitioner 11/27/21 Little Koo MD [address] [place] [address] [address] [facility] [place] [address] Gastroenterology 11/27/21 Mariana Schultz APRN [address] [place] [address] [address] [place] [address] Nurse Practitioner Gastroenterology 01/28/22 Trino Wolff, BOILER MAKER BOILER MAKER 04/16/22 Blanca Whittington, BOILER MAKER BOILER MAKER 05/05/22 Blanca Reagan, BOILER MAKER BOILER MAKER 06/30/22 Enma Sneed, BOILER MAKER BOILER MAKER 05/09/25 documented as of this encounter
--- OUTSIDE RECORDS SUMMARY | 2025-05-09 12:51 | XMS_ITS | Encounter Summary ---
Author Organization [facility] Address [address] [place] [address] Care Team Providers Care Biscuit Factory Worker Name Role Phone Bennie Jo DO Primary Care Provider [phone] Vikram Duncan MD Primary Care Provider [phone] Aniyah Trammell INFORMATION SECURITY OFFICER Primary Care Provider Buck Santana MD Unavailable Mar Gomez INFORMATION SECURITY OFFICER Primary Care Provider Provider, Historical Unavailable Unavailable Shlomo BessC Unavailable [phone] Rosa Carr Unavailable Unavailable Buck Green MD Unavailable [phone] Sylvester Patel-C Unavailable [phone] Alejandra Doan RN Unavailable Unavailable Radha Duran SHELL ASSEMBLER Unavailable Unavailable Theresa Colon INFORMATION SECURITY OFFICER Unavailable [phone] Little Koo MD Unavailable [phone] Mariana Schultz INFORMATION SECURITY OFFICER Unavailable [phone] Trino Wolff SHELL ASSEMBLER Unavailable Unavailable Blanca Whittington SHELL ASSEMBLER Unavailable Unavailab Blanca Monson SHELL ASSEMBLER Unavailable Unavailable Desmond Tubbs APRN Primary Care Provider Enma Sneed SHELL ASSEMBLER Unavailable Unavailable Encounter Details Date Type Department Care Team (Late st Contact Info) Description 03/27/2003 Historical Encounter Global Theron Simmons DO Social [...] documented as of this encounter Care Teams Biscuit Factory Worker Relationship Specialty Start Date End Date Bennie Jo DO PCP - General 04/24/09 09/20/12 Vikram Duncan MD [address] [place] [address] PCP - General 08/14/08 04/23/09 Aniyah Trammell APRN [address] [place] [address] PCP - General Nurse Practitioner 09/21/12 02/17/16 Mar Gomez APRN [address] [place] [address] PCP - General Nurse Practitioner 02/18/16 10/02/24 Desmond Tubbs APRN [address] [place] [address] PCP - General Nurse Practitioner 12/30/24 Buck Santana MD [address] [place] [address] Orthopedic Surgery 09/21/12 Provider, Historical 10/07/16 Shlomo Bess PA-C [address] [place] [address] [facility] [address] [place] [id number] Physician Offal Baler 07/13/20 Rosa Carr 09/03/21 Buck Green MD [address] [place], [place] [address] Obstetrics & Gynecology 09/04/21 Sylvester Patel PA-C [address] [place] [address] Physician Offal Baler 09/09/21 Alejandra Doan, RN 09/09/21 Radha Duran LPN LPN 11/01/21 Theresa Colon APRN [address] [place] [address] 203 [place] [address] Nurse Practitioner 11/27/21 Little Koo MD [address] [place] [address] Gastroenterology 11/27/21 Mariana Schultz APRN [address] [place] [address] Nurse Practitioner Gastroenterology 01/28/22 Trino Wolff, SHELL ASSEMBLER SHELL ASSEMBLER 04/16/22 Blanca Whittington LPN SHELL ASSEMBLER 05/05/22 Blanca Reagan LPN SHELL ASSEMBLER 06/30/22 Enma Sneed LPN SHELL ASSEMBLER 05/09/25 documented as of this encounter
--- OUTSIDE RECORDS SUMMARY | 2025-05-09 12:51 | XMS_ITS | Encounter Summary ---
Author Organization [facility] Address [address] [place] [address] Care Team Providers Care Director Of Surgery Name Role Phone Bennie Jo DO Primary Care Provider [phone] Vikram Duncan MD Primary Care Provider [phone] Aniyah Trammell SECURITY OPERATIONS CENTER OPERATOR Primary Care Provider Buck Santana MD Unavailable Mar Gomez SECURITY OPERATIONS CENTER OPERATOR Primary Care Provider [phone] Provider, Historical Unavailable Unavailable Shlomo BessC Unavailable [phone] Rosa Carr Unavailable Unavailable Buck Green MD Unavailable [phone] Sylvester Patel-C Unavailable [phone] Alejandra Doan RN Unavailable Unavailable Radha Duran MECHANIC'S ASSISTANT Unavailable Unavailable Theresa Colon SECURITY OPERATIONS CENTER OPERATOR Unavailable [phone] Little Koo MD Unavailable [phone] Mariana Schultz SECURITY OPERATIONS CENTER OPERATOR Unavailable [phone] Trino Wolff MECHANIC'S ASSISTANT Unavailable Unavailable Blanca Whittington MECHANIC'S ASSISTANT Unavailable Unavailab Blanca Monson MECHANIC'S ASSISTANT Unavailable Unavailable Desmond Tubbs APRN Primary Care Provider Enma Sneed MECHANIC'S ASSISTANT Unavailable Unavailable Encounter Details Date Type Department Care Team (Late st Contact Info) Description 07/25/2003 Historical Encounter Global Anibal Dennis [facility] Social History Tobacco Use Types Packs/Day [...] documented as of this encounter Care Teams Director Of Surgery Relationship Specialty Start Date End Date Bennie Jo DO PCP - General 04/24/09 09/20/12 Vikram Duncan MD [address] [place] [address] PCP - General 08/14/08 04/23/09 Aniyah Trammell APRN [id number] [place] [address] PCP - General Nurse Practitioner 09/21/12 02/17/16 Mar Gomez APRN [id number] [place] [address] PCP - General Nurse Practitioner 02/18/16 10/02/24 Desmond Tubbs APRN [id number] [place] [address] PCP - General Nurse Practitioner 12/30/24 Buck Santana MD [address] [place] [address] Orthopedic Surgery 09/21/12 Provider, Historical 10/07/16 Shlomo Bess PA-C [address] [place] [address] B [facility] [address] [place] [address] Physician Shipping And Receiving Associate 07/13/20 Rosa Carr 09/03/21 Buck Green MD [address] [place] [address] [place] [address] Obstetrics & Gynecology 09/04/21 Sylvester Patel PA-C [address] [place] [address] Physician Shipping And Receiving Associate 09/09/21 Alejandra Doan, RN 09/09/21 Radha Duran LPN LPN 11/01/21 Theresa Colon APRN [address] [place] [address] [address] [place] [address] Nurse Practitioner 11/27/21 Little Koo MD [address] [place] [address] Gastroenterology 11/27/21 Mariana Schultz APRN [address] [place] [address] Nurse Practitioner Gastroenterology 01/28/22 Trino Wolff LPN LPN 04/16/22 Blanca Whittington LPN MECHANIC'S ASSISTANT 05/05/22 Blanca Reagan LPN MECHANIC'S ASSISTANT 06/30/22 Enma Sneed LPN MECHANIC'S ASSISTANT 05/09/25 documented as of this encounter
--- OUTSIDE RECORDS SUMMARY | 2025-05-09 12:51 | XMS_ITS | Encounter Summary ---
Author Organization [facility] Address [address] [place] [address] Care Team Providers Care Air Defence Officer Name Role Phone Bennie Jo DO Primary Care Provider [phone] Vikram Duncan MD Primary Care Provider [phone] Aniyah Trammell REHAB DIRECTOR OCCUPATIONAL THERAPIST Primary Care Provider Buck Santana MD Unavailable Mar Gomez REHAB DIRECTOR OCCUPATIONAL THERAPIST Primary Care Provider [phone] Provider, Historical Unavailable Unavailable Shlomo BessC Unavailable [phone] Rosa Carr Unavailable Unavailable Buck Green MD Unavailable [phone] Sylvester Patel-C Unavailable [phone] Alejandra Doan RN Unavailable Unavailable Radha Duran CLOTH BLEACHING RANGE OPERATOR CHIEF Unavailable Unavailable Theresa Colon REHAB DIRECTOR OCCUPATIONAL THERAPIST Unavailable [phone] Little Koo MD Unavailable [phone] Mariana Schultz REHAB DIRECTOR OCCUPATIONAL THERAPIST Unavailable [phone] Trino Wolff CLOTH BLEACHING RANGE OPERATOR CHIEF Unavailable Unavailable Blanca Whittington CLOTH BLEACHING RANGE OPERATOR CHIEF Unavailable Unavailab Blanca Monson CLOTH BLEACHING RANGE OPERATOR CHIEF Unavailable Unavailable Desmond Tubbs APRN Primary Care Provider Enma Sneed CLOTH BLEACHING RANGE OPERATOR CHIEF Unavailable Unavailable Encounter Details Date Type Department Care Team (Late st Contact Info) Description 11/22/2003 Historical Encounter Global Garima Maxwell MD [address] [place] [address] [address] [id number] Social History Tobacco Use Types Packs/Day Years [...] documented as of this encounter Care Teams Air Defence Officer Relationship Specialty Start Date End Date Bennie Jo DO PCP - General 04/24/09 09/20/12 Vikram Duncan MD [address] [place] [address] PCP - General 08/14/08 04/23/09 Aniyah Trammell APRN [address] [place] [address] PCP - General Nurse Practitioner 09/21/12 02/17/16 Mar Gomez APRN [address] [place] [address] PCP - General Nurse Practitioner 02/18/16 10/02/24 Desmond Tubbs APRN [id number] [address] PCP - General Nurse Practitioner 12/30/24 Buck Santana MD [facility] [place]note 2[facility] [place] [address] Orthopedic Surgery 09/21/12 Provider, Historical 10/07/16 Shlomo Bess PA-C [address] [place] [address] [address] [place] [address] Physician Hebrew Cantor 07/13/20 Rosa Carr 09/03/21 Buck Green MD [address] [place] [address] [address] [place] [address] Obstetrics & Gynecology 09/04/21 Sylvester Patel PA-C [address] [place] [address] [address] [place] [address] Physician Hebrew Cantor 09/09/21 Alejandra Doan, SHANIA 09/09/21 Radha Duran LPN LPN 11/01/21 Theresa Colon APRN [address] [place] [address] [address] [place] [address] Nurse Practitioner 11/27/21 Little Koo MD [address] [place] [address] [address] [place] [address] Gastroenterology 11/27/21 Mariana Schultz APRN [address] [place] [address] [address] [place] [address] Nurse Practitioner Gastroenterology 01/28/22 Trino Wolff LPN CLOTH BLEACHING RANGE OPERATOR CHIEF 04/16/22 Blanca Whittington, CLOTH BLEACHING RANGE OPERATOR CHIEF CLOTH BLEACHING RANGE OPERATOR CHIEF 05/05/22 Blanca Reagan, CLOTH BLEACHING RANGE OPERATOR CHIEF CLOTH BLEACHING RANGE OPERATOR CHIEF 06/30/22 Enma Sneed, CLOTH BLEACHING RANGE OPERATOR CHIEF CLOTH BLEACHING RANGE OPERATOR CHIEF 05/09/25 documented as of this encounter
--- OUTSIDE RECORDS SUMMARY | 2025-05-09 12:51 | XMS_ITS | Encounter Summary ---
Author Organization [facility] Address [address] [place] [address] Care Team Providers Care Manager Transit Name Role Phone Bennie Jo DO Primary Care Provider [phone] Vikram Duncan MD Primary Care Provider [phone] Aniyah Trammell GEOMETRICIAN Primary Care Provider Buck Santana MD Unavailable Mar Gomez GEOMETRICIAN Primary Care Provider Provider, Historical Unavailable Unavailable Shlomo BessC Unavailable [phone] Rosa Carr Unavailable Unavailable Buck Green MD Unavailable [phone] Sylvester Patel-C Unavailable [phone] Alejandra Doan RN Unavailable Unavailable Radha Duran RN NICU Unavailable Unavailable Theresa oClon GEOMETRICIAN Unavailable [phone] Little Koo MD Unavailable [phone] Mariana Schultz GEOMETRICIAN Unavailable [phone] Trino Wolff RN NICU Unavailable Unavailable Blanca Whittington RN NICU Unavailable Unavailab Blanca Monson RN NICU Unavailable Unavailable Desmond Tubbs APRN Primary Care Provider Enma Sneed RN NICU Unavailable Unavailable Encounter Details Date Type Department Care Team (Late st Contact Info) Description 01/09/2004 Historical Encounter Global Rik Maradiaga MD [address] [id number] Social History Tobacco Use Types Packs/Day Years [...] as of this encounter Care Teams Manager Transit Relationship Specialty Start Date End Date Bennie Jo DO PCP - General 04/24/09 09/20/12 Vikram Duncan MD [address] [place], [place] [address] PCP - General 08/14/08 04/23/09 Aniyah Trammell APRN [id number] [place] [address] PCP - General Nurse Practitioner 09/21/12 02/17/16 Mar Gomez APRN [id number] [place] [address] PCP - General Nurse Practitioner 02/18/16 10/02/24 Desmond Tubbs APRN [id number] [address] PCP - General Nurse Practitioner 12/30/24 Buck Santana MD [facility] [place] [address] Orthopedic Surgery 09/21/12 Provider, Historical 10/07/16 Shlomo Bess PA-C [address] [place] [address] [address] [place] [address] Physician Yoke Setter 07/13/20 Rosa Carr 09/03/21 Buck Green MD [address] [place] [address] [address] [place] [address] Obstetrics & Gynecology 09/04/21 Sylvester Patel PA-C [address] [place] [address] [address] [place] [address] Physician Yoke Setter 09/09/21 Alejandra Doan, SHANIA 09/09/21 Radha Duran LPN LPN 11/01/21 Theresa Colon APRN [address] [place] [address] [address] [place] [address] Nurse Practitioner 11/27/21 Little Koo MD [address] [place] [address] [address] [place] [address] Gastroenterology 11/27/21 Mariana Schultz APRN [address] [place] [address] [address] [place] [address] Nurse Practitioner Gastroenterology 01/28/22 Trino Wolff RN NICU RN NICU 04/16/22 Blanca Whittington, RN NICU RN NICU 05/05/22 Blanca Reagan, RN NICU RN NICU 06/30/22 Enma Sneed, RN NICU RN NICU 05/09/25 documented as of this encounter
--- OUTSIDE RECORDS SUMMARY | 2025-05-09 12:51 | XMS_ITS | Encounter Summary ---
Author Organization [facility] Address [address] [place] [address] Care Team Providers Care Deep Fat Fry Cook Name Role Phone Bennie Jo DO Primary Care Provider [phone] Vikram Duncan MD Primary Care Provider [phone] Aniyah Trammell EDITORIAL CARTOONIST Primary Care Provider Buck Santana MD Unavailable Mar Gomez EDITORIAL CARTOONIST Primary Care Provider Provider, Historical Unavailable Unavailable Shlomo BessC Unavailable [phone] Rosa Carr Unavailable Unavailable Buck Green MD Unavailable [phone] Sylvester Patel-C Unavailable [phone] Alejandra Doan RN Unavailable Unavailable Radha Duran DISK RECORDIST Unavailable Unavailable Theresa Colon EDITORIAL CARTOONIST Unavailable [phone] Little Koo MD Unavailable [phone] Mariana Schultz EDITORIAL CARTOONIST Unavailable [phone] Trino Wolff DISK RECORDIST Unavailable Unavailable Blanca Whittington DISK RECORDIST Unavailable Unavailab Blanca Monson DISK RECORDIST Unavailable Unavailable Desmond Tubbs APRN Primary Care Provider [phone] Enma Sneed DISK RECORDIST Unavailable Unavailable Encounter Details Date Type Department Care Team (Late st Contact Info) Description 04/04/2002 Historical Encounter Global Garima Maxwell MD [address] [place] [address] [address] [address] Social History Tobacco Use Types Packs/Day Years [...] documented as of this encounter Care Teams Deep Fat Fry Cook Relationship Specialty Start Date End Date Bennie oJ DO PCP - General 04/24/09 09/20/12 Vikram Duncan MD [address] [place] [address] PCP - General 08/14/08 04/23/09 Aniyah Trammell APRN [address] [place] [address] PCP - General Nurse Practitioner 09/21/12 02/17/16 Mar Gomez APRN [address] [place] [address] PCP - General Nurse Practitioner 02/18/16 10/02/24 Desmond Tubbs APRN [id number] [address] PCP - General Nurse Practitioner 12/30/24 Buck Santana MD [facility] [place] [address] Orthopedic Surgery 09/21/12 Provider, Historical 10/07/16 Shlomo Bess PA-C [address] [place] [address] [address] [place] [address] Physician Cold Saw Operator 07/13/20 Rosa Carr 09/03/21 Buck Green MD [address] [place] [address] [address] [place] [address] Obstetrics & Gynecology 09/04/21 Sylvester Patel PA-C [address] [place] [address] [address] [place] [address] Physician Cold Saw Operator 09/09/21 Alejandra Doan, SHANIA 09/09/21 Radha Duran LPN LPN 11/01/21 Theresa Colon APRN [address] [place] [address] [address] [place] [address] Nurse Practitioner 11/27/21 Little Koo MD [address] [place] [address] [address] [place] [address] Gastroenterology 11/27/21 Mariana Schultz APRN [address] [place] [address] [address] [place] [address] Nurse Practitioner Gastroenterology 01/28/22 Trino Wolff LPN DISK RECORDIST 04/16/22 Blanca Whittington, DISK RECORDIST DISK RECORDIST 05/05/22 Blanca Reagan, DISK RECORDIST DISK RECORDIST 06/30/22 Enma Sneed, DISK RECORDIST DISK RECORDIST 05/09/25 documented as of this encounter
--- OUTSIDE RECORDS SUMMARY | 2025-05-09 12:51 | XMS_ITS | Encounter Summary ---
Author Organization [facility] Address [address] [place] [address] Care Team Providers Care Hospitality House Supervisor Name Role Phone Bennie Jo DO Primary Care Provider [phone] Vikram Duncan MD Primary Care Provider [phone] Aniyah Trammell BUTCHER ALL ROUND Primary Care Provider Buck Santana MD Unavailable Mar Gomez BUTCHER ALL ROUND Primary Care Provider [phone] Provider, Historical Unavailable Unavailable Shlomo BessC Unavailable [phone] Rosa Carr Unavailable Unavailable Buck Green MD Unavailable [phone] Sylvester Patel-C Unavailable [phone] Alejandra Doan RN Unavailable Unavailable Radha Duran CENTRIFUGAL SEPARATOR Unavailable Unavailable Theresa Colon BUTCHER ALL ROUND Unavailable [phone] Little Koo MD Unavailable [phone] Mariana Schultz BUTCHER ALL ROUND Unavailable [phone] Trino Wolff CENTRIFUGAL SEPARATOR Unavailable Unavailable Blanca Whittington CENTRIFUGAL SEPARATOR Unavailable Unavailab Blanca Monson CENTRIFUGAL SEPARATOR Unavailable Unavailable Desmond Tubbs APRN Primary Care Provider Enma Sneed CENTRIFUGAL SEPARATOR Unavailable Unavailable Encounter Details Date Type Department Care Team (Late st Contact Info) Description 08/17/1992 Historical Encounter Global Massimo Tran Social History [...] documented as of this encounter Care Teams Hospitality House Supervisor Relationship Specialty Start Date End Date Bennie Jo DO PCP - General 04/24/09 09/20/12 Vikram Duncan MD [address] [place], [place] [address]3 PCP - General 08/14/08 04/23/09 Aniyah Trammell APRN [address] [place] [address] PCP - General Nurse Practitioner 09/21/12 02/17/16 Mar Gomez APRN [address] [place] [address] PCP - General Nurse Practitioner 02/18/16 10/02/24 Desmond Tubbs APRN [id number] [place], [place] [address] PCP - General Nurse Practitioner 12/30/24 Buck Santana MD [address] [place] [address] Orthopedic Surgery 09/21/12 Provider, Historical 10/07/16 Shlomo Bess PA-C [address] [place] [address] [facility] [address] [place] [address] Physician Jewelry Bench Molder 07/13/20 Rosa Carr 09/03/21 Buck Green MD [address] [place] [address] [address] [place] [address] Obstetrics & Gynecology 09/04/21 Sylvester Patel PA-C [address] [place] [address] Physician Jewelry Bench Molder 09/09/21 Alejandra Doan, RN 09/09/21 Radha Duran LPN LPN 11/01/21 Theresa Colon APRN [address] [place] [address] [address] [place] [address] Nurse Practitioner 11/27/21 Little Koo MD [address] [place] [address] [address] [place] [address] Gastroenterology 11/27/21 Mariana Schultz APRN [address] [place] [address] Nurse Practitioner Gastroenterology 01/28/22 Trino Wolff, CENTRIFUGAL SEPARATOR CENTRIFUGAL SEPARATOR 04/16/22 Blanca Whittington LPN CENTRIFUGAL SEPARATOR 05/05/22 Blanca Reagan, CENTRIFUGAL SEPARATOR CENTRIFUGAL SEPARATOR 06/30/22 Enma Sneed LPN CENTRIFUGAL SEPARATOR 05/09/25 documented as of this encounter
--- OUTSIDE RECORDS SUMMARY | 2025-05-09 12:51 | XMS_ITS | Encounter Summary ---
Author Organization [facility] Address [address] [place] [address] Care Team Providers Care Education Spec Name Role Phone Bennie Jo DO Primary Care Provider [phone] Vikram Duncan MD Primary Care Provider [phone] Aniyah Trammell PROGRAM ENGINEER Primary Care Provider Buck Santana MD Unavailable Mar Gomez PROGRAM ENGINEER Primary Care Provider Provider, Historical Unavailable Unavailable Shlomo BessC Unavailable [phone] Rosa Carr Unavailable Unavailable Buck Green MD Unavailable [phone] Sylvester Patel-C Unavailable [phone] Alejandra Doan RN Unavailable Unavailable Radha Duran GLASS ETCHER Unavailable Unavailable Theresa Colon PROGRAM ENGINEER Unavailable [phone] Little Koo MD Unavailable [phone] Mariana Schultz PROGRAM ENGINEER Unavailable [phone] Trino Wolff GLASS ETCHER Unavailable Unavailable Blanca Whittington GLASS ETCHER Unavailable Unavailab Blanca Monson GLASS ETCHER Unavailable Unavailable Desmond Tubbs APRN Primary Care Provider [phone] Enma Sneed GLASS ETCHER Unavailable Unavailable Encounter Details Date Type Department Care Team (Late st Contact Info) Description 12/27/2003 Historical Encounter Global Garima Maxwell MD [address] [place] [address] [address] [address] Social History Tobacco Use Types Packs/Day Years [...] documented as of this encounter Care Teams Education Spec Relationship Specialty Start Date End Date Bennie Jo DO PCP - General 04/24/09 09/20/12 Vikram Duncan MD [address] [place] [address] PCP - General 08/14/08 04/23/09 Aniyah Trammell APRN [id number] [place] [address] PCP - General Nurse Practitioner 09/21/12 02/17/16 Mar Gomez APRN [address] [place] [address] PCP - General Nurse Practitioner 02/18/16 10/02/24 Desmond Tubbs APRN [address] [address] PCP - General Nurse Practitioner 12/30/24 Buck Santana MD [facility] [place] [address] Orthopedic Surgery 09/21/12 Provider, Historical 10/07/16 Shlomo Bess PA-C [address] [place] [address] [address] [place] [address] Physician Marketing Officer 07/13/20 Rosa Carr 09/03/21 Buck Green MD [address] [place] [address] [address] [place] [address] Obstetrics & Gynecology 09/04/21 Sylvester Patel PA-C [address] [place] [address] [address] [place] [address] Physician Marketing Officer 09/09/21 Alejandra Doan, SHANIA 09/09/21 Radha Duran LPN LPN 11/01/21 Theresa Colon APRN [address] [place] [address] [address] [place] [address] Nurse Practitioner 11/27/21 Little Koo MD [address] [place] [address] [address] [place] [address] Gastroenterology 11/27/21 Mraiana Schultz APRN [address] [place] [address] [address] [place] [address] Nurse Practitioner Gastroenterology 01/28/22 Trino Wolff LPN GLASS ETCHER 04/16/22 Blanca Whittington, GLASS ETCHER GLASS ETCHER 05/05/22 Blanca Reagan, GLASS ETCHER GLASS ETCHER 06/30/22 Enma Sneed, GLASS ETCHER GLASS ETCHER 05/09/25 documented as of this encounter
--- OUTSIDE RECORDS SUMMARY | 2025-05-09 12:51 | XMS_ITS | Encounter Summary ---
Author Organization [facility] Address [address] [place] [address] Care Team Providers Care Outpatient Pharmacy Manager Name Role Phone Bennie Jo DO Primary Care Provider [phone] Vikram Duncan MD Primary Care Provider [phone] Aniyah Trammell WELL TESTING OPERATOR Primary Care Provider Buck Santana MD Unavailable Mar Gomez WELL TESTING OPERATOR Primary Care Provider [phone] Provider, Historical Unavailable Unavailable Shlomo BessC Unavailable [phone] Rosa Carr Unavailable Unavailable Buck Green MD Unavailable [phone] Sylvester Patel-C Unavailable [phone] Alejandra Doan RN Unavailable Unavailable Radha Duran CONTINUOUS DRIER HELPER Unavailable Unavailable Theresa Colon WELL TESTING OPERATOR Unavailable [phone] Little Koo MD Unavailable [phone] Mariana Schultz WELL TESTING OPERATOR Unavailable [phone] Trino Wolff CONTINUOUS DRIER HELPER Unavailable Unavailable Blanca Whittington CONTINUOUS DRIER HELPER Unavailable Unavailab Blanca Monson CONTINUOUS DRIER HELPER Unavailable Unavailable Desmond Tubbs APRN Primary Care Provider Enma Sneed CONTINUOUS DRIER HELPER Unavailable Unavailable Encounter Details Date Type Department Care Team (Late st Contact Info) Description 01/24/2003 Historical Encounter Global Erin Suárez N[address] [place] [address] Social History Tobacco Use Types Packs/Day Years [...] documented as of this encounter Care Teams Outpatient Pharmacy Manager Relationship Specialty Start Date End Date Bennie Jo DO PCP - General 04/24/09 09/20/12 Vikram Duncan MD [address] [place] [id number] PCP - General 08/14/08 04/23/09 Aniyah Trammell APRN [address] [place] [address] PCP - General Nurse Practitioner 09/21/12 02/17/16 Mar Gomez APRN [address] [place] [address] PCP - General Nurse Practitioner 02/18/16 10/02/24 Desmond Tubbs [place]N [id number] [address] PCP - General Nurse Practitioner 12/30/24 Buck Santana MD [facility] [place] [address] Orthopedic Surgery 09/21/12 Provider, Historical 10/07/16 Shlomo Bess PA-C [address] [place] [address] [address] [place] [address] Physician Fleet Director 07/13/20 Rosa Carr 09/03/21 Buck Green MD [address] [place] [address] [address] [place] [address] Obstetrics & Gynecology 09/04/21 Sylvester Patel PA-C [address] [place] [address] [address] [place] [address] Physician Fleet Director 09/09/21 Alejandra Doan, SHANIA 09/09/21 Radha Duran LPN LPN 11/01/21 Theresa Colon APRN [address] [place] [address] [address] [place] [address] Nurse Practitioner 11/27/21 Little Koo MD [address] [place] [address] [address] [place] [address] Gastroenterology 11/27/21 Mariana Schultz APRN [address] [place] [address] [address] [place] [address] Nurse Practitioner Gastroenterology 01/28/22 Trino Wolff CONTINUOUS DRIER HELPER CONTINUOUS DRIER HELPER 04/16/22 Blanca Whittington, CONTINUOUS DRIER HELPER CONTINUOUS DRIER HELPER 05/05/22 Blanca Reagan, CONTINUOUS DRIER HELPER CONTINUOUS DRIER HELPER 06/30/22 Enma Sneed, CONTINUOUS DRIER HELPER CONTINUOUS DRIER HELPER 05/09/25 documented as of this encounter
--- OUTSIDE RECORDS SUMMARY | 2025-05-09 12:51 | XMS_ITS | Encounter Summary ---
Author Organization [facility] Address [address] [place] [address] Care Team Providers Care Supervisor Filter Assembly Name Role Phone Bennie Jo DO Primary Care Provider [phone] Vikram Duncan MD Primary Care Provider [phone] Aniyah Trammell POLICY DIRECTOR Primary Care Provider Buck Santana MD Unavailable Mar Gomez POLICY DIRECTOR Primary Care Provider [phone] Provider, Historical Unavailable Unavailable Shlomo BessC Unavailable [phone] Rosa Carr Unavailable Unavailable Buck Green MD Unavailable [phone] Sylvester Patel-C Unavailable [phone] Alejandra Doan RN Unavailable Unavailable Radha Duran LOCK ASSEMBLER Unavailable Unavailable Theresa Colon POLICY DIRECTOR Unavailable [phone] Little Koo MD Unavailable [phone] Mariana Schultz POLICY DIRECTOR Unavailable [phone] Trino Wolff LOCK ASSEMBLER Unavailable Unavailable Blanca Whittington LOCK ASSEMBLER Unavailable Unavailab Blanca Monson LOCK ASSEMBLER Unavailable Unavailable Desmond Tubbs APRN Primary Care Provider Enma Sneed LOCK ASSEMBLER Unavailable Unavailable Encounter Details Date Type Department Care Team (Late st Contact Info) Description 02/07/2003 Historical Encounter Global Pradeep Bird MD [address] [facility] [address] [place], [place] [id number] Social History Tobacco Use Types Packs/Day Years [...] as of this encounter Care Teams Supervisor Filter Assembly Relationship Specialty Start Date End Date Bennie Jo DO PCP - General 04/24/09 09/20/12 Vikram Duncan MD [address] [place] [address] PCP - General 08/14/08 04/23/09 Aniyah Trammell APRN [id number] [place] [address] PCP - General Nurse Practitioner 09/21/12 02/17/16 Mar Gomez APRN [id number] [place] [address] PCP - General Nurse Practitioner 02/18/16 10/02/24 Desmond Tubbs APRN [id number] [place] [address] PCP - General Nurse Practitioner 12/30/24 Buck Santana MD [address] [place] [address] Orthopedic Surgery 09/21/12 Provider, Historical 10/07/16 Shlomo Bess PA-C [address] [place] [address] [address] [place] [address] Physician Research Chief Engineer 07/13/20 Rosa Carr 09/03/21 Buck Green MD [address] [place] [address] [address] [place] [address] Obstetrics & Gynecology 09/04/21 Sylvester Patel PA-C [address] [place] [address] [address] [place] [address] Physician Research Chief Engineer 09/09/21 Alejandra Doan, RN 09/09/21 Radha Duran LPN LPN 11/01/21 Theresa Colon APRN [address] [place] [address] [address] [place], [place] [address] Nurse Practitioner 11/27/21 Little Koo MD [address] [place] [address] [facility] [place] [address] Gastroenterology 11/27/21 Mariana Schultz APRN [address] [place] [address] [address] [place] [address] Nurse Practitioner Gastroenterology 01/28/22 Trino Wolff, LOCK ASSEMBLER LOCK ASSEMBLER 04/16/22 Blanca Whittington, LOCK ASSEMBLER LOCK ASSEMBLER 05/05/22 Blanca Reagan, LOCK ASSEMBLER LOCK ASSEMBLER 06/30/22 Enma Sneed, LOCK ASSEMBLER LOCK ASSEMBLER 05/09/25 documented as of this encounter
--- OUTSIDE RECORDS SUMMARY | 2025-05-09 12:51 | XMS_ITS | Encounter Summary ---
Author Organization [facility] Address [address] [place] [address] Care Team Providers Care Material Requirements Planning Manager Name Role Phone Bennie Jo DO Primary Care Provider [phone] Vikram Duncan MD Primary Care Provider [phone] Aniyah Trammell SALAD COUNTER ATTENDANT Primary Care Provider Buck Santana MD Unavailable Mar Gomez SALAD COUNTER ATTENDANT Primary Care Provider Provider, Historical Unavailable Unavailable Shlomo BessC Unavailable [phone] Rosa Carr Unavailable Unavailable Bcuk Green MD Unavailable [phone] Sylvester Patel-C Unavailable [phone] Alejandra Doan RN Unavailable Unavailable Radha Duran WELL SERVICING RIG OPERATOR Unavailable Unavailable Theresa Colon SALAD COUNTER ATTENDANT Unavailable [phone] Little Koo MD Unavailable [phone] Mariana Schultz SALAD COUNTER ATTENDANT Unavailable [phone] Trino Wolff WELL SERVICING RIG OPERATOR Unavailable Unavailable Blanca Whittington WELL SERVICING RIG OPERATOR Unavailable Unavailab Blanca Monson WELL SERVICING RIG OPERATOR Unavailable Unavailable Desmond Tubbs APRN Primary Care Provider [phone] Enma Sneed WELL SERVICING RIG OPERATOR Unavailable Unavailable Encounter Details Date Type Department Care Team (Late st Contact Info) Description 08/06/2003 Historical Encounter Global Massimo Tran Social History [...] documented as of this encounter Care Teams Material Requirements Planning Manager Relationship Specialty Start Date End Date Bennie Jo DO PCP - General 04/24/09 09/20/12 Vikram Duncan MD [address] [place], [place] [address] PCP - General 08/14/08 04/23/09 Aniyah Trammell APRN [id number] [place] [address] PCP - General Nurse Practitioner 09/21/12 02/17/16 Mar Gomez APRN [address] [place] [address] PCP - General Nurse Practitioner 02/18/16 10/02/24 Desmond Tubbs APRN [id number] [place], [place] [id number] PCP - General Nurse Practitioner 12/30/24 Buck Santana MD [address] [place] [address] Orthopedic Surgery 09/21/12 Provider, Historical 10/07/16 Shlomo Bess PA-C [address] [place] [address] [address] [facility] [address] [place] [address] Physician Inside Solar Sales Consultant 07/13/20 Rosa Carr 09/03/21 Buck Green MD [address] [place] [address] [address] [place] [address] Obstetrics & Gynecology 09/04/21 Sylvester Patel PA-C [address] [place] [address] Physician Inside Solar Sales Consultant 09/09/21 Alejandra Doan, RN 09/09/21 Radha Duran LPN LPN 11/01/21 Theresa Colon APRN [address] [place] [address] [address] [place] [address] Nurse Practitioner 11/27/21 Little Koo MD [address] [place] [address] [address] [place] [address] Gastroenterology 11/27/21 Mariana Schultz APRN [address] [place] [address] Nurse Practitioner Gastroenterology 01/28/22 Trino Wolff, WELL SERVICING RIG OPERATOR WELL SERVICING RIG OPERATOR 04/16/22 Blanca Whittington LPN WELL SERVICING RIG OPERATOR 05/05/22 Blanca Reagan, WELL SERVICING RIG OPERATOR WELL SERVICING RIG OPERATOR 06/30/22 Enma Sneed LPN WELL SERVICING RIG OPERATOR 05/09/25 documented as of this encounter
--- OUTSIDE RECORDS SUMMARY | 2025-05-09 12:51 | XMS_ITS | Encounter Summary ---
Author Organization [facility] Address [address] [place] [address] Care Team Providers Care Cut Order Hand Name Role Phone Bennie Jo DO Primary Care Provider [phone] Vikram Duncan MD Primary Care Provider [phone] Aniyah Trammell RETAIL STORE ASSISTANT Primary Care Provider Buck Santana MD Unavailable Mar Gomez RETAIL STORE ASSISTANT Primary Care Provider [phone] Provider, Historical Unavailable Unavailable Shlomo BessC Unavailable [phone] Rosa Carr Unavailable Unavailable Buck Green MD Unavailable [phone] Sylvester Patel-C Unavailable [phone] Alejandra Doan RN Unavailable Unavailable Radha Duran CLERICAL COORDINATOR Unavailable Unavailable Theresa Colon RETAIL STORE ASSISTANT Unavailable [phone] Little Koo MD Unavailable [phone] Mariana Schultz RETAIL STORE ASSISTANT Unavailable [phone] Trino Wolff CLERICAL COORDINATOR Unavailable Unavailable Blanca Whittington CLERICAL COORDINATOR Unavailable Unavailab Blanca Monson CLERICAL COORDINATOR Unavailable Unavailable Desmond Tubbs APRN Primary Care Provider Enma Sneed CLERICAL COORDINATOR Unavailable Unavailable Encounter Details Date Type Department Care Team (Late st Contact Info) Description 09/11/2003 Historical Encounter Global Jake Phillips [address] [place] [address] Social History Tobacco Use Types Packs/Day Years [...] documented as of this encounter Care Teams Cut Order Hand Relationship Specialty Start Date End Date Bennie Jo DO PCP - General 04/24/09 09/20/12 Vikram Duncan MD [address] [place], [place] [id number] PCP - General 08/14/08 04/23/09 Aniyah Trammell APRN [id number] [place] [address] PCP - General Nurse Practitioner 09/21/12 02/17/16 Mar Gomez APRN [address] [place] [address] PCP - General Nurse Practitioner 02/18/16 10/02/24 Desmond Tubbs APRN [id number] [place], [place] [id number] PCP - General Nurse Practitioner 3/28/25 Buck Santana MD [address] [place] [address] Orthopedic Surgery 09/21/12 Provider, Historical 10/07/16 Shlomo Bess PA-C [address] [place] [address] [address] [place] [address] Physician Steamfitter 07/13/20 Rosa Carr 09/03/21 Buck Green MD [address] [place] [address] Obstetrics & Gynecology 09/04/21 Sylvester Patel PA-C [address] [place] [address] Physician Steamfitter 09/09/21 Alejandra Doan, RN 09/09/21 Radha Duran LPN LPN 11/01/21 Theresa Colon APRN [address] [place] [address] [address] [place] [address] Nurse Practitioner 11/27/21 Little Koo MD [address] [place] [address] Gastroenterology 11/27/21 Mariana Schultz APRN [address] [place] [address] Nurse Practitioner Gastroenterology 01/28/22 Trino Wolff LPN LPN 04/16/22 Blanca Whittington LPN LPN 05/05/22 Blanca Reagan, CLERICAL COORDINATOR CLERICAL COORDINATOR 06/30/22 Enma Sneed, CLERICAL COORDINATOR CLERICAL COORDINATOR 05/09/25 documented as of this encounter
--- OUTSIDE RECORDS SUMMARY | 2025-05-09 12:51 | XMS_ITS | Encounter Summary ---
Author Organization [facility] Address [address] [place] [address] Care Team Providers Care Quality Assurance/R&D Lab Technician Name Role Phone Bennie Jo DO Primary Care Provider [phone] Vikram Duncan MD Primary Care Provider [phone] Aniyah Trammell PROJECT DESIGNER Primary Care Provider Buck Santana MD Unavailable Mar Gomez PROJECT DESIGNER Primary Care Provider Provider, Historical Unavailable Unavailable Shlomo BessC Unavailable [phone] Rosa Carr Unavailable Unavailable Buck Green MD Unavailable [phone] Sylvester Patel-C Unavailable [phone] Alejandra Doan RN Unavailable Unavailable Radha Duran DRUM DRIER Unavailable Unavailable Theresa Colon PROJECT DESIGNER Unavailable [phone] Little Koo MD Unavailable [phone] Mariana Schultz PROJECT DESIGNER Unavailable [phone] Trino Wolff DRUM DRIER Unavailable Unavailable Blanca Whittington DRUM DRIER Unavailable Unavailab Blanca Monson DRUM DRIER Unavailable Unavailable Desmond Tubbs APRN Primary Care Provider Enma Sneed DRUM DRIER Unavailable Unavailable Encounter Details Date Type Department Care Team (Late st Contact Info) Description 01/18/2003 Historical Encounter Global Garima Maxwell MD [address] [place] [address] [address] [address] Social History Tobacco Use Types Packs/Day Years [...] documented as of this encounter Care Teams Quality Assurance/R&D Lab Technician Relationship Specialty Start Date End Date Bennie Jo DO PCP - General 04/24/09 09/20/12 Vikram Duncan MD [address] [place] [address] PCP - General 08/14/08 04/23/09 Aniyah Trammell APRN [id number] [place] [address] PCP - General Nurse Practitioner 09/21/12 02/17/16 Mar Gomez APRN [address] [place] [address] PCP - General Nurse Practitioner 02/18/16 10/02/24 Desmond Tubbs APRN [id number] [address] PCP - General Nurse Practitioner 12/30/24 Buck Santana MD [facility] [place] [address] Orthopedic Surgery 09/21/12 Provider, Historical 10/07/16 Shlomo Bess PA-C [address] [place] [address] [address] [place] [address] Physician Patient Carrier 07/13/20 Rosa Carr 09/03/21 Buck Green MD [address] [place] [address] [address] [place] [address] Obstetrics & Gynecology 09/04/21 Sylvester Patel PA-C [address] [place] [address] [address] [place] [address] Physician Patient Carrier 09/09/21 Alejandra Doan, SHANIA 09/09/21 Radha Duran LPN LPN 11/01/21 Theresa Colon APRN [address] [place] [address] [address] [place] [address] Nurse Practitioner 11/27/21 Little Koo MD [address] [place] [address] [address] [place] [address] Gastroenterology 11/27/21 Mariana Schultz APRN [address] [place] [address] [address] [place] [address] Nurse Practitioner Gastroenterology 01/28/22 Trino Wolff LPN DRUM DRIER 04/16/22 Blanca Whittington, DRUM DRIER DRUM DRIER 05/05/22 Blanca Reagan, DRUM DRIER DRUM DRIER 06/30/22 Enma Sneed, DRUM DRIER DRUM DRIER 05/09/25 documented as of this encounter
--- OUTSIDE RECORDS SUMMARY | 2025-05-09 12:51 | XMS_ITS | Encounter Summary ---
Author Organization [facility] Address [address] [place] [address] Care Team Providers Care Family Resource Management Specialist Name Role Phone Bennie Jo DO Primary Care Provider [phone] Vikram Duncan MD Primary Care Provider [phone] Aniyah Trammell GEAR REPAIRER Primary Care Provider Buck Santana MD Unavailable Mar Gomez GEAR REPAIRER Primary Care Provider Provider, Historical Unavailable Unavailable Shlomo BessC Unavailable [phone] Rosa Carr Unavailable Unavailable Buck Green MD Unavailable [phone] Sylvester Patel-C Unavailable [phone] Alejandra Doan RN Unavailable Unavailable Radha Duran GROUND WATER TECHNICIAN Unavailable Unavailable Theresa Colon GEAR REPAIRER Unavailable [phone] Little Koo MD Unavailable [phone] Mariana Schultz GEAR REPAIRER Unavailable [phone] Trino Wolff GROUND WATER TECHNICIAN Unavailable Unavailable Blanca Whittington GROUND WATER TECHNICIAN Unavailable Unavailab Blanca Monson GROUND WATER TECHNICIAN Unavailable Unavailable Desmond Tubbs APRN Primary Care Provider Enma Sneed GROUND WATER TECHNICIAN Unavailable Unavailable Encounter Details Date Type Department Care Team (Late st Contact Info) Description 08/10/2003 Historical Encounter Global Garima Maxwell MD [address] [place] [address] [address] [address] Social History Tobacco Use Types Packs/Day Years [...] documented as of this encounter Care Teams Family Resource Management Specialist Relationship Specialty Start Date End Date Bennie Jo DO PCP - General 04/24/09 09/20/12 Vikram Duncan MD [address] [place] [address] PCP - General 08/14/08 04/23/09 Aniyah Trammell APRN [address] [place] [address] PCP - General Nurse Practitioner 09/21/12 02/17/16 Mar Gomez APRN [address] [place] [address] PCP - General Nurse Practitioner 02/18/16 10/02/24 Desmond Tubbs APRN [id number] [address] PCP - General Nurse Practitioner 12/30/24 Buck Santana MD [facility] [place] [address] Orthopedic Surgery 09/21/12 Provider, Historical 10/07/16 Shlomo Bess PA-C [address] [place] [address] [address] [place] [address] Physician Musical Engineer 07/13/20 Rosa Carr 09/03/21 Buck Green MD [address] [place] [address] [address] [place] [address] Obstetrics & Gynecology 09/04/21 Sylvester Patel PA-C [address] [place] [address] [address] [place] [address] Physician Musical Engineer 09/09/21 Alejandra Doan, SHANIA 09/09/21 Radha Duran LPN LPN 11/01/21 Theresa Colon APRN [address] [place] [address] [address] [place] [address] Nurse Practitioner 11/27/21 Little Koo MD [address] [place] [address] [address] [place] [address] Gastroenterology 11/27/21 Mariana Schultz APRN [address] [place] [address] [address] [place] [address] Nurse Practitioner Gastroenterology 01/28/22 Trino Wolff LPN GROUND WATER TECHNICIAN 04/16/22 Blanca Whittington, GROUND WATER TECHNICIAN GROUND WATER TECHNICIAN 05/05/22 Blanca Reagan, GROUND WATER TECHNICIAN GROUND WATER TECHNICIAN 06/30/22 Enma Sneed, GROUND WATER TECHNICIAN GROUND WATER TECHNICIAN 05/09/25 documented as of this encounter
--- OUTSIDE RECORDS SUMMARY | 2025-05-09 12:51 | XMS_ITS | Encounter Summary ---
Author Organization [facility] Address [address] [place] [address] Care Team Providers Care Digital Content Specialist Name Role Phone Bennie Jo DO Primary Care Provider [phone] Vikram Duncan MD Primary Care Provider [phone] Aniyah Trammell REHABILITATION CONSULTANT Primary Care Provider Buck Santana MD Unavailable Mar Gomez REHABILITATION CONSULTANT Primary Care Provider Provider, Historical Unavailable Unavailable Shlomo BessC Unavailable [phone] Rosa Carr Unavailable Unavailable Buck Green MD Unavailable [phone] Sylvester Patel-C Unavailable [phone] Alejandra Doan RN Unavailable Unavailable Radha Duran DREDGE PUMPER Unavailable Unavailable Theresa Colon REHABILITATION CONSULTANT Unavailable [phone] Little Koo MD Unavailable [phone] Mariana Schultz REHABILITATION CONSULTANT Unavailable [phone] Trino Wolff DREDGE PUMPER Unavailable Unavailable Blanca Whittington DREDGE PUMPER Unavailable Unavailab Blanca Monson DREDGE PUMPER Unavailable Unavailable Desmond Tubbs APRN Primary Care Provider [phone] Enma Sneed DREDGE PUMPER Unavailable Unavailable Encounter Details Date Type Department Care Team (Late st Contact Info) Description 04/13/2003 Historical Encounter Global Garima Maxwell MD [address] [place] [address] [address] [address] Social History Tobacco Use Types Packs/Day Years [...] documented as of this encounter Care Teams Digital Content Specialist Relationship Specialty Start Date End Date Bennie Jo DO PCP - General 04/24/09 09/20/12 Vikram Duncan MD [address] [place] [address] PCP - General 08/14/08 04/23/09 Aniyah Trammell APRN [address] [place] [address] PCP - General Nurse Practitioner 09/21/12 02/17/16 Mar Gomez APRN [address] [place] [address] PCP - General Nurse Practitioner 02/18/16 10/02/24 Desmond Tubbs APRN [id number] [address] PCP - General Nurse Practitioner 12/30/24 Buck Santana MD [facility] [place] [address] Orthopedic Surgery 09/21/12 Provider, Historical 10/07/16 Shlomo Bess PA-C [address] [place] [address] [address] [place] [address] Physician E Learning Specialist 07/13/20 Rosa Carr 09/03/21 Buck Green MD [address] [place] [address] [address] [place] [address] Obstetrics & Gynecology 09/04/21 Sylvester Patel PA-C [address] [place] [address] [address] [place] [address] Physician E Learning Specialist 09/09/21 Alejandra Doan, SHANIA 09/09/21 Radha Duran LPN LPN 11/01/21 Theresa Colon APRN [address] [place] [address] [address] [place] [address] Nurse Practitioner 11/27/21 Little Koo MD [address] [place] [address] [address] [place] [address] Gastroenterology 11/27/21 Mariana Schultz APRN [address] [place] [address] [address] [place] [address] Nurse Practitioner Gastroenterology 01/28/22 Trino Wolff LPN DREDGE PUMPER 04/16/22 Blanca Whittington, DREDGE PUMPER DREDGE PUMPER 05/05/22 Blanca Reagan, DREDGE PUMPER DREDGE PUMPER 06/30/22 Enma Sneed, DREDGE PUMPER DREDGE PUMPER 05/09/25 documented as of this encounter
--- OUTSIDE RECORDS SUMMARY | 2025-05-09 12:51 | XMS_ITS | Encounter Summary ---
Author Organization [facility] Address [address] [place] [address] Care Team Providers Care Kennel Attendant Name Role Phone Bennie Jo DO Primary Care Provider [phone] Vikram Duncan MD Primary Care Provider [phone] Aniyah Trammell MEDICAID NURSE Primary Care Provider Buck Santana MD Unavailable Mar Gomez MEDICAID NURSE Primary Care Provider Provider, Historical Unavailable Unavailable Shlomo BessC Unavailable [phone] Rosa Carr Unavailable Unavailable Buck Green MD Unavailable [phone] Sylvester Patel-C Unavailable [phone] Alejandra Doan RN Unavailable Unavailable Radha Duran CASE MANAGER SPECIALIST Unavailable Unavailable Theresa Colon MEDICAID NURSE Unavailable [phone] Little Koo MD Unavailable [phone] Mariana Schultz MEDICAID NURSE Unavailable [phone] Trino Wolff CASE MANAGER SPECIALIST Unavailable Unavailable Blanca Whittington CASE MANAGER SPECIALIST Unavailable Unavailab Blanca Monson CASE MANAGER SPECIALIST Unavailable Unavailable Desmond Tubbs APRN Primary Care Provider Enma Sneed CASE MANAGER SPECIALIST Unavailable Unavailable Encounter Details Date Type Department Care Team (Late st Contact Info) Description 03/28/2003 Historical Encounter Global Erin Suárez N[address] [place] [address] Social History Tobacco Use Types Packs/Day Years [...] documented as of this encounter Care Teams Kennel Attendant Relationship Specialty Start Date End Date Bennie Jo DO PCP - General 04/24/09 09/20/12 Vikram Duncan MD [id number] PCP - General 08/14/08 04/23/09 Aniyah Trammell APRN [address] [place] [address] PCP - General Nurse Practitioner 09/21/12 02/17/16 Mar Gomez APRN [address] [place] [address] PCP - General Nurse Practitioner 02/18/16 10/02/24 Desmond Tubbs APRN [address] [address] PCP - General Nurse Practitioner 12/30/24 Buck Santana MD [facility] [place] [address] Orthopedic Surgery 09/21/12 Provider, Historical 10/07/16 Shlomo Bess PA-C [address] [place] [address] [address] [place] [address] Physician Rn Case Mgr 07/13/20 Rosa Carr 09/03/21 Buck Green MD [address] [place] [address] [address] [place] [address] Obstetrics & Gynecology 09/04/21 Sylvester Patel PA-C [address] [place] [address] [address] [place] [address] Physician Rn Case Mgr 09/09/21 Alejandra Doan, SHANIA 09/09/21 Radha Duran LPN LPN 11/01/21 Theresa Colon APRN [address] [place] [address] [address] [place] [address] Nurse Practitioner 11/27/21 Little Koo MD [address] [place] [address] [address] [place] [address] Gastroenterology 11/27/21 Mariana Schultz APRN [address] [place] [address] [address] [place] [address] Nurse Practitioner Gastroenterology 01/28/22 Trino Wolff CASE MANAGER SPECIALIST CASE MANAGER SPECIALIST 04/16/22 Blanca Whittington, CASE MANAGER SPECIALIST CASE MANAGER SPECIALIST 05/05/22 Blanca Reagan, CASE MANAGER SPECIALIST CASE MANAGER SPECIALIST 06/30/22 Enma Sneed, CASE MANAGER SPECIALIST CASE MANAGER SPECIALIST 05/09/25 documented as of this encounter
--- OUTSIDE RECORDS SUMMARY | 2025-05-09 12:51 | XMS_ITS | Encounter Summary ---
Author Organization [facility] Address [address] [place] [address] Care Team Providers Care Civil Engineering Director Name Role Phone Bennie Jo DO Primary Care Provider [phone] Vikram Duncan MD Primary Care Provider [phone] Aniyah Trammell TUG MASTER Primary Care Provider Buck Santana MD Unavailable Mar Gomez TUG MASTER Primary Care Provider Provider, Historical Unavailable Unavailable Shlomo BessC Unavailable [phone] Rosa Carr Unavailable Unavailable Buck Green MD Unavailable [phone] Sylvester Patel-C Unavailable [phone] Alejandra Doan RN Unavailable Unavailable Radha Duran BIODIESEL PRODUCT MANAGER Unavailable Unavailable Theresa Colon TUG MASTER Unavailable [phone] Little Koo MD Unavailable [phone] Mariana Schultz TUG MASTER Unavailable [phone] Trino Wolff BIODIESEL PRODUCT MANAGER Unavailable Unavailable Blanca Whittington BIODIESEL PRODUCT MANAGER Unavailable Unavailab Blanca Monson BIODIESEL PRODUCT MANAGER Unavailable Unavailable Desmond Tubbs APRN Primary Care Provider Enma Sneed BIODIESEL PRODUCT MANAGER Unavailable Unavailable Encounter Details Date Type Department Care Team (Late st Contact Info) Description 04/05/2002 Historical Encounter Global Garima Maxwell MD [address] [place] [address] [address] [id number] Social History Tobacco Use Types Packs/Day Years [...] documented as of this encounter Care Teams Civil Engineering Director Relationship Specialty Start Date End Date Bennie Jo DO PCP - General 04/24/09 09/20/12 Vikram Duncan MD [address] [place] [address] PCP - General 08/14/08 04/23/09 Aniyah Trammell APRN [address] [place] [address] PCP - General Nurse Practitioner 09/21/12 02/17/16 Mar Gomez APRN [address] [place] [address] PCP - General Nurse Practitioner 02/18/16 10/02/24 Desmond Tubbs APRN [id number] [address] PCP - General Nurse Practitioner 12/30/24 Buck Santana MD [facility] [place] [place] [address] Orthopedic Surgery 09/21/12 Provider, Historical 10/07/16 Shlomo Bess PA-C [address] [place] [address] [address] [place] [address] Physician Publicity Writer 07/13/20 Rosa Carr 09/03/21 Buck Green MD [address] [place] [address] [address] [place] [address] Obstetrics & Gynecology 09/04/21 Sylvester Patel PA-C [address] [place] [address] [address] [place] [address] Physician Publicity Writer 09/09/21 Alejandra Doan, SHANIA 09/09/21 Radha Druan LPN LPN 11/01/21 Theresa Colon APRN [address] [place] [address] [address] [place] [address] Nurse Practitioner 11/27/21 Little Koo MD [address] [place] [address] [address] [place] [address] Gastroenterology 11/27/21 Mariana Schultz APRN [address] [place] [address] [address] [place] [address] Nurse Practitioner Gastroenterology 01/28/22 Trino Wolff LPN BIODIESEL PRODUCT MANAGER 04/16/22 Blanca Whittington, BIODIESEL PRODUCT MANAGER BIODIESEL PRODUCT MANAGER 05/05/22 Blanca Reagan, BIODIESEL PRODUCT MANAGER BIODIESEL PRODUCT MANAGER 06/30/22 Enma Sneed, BIODIESEL PRODUCT MANAGER BIODIESEL PRODUCT MANAGER 05/09/25 documented as of this encounter
--- OUTSIDE RECORDS SUMMARY | 2025-05-09 12:51 | XMS_ITS | Encounter Summary ---
Author Organization [facility] Address [address] [place] [address] Care Team Providers Care Tool Polisher Name Role Phone Bennie Jo DO Primary Care Provider [phone] Vikram Duncan MD Primary Care Provider [phone] Aniyah Trammell RESERVOIR CARETAKER Primary Care Provider Buck Santana MD Unavailable Mar Gomez RESERVOIR CARETAKER Primary Care Provider [phone] Provider, Historical Unavailable Unavailable Shlomo BessC Unavailable [phone] Rosa Carr Unavailable Unavailable Buck Green MD Unavailable [phone] Sylvester Patel-C Unavailable [phone] Alejandra Doan RN Unavailable Unavailable Radha Duran HEAVY EQUIPMENT TECHNICIAN Unavailable Unavailable Theresa Colon RESERVOIR CARETAKER Unavailable [phone] Little Koo MD Unavailable [phone] Mariana Schultz RESERVOIR CARETAKER Unavailable [phone] Trino Wolff HEAVY EQUIPMENT TECHNICIAN Unavailable Unavailable Blanca Whittington HEAVY EQUIPMENT TECHNICIAN Unavailable Unavailab Blanca Monson HEAVY EQUIPMENT TECHNICIAN Unavailable Unavailable Desmond Tubbs APRN Primary Care Provider Enma Sneed HEAVY EQUIPMENT TECHNICIAN Unavailable Unavailable Encounter Details Date Type Department Care Team (Late st Contact Info) Description 11/17/2003 Historical Encounter Global Rik Maradiaga MD [address] [id number] Social History Tobacco Use Types Packs/Day Years [...] documented as of this encounter Care Teams Tool Polisher Relationship Specialty Start Date End Date Bennie Jo DO PCP - General 04/24/09 09/20/12 Vikram Duncan MD [address] [place], [place] [id number] PCP - General 08/14/08 04/23/09 Aniyah Trammell APRN [id number] [place] [address] PCP - General Nurse Practitioner 09/21/12 02/17/16 Mar Gomez APRN [id number] [place] [address] PCP - General Nurse Practitioner 02/18/16 10/02/24 Desmond Tubbs APRN [id number] [address] PCP - General Nurse Practitioner 12/30/24 Buck Santana MD [facility] [place] [address] Orthopedic Surgery 09/21/12 Provider, Historical 10/07/16 Shlomo Bess PA-C [address] [place] [address] [address] [place] [address] Physician Clerk Manager 07/13/20 Rosa Carr 09/03/21 Buck Green MD [address] [place] [address] [address] [place] [address] Obstetrics & Gynecology 09/04/21 Sylvester Patel PA-C [address] [place] [address] [address] [place] [address] Physician Clerk Manager 09/09/21 Alejandra Doan, SHANIA 09/09/21 Radha Duran LPN LPN 11/01/21 Theresa Colon APRN [address] [place] [address] [address] [place] [address] Nurse Practitioner 11/27/21 Little Koo MD [address] [place] [address] [address] [place] [address] Gastroenterology 11/27/21 Mariana Schultz APRN [address] [place] [address] [address] [place] [address] Nurse Practitioner Gastroenterology 01/28/22 Trino Wolff HEAVY EQUIPMENT TECHNICIAN HEAVY EQUIPMENT TECHNICIAN 04/16/22 Blanca Whittington, HEAVY EQUIPMENT TECHNICIAN HEAVY EQUIPMENT TECHNICIAN 05/05/22 Blanca Reagan, HEAVY EQUIPMENT TECHNICIAN HEAVY EQUIPMENT TECHNICIAN 06/30/22 Enma Sneed, HEAVY EQUIPMENT TECHNICIAN HEAVY EQUIPMENT TECHNICIAN 05/09/25 documented as of this encounter
--- OUTSIDE RECORDS SUMMARY | 2025-05-09 12:51 | XMS_ITS | Encounter Summary ---
Author Organization [facility] Address [address] [place] [address] Care Team Providers Care Harbor Tug Captain Name Role Phone Bennie Jo DO Primary Care Provider [phone] Vikram Duncan MD Primary Care Provider [phone] Aniyah Trammell MANGLE CATCHER Primary Care Provider Buck Santana MD Unavailable Mar Gomez MANGLE CATCHER Primary Care Provider Provider, Historical Unavailable Unavailable Shlomo BessC Unavailable [phone] Rosa Carr Unavailable Unavailable Buck Green MD Unavailable [phone] Sylvester Patel-C Unavailable [phone] Alejandra Doan RN Unavailable Unavailable Radha Duran GRAPHIC TECHNICIAN Unavailable Unavailable Theresa Colon MANGLE CATCHER Unavailable [phone] Little Koo MD Unavailable [phone] Mariana Schultz MANGLE CATCHER Unavailable [phone] Trino Wolff GRAPHIC TECHNICIAN Unavailable Unavailable Blanca Whittington GRAPHIC TECHNICIAN Unavailable Unavailab Blanca Monson GRAPHIC TECHNICIAN Unavailable Unavailable Desmond Tubbs APRN Primary Care Provider Enma Sneed GRAPHIC TECHNICIAN Unavailable Unavailable Encounter Details Date Type Department Care Team (Late st Contact Info) Description 05/27/2003 Historical Encounter Global Erin Suárez NISH [address] [place] [address] Social History Tobacco Use Types Packs/Day Years [...] documented as of this encounter Care Teams Harbor Tug Captain Relationship Specialty Start Date End Date Bennie Jo DO PCP - General 04/24/09 09/20/12 Vikram Duncan MD [address] [place] [id number] PCP - General 08/14/08 04/23/09 Aniyah Trammell APRN [address] [place] [address] PCP - General Nurse Practitioner 09/21/12 02/17/16 Mar Gomez APRN [address] [place] [address] PCP - General Nurse Practitioner 02/18/16 10/02/24 Desmond Tubbs APRN [id number] [address] [place] [address] PCP - General Nurse Practitioner 12/30/24 Buck Santana MD [facility] [place] [address] Orthopedic Surgery 09/21/12 Provider, Historical 10/07/16 Shlomo Bess PA-C [address] [place] [address] [address] [place] [address] Physician Student Ministry Pastor 07/13/20 Rosa Carr 09/03/21 Buck Green MD [address] [place] [address] [address] [place] [address] Obstetrics & Gynecology 09/04/21 Sylvester Patel PA-C [address] [place] [address] [address] [place] [address] Physician Student Ministry Pastor 09/09/21 Alejandra Doan, SHANIA 09/09/21 Radha Duran LPN LPN 11/01/21 Theresa Colon APRN [address] [place] [address] [address] [place] [address] Nurse Practitioner 11/27/21 Little Koo MD [address] [place] [address] [address] [place] [address] Gastroenterology 11/27/21 Mariana Schultz APRN [address] [place] [address] [address] [place] [address] Nurse Practitioner Gastroenterology 01/28/22 Trino Wolff GRAPHIC TECHNICIAN GRAPHIC TECHNICIAN 04/16/22 Blanca Whittington, GRAPHIC TECHNICIAN GRAPHIC TECHNICIAN 05/05/22 Blanca Reagan, GRAPHIC TECHNICIAN GRAPHIC TECHNICIAN 06/30/22 Enma Sneed, GRAPHIC TECHNICIAN GRAPHIC TECHNICIAN 05/09/25 documented as of this encounter
--- OUTSIDE RECORDS SUMMARY | 2025-05-09 12:51 | XMS_ITS | Encounter Summary ---
Author Organization [facility] Address [address] [place] [address] Care Team Providers Care Fourdrinier Tender Name Role Phone Bennie Jo DO Primary Care Provider [phone] Vikram Duncan MD Primary Care Provider [phone] Aniyah Trammell TRANSIT VEHICLE INSPECTOR Primary Care Provider Buck Santana MD Unavailable Mar Gomez TRANSIT VEHICLE INSPECTOR Primary Care Provider Provider, Historical Unavailable Unavailable Shlomo BessC Unavailable [phone] Rosa Carr Unavailable Unavailable Buck Green MD Unavailable [phone] Sylvester Patel-C Unavailable [phone] Alejandra Doan RN Unavailable Unavailable Radha Duran INCOME TAX ADMINISTRATOR Unavailable Unavailable Theresa Colon TRANSIT VEHICLE INSPECTOR Unavailable [phone] Little Koo MD Unavailable [phone] Mariana Schultz TRANSIT VEHICLE INSPECTOR Unavailable [phone] Trino Wolff INCOME TAX ADMINISTRATOR Unavailable Unavailable Blanca Whittington INCOME TAX ADMINISTRATOR Unavailable Unavailab Blanca Monson INCOME TAX ADMINISTRATOR Unavailable Unavailable Desmond Tubbs APRN Primary Care Provider [phone] Enma Sneed INCOME TAX ADMINISTRATOR Unavailable Unavailable Encounter Details Date Type Department Care Team (Late st Contact Info) Description 11/19/2003 Historical Encounter Global Amor Clemons MD [address] [place], [place] [id number] Social History Tobacco Use Types Packs/Day Years [...] documented as of this encounter Care Teams Fourdrinier Tender Relationship Specialty Start Date End Date Bennie Jo DO PCP - General 04/24/09 09/20/12 Vikram Duncan MD [address] [place] [address] PCP - General 08/14/08 04/23/09 Aniyah Trammell APRN [id number] [place] [address] PCP - General Nurse Practitioner 09/21/12 02/17/16 Mar Gomez APRN [address] [place] [address] PCP - General Nurse Practitioner 02/18/16 10/02/24 Desmond Tubbs APRN [id number] [address] [place], [place] 86[address] PCP - General Nurse Practitioner 12/30/24 Buck Santana MD [facility] [place] [address] Orthopedic Surgery 09/21/12 Provider, Historical 10/07/16 Shlomo Bess PA-C [address] [place] [address] [address] [facility] [address] [place] [address] Physician Debate Director 07/13/20 Rosa Carr 09/03/21 Buck Green MD [address] [place] [address] [address] [place] [address] Obstetrics & Gynecology 09/04/21 Sylvester Patel PA-C [address] [place] [address] [place] [address] Physician Debate Director 09/09/21 Alejandra Doan, SHANIA 09/09/21 Radha Duran LPN LPN 11/01/21 Theresa Colon APRN [address] [place] [address] [address] [place], [place] 3226[address] Nurse Practitioner 11/27/21 Little Koo MD [address] [place] [address] [address] [place] [address] Gastroenterology 11/27/21 Mariana Schultz APRN [address] [place] [address] [place] [address] Nurse Practitioner Gastroenterology 01/28/22 Trino Wolff LPN INCOME TAX ADMINISTRATOR 04/16/22 Blanca Whittington, INCOME TAX ADMINISTRATOR INCOME TAX ADMINISTRATOR 05/05/22 Blanca Reagan, INCOME TAX ADMINISTRATOR INCOME TAX ADMINISTRATOR 06/30/22 Enma Sneed, INCOME TAX ADMINISTRATOR INCOME TAX ADMINISTRATOR 05/09/25 documented as of this encounter
--- OUTSIDE RECORDS SUMMARY | 2025-05-09 12:51 | XMS_ITS | Encounter Summary ---
Author Organization [facility] Address [address] [place] [address] Care Team Providers Care Bell Hole Digger Name Role Phone Bennie Jo DO Primary Care Provider [phone] Vikram Duncan MD Primary Care Provider [phone] Aniyah Trammell LEATHER WORKER Primary Care Provider Bcuk Santana MD Unavailable Mar Gomez LEATHER WORKER Primary Care Provider Provider, Historical Unavailable Unavailable Shlomo BessC Unavailable [phone] Rosa Carr Unavailable Unavailable Bcuk Green MD Unavailable [phone] Sylvester Patel-C Unavailable [phone] Alejandra Doan RN Unavailable Unavailable Radha Duran CHARGEMASTER ANALYST Unavailable Unavailable Theresa Colon LEATHER WORKER Unavailable [phone] Little Koo MD Unavailable [phone] Mariana Schultz LEATHER WORKER Unavailable [phone] Trino Wolff CHARGEMASTER ANALYST Unavailable Unavailable Blanca Whittington CHARGEMASTER ANALYST Unavailable Unavailab Blanca Monson CHARGEMASTER ANALYST Unavailable Unavailable Desmond Tubbs APRN Primary Care Provider Enma Sneed CHARGEMASTER ANALYST Unavailable Unavailable Encounter Details Date Type Department Care Team (Late st Contact Info) Description 02/09/2003 Historical Encounter Global Burak Yanez MD [address] [place], [place] [id number] Social History Tobacco Use Types Packs/Day Years [...] documented as of this encounter Care Teams Bell Hole Digger Relationship Specialty Start Date End Date Bennie Jo DO PCP - General 04/24/09 09/20/12 Vikram Duncan MD [address] [place] [address] PCP - General 08/14/08 04/23/09 Aniyah Trammell APRN [address] [place] [address] PCP - General Nurse Practitioner 09/21/12 02/17/16 Mar Gomez APRN [address] [place] [address] PCP - General Nurse Practitioner 02/18/16 10/02/24 Desmond Tubbs APRN [address] [address] [place], [place] [id number] PCP - General Nurse Practitioner 12/30/24 Buck Santana MD [facility] [address] Orthopedic Surgery 09/21/12 Provider, Historical 10/07/16 Shlomo Bess PA-C [address] [place] [address] [address] [place] [address] Physician Wildlife Control Operator 07/13/20 Rosa Carr 09/03/21 Buck Green MD [address] [place] [address] [address] [place] [address] Obstetrics & Gynecology 09/04/21 Sylvester Patel PA-C [address] [place] [address] [address] [place] [address] Physician Wildlife Control Operator 09/09/21 Alejandra Doan, SHANIA 09/09/21 Radha Duran LPN LPN 11/01/21 Theresa Colon APRN [address] [place] [address] [address] [place] [address] Nurse Practitioner 11/27/21 Little Koo MD [address] [place] [address] [address] [facility] [place] [address] Gastroenterology 11/27/21 Mariana Schultz APRN [address] [place] [address] [address] [place] [address] Nurse Practitioner Gastroenterology 01/28/22 Trino Wolff LPN CHARGEMASTER ANALYST 04/16/22 Blanca Whittington, CHARGEMASTER ANALYST CHARGEMASTER ANALYST 05/05/22 Blanca Reagan, CHARGEMASTER ANALYST CHARGEMASTER ANALYST 06/30/22 Enma Sneed, CHARGEMASTER ANALYST CHARGEMASTER ANALYST 05/09/25 documented as of this encounter
--- OUTSIDE RECORDS SUMMARY | 2025-05-09 12:51 | XMS_ITS | Encounter Summary ---
Author Organization [facility] Address [address] [place] [address] Care Team Providers Care Demolition Expert Name Role Phone Bennie Jo DO Primary Care Provider [phone] Vikram Duncan MD Primary Care Provider [phone] Aniyah Trammell CUSTOMS INVESTIGATOR Primary Care Provider Buck Santana MD Unavailable Mar Gomez CUSTOMS INVESTIGATOR Primary Care Provider Provider, Historical Unavailable Unavailable Shlomo BessC Unavailable [phone] Rosa Carr Unavailable Unavailable Buck Green MD Unavailable [phone] Sylvester Patel-C Unavailable [phone] Alejandra Doan RN Unavailable Unavailable Radha Duran CHILD'S NURSE Unavailable Unavailable Theresa Colon CUSTOMS INVESTIGATOR Unavailable [phone] Little Koo MD Unavailable [phone] Mariana Schultz CUSTOMS INVESTIGATOR Unavailable [phone] Trino Wolff CHILD'S NURSE Unavailable Unavailable Blanca Whittington CHILD'S NURSE Unavailable Unavailab Blanca Monson CHILD'S NURSE Unavailable Unavailable Desmond Tubbs APRN Primary Care Provider Enma Sneed CHILD'S NURSE Unavailable Unavailable Encounter Details Date Type Department Care Team (Late st Contact Info) Description 05/30/2003 Historical Encounter Global Garima Maxwell MD [address] [place] [address] [address] [address] Social History Tobacco Use Types Packs/Day Years [...] documented as of this encounter Care Teams Demolition Expert Relationship Specialty Start Date End Date Bennie Jo DO PCP - General 04/24/09 09/20/12 Vikram Duncan MD [address] [place] [address] PCP - General 08/14/08 04/23/09 Aniyah Trammell APRN [address] [place] [address] PCP - General Nurse Practitioner 09/21/12 02/17/16 Mar Gomez APRN [address] [place] [address] PCP - General Nurse Practitioner 02/18/16 10/02/24 Desmond Tubbs APRN [id number] [address] PCP - General Nurse Practitioner 12/30/24 Buck Santana MD [facility] [place] [address] Orthopedic Surgery 09/21/12 Provider, Historical 10/07/16 Shlomo Bess PA-C [address] [place] [address] [address] [place] [address] Physician Systems Test Technician 07/13/20 Rosa Carr 09/03/21 Buck Green MD [address] [place] [address] [address] [place] [address] Obstetrics & Gynecology 09/04/21 Sylvester Patel PA-C [address] [place] [address] [address] [place] [address] Physician Systems Test Technician 09/09/21 Alejandra Doan, SHANIA 09/09/21 Radha Duran LPN LPN 11/01/21 Theresa Colon APRN [address] [place] [address] [address] [place] [address] Nurse Practitioner 11/27/21 Little Koo MD [address] [place] [address] [address] [place] [address] Gastroenterology 11/27/21 Mariana Schultz APRN [address] [place] [address] [address] [place] [address] Nurse Practitioner Gastroenterology 01/28/22 Trino Wolff LPN CHILD'S NURSE 04/16/22 Blanca Whittington, CHILD'S NURSE CHILD'S NURSE 05/05/22 Blanca Reagan, CHILD'S NURSE CHILD'S NURSE 06/30/22 Enma Sneed, CHILD'S NURSE CHILD'S NURSE 05/09/25 documented as of this encounter
--- OUTSIDE RECORDS SUMMARY | 2025-05-09 12:51 | XMS_ITS | Encounter Summary ---
Author Organization [facility] Address [address] [place] [address] Care Team Providers Care Material Spreader Name Role Phone Bennie Jo DO Primary Care Provider [phone] Vikram Duncan MD Primary Care Provider [phone] Aniyah Trammell PHYSICIAN/OPHTHALMOLOGIST Primary Care Provider Buck Santana MD Unavailable Mar Gomez PHYSICIAN/OPHTHALMOLOGIST Primary Care Provider Provider, Historical Unavailable Unavailable Shlomo BessC Unavailable [phone] Rosa Carr Unavailable Unavailable Buck Green MD Unavailable [phone] Sylvester Patel-C Unavailable [phone] Alejandra Doan RN Unavailable Unavailable Radha Duran TOWER EQUIPMENT INSTALLER Unavailable Unavailable Theresa Colon PHYSICIAN/OPHTHALMOLOGIST Unavailable [phone] Little Koo MD Unavailable [phone] Mariana Schultz PHYSICIAN/OPHTHALMOLOGIST Unavailable [phone] Trino Wolff TOWER EQUIPMENT INSTALLER Unavailable Unavailable Blanca Whittington TOWER EQUIPMENT INSTALLER Unavailable Unavailab Blanca Monson TOWER EQUIPMENT INSTALLER Unavailable Unavailable Desmond Tubbs APRN Primary Care Provider Enma Sneed TOWER EQUIPMENT INSTALLER Unavailable Unavailable Encounter Details Date Type Department Care Team (Late st Contact Info) Description 11/27/2003 Historical Encounter Global Garima Maxwell MD [address] [place] [address] [address] [address] Social History Tobacco Use Types Packs/Day Years [...] as of this encounter Care Teams Material Spreader Relationship Specialty Start Date End Date Bennie Jo DO PCP - General 04/24/09 09/20/12 Vikram Duncan MD [address] [place] [address] [id number] PCP - General 08/14/08 04/23/09 Aniyah Trammell APRN [address] [place] [address] PCP - General Nurse Practitioner 09/21/12 02/17/16 Mar Gomez APRN [address] [place] [address] PCP - General Nurse Practitioner 02/18/16 10/02/24 Desmond Tubbs APRN 17655 [address] [place] [address] PCP - General Nurse Practitioner 12/30/24 Buck Santana MD [facility] [place]note 2[facility] [place] [address] Orthopedic Surgery 09/21/12 Provider, Historical 10/07/16 Shlomo Bess PA-C [address] [place] [address] [address] [place] [address] Physician Manager Information 07/13/20 Rosa Carr 09/03/21 Buck Green MD [address] [place] [address] [address] [place] [address] Obstetrics & Gynecology 09/04/21 Sylvester Patel PA-C [address] [place] [address] [address] [place] [address] Physician Manager Information 09/09/21 Alejandra Doan, SHANIA 09/09/21 Radha Duran LPN LPN 11/01/21 Theresa Colon APRN [address] [place] [address] [address] [place] [address] Nurse Practitioner 11/27/21 Little Koo MD [address] [place] [address] [address] [place] [address] Gastroenterology 11/27/21 Mariana Schultz APRN [address] [place] [address] [address] [place] [address] Nurse Practitioner Gastroenterology 01/28/22 Trino Wolff LPN TOWER EQUIPMENT INSTALLER 04/16/22 Blanca Whittington, TOWER EQUIPMENT INSTALLER TOWER EQUIPMENT INSTALLER 05/05/22 Blanca Reagan, TOWER EQUIPMENT INSTALLER TOWER EQUIPMENT INSTALLER 06/30/22 Enma Sneed, TOWER EQUIPMENT INSTALLER TOWER EQUIPMENT INSTALLER 05/09/25 documented as of this encounter
--- OUTSIDE RECORDS SUMMARY | 2025-05-09 12:51 | XMS_ITS | Encounter Summary ---
Author Organization [facility] Address [address] [place] [address] Care Team Providers Care Multimedia Programmer Name Role Phone Bennie Jo DO Primary Care Provider [phone] Vikram Duncan MD Primary Care Provider [phone] Aniyah Trammell AUTOMOTIVE SERVICE CONSULTANT Primary Care Provider Buck Santana MD Unavailable Mar Gomez AUTOMOTIVE SERVICE CONSULTANT Primary Care Provider Provider, Historical Unavailable Unavailable Shlomo BessC Unavailable [phone] Rosa Carr Unavailable Unavailable Buck Green MD Unavailable [phone] Sylvester Patel-C Unavailable [phone] Alejandra Doan RN Unavailable Unavailable Radha Duran INSTALLATION DRAFTER Unavailable Unavailable Theresa Colon AUTOMOTIVE SERVICE CONSULTANT Unavailable [phone] Little Koo MD Unavailable [phone] Mariana Schultz AUTOMOTIVE SERVICE CONSULTANT Unavailable [phone] Trino Wolff INSTALLATION DRAFTER Unavailable Unavailable Blanca Whittington INSTALLATION DRAFTER Unavailable Unavailab Blanca Monson INSTALLATION DRAFTER Unavailable Unavailable Desmond Tubbs APRN Primary Care Provider [phone] Enma Sneed INSTALLATION DRAFTER Unavailable Unavailable Encounter Details Date Type Department Care Team (Late st Contact Info) Description 07/01/2003 Historical Encounter Global Burak Yanez MD [address] [place], [place] [id number] Social History Tobacco Use Types Packs/Day Years [...] documented as of this encounter Care Teams Multimedia Programmer Relationship Specialty Start Date End Date Bennie Jo DO PCP - General 04/24/09 09/20/12 Vikram Duncan MD [address] [place] [address] PCP - General 08/14/08 04/23/09 Aniyah Trammell APRN [id number] [place] [address] PCP - General Nurse Practitioner 09/21/12 02/17/16 Mar Gomez APRN [id number] [place] [address] PCP - General Nurse Practitioner 02/18/16 10/02/24 Desmond Tubbs APRN [id number] [address] [place], [place] [id number] PCP - General Nurse Practitioner 12/30/24 Buck Santana MD [facility] [email or web address] [address] Orthopedic Surgery 09/21/12 Provider, Historical 10/07/16 Shlomo Bess PA-C [address] [place] [address] [address] [place] [address] Physician Security Site Supervisor 07/13/20 Rosa Carr 09/03/21 Buck Green MD [address] [place] [address] [address] [place] [address] Obstetrics & Gynecology 09/04/21 Sylvester Patel PA-C [address] [place] [address] [address] [place] [address] Physician Security Site Supervisor 09/09/21 Alejandra Doan, SHANIA 09/09/21 Radha Duran LPN LPN 11/01/21 Theresa Colon APRN [address] [place] [address] [address] [place] [address] Nurse Practitioner 11/27/21 Little Koo MD [address] [place] [address] [address] [facility] [place] [address] Gastroenterology 11/27/21 Mariana Schultz APRN [address] [place] [address] [address] [place] [address] Nurse Practitioner Gastroenterology 01/28/22 Trino Wolff LPN INSTALLATION DRAFTER 04/16/22 Blanca Whittington, INSTALLATION DRAFTER INSTALLATION DRAFTER 05/05/22 Blanca Reagan, INSTALLATION DRAFTER INSTALLATION DRAFTER 06/30/22 Enam Sneed, INSTALLATION DRAFTER INSTALLATION DRAFTER 05/09/25 documented as of this encounter
--- OUTSIDE RECORDS SUMMARY | 2025-05-09 12:51 | XMS_ITS | Encounter Summary ---
Author Organization [facility] Address [address] [place] [address] Care Team Providers Care Cell Liner Name Role Phone Bennie Jo DO Primary Care Provider [phone] Vikram Duncan MD Primary Care Provider [phone] Aniyah Trammell TARGET TRIMMER Primary Care Provider Buck Santana MD Unavailable Mar Gomez TARGET TRIMMER Primary Care Provider Provider, Historical Unavailable Unavailable Shlomo BessC Unavailable [phone] Rosa Carr Unavailable Unavailable Buck Green MD Unavailable [phone] Sylvester Patel-C Unavailable [phone] Alejandra Doan RN Unavailable Unavailable Radha Duran OFFICE MACHINE TECHNICIAN Unavailable Unavailable Theresa Colon TARGET TRIMMER Unavailable [phone] Little Koo MD Unavailable [phone] Mariana Schultz TARGET TRIMMER Unavailable [phone] Trino Wolff OFFICE MACHINE TECHNICIAN Unavailable Unavailable Blanca Whittington OFFICE MACHINE TECHNICIAN Unavailable Unavailab Blanca Monson OFFICE MACHINE TECHNICIAN Unavailable Unavailable Desmond Tubbs APRN Primary Care Provider Enma Sneed OFFICE MACHINE TECHNICIAN Unavailable Unavailable Encounter Details Date Type Department Care Team (Late st Contact Info) Description 02/20/1994 Historical Encounter Global Massimo Tran Social History [...] documented as of this encounter Care Teams Cell Liner Relationship Specialty Start Date End Date Bennie Jo DO PCP - General 04/24/09 09/20/12 Vikram Duncan MD [address] [place] [address] PCP - General 08/14/08 04/23/09 Aniyah Trammell APRN [id number] [place] [address] PCP - General Nurse Practitioner 09/21/12 02/17/16 Mar Gomez APRN [address] [place] [address] PCP - General Nurse Practitioner 02/18/16 10/02/24 Desmond Tubbs APRN [id number] [place], [place] [id number] PCP - General Nurse Practitioner 12/30/24 Buck Santana MD [address] [place] [address] Orthopedic Surgery 09/21/12 Provider, Historical 10/07/16 Shlomo Bess PA-C [address] [place] [address] [address] [facility] [address] [place] [address] Physician Diving Judge 07/13/20 Rosa Carr 09/03/21 Buck Green MD [address] [place] [address] [address] [place] [address] Obstetrics & Gynecology 09/04/21 Sylvester Patel PA-C [address] [place] [address] Physician Diving Judge 09/09/21 Alejandra Doan, RN 09/09/21 Radha Duran LPN LPN 11/01/21 Theresa Colon APRN [address] [place] [address] [address] [place] [address] Nurse Practitioner 11/27/21 Little Koo MD [address] [place] [address] [address] [place] [address] Gastroenterology 11/27/21 Mariana Schultz APRN [address] [place] [address] Nurse Practitioner Gastroenterology 01/28/22 Trino Wolff, OFFICE MACHINE TECHNICIAN OFFICE MACHINE TECHNICIAN 04/16/22 Blanca Whittington LPN OFFICE MACHINE TECHNICIAN 05/05/22 Blanca Reagan, OFFICE MACHINE TECHNICIAN OFFICE MACHINE TECHNICIAN 06/30/22 Enma Sneed LPN OFFICE MACHINE TECHNICIAN 05/09/25 documented as of this encounter
--- OUTSIDE RECORDS SUMMARY | 2025-05-09 12:51 | XMS_ITS | Encounter Summary ---
Author Organization [facility] Address [address] [place] [address] Care Team Providers Care Maple Sugar Maker Name Role Phone Bennie Jo DO Primary Care Provider [phone] Vikram Duncan MD Primary Care Provider [phone] Aniyah Trammell LINSEED OIL REFINER Primary Care Provider Buck Santana MD Unavailable Mar Gomez LINSEED OIL REFINER Primary Care Provider Provider, Historical Unavailable Unavailable Shlomo BessC Unavailable [phone] Rosa Carr Unavailable Unavailable Buck Green MD Unavailable [phone] Sylvester Patel-C Unavailable [phone] Alejandra Doan RN Unavailable Unavailable Radha Duran MATTRESS STRIPPER Unavailable Unavailable Theresa Colon LINSEED OIL REFINER Unavailable [phone] Little Koo MD Unavailable [phone] Mariana Schultz LINSEED OIL REFINER Unavailable [phone] Trino Wolff MATTRESS STRIPPER Unavailable Unavailable Blanca Whittington MATTRESS STRIPPER Unavailable Unavailab Blanca Monson MATTRESS STRIPPER Unavailable Unavailable Desmond Tubbs APRN Primary Care Provider Enma Snede MATTRESS STRIPPER Unavailable Unavailable Encounter Details Date Type Department Care Team (Late st Contact Info) Description 08/31/2003 Historical Encounter Global Burak Yanez MD [address] [place], [place] [address] Social History Tobacco Use Types Packs/Day Years [...] documented as of this encounter Care Teams Maple Sugar Maker Relationship Specialty Start Date End Date Bennie Jo DO PCP - General 04/24/09 09/20/12 Vikram Duncan MD [address] [place] [address] PCP - General 08/14/08 04/23/09 Aniyah Trammell APRN [id number] [place] [address] PCP - General Nurse Practitioner 09/21/12 02/17/16 Mar Gomez APRN [id number] [place] [address] PCP - General Nurse Practitioner 02/18/16 10/02/24 Desmond Tubbs APRN [id number] [address] [place], [place] [address] PCP - General Nurse Practitioner 12/30/24 Buck Santana MD [facility] [place] [address] Orthopedic Surgery 09/21/12 Provider, Historical 10/07/16 Shlomo Bess PA-C [address] [place] [address] [address] [place] [address] Physician Academic Coach 07/13/20 Rosa Carr 09/03/21 Buck Green MD [address] [place] [address] [address] [place] [address] Obstetrics & Gynecology 09/04/21 Sylvester Patel PA-C [address] [place] [address] [address] [place] [address] Physician Academic Coach 09/09/21 Alejandra Doan, SHANIA 09/09/21 Radha Duran LPN LPN 11/01/21 Theresa Colon APRN [address] [place] [address] [address] [place] [address] Nurse Practitioner 11/27/21 Little Koo MD [address] [place] [address] [address] [facility] [place] [address] Gastroenterology 11/27/21 Mariana Schultz APRN [address] [place] [address] [address] [place] [address] Nurse Practitioner Gastroenterology 01/28/22 Trino Wolff LPN MATTRESS STRIPPER 04/16/22 Blanca Whittington, MATTRESS STRIPPER MATTRESS STRIPPER 05/05/22 Blanca Reagan, MATTRESS STRIPPER MATTRESS STRIPPER 06/30/22 Enma Sneed, MATTRESS STRIPPER MATTRESS STRIPPER 05/09/25 documented as of this encounter
--- OUTSIDE RECORDS SUMMARY | 2025-05-09 12:52 | XMS_ITS | Encounter Summary ---
Author Organization [facility] Address [address] [place] [address] Care Team Providers Care Patient Accounts Clerk Name Role Phone Bennie Jo DO Primary Care Provider [phone] Vikram Duncan MD Primary Care Provider [phone] Aniyah Trammell MANAGER PROVIDER RELATIONS Primary Care Provider Buck Santana MD Unavailable Mar Gomez MANAGER PROVIDER RELATIONS Primary Care Provider Provider, Historical Unavailable Unavailable Shlomo BessC Unavailable [phone] Rosa Carr Unavailable Unavailable Buck Green MD Unavailable [phone] Sylvester Patel-C Unavailable [phone] Alejandra Doan RN Unavailable Unavailable Radha Duran BIOLOGY SPECIMEN TECHNICIAN Unavailable Unavailable Theresa Colon MANAGER PROVIDER RELATIONS Unavailable [phone] Little Koo MD Unavailable [phone] Mariana Schultz MANAGER PROVIDER RELATIONS Unavailable [phone] Trino Wolff BIOLOGY SPECIMEN TECHNICIAN Unavailable Unavailable Blanca Whittington BIOLOGY SPECIMEN TECHNICIAN Unavailable Unavailab Blanca Monson BIOLOGY SPECIMEN TECHNICIAN Unavailable Unavailable Desmond Tubbs APRN Primary Care Provider Enma Sneed BIOLOGY SPECIMEN TECHNICIAN Unavailable Unavailable Encounter Details Date Type Department Care Team (Late st Contact Info) Description 04/11/1998 Historical Encounter Global Social History Tobacco Use [...] documented as of this encounter Care Teams Patient Accounts Clerk Relationship Specialty Start Date End Date Bennie Jo DO PCP - General 04/24/09 09/20/12 Vikram Duncan MD [address] [place] [address] PCP - General 08/14/08 04/23/09 Aniyah Trammell APRN [id number] [place] [address] PCP - General Nurse Practitioner 09/21/12 02/17/16 Mar Gomez APRN [id number] [place] [address] PCP - General Nurse Practitioner 02/18/16 10/02/24 Desmond Tubbs APRN [id number] [place], [place] [address] PCP - General Nurse Practitioner 12/30/24 Buck Snatana MD [facility] [place] [address] Orthopedic Surgery 09/21/12 Provider, Historical 10/07/16 Shlomo Bess PA-C [address] [place] [address] [facility] [address] [place] [address] Physician Logistics Associate 07/13/20 Rosa Carr 09/03/21 Buck Green MD [address] [place] [address] [address] [place] [address] Obstetrics & Gynecology 09/04/21 Sylvester Patel PA-C [address] [place] [address] [address] [place] [address] Physician Logistics Associate 09/09/21 Alejandra Doan, RN 09/09/21 Radha Duran LPN LPN 11/01/21 Theresa Colon APRN [address] [place] [address] [address] [place] [address] Nurse Practitioner 11/27/21 Little Koo MD [address] [place] [address] 430 [place] [address] Gastroenterology 11/27/21 Mariana Schultz APRN [address] [place] [address] Nurse Practitioner Gastroenterology 01/28/22 Trino Wolff, BIOLOGY SPECIMEN TECHNICIAN BIOLOGY SPECIMEN TECHNICIAN 04/16/22 Blanca Whittington LPN BIOLOGY SPECIMEN TECHNICIAN 05/05/22 Blanca Reagan LPN BIOLOGY SPECIMEN TECHNICIAN 06/30/22 Enma Sneed, BIOLOGY SPECIMEN TECHNICIAN BIOLOGY SPECIMEN TECHNICIAN 05/09/25 documented as of this encounter
--- OUTSIDE RECORDS SUMMARY | 2025-05-09 12:52 | XMS_ITS | Encounter Summary ---
Author Organization [facility] Address [address] [place] [address] Care Team Providers Care Oil Inspector Name Role Phone Bennie Jo DO Primary Care Provider [phone] Vikram Duncan MD Primary Care Provider [phone] Aniyah Trammell POULTRY HATCHERY MAN Primary Care Provider Buck Santana MD Unavailable Mar Gomez POULTRY HATCHERY MAN Primary Care Provider [phone] Provider, Historical Unavailable Unavailable Shlomo BessC Unavailable [phone] Rosa Carr Unavailable Unavailable Buck Green MD Unavailable [phone] Sylvester Patel-C Unavailable [phone] Alejandra Doan RN Unavailable Unavailable Radha Duran ADMISSIONS OFFICER Unavailable Unavailable Theresa Colon POULTRY HATCHERY MAN Unavailable [phone] Little Koo MD Unavailable [phone] Mariana Schultz POULTRY HATCHERY MAN Unavailable [phone] Trino Wolff ADMISSIONS OFFICER Unavailable Unavailable Blanca Whittington ADMISSIONS OFFICER Unavailable Unavailab Blanca Monson ADMISSIONS OFFICER Unavailable Unavailable Desmond Tubbs APRN Primary Care Provider [phone] Enma Sneed ADMISSIONS OFFICER Unavailable Unavailable Encounter Details Date Type Department Care Team (Late st Contact Info) Description 12/30/2002 Historical Encounter Global Tony Morton MD [address] [place] [address] Social History Tobacco Use Types [...] documented as of this encounter Care Teams Oil Inspector Relationship Specialty Start Date End Date Bennie Jo DO PCP - General 04/24/09 09/20/12 Vikram Duncan MD [facility] [place] [address] PCP - General 08/14/08 04/23/09 Aniyah Trammell APRN [id number] [place] [address] PCP - General Nurse Practitioner 09/21/12 02/17/16 Mar Gomez APRN [address] [place] [address] PCP - General Nurse Practitioner 02/18/16 10/02/24 Desmond Tubbs APRN [id number] [place] [address] PCP - General Nurse Practitioner 12/30/24 Buck Santana MD [facility] [place] [address] Orthopedic Surgery 09/21/12 Provider, Historical 10/07/16 Shlomo Bess PA-C [address] [place] [address] B [facility] [address] [place] [address] Physician Lime Supervisor 07/13/20 Rosa Carr 09/03/21 Buck Green MD [address] [place] [address] [address] [place] [address] Obstetrics & Gynecology 09/04/21 Sylvester Patel PA-C [address] [place] [address] [place] [address] Physician Lime Supervisor 09/09/21 Alejandra Doan, SHANIA 09/09/21 Radha Duran LPN LPN 11/01/21 Theresa Colon APRN [address] [place] [address] [address] [place], [place] [address] Nurse Practitioner 11/27/21 Little Koo MD [address] [place] [address] 430 [place] [address] Gastroenterology 11/27/21 Mariana Schultz APRN [address] [place] [address] [place] [address] Nurse Practitioner Gastroenterology 01/28/22 Trino Wolff LPN ADMISSIONS OFFICER 04/16/22 Blanca Whittington, ADMISSIONS OFFICER ADMISSIONS OFFICER 05/05/22 Blanca Reagan, ADMISSIONS OFFICER ADMISSIONS OFFICER 06/30/22 Enma Sneed, ADMISSIONS OFFICER ADMISSIONS OFFICER 05/09/25 documented as of this encounter
--- OUTSIDE RECORDS SUMMARY | 2025-05-09 12:52 | XMS_ITS | Encounter Summary ---
Author Organization [facility] Address [address] [place] [address] Care Team Providers Care Emergency Veterinarian Name Role Phone Bennie Jo DO Primary Care Provider [phone] Vikram Duncan MD Primary Care Provider [phone] Aniyah Trammell AIRPLANE FLIGHT ATTENDANT Primary Care Provider Buck Santana MD Unavailable Mar Gomez AIRPLANE FLIGHT ATTENDANT Primary Care Provider Provider, Historical Unavailable Unavailable Shlomo BessC Unavailable [phone] Rosa Carr Unavailable Unavailable Buck Green MD Unavailable [phone] Sylvester Patel-C Unavailable [phone] Alejandra Doan RN Unavailable Unavailable Radha Duran LENS BLANK GAUGER Unavailable Unavailable Theresa Colon AIRPLANE FLIGHT ATTENDANT Unavailable [phone] Little Koo MD Unavailable [phone] Mariana Schultz AIRPLANE FLIGHT ATTENDANT Unavailable [phone] Trino Wolff LENS BLANK GAUGER Unavailable Unavailable Blanca Whittington LENS BLANK GAUGER Unavailable Unavailab Blanca Monson LENS BLANK GAUGER Unavailable Unavailable Desmond Tubbs APRN Primary Care Provider Enma Sneed LENS BLANK GAUGER Unavailable Unavailable Encounter Details Date Type Department Care Team (Late st Contact Info) Description 12/15/1999 Historical Encounter Global Social History Tobacco Use [...] documented as of this encounter Care Teams Emergency Veterinarian Relationship Specialty Start Date End Date Bennie Jo DO PCP - General 04/24/09 09/20/12 Vikram Duncan MD [address] [place] [address] PCP - General 08/14/08 04/23/09 Aniyah Trammell APRN [id number] [place] [address] PCP - General Nurse Practitioner 09/21/12 02/17/16 Mar Gomez [place]N [id number] [place] [address] PCP - General Nurse Practitioner 02/18/16 10/02/24 Desmond Tubbs APRN [id number] [place], [place] [id number] PCP - General Nurse Practitioner 12/30/24 Buck Santana MD [facility] [employer] [place] [address] Orthopedic Surgery 09/21/12 Provider, Historical 10/07/16 Shlomo Bess PA-C [address] [place] [address] B [facility] [address] [place] [address] Physician Sap Treasury Consultant 07/13/20 Rosa Carr 09/03/21 Buck Green MD [address] [place] [address] [address] [place] [address] Obstetrics & Gynecology 09/04/21 Sylvester Patel PA-C [address] [place] [address] 415 [place] [address] Physician Sap Treasury Consultant 09/09/21 Alejandra Doan, RN 09/09/21 Radha Duran LPN LPN 11/01/21 Theresa Colon APRN [address] [place] [address] 203 [place] [address] Nurse Practitioner 11/27/21 Little Koo MD [address] [place] [address] 430 [place] [address] Gastroenterology 11/27/21 Mariana Schultz APRN [address] [place] [address] Nurse Practitioner Gastroenterology 01/28/22 Trino Wolff, LENS BLANK GAUGER LENS BLANK GAUGER 04/16/22 Blanca Whittington LPN LENS BLANK GAUGER 05/05/22 Blanca Reagan LPN LENS BLANK GAUGER 06/30/22 Enma Sneed, LENS BLANK GAUGER LENS BLANK GAUGER 05/09/25 documented as of this encounter
--- OUTSIDE RECORDS SUMMARY | 2025-05-09 12:52 | XMS_ITS | Encounter Summary ---
Author Organization [facility] Address [address] [place] [address] Care Team Providers Care Employment Case Manager Name Role Phone Bennie Jo DO Primary Care Provider [phone] Vikram Duncan MD Primary Care Provider [phone] Aniyah Trammell HOUSING OFFICER Primary Care Provider Buck Santana MD Unavailable Mar Gomez HOUSING OFFICER Primary Care Provider Provider, Historical Unavailable Unavailable Shlomo BessC Unavailable [phone] Rosa Carr Unavailable Unavailable Buck Green MD Unavailable [phone] Sylvester Patel-C Unavailable [phone] Alejandra Doan RN Unavailable Unavailable Radha Duran BEAUTY PARLOR CLEANER Unavailable Unavailable Theresa Colon HOUSING OFFICER Unavailable [phone] Little Koo MD Unavailable [phone] Mariana Schultz HOUSING OFFICER Unavailable [phone] Trino Wolff BEAUTY PARLOR CLEANER Unavailable Unavailable Blanca Whittington BEAUTY PARLOR CLEANER Unavailable Unavailab Blanca Monson BEAUTY PARLOR CLEANER Unavailable Unavailable Desmond Tubbs APRN Primary Care Provider Enma Sneed BEAUTY PARLOR CLEANER Unavailable Unavailable Encounter Details Date Type Department Care Team (Late st Contact Info) Description 07/12/2002 Historical Encounter Global Anibal Dennis [facility] Social History Tobacco Use Types Packs/Day [...] documented as of this encounter Care Teams Employment Case Manager Relationship Specialty Start Date End Date Bennie Jo DO PCP - General 04/24/09 09/20/12 Vikram Duncan MD [address] [email or web address] [place] [address] PCP - General 08/14/08 04/23/09 Aniyah Trammell APRN [address] [place] [address] PCP - General Nurse Practitioner 09/21/12 02/17/16 Mar Gomez APRN [address] [place] [address] PCP - General Nurse Practitioner 02/18/16 10/02/24 Desmond Tubbs APRN [id number] [place] [address] PCP - General Nurse Practitioner 12/30/24 Buck Santana MD [address] [place] [address] Orthopedic Surgery 09/21/12 Provider, Historical 10/07/16 Shlomo Bess PA-C [address] [place] [address] B [facility] [address] [place] [address] Physician Informatica Mdm Architect 07/13/20 Rosa Carr 09/03/21 Buck Green MD [address] [place] [address] [place] [address] Obstetrics & Gynecology 09/04/21 Sylvester Patel PA-C [address] [place] [address] Physician Informatica Mdm Architect 09/09/21 Alejandra Doan, RN 09/09/21 Radha Duran LPN LPN 11/01/21 Theresa Colon APRN [address] [place] [address] 203 [place] [address] Nurse Practitioner 11/27/21 Little Koo MD [address] [place] [address] Gastroenterology 11/27/21 Mariana Schultz APRN [address] [place] [address] Nurse Practitioner Gastroenterology 01/28/22 Trino Wolff LPN LPN 04/16/22 Blanca Whittington LPN BEAUTY PARLOR CLEANER 05/05/22 Blanca Reagan LPN BEAUTY PARLOR CLEANER 06/30/22 Enma Sneed LPN BEAUTY PARLOR CLEANER 05/09/25 documented as of this encounter
--- OUTSIDE RECORDS SUMMARY | 2025-05-09 12:52 | XMS_ITS | Encounter Summary ---
Author Organization [facility] Address [address] [place] [address] Care Team Providers Care Appliance Technician Name Role Phone Bennie Jo DO Primary Care Provider [phone] Vikram Duncan MD Primary Care Provider [phone] Aniyah Trammell WEDDING TRANSPORTATION DRIVER Primary Care Provider Buck Santana MD Unavailable Mar Gomez WEDDING TRANSPORTATION DRIVER Primary Care Provider Provider, Historical Unavailable Unavailable Shlomo BessC Unavailable [phone] Rosa Carr Unavailable Unavailable Buck Green MD Unavailable [phone] Sylvester Patel-C Unavailable [phone] Alejandra Doan RN Unavailable Unavailable Radha Duran MAIL DISTRIBUTION CLERK Unavailable Unavailable Theresa Colon WEDDING TRANSPORTATION DRIVER Unavailable [phone] Little Koo MD Unavailable [phone] Mariana Schultz WEDDING TRANSPORTATION DRIVER Unavailable [phone] Trino Wolff MAIL DISTRIBUTION CLERK Unavailable Unavailable Blanca Whittington MAIL DISTRIBUTION CLERK Unavailable Unavailab Blanca Monson MAIL DISTRIBUTION CLERK Unavailable Unavailable Desmodn Tubbs APRN Primary Care Provider Enma Sneed MAIL DISTRIBUTION CLERK Unavailable Unavailable Encounter Details Date Type Department Care Team (Late st Contact Info) Description 01/10/2003 Historical Encounter Global Garima Maxwell MD [address] [place] [address] RD [address] [id number] Social History Tobacco Use Types Packs/Day Years [...] as of this encounter Care Teams Appliance Technician Relationship Specialty Start Date End Date Bennie Jo DO PCP - General 04/24/09 09/20/12 Vikram Duncan MD [address] [place] [address] PCP - General 08/14/08 04/23/09 Aniyah Trammell APRN [id number] [place] [address] PCP - General Nurse Practitioner 09/21/12 02/17/16 Mar Gomez APRN [id number] [place] [address] PCP - General Nurse Practitioner 02/18/16 10/02/24 Desmond Tubbs APRN [id number] [address] PCP - General Nurse Practitioner 12/30/24 Buck Santana MD [facility] [place] [address] Orthopedic Surgery 09/21/12 Provider, Historical 10/07/16 Shlomo Bess PA-C [address] [place] [address] [address] [place] [address] Physician Property Management Supervisor 07/13/20 Rosa Carr 09/03/21 Buck Green MD [address] [place] [address] [address] [place] [address] Obstetrics & Gynecology 09/04/21 Sylvester Patel PA-C [address] [place] [address] [address] [place] [address] Physician Property Management Supervisor 09/09/21 Alejandra Doan, SHANIA 09/09/21 Radha Duran LPN LPN 11/01/21 Theresa Colon APRN [address] [place] [address] [address] [place] [address] Nurse Practitioner 11/27/21 Little Koo MD [address] [place] [address] [address] [place] [address] Gastroenterology 11/27/21 Mariana Schultz APRN [address] [place] [address] [address] [place] [address] Nurse Practitioner Gastroenterology 01/28/22 Trino Wolff LPN MAIL DISTRIBUTION CLERK 04/16/22 Blanca Whittington, MAIL DISTRIBUTION CLERK MAIL DISTRIBUTION CLERK 05/05/22 Blanca Reagan, MAIL DISTRIBUTION CLERK MAIL DISTRIBUTION CLERK 06/30/22 Enma Sneed, MAIL DISTRIBUTION CLERK MAIL DISTRIBUTION CLERK 05/09/25 documented as of this encounter
--- OUTSIDE RECORDS SUMMARY | 2025-05-09 12:52 | XMS_ITS | Encounter Summary ---
Author Organization [facility] Address [address] [place] [address] Care Team Providers Care Administrative Dietitian Name Role Phone Bennie Jo DO Primary Care Provider [phone] Vikram Duncan MD Primary Care Provider [phone] Aniyah Trammell BIOLOGY LECTURER Primary Care Provider Buck Santana MD Unavailable Mar Gomez BIOLOGY LECTURER Primary Care Provider Provider, Historical Unavailable Unavailable Shlomo BessC Unavailable [phone] Rosa Carr Unavailable Unavailable Buck Green MD Unavailable [phone] Sylvester Patel-C Unavailable [phone] Alejandra Doan RN Unavailable Unavailable Radha Duran RUBBER GOODS ASSEMBLER Unavailable Unavailable Theresa Colon BIOLOGY LECTURER Unavailable [phone] Little Koo MD Unavailable [phone] Mariana Schultz BIOLOGY LECTURER Unavailable [phone] Trino Wolff RUBBER GOODS ASSEMBLER Unavailable Unavailable Blanca Whittington RUBBER GOODS ASSEMBLER Unavailable Unavailab Blanca Monson RUBBER GOODS ASSEMBLER Unavailable Unavailable Desmond Tubbs APRN Primary Care Provider [phone] Enma Sneed RUBBER GOODS ASSEMBLER Unavailable Unavailable Encounter Details Date Type Department Care Team (Late st Contact Info) Description 06/18/2002 Historical Encounter Global Amor Clemons MD [address] [place], [place] [id number] Social History Tobacco Use Types Packs/Day Years [...] documented as of this encounter Care Teams Administrative Dietitian Relationship Specialty Start Date End Date Bennie Jo DO PCP - General 04/24/09 09/20/12 Vikram Duncan MD [facility] [place] [address] PCP - General 08/14/08 04/23/09 Aniyah Trammell APRN [id number] [place] [address] PCP - General Nurse Practitioner 09/21/12 02/17/16 Mar Gomez APRN [address] [place] [address] PCP - General Nurse Practitioner 02/18/16 10/02/24 Desmond Tubbs APRN [id number] [address] [place], [place] [id number] PCP - General Nurse Practitioner 12/30/24 Buck Santana MD [facility] [place] [address] Orthopedic Surgery 09/21/12 Provider, Historical 10/07/16 Shlomo Bess PA-C [address] [place] [address] B [facility] [address] [place] [address] Physician Wood Chopper 07/13/20 Rosa Carr 09/03/21 Buck Green MD [address] [place] [address] [address] [place] [address] Obstetrics & Gynecology 09/04/21 Sylvester Patel PA-C [address] [place] [address] [address] [place] [address] Physician Wood Chopper 09/09/21 Alejandra Doan, SHANIA 09/09/21 Radha Duran LPN LPN 11/01/21 Theresa Colon APRN [address] [place] [address] [address] [place], [place] [id number] Nurse Practitioner 11/27/21 Little Koo MD [address] [place] [address] [address] [place] [address] Gastroenterology 11/27/21 Mariana Schultz APRN [address] [place] [address] [place] [address] Nurse Practitioner Gastroenterology 01/28/22 Trino Wolff LPN RUBBER GOODS ASSEMBLER 04/16/22 Blanca Whittington, RUBBER GOODS ASSEMBLER RUBBER GOODS ASSEMBLER 05/05/22 Blanca Reagan, RUBBER GOODS ASSEMBLER RUBBER GOODS ASSEMBLER 06/30/22 Enma Sneed, RUBBER GOODS ASSEMBLER RUBBER GOODS ASSEMBLER 05/09/25 documented as of this encounter
--- OUTSIDE RECORDS SUMMARY | 2025-05-09 12:52 | XMS_ITS | Encounter Summary ---
Author Organization [facility] Address [address] [place] [address] Care Team Providers Care Forming Roll Operator Heavy Duty Name Role Phone Bennie Jo DO Primary Care Provider [phone] Vikram Duncan MD Primary Care Provider [phone] Aniyah Trammell MASONRY CONTRACTOR ADMINISTRATOR Primary Care Provider Buck Santana MD Unavailable Mar Gomez MASONRY CONTRACTOR ADMINISTRATOR Primary Care Provider [phone] Provider, Historical Unavailable Unavailable Shlomo BessC Unavailable [phone] Rosa Carr Unavailable Unavailable Buck Green MD Unavailable [phone] Sylvester Patel-C Unavailable [phone] Alejandra Doan RN Unavailable Unavailable Radha Duran COMMERCIAL DRONE PILOT Unavailable Unavailable Theresa Colon MASONRY CONTRACTOR ADMINISTRATOR Unavailable [phone] Little Koo MD Unavailable [phone] Mariana Schultz MASONRY CONTRACTOR ADMINISTRATOR Unavailable [phone] Trino Wolff COMMERCIAL DRONE PILOT Unavailable Unavailable Blanca Whittington COMMERCIAL DRONE PILOT Unavailable Unavailab Blanca Monson COMMERCIAL DRONE PILOT Unavailable Unavailable Desmond Tubbs APRN Primary Care Provider Enma Sneed COMMERCIAL DRONE PILOT Unavailable Unavailable Encounter Details Date Type Department Care Team (Late st Contact Info) Description 09/08/1999 Historical Encounter Global Geri Fontana Social History Tobacco Use Types Packs/Day Years [...] documented as of this encounter Care Teams Forming Roll Operator Heavy Duty Relationship Specialty Start Date End Date Bennie Jo DO PCP - General 04/24/09 09/20/12 Vikram Duncan MD [address] [place] [address] PCP - General 08/14/08 04/23/09 Aniyah Trammell APRN [id number] [place] [address] PCP - General Nurse Practitioner 09/21/12 02/17/16 Mar Gomez APRN [address] [place] [address] PCP - General Nurse Practitioner 02/18/16 10/02/24 Desmond Tubbs APRN [id number] [place], [place] [id number] PCP - General Nurse Practitioner 12/30/24 Buck Santana MD [address] [place] [address] Orthopedic Surgery 09/21/12 Provider, Historical 10/07/16 Shlomo Bess PA-C [address] [place] [address] [address] [place] [address] Physician Fryer Line Helper 07/13/20 Rosa Carr 09/03/21 Buck Green MD [address] [place], [place] [address] Obstetrics & Gynecology 09/04/21 Sylvester Patel PA-C [address] [place] [address] Physician Fryer Line Helper 09/09/21 Alejandra Doan, RN 09/09/21 Radha Duran LPN LPN 11/01/21 Theresa Colon APRN [address] [place] [address] [address] [place] [address] Nurse Practitioner 11/27/21 Little Koo MD [address] [place] [address] Gastroenterology 11/27/21 Mariana Schultz APRN [address] [place] [address] Nurse Practitioner Gastroenterology 01/28/22 Trino Wolff, COMMERCIAL DRONE PILOT COMMERCIAL DRONE PILOT 04/16/22 Blanca Whittington LPN COMMERCIAL DRONE PILOT 05/05/22 Blanca Reagan LPN COMMERCIAL DRONE PILOT 06/30/22 Enma Sneed LPN COMMERCIAL DRONE PILOT 05/09/25 documented as of this encounter
--- OUTSIDE RECORDS SUMMARY | 2025-05-09 12:52 | XMS_ITS | Encounter Summary ---
Author Organization [facility] Address [address] [place] [address] Care Team Providers Care Insert Molding Operator Name Role Phone Bennie Jo DO Primary Care Provider [phone] Vikram Duncan MD Primary Care Provider [phone] Aniyah Trammell NURSE AUDITOR Primary Care Provider Buck Santana MD Unavailable Mar Gomez NURSE AUDITOR Primary Care Provider Provider, Historical Unavailable Unavailable Shlomo BessC Unavailable [phone] Rosa Carr Unavailable Unavailable Buck Green MD Unavailable [phone] Sylvester Patel-C Unavailable [phone] Alejandra Doan RN Unavailable Unavailable Radha Duran PESTICIDE APPLICATOR Unavailable Unavailable Theresa Colon NURSE AUDITOR Unavailable [phone] Little Koo MD Unavailable [phone] Mariana Schultz NURSE AUDITOR Unavailable [phone] Trino Wolff PESTICIDE APPLICATOR Unavailable Unavailable Blanca Whittington PESTICIDE APPLICATOR Unavailable Unavailab Blanca Monson PESTICIDE APPLICATOR Unavailable Unavailable Desmond Tubbs APRN Primary Care Provider Enma Sneed PESTICIDE APPLICATOR Unavailable Unavailable Encounter Details Date Type Department Care Team (Late st Contact Info) Description 11/30/2002 Historical Encounter Global Burak Yanez MD [address] [place], [place] [id number] Social History Tobacco Use Types Packs/Day Years [...] documented as of this encounter Care Teams Insert Molding Operator Relationship Specialty Start Date End Date Bennie Jo DO PCP - General 04/24/09 09/20/12 Vikram Duncan MD [address] [place] [address] PCP - General 08/14/08 04/23/09 Aniyah Trammell APRN [address] [place] [address] PCP - General Nurse Practitioner 09/21/12 02/17/16 Mar Gomez APRN [address] [place] [address] PCP - General Nurse Practitioner 02/18/16 10/02/24 Desmond Tubbs APRN [id number] [address] [place], [place] [address] PCP - General Nurse Practitioner 12/30/24 Buck Santana MD [facility] [place] [address] Orthopedic Surgery 09/21/12 Provider, Historical 10/07/16 Shlomo Bess PA-C [address] [place] [address] [address] [place] [address] Physician Tassel Clipper 07/13/20 Rosa Carr 09/03/21 Buck Green MD [address] [place] [address] [address] [place] [address] Obstetrics & Gynecology 09/04/21 Sylvester Patel PA-C [address] [place] [address] [address] [place] [address] Physician Tassel Clipper 09/09/21 Alejandra Doan, SHANIA 09/09/21 Radha Duran LPN LPN 11/01/21 Theresa Colon APRN [address] [place] [address] [address] [place] [address] Nurse Practitioner 11/27/21 Little Koo MD [address] [place] [address] [address] [facility] [place] [address] Gastroenterology 11/27/21 Mariana Schultz APRN [address] [place] [address] [address] [place] [address] Nurse Practitioner Gastroenterology 01/28/22 Trino Wolff LPN PESTICIDE APPLICATOR 04/16/22 Blanca Whittington, PESTICIDE APPLICATOR PESTICIDE APPLICATOR 05/05/22 Blanca Reagan, PESTICIDE APPLICATOR PESTICIDE APPLICATOR 06/30/22 Enma Sneed, PESTICIDE APPLICATOR PESTICIDE APPLICATOR 05/09/25 documented as of this encounter
--- OUTSIDE RECORDS SUMMARY | 2025-05-09 12:52 | XMS_ITS | Encounter Summary ---
Author Organization [facility] Address [address] [place] [address] Care Team Providers Care Hand Almond Blancher Name Role Phone Bennie Jo DO Primary Care Provider [phone] Vikram Duncan MD Primary Care Provider [phone] Aniyah Trammell SWATCH CHECKER Primary Care Provider Buck Santana MD Unavailable Mar Gomez SWATCH CHECKER Primary Care Provider Provider, Historical Unavailable Unavailable Shlomo BessC Unavailable [phone] Rosa Carr Unavailable Unavailable Buck Green MD Unavailable [phone] Sylvester Patel-C Unavailable [phone] Alejandra Doan RN Unavailable Unavailable Radha Duran CABLE BRAIDER Unavailable Unavailable Theresa Colon SWATCH CHECKER Unavailable [phone] Little Koo MD Unavailable [phone] Mariana Schultz SWATCH CHECKER Unavailable [phone] Trino Wolff CABLE BRAIDER Unavailable Unavailable Blanca Whittington CABLE BRAIDER Unavailable Unavailab Blanca Monson CABLE BRAIDER Unavailable Unavailable Desmond Tubbs APRN Primary Care Provider Enma Sneed CABLE BRAIDER Unavailable Unavailable Encounter Details Date Type Department Care Team (Late st Contact Info) Description 01/05/2003 Historical Encounter Global Quentin Schmitt Social History Tobacco Use Types Packs/Day Years [...] documented as of this encounter Care Teams Hand Almond Blancher Relationship Specialty Start Date End Date Bennie Jo DO PCP - General 04/24/09 09/20/12 Vikram Duncan MD [address] [place] [address] PCP - General 08/14/08 04/23/09 Aniyah Trammell APRN [id number] [place] [address] PCP - General Nurse Practitioner 09/21/12 02/17/16 Mar Gomez APRN [address] [place] [address] PCP - General Nurse Practitioner 02/18/16 10/02/24 Desmond Tubbs APRN [address] [place], [place] [address] PCP - General Nurse Practitioner 12/30/24 Buck Santana MD [facility] [place] [address] Orthopedic Surgery 09/21/12 Provider, Historical 10/07/16 Shlomo Bess PA-C [address] [place] [address] B [facility] [address] [place] [address] Physician Retread Builder 07/13/20 Rosa Carr 09/03/21 Buck Green MD [address] [place] [address] [address] [place] [address] Obstetrics & Gynecology 09/04/21 Sylvester Patel PA-C [address] [place] [address] Physician Retread Builder 09/09/21 Alejandra Doan, RN 09/09/21 Radha Duran LPN LPN 11/01/21 Theresa Colon APRN [address] [place] [address] 203 [place] [address] Nurse Practitioner 11/27/21 Little Koo MD [address] [place] [address] Gastroenterology 11/27/21 Mariana Schultz APRN [address] [place] [address] [place] [address] Nurse Practitioner Gastroenterology 01/28/22 Trino Wolff, CABLE BRAIDER CABLE BRAIDER 04/16/22 Blanca Whittington LPN CABLE BRAIDER 05/05/22 Blanca Reagan, CABLE BRAIDER CABLE BRAIDER 06/30/22 Enma Sneed LPN CABLE BRAIDER 05/09/25 documented as of this encounter
--- OUTSIDE RECORDS SUMMARY | 2025-05-09 12:52 | XMS_ITS | Encounter Summary ---
Author Organization [facility] Address [address] [place] [address] Care Team Providers Care Managing Consultant Clinical Professor Name Role Phone Bennie Jo DO Primary Care Provider [phone] Vikram Duncan MD Primary Care Provider [phone] Aniyah Trammell SHOTBLAST OPERATOR Primary Care Provider Buck Santana MD Unavailable Mar Gomez SHOTBLAST OPERATOR Primary Care Provider Provider, Historical Unavailable Unavailable Shlomo BessC Unavailable [phone] Rosa Carr Unavailable Unavailable Buck Green MD Unavailable [phone] Sylvester Patel-C Unavailable [phone] Alejandra Doan RN Unavailable Unavailable Radha Duran DATA ANALYSIS MANAGER Unavailable Unavailable Theresa Colon SHOTBLAST OPERATOR Unavailable [phone] Little Koo MD Unavailable [phone] Mariana Schultz SHOTBLAST OPERATOR Unavailable [phone] Trino Wolff DATA ANALYSIS MANAGER Unavailable Unavailable Blanca Whittington DATA ANALYSIS MANAGER Unavailable Unavailab Blanca Monson DATA ANALYSIS MANAGER Unavailable Unavailable Desmond Tubbs APRN Primary Care Provider [phone] Enma Sneed DATA ANALYSIS MANAGER Unavailable Unavailable Encounter Details Date Type Department Care Team (Late st Contact Info) Description 08/23/2002 Historical Encounter Global Garima Maxwell MD [address] [place] [address] [address] [address] Social History Tobacco Use Types Packs/Day Years [...] documented as of this encounter Care Teams Managing Consultant Clinical Professor Relationship Specialty Start Date End Date Bennie Jo DO PCP - General 04/24/09 09/20/12 Vikram Duncan MD [address] [place] [id number] PCP - General 08/14/08 04/23/09 Aniyah Trammell APRN [id number] [place] [address] PCP - General Nurse Practitioner 09/21/12 02/17/16 Mar Gomez APRN [address] [place] [address] PCP - General Nurse Practitioner 02/18/16 10/02/24 Desmond Tubbs APRN [id number] [address] [place] [address] PCP - General Nurse Practitioner 12/30/24 Buck Santana MD [facility] named [facility] [place] [address] Orthopedic Surgery 09/21/12 Provider, Historical 10/07/16 Shlomo Bess PA-C [address] [place] [address] [address] [place] [address] Physician Chef Head 07/13/20 Rosa Carr 09/03/21 Buck Green MD [address] [place] [address] [address] [place] [address] Obstetrics & Gynecology 09/04/21 Sylvester Patel PA-C [address] [place] [address] [address] [place] [address] Physician Chef Head 09/09/21 Alejandra Doan, SHANIA 09/09/21 Radha Duran LPN LPN 11/01/21 Theresa Colon APRN [address] [place] [address] [address] [place] [address] Nurse Practitioner 11/27/21 Little Koo MD [address] [place] [address] [address] [place] [address] Gastroenterology 11/27/21 Mariana Schultz APRN [address] [place] [address] [address] [place] [address] Nurse Practitioner Gastroenterology 01/28/22 Trino Wolff LPN DATA ANALYSIS MANAGER 04/16/22 Blanca Whittington, DATA ANALYSIS MANAGER DATA ANALYSIS MANAGER 05/05/22 Blanca Reagan, DATA ANALYSIS MANAGER DATA ANALYSIS MANAGER 06/30/22 Enma Sneed, DATA ANALYSIS MANAGER DATA ANALYSIS MANAGER 05/09/25 documented as of this encounter
--- OUTSIDE RECORDS SUMMARY | 2025-05-09 12:52 | XMS_ITS | Encounter Summary ---
Author Organization [facility] Address [address] [place] [address] Care Team Providers Care College Physics Instructor Name Role Phone Bennie Jo DO Primary Care Provider [phone] Vikram Duncan MD Primary Care Provider [phone] Aniyah Trammell FINANCIAL COUNSELOR Primary Care Provider Buck Santana MD Unavailable Mar Gomez FINANCIAL COUNSELOR Primary Care Provider [phone] Provider, Historical Unavailable Unavailable Shlomo BessC Unavailable [phone] Rosa Carr Unavailable Unavailable Buck Green MD Unavailable [phone] Sylvester Patel-C Unavailable [phone] Alejandra Doan RN Unavailable Unavailable Radha Duran ENGINEER PROCESS Unavailable Unavailable Theresa Colon FINANCIAL COUNSELOR Unavailable [phone] Little Koo MD Unavailable [phone] Mariana Schultz FINANCIAL COUNSELOR Unavailable [phone] Trino Wolff ENGINEER PROCESS Unavailable Unavailable Blanca Whittington ENGINEER PROCESS Unavailable Unavailab Blanca Monson ENGINEER PROCESS Unavailable Unavailable Desmond Tubbs APRN Primary Care Provider Enma Sneed ENGINEER PROCESS Unavailable Unavailable Encounter Details Date Type Department Care Team (Late st Contact Info) Description 10/21/2002 Historical Encounter Global Aron Odonnell MD [facility] Emergency Dept. [address] [facility] [place], [place] [id number] Social History Tobacco Use Types Packs/Day Years [...] documented as of this encounter Care Teams College Physics Instructor Relationship Specialty Start Date End Date Bennie Jo DO PCP - General 04/24/09 09/20/12 Vikram Duncan MD [facility] [place] [address] PCP - General 08/14/08 04/23/09 Aniyah Trammell APRN [address] [place] [address] PCP - General Nurse Practitioner 09/21/12 02/17/16 Mar Gomez APRN [address] [place] [address] PCP - General Nurse Practitioner 02/18/16 10/02/24 Desmond Tubbs APRN [id number] [address] PCP - General Nurse Practitioner 12/30/24 Buck Santana MD [facility] [place] [address] Orthopedic Surgery 09/21/12 Provider, Historical 10/07/16 Shlomo Bess PA-C [address] [place] [address] [address] [place] [address] Physician Repairer Cylinder Heads 07/13/20 Rosa Carr 09/03/21 Buck Green MD [address] [place] [address] [address] [place] [address] Obstetrics & Gynecology 09/04/21 Sylvester Patel PA-C [address] [place] [address] [address] [place] [address] Physician Repairer Cylinder Heads 09/09/21 Alejandra Doan, RN 09/09/21 Radha Duran LPN LPN 11/01/21 Theresa Colon APRN [address] [place] [address] [address] [place], [place] [address] Nurse Practitioner 11/27/21 Little Koo MD [address] [place] [address] [address] [facility] [place] [address] Gastroenterology 11/27/21 Mariana Schultz APRN [address] [place] [address] [address] [place] [address] Nurse Practitioner Gastroenterology 01/28/22 Trino Wolff, ENGINEER PROCESS ENGINEER PROCESS 04/16/22 Blanca Whittington, ENGINEER PROCESS ENGINEER PROCESS 05/05/22 Blanca Reagan, ENGINEER PROCESS ENGINEER PROCESS 06/30/22 Enma Sneed, ENGINEER PROCESS ENGINEER PROCESS 05/09/25 documented as of this encounter
--- OUTSIDE RECORDS SUMMARY | 2025-05-09 12:52 | XMS_ITS | Encounter Summary ---
Author Organization [facility] enter Address [address] [place] [address] Care Team Providers Care Bowling Floor Manager Name Role Phone Praveen Gomez CNP Primary Care Provider [phone] Praveen Gomez CNP Primary Care Provider [phone] Reason for Visit * Reason Onset Date Comments Schedule Surgery 08/04/2023 Encounter Details Date Type Department Care Team (Late st Contact Info) Description 08/04/2023 Telephone Central Scheduling [facility] [place] [address] Lisa Graham Schedule Surgery Social History Tobacco Use Types Packs/Day Years Used Date Smoking Tobacco: Former Cigarettes Q uit: 09/2020 Smokeless Tobacco: Never Alcohol Use Standard Drinks/Week Comments Not Currently 0 (1 standard drink = 0.6 oz pur e alcohol) Comments No Sex and Gender Information Value Date Recorded Sex Assigned at Not on file Legal Sex Female 11:21 AM EDT Gender Identity Not on file Sexual Orientation Not on file documented as of this encounter Miscellaneous Notes * Telephone Encounter - Lisa Graham - 08/04/2023 10:04 AM EDT Pt calling asking to schedule surgery documented in this encounter Plan of Treatment Not on file documented as of this encounter Visit Diagnoses Not on filedocumented in this encounter Care Teams Bowling Floor Manager Relationship Specialty Start Date End Date Praveen Gomez CNP [address] [place] [address] PCP - General Certified Nurse Practitioner 06/23/23 02/17/24 Praveen Gomez, TESSA [address] [place] [address] PCP - General Certified Nurse Practitioner 02/18/24 documented as of this encounter
--- OUTSIDE RECORDS SUMMARY | 2025-05-09 12:52 | XMS_ITS | Encounter Summary ---
Author Organization [facility] Address [address] [place] [address] Care Team Providers Care Electric System Operator Name Role Phone Buck Santana MD Unavailable Mar Gomez APRN Primary Care Provider [phone] Provider, Historical Unavailable Unavailable Shlomo Bess PA-C Unavailable [phone] Rosa Carr Unavailable Unavailable Buck Green MD Unavailable Sylvester Patel PA-C Unavailable Alejandra Doan RN Unavailable Unavailable Radha Duran LPN Unavailable Unavailable Theresa Colon CANE WEIGHER Unavailable [phone] Little Koo MD Unavailable Mariana Schultz CANE WEIGHER Unavailable Trino Wolff CUSTOM MILLER Unavailable Unavailable Blanca Whittington CUSTOM MILLER Unavailable Unavailab Blanca Monson CUSTOM MILLER Unavailable Unavailable Desmond Tubbs CANE WEIGHER Primary Care Provider Enma Sneed LPN Unavailable Unavailable Encounter Details Date Type Department Care Team (Late st Contact Info) Description 04/17/2022 Orders Only [facility] [address] [place] [address] [address] [place] [address] Radha Duran LPN Social History [...] Exposure Response Date Recorded In the last 10 days, have yo u been in contact with someone who was confirmed or suspected to have Coronavirus/COVID-19? No / Unsure 04/18/2022 8:02 AM EDT documented as of this encounter Plan of Treatment Not on file documented as of this encounter Visit Diagnoses Not on filedocumented in this encounter Additional Health Concerns Infection Onset Date Last Indicated Resolved Time Covid-19 (rule out) 05/07/2022 05/07/2022 05/08/20 22 12:33 AM EDT Covid-19 (confirmed) 11/05/2022 11/06/2022 023 10:12 PM EST documented as of this encounter Care Teams Electric System Operator Relationship Specialty Start Date End Date Mar Gomez APRN [id number] [place] [address] PCP - General Nurse Practitioner 02/18/16 10/02/24 Desmond Tubbs APRN [id number] [address] PCP - General Nurse Practitioner 12/30/24 Buck Santana MD [address] [place] [address] Orthopedic Surgery 09/21/12 Provider, Historical 10/07/16 Shlomo Bess PA-C [address] [place] [address] [address] [place] [address] Physician Canvas Worker Apprentice 07/13/20 Rosa Carr 09/03/21 Buck Green MD [address] [place] [address] [address] [place] [address] Obstetrics & Gynecology 09/04/21 Sylvester Patel PA-C [address] [place] [address] [address] [place] [address] Physician Canvas Worker Apprentice 09/09/21 Alejandra Doan, SHANIA 09/09/21 Radha Duran LPN LPN 11/01/21 Theresa Colon APRN [address] [place] [address] [address] [place], [place] [id number] Nurse Practitioner 11/27/21 Little Koo MD [address] [place] [address] [address] [place] [address] Gastroenterology 11/27/21 Mariana Schultz APRN [address] [place] [address] [address] [place] [address] Nurse Practitioner Gastroenterology 01/28/22 Trino Wolff, CUSTOM MILLER CUSTOM MILLER 04/16/22 Blanca Whittington, CUSTOM MILLER CUSTOM MILLER 05/05/22 Blanca Reagan, CUSTOM MILLER CUSTOM MILLER 06/30/22 Enma Sneed, CUSTOM MILLER CUSTOM MILLER 05/09/25 documented as of this encounter
--- OUTSIDE RECORDS SUMMARY | 2025-05-09 12:52 | XMS_ITS | Encounter Summary ---
Author Organization [facility] Address [address] [place] [address] Care Team Providers Care Head Of Mobile Name Role Phone Bennie oJ DO Primary Care Provider [phone] Vikram Duncan MD Primary Care Provider [phone] Aniyah Trammell LAWN CARE TECHNICIAN Primary Care Provider Buck Santana MD Unavailable Mar Gomez LAWN CARE TECHNICIAN Primary Care Provider [phone] Provider, Historical Unavailable Unavailable Shlomo BessC Unavailable [phone] Rosa Carr Unavailable Unavailable Buck Green MD Unavailable [phone] Sylvester Patel-C Unavailable [phone] Alejandra Doan RN Unavailable Unavailable Radha Duran ENROLLMENT ADVISOR Unavailable Unavailable Theresa Colon LAWN CARE TECHNICIAN Unavailable [phone] Little Koo MD Unavailable [phone] Mariana Schultz LAWN CARE TECHNICIAN Unavailable [phone] Trino Wolff ENROLLMENT ADVISOR Unavailable Unavailable Blanca Whittington ENROLLMENT ADVISOR Unavailable Unavailab Blanca Monson ENROLLMENT ADVISOR Unavailable Unavailable Desmond Tubbs APRN Primary Care Provider Enma Sneed ENROLLMENT ADVISOR Unavailable Unavailable Encounter Details Date Type Department Care Team (Late st Contact Info) Description 11/05/1999 Historical Encounter Global [facility] Social History Tobacco Use Types Packs/Day [...] documented as of this encounter Care Teams Head Of Mobile Relationship Specialty Start Date End Date Bennie Jo DO PCP - General 04/24/09 09/20/12 Vikram Duncan MD [address] [place] [address] PCP - General 08/14/08 04/23/09 Aniyah Trammell APRN [address] [place] [address] PCP - General Nurse Practitioner 09/21/12 02/17/16 Mar Gomez APRN [address] [place] [address] PCP - General Nurse Practitioner 02/18/16 10/02/24 Desmond Tubbs APRN [id number] [place] [address] PCP - General Nurse Practitioner 12/30/24 Buck Santana MD [address] [place] [address] Orthopedic Surgery 09/21/12 Provider, Historical 10/07/16 Shlomo Bess PA-C [address] [place] [address] [facility] [address] [place] [address] Physician Secretary To The Vice President 07/13/20 Rosa Carr 09/03/21 Buck Green MD [address] [place] [address] [place] [address] Obstetrics & Gynecology 09/04/21 Sylvester Patel PA-C [address] [place] [address] Physician Secretary To The Vice President 09/09/21 Alejandra Doan, RN 09/09/21 Radha Duran LPN LPN 11/01/21 Theresa Colon APRN [address] [place] [address] [address] [place] [address] Nurse Practitioner 11/27/21 Little Koo MD [address] [place] [address] Gastroenterology 11/27/21 Mariana Schultz APRN [address] [place] [address] Nurse Practitioner Gastroenterology 01/28/22 Trino Wolff LPN LPN 04/16/22 Blanca Whittington LPN ENROLLMENT ADVISOR 05/05/22 Blanca Reagan LPN ENROLLMENT ADVISOR 06/30/22 Enma Sneed LPN ENROLLMENT ADVISOR 05/09/25 documented as of this encounter
--- OUTSIDE RECORDS SUMMARY | 2025-05-09 12:52 | XMS_ITS | Encounter Summary ---
Author Organization [facility] Address [address] [place] [address] Care Team Providers Care State Pilot Name Role Phone Buck Santana MD Unavailable Mar Gomez APRN Primary Care Provider [phone] Provider, Historical Unavailable Unavailable Shlomo Bess PA-C Unavailable [phone] Rosa Carr Unavailable Unavailable Buck Green MD Unavailable Sylvester Patel PA-C Unavailable Alejandra Doan RN Unavailable Unavailable Radha Duran LPN Unavailable Unavailable Theresa Colon MULTIMEDIA INSTRUCTIONAL DESIGNER Unavailable [phone] Little Koo MD Unavailable Mariana Schultz MULTIMEDIA INSTRUCTIONAL DESIGNER Unavailable Trino Wolff CHILD CENTER ASSISTANT Unavailable Unavailable Blanca Whittington CHILD CENTER ASSISTANT Unavailable Unavailab Blanca Monson CHILD CENTER ASSISTANT Unavailable Unavailable Desmond Tubbs MULTIMEDIA INSTRUCTIONAL DESIGNER Primary Care Provider Enma Sneed LPN Unavailable Unavailable Encounter Details Date Type Department Care Team (Late st Contact Info) Description 04/16/2022 Orders Only [facility] [address] [place] [address] [address] [place] [address] Radha Duran LPN Amenorrhea (Primary Dx) Social History Tobacco Use Types [...] of this encounter Results * Test, Quant. (04/18/2022 8:08 AM EDT) BETA HCG 144 m[iU]/L 04/18/2022 9:03 AM EDT [facility] Comment: APPROXIMATE GESTATIONAL AGE APPROXIMATE hCG RANGE (mIU/ML) NON <5 0.2-1 WEEK 5-50 1-2 WEEKS 50-500 2-3 WEEKS 100-5,000 3-4 WEEKS 500-10,000 4-5 WEEKS 1,000-50,000 5-6 WEEKS 10,000-100,000 6-8 WEEKS 15,000-200,000 8-12 WEEKS 10,000-100,000 04/18/2022 8:08 AM EDT 04/18/2022 8:26 AM EDT Sylvester Patel PA-C CHEMISTRY ORDERABLES Final Re sult [facility] [address] [place] [address] [facility] [address] [place] [address] documented in this encounter Visit Diagnoses Diagnosis Amenorrhea- Primary Absence of menstruation documented in this encounter Additional Health Concerns Infection Onset Date Last Indicated Resolved Time Covid-19 (rule out) 05/07/2022 05/07/2022 05/08/20 22 12:33 AM EDT Covid-19 (confirmed) 11/05/2022 11/06/2022 023 10:12 PM EST documented as of this encounter Care Teams State Pilot Relationship Specialty Start Date End Date Mar Gomez APRN [address] [place] [address] PCP - General Nurse Practitioner 02/18/16 10/02/24 Desmond Tubbs APRN [id number] [address] [place], [place] [id number] PCP - General Nurse Practitioner 12/30/24 Buck Santana MD [address] [employer] [place], [place] [address] Orthopedic Surgery 09/21/12 Provider, Historical 10/07/16 Shlomo Bess PA-C [address] [place] [address] [address] [place] [address] Physician Cooker Meal 07/13/20 Rosa Carr 09/03/21 Buck Green MD [address] [place] [address] [address] [place] [address] Obstetrics & Gynecology 09/04/21 Sylvester Patel PA-C [address] [place] [address] [address] [place] [address] Physician Cooker Meal 09/09/21 Alejandra Doan, RN 09/09/21 Radha Duran LPN LPN 11/01/21 Theresa Colon APRN [address] [place] [address] [address] [place], [place] [address] Nurse Practitioner 11/27/21 Little Koo MD [address] [place] [address] Gastroenterology 11/27/21 Mariana Schultz APRN [address] [place] [address] Nurse Practitioner Gastroenterology 01/28/22 Trino Wolff, CHILD CENTER ASSISTANT CHILD CENTER ASSISTANT 04/16/22 Blanca Whittington, CHILD CENTER ASSISTANT CHILD CENTER ASSISTANT 05/05/22 Blanca Reagan, CHILD CENTER ASSISTANT CHILD CENTER ASSISTANT 06/30/22 Enma Sneed, CHILD CENTER ASSISTANT CHILD CENTER ASSISTANT 05/09/25 documented as of this encounter
--- OUTSIDE RECORDS SUMMARY | 2025-05-09 12:52 | XMS_ITS | Encounter Summary ---
Author Organization [facility] Address [address] [place] [address] Care Team Providers Care Seamer Elastic Band Name Role Phone Bennie Jo DO Primary Care Provider [phone] Vikram Duncan MD Primary Care Provider [phone] Aniyah Trammell SECRETARY SPECIALIST Primary Care Provider Buck Santana MD Unavailable Mar Gomez SECRETARY SPECIALIST Primary Care Provider Provider, Historical Unavailable Unavailable Shlomo BessC Unavailable [phone] Rosa Carr Unavailable Unavailable Buck Green MD Unavailable [phone] Sylvester Patel-C Unavailable [phone] Alejandra Doan RN Unavailable Unavailable Radha Duran DIRECTOR WORKFORCE MANAGEMENT Unavailable Unavailable Theresa Colon SECRETARY SPECIALIST Unavailable [phone] Little Koo MD Unavailable [phone] Mariana Schultz SECRETARY SPECIALIST Unavailable [phone] Trino Wolff DIRECTOR WORKFORCE MANAGEMENT Unavailable Unavailable Blanca Whittingtno DIRECTOR WORKFORCE MANAGEMENT Unavailable Unavailab Blanca Monson DIRECTOR WORKFORCE MANAGEMENT Unavailable Unavailable Desmond Tubbs APRN Primary Care Provider Enma Sneed DIRECTOR WORKFORCE MANAGEMENT Unavailable Unavailable Encounter Details Date Type Department Care Team (Late st Contact Info) Description 06/08/1996 Historical Encounter Global Abraham Eli MD Social [...] documented as of this encounter Care Teams Seamer Elastic Band Relationship Specialty Start Date End Date Bennie Jo DO PCP - General 04/24/09 09/20/12 Vikram Duncan MD [address] [place] [address] PCP - General 08/14/08 04/23/09 Aniyah Trammell, NISH [address] [place] [address] PCP - General Nurse Practitioner 09/21/12 02/17/16 Mar Gomez APRN [id number] [place] [address] PCP - General Nurse Practitioner 02/18/16 10/02/24 Desmond Tubbs APRN [address] [place], [place] [address] PCP - General Nurse Practitioner 12/30/24 Buck Santana MD [facility] [place] [address] Orthopedic Surgery 09/21/12 Provider, Historical 10/07/16 Shlomo Bess PA-C [address] [place] [address] B [facility] [address] [place] [address] Physician Quality Tech 07/13/20 Rosa Carr 09/03/21 Buck Green MD [address] [place] [address] [place] [address] Obstetrics & Gynecology 09/04/21 Sylvester Patel PA-C [address] [place] [address] Physician Quality Tech 09/09/21 Alejandra Doan, RN 09/09/21 Radha Duran LPN LPN 11/01/21 Theresa Colon APRN [address] [place] [address] [address] [place] [address] Nurse Practitioner 11/27/21 Little Koo MD [address] [place] [address] Gastroenterology 11/27/21 Mariana Schultz APRN [address] [place] [address] Nurse Practitioner Gastroenterology 01/28/22 Trino Wolff LPN LPN 04/16/22 Blanca Whittington LPN DIRECTOR WORKFORCE MANAGEMENT 05/05/22 Blanca Reagan LPN DIRECTOR WORKFORCE MANAGEMENT 06/30/22 Enma Sneed LPN DIRECTOR WORKFORCE MANAGEMENT 05/09/25 documented as of this encounter
--- OUTSIDE RECORDS SUMMARY | 2025-05-09 12:52 | XMS_ITS | Encounter Summary ---
Author Organization [facility] Address [address] [place] [address] Care Team Providers Care Lathing Supervisor Name Role Phone Bennie Jo DO Primary Care Provider [phone] Vikram Duncan MD Primary Care Provider [phone] Aniyah Trammell SIGNAL PERSON Primary Care Provider Buck Santana MD Unavailable Mar Gomez SIGNAL PERSON Primary Care Provider Provider, Historical Unavailable Unavailable Shlomo BessC Unavailable [phone] Rosa Carr Unavailable Unavailable Buck Green MD Unavailable [phone] Sylvester Patel-C Unavailable [phone] Alejanrda Doan RN Unavailable Unavailable Radha Duran RECONNAISSANCE CREWMEMBER Unavailable Unavailable Theresa Colon SIGNAL PERSON Unavailable [phone] Little Koo MD Unavailable [phone] Mariana Schultz SIGNAL PERSON Unavailable [phone] Trino Wolff RECONNAISSANCE CREWMEMBER Unavailable Unavailable Blanca Whittington RECONNAISSANCE CREWMEMBER Unavailable Unavailab Blanca Monson RECONNAISSANCE CREWMEMBER Unavailable Unavailable Desmond Tubbs APRN Primary Care Provider Enma Sneed RECONNAISSANCE CREWMEMBER Unavailable Unavailable Encounter Details Date Type Department Care Team (Late st Contact Info) Description 04/25/2002 Historical Encounter Global Garima Maxwell MD [address] [place] [address] [address] [address] Social History Tobacco Use Types Packs/Day Years [...] documented as of this encounter Care Teams Lathing Supervisor Relationship Specialty Start Date End Date Bennie Jo DO PCP - General 04/24/09 09/20/12 Vikram Duncan MD [address] [place] [address] PCP - General 08/14/08 04/23/09 Aniyah Trammell APRN [address] [place] [address] PCP - General Nurse Practitioner 09/21/12 02/17/16 Mar Gomez APRN [address] [place] [address] PCP - General Nurse Practitioner 02/18/16 10/02/24 Desmond Tubbs APRN [address] [address] PCP - General Nurse Practitioner 12/30/24 Buck Santana MD [facility]note 3] [place] [address] Orthopedic Surgery 09/21/12 Provider, Historical 10/07/16 Shlomo Bess PA-C [address] [place] [address] [address] [place] [address] Physician Lockmaker 07/13/20 Rosa Carr 09/03/21 Buck Green MD [address] [place] [address] [address] [place] [address] Obstetrics & Gynecology 09/04/21 Sylvester Patel PA-C [address] [place] [address] [address] [place] [address] Physician Lockmaker 09/09/21 Alejandra Doan, SHANIA 09/09/21 Radha Duran LPN LPN 11/01/21 Theresa Colon APRN [address] [place] [address] [address] [place] [address] Nurse Practitioner 11/27/21 Little Koo MD [address] [place] [address] [address] [place] [address] Gastroenterology 11/27/21 Mariana Schultz APRN [address] [place] [address] [address] [place] [address] Nurse Practitioner Gastroenterology 01/28/22 Trino Wolff LPN RECONNAISSANCE CREWMEMBER 04/16/22 Blanca Whittington, RECONNAISSANCE CREWMEMBER RECONNAISSANCE CREWMEMBER 05/05/22 Blanca Reagan, RECONNAISSANCE CREWMEMBER RECONNAISSANCE CREWMEMBER 06/30/22 Enma Sneed, RECONNAISSANCE CREWMEMBER RECONNAISSANCE CREWMEMBER 05/09/25 documented as of this encounter
--- OUTSIDE RECORDS SUMMARY | 2025-05-09 12:52 | XMS_ITS | Encounter Summary ---
Author Organization [facility] Address [address] [place] [address] Care Team Providers Care Parachute Harness Rigger Name Role Phone Bennie Jo DO Primary Care Provider [phone] Vikram Duncan MD Primary Care Provider [phone] Aniyah Trammell KEY WORKER Primary Care Provider Buck Santana MD Unavailable Mar Gomez KEY WORKER Primary Care Provider Provider, Historical Unavailable Unavailable Shlomo BessC Unavailable [phone] Rosa Carr Unavailable Unavailable Buck Green MD Unavailable [phone] Sylvester Patel-C Unavailable [phone] Alejandra Doan RN Unavailable Unavailable Radha Duran QUALITY CONTROL TECH RAW MATERIALS Unavailable Unavailable Theresa Colon KEY WORKER Unavailable [phone] Little Koo MD Unavailable [phone] Mariana Schultz KEY WORKER Unavailable [phone] Trino Wolff QUALITY CONTROL TECH RAW MATERIALS Unavailable Unavailable Blanca Whittington QUALITY CONTROL TECH RAW MATERIALS Unavailable Unavailab Blanca Monson QUALITY CONTROL TECH RAW MATERIALS Unavailable Unavailable Desmond Tubbs APRN Primary Care Provider Enma Sneed QUALITY CONTROL TECH RAW MATERIALS Unavailable Unavailable Encounter Details Date Type Department Care Team (Late st Contact Info) Description 05/16/2002 Historical Encounter Global Garima Maxwell MD [address] [place] [address] [address] [address] Social History Tobacco Use Types Packs/Day Years [...] documented as of this encounter Care Teams Parachute Harness Rigger Relationship Specialty Start Date End Date Bennie Jo DO PCP - General 04/24/09 09/20/12 Vikram Duncan MD [address] [place] [address] PCP - General 08/14/08 04/23/09 Aniyah Trammell APRN [address] [place] [address] PCP - General Nurse Practitioner 09/21/12 02/17/16 Mar Gomez APRN [address] [place] [address] PCP - General Nurse Practitioner 02/18/16 10/02/24 Desmond Tubbs APRN [address] [address] PCP - General Nurse Practitioner 12/30/24 Buck Santana MD [facility] [place] [address] Orthopedic Surgery 09/21/12 Provider, Historical 10/07/16 Shlomo Bess PA-C [address] [place] [address] [address] [place] [address] Physician Perishable Freight Inspector 07/13/20 Rosa Carr 09/03/21 Buck Green MD [address] [place] [address] [address] [place] [address] Obstetrics & Gynecology 09/04/21 Sylvester Patel PA-C [address] [place] [address] [address] [place] [address] Physician Perishable Freight Inspector 09/09/21 Alejandra Doan, SHANIA 09/09/21 Radha Duran LPN LPN 11/01/21 Theresa Colon APRN [address] [place] [address] [address] [place] [address] Nurse Practitioner 11/27/21 Little Koo MD [address] [place] [address] [address] [place] [address] Gastroenterology 11/27/21 Mariana Schultz APRN [address] [place] [address] [address] [place] [address] Nurse Practitioner Gastroenterology 01/28/22 Trino Wolff LPN QUALITY CONTROL TECH RAW MATERIALS 04/16/22 Blanca Whittington, QUALITY CONTROL TECH RAW MATERIALS QUALITY CONTROL TECH RAW MATERIALS 05/05/22 Blanca Reagan, QUALITY CONTROL TECH RAW MATERIALS QUALITY CONTROL TECH RAW MATERIALS 06/30/22 Enma Sneed, QUALITY CONTROL TECH RAW MATERIALS QUALITY CONTROL TECH RAW MATERIALS 05/09/25 documented as of this encounter
--- OUTSIDE RECORDS SUMMARY | 2025-05-09 12:52 | XMS_ITS | Encounter Summary ---
Author Organization [facility] Address [address] [place] [address] Care Team Providers Care Strand And Binder Controller Name Role Phone Bennie Jo DO Primary Care Provider [phone] Vikram Duncan MD Primary Care Provider [phone] Aniyah Trammell ALUMINUM HYDROXIDE PROCESS OPERATOR Primary Care Provider Buck Santana MD Unavailable Mar Gomez ALUMINUM HYDROXIDE PROCESS OPERATOR Primary Care Provider [phone] Provider, Historical Unavailable Unavailable Shlomo BessC Unavailable [phone] Rosa Carr Unavailable Unavailable Buck Green MD Unavailable [phone] Sylvester Patel-C Unavailable [phone] Alejandra Doan RN Unavailable Unavailable Radha Duran STREET OPENINGS INSPECTOR Unavailable Unavailable Theresa Colon ALUMINUM HYDROXIDE PROCESS OPERATOR Unavailable [phone] Little Koo MD Unavailable [phone] Mariana Schultz ALUMINUM HYDROXIDE PROCESS OPERATOR Unavailable [phone] OPENINGS INSPECTOR Unavailable Unavailable Blanca Whittington STREET OPENINGS INSPECTOR Unavailable Unavailab Blanca Monson STREET OPENINGS INSPECTOR Unavailable Unavailable Desmond Tubbs APRN Primary Care Provider Enma Sneed STREET OPENINGS INSPECTOR Unavailable Unavailable Encounter Details Date Type Department Care Team (Late st Contact Info) Description 01/05/2003 Historical Encounter Global Garima Maxwell MD [address] [place] [address] RD [address] [address] Social History Tobacco Use Types Packs/Day Years [...] documented as of this encounter Care Teams Strand And Binder Controller Relationship Specialty Start Date End Date Bennie Jo DO PCP - General 04/24/09 09/20/12 Vikram Duncan MD [address] [place] [address] PCP - General 08/14/08 04/23/09 Aniyah Trammell APRN [address] [place] [address] PCP - General Nurse Practitioner 09/21/12 02/17/16 Mar Gomez APRN [address] [place] [address] PCP - General Nurse Practitioner 02/18/16 10/02/24 Desmond Tubbs APRN [id number] [address] PCP - General Nurse Practitioner 12/30/24 Buck Santana MD [facility] [place] [address] Orthopedic Surgery 09/21/12 Provider, Historical 10/07/16 Shlomo Bess PA-C [address] [place] [address] [address] [place] [address] Physician Inner Tube Tuber Machine Operator 07/13/20 Rosa Carr 09/03/21 Buck Green MD [address] [place] [address] [address] [place] [address] Obstetrics & Gynecology 09/04/21 Sylvester Patel PA-C [address] [place] [address] [address] [place] [address] Physician Inner Tube Tuber Machine Operator 09/09/21 Alejandra Doan, SHANIA 09/09/21 Radha Duran LPN LPN 11/01/21 Theresa Colon APRN [address] [place] [address] [address] [place] [address] Nurse Practitioner 11/27/21 Little Koo MD [address] [place] [address] [address] [place] [address] Gastroenterology 11/27/21 Mariana Schultz APRN [address] [place] [address] [address] [place] [address] Nurse Practitioner Gastroenterology 01/28/[address]RE[address] OPENINGS INSPECTOR 04/16/22 Blanca Whittington, STREET OPENINGS INSPECTOR STREET OPENINGS INSPECTOR 05/05/22 Blanca Reagan, STREET OPENINGS INSPECTOR STREET OPENINGS INSPECTOR 06/30/22 Enma Sneed, STREET OPENINGS INSPECTOR STREET OPENINGS INSPECTOR 05/09/25 documented as of this encounter
--- OUTSIDE RECORDS SUMMARY | 2025-05-09 12:52 | XMS_ITS | Encounter Summary ---
Author Organization [facility] Address [address] [place] [address] Care Team Providers Care Single Needle Operator Name Role Phone Buck Santana MD Unavailable Mar Gomez APRN Primary Care Provider [phone] Provider, Historical Unavailable Unavailable Shlomo Bess PA-C Unavailable Rosa Carr Unavailable Unavailable Buck Green MD Unavailable Sylvester Patel PA-C Unavailable [phone] Alejandra Doan RN Unavailable Unavailable Radha Duran LPN Unavailable Unavailable Theresa Colon FOREST FIRE PREVENTION MANAGER Unavailable Little Koo MD Unavailable Mariana Schultz APRN Unavailable [phone] Trino Wolff LPN Unavailable Unavailable Blanca Whittington CALKER Unavailable Unavailab Blanca Monson CALKER Unavailable Unavailable Desmond Tubbs APRN Primary Care Provider Enma Sneed LPN Unavailable Unavailable Reason for Visit * Reason Comments Other Encounter Details Date Type Department Care Team (Late st Contact Info) Description 06/13/2022 Refill [facility] [address] [place] [address], [address] [place] [address] Mariana Schultz APRN [address] [place] [address] [address] [place] [address] Social History Tobacco Use Types Packs/Day Years [...] Onset Date Last Indicated Resolved Time Covid-19 (confirmed) 11/05/2022 11/06/2022 023 10:12 PM EST documented as of this encounter Care Teams Single Needle Operator Relationship Specialty Start Date End Date Mar Gomez APRN [address] [place] [address] PCP - General Nurse Practitioner 02/18/16 10/02/24 Desmond Tubbs APRN [address] [address] PCP - General Nurse Practitioner 12/30/24 Buck Santana MD [facility] [place] [address] Orthopedic Surgery 09/21/12 Provider, Historical 10/07/16 Shlomo Bess PA-C [address] [place] [address] [address] [place] [id number] Physician Edge Inker Heels 07/13/20 Rosa Carr 09/03/21 Buck Green MD [address] [place] [address] [address] [place] [address] Obstetrics & Gynecology 09/04/21 Sylvester Patel PA-C [address] [place] [address] [address] [place] [address] Physician Edge Inker Heels 09/09/21 Alejandra Doan, RN 09/09/21 Radha Duran, CALKER CALKER 11/01/21 Theresa Colon APRN [address] [place] [address] [address] [place], [place] [address] Nurse Practitioner 11/27/21 Little Koo MD [address] [place] [address] [address] [facility] [place] [address] Gastroenterology 11/27/21 Mariana Schultz APRN [address] [place] [address] [address] [place] [address] Nurse Practitioner Gastroenterology 01/28/22 Trino Wolff, CALKER CALKER 04/16/22 Blanca Whittington, CALKER CALKER 05/05/22 Blanca Reagan, CALKER CALKER 06/30/22 Enma Sneed, CALKER CALKER 05/09/25 documented as of this encounter
--- OUTSIDE RECORDS SUMMARY | 2025-05-09 12:52 | XMS_ITS ---
Author Name [facility] Organization Unknown History of Medication Use Medication Directions Dispensed Refills Start Date End Date Stat us docusate sodium 100 mg oral capsule 100 mg = 1 cap(s), PO, q12h, Qty: 60 cap(s), 0 Refill(s), Total Refills: 0, Requisition Routing Type Route to Pharmacy Electronically, Pharmacy: [facility] 12/09/2022 iron polysaccharide (as elemental iron) 150 mg oral capsule 150 mg = 1 cap(s), PO, qDay, Qty: 30 cap(s), 0 Refill(s), Total Refills: 0, Requisition Routing Type Route to Pharmacy Electronically, Pharmacy: [facility] 12/09/2022 PNV oral tablet 1 tab(s), PO, daily, Qty: 30 tab(s), 2 Refill(s), Requisition Routing Type Route to Pharmacy Electronically, Pharmacy: [facility] 11/23/2022 Venofer 20 mg/mL intravenous solution 100 mg = 5 mL, IV, Twice Weekly, Qty: 200 mL, 0 Refill(s), Total Refills: 0, Requisition Routing Type Print Requisition 10/14/2022 Diflucan 150 mg oral tablet 150 mg = 1 tab(s), PO, 1x (once), Qty: 1 tab(s), 0 Refill(s), Total Refills: 0, Requisition Routing Type Route to Pharmacy Electronically, Pharmacy: [facility] 09/03/2022 Protonix PO, daily, 0 Refill(s) 05/05/2022 No Known Medications No Known Medications 04/23/2022 completed Allergies Allergen Reaction Severity Comment Documented Date Source Statu s ERYTHROMYCIN HIVES [facility] KEFLEX HIVES [facility] LEVAQUIN HIVES [facility] Problems Problem Status Onset Date Problem Type Date of Resoluti on Source Female sterilization (procedure) active ProblemAct [facility] RhD negative (finding) active ProblemAct [facility] Iron deficiency anemia (disorder) active ProblemAct [facility] Alteration in comfort: pain (finding) active ProblemAct [facility] At risk for falls (finding) active ProblemAct [facility] Ineffective breathing pattern (finding) active ProblemAct [facility] Anemia of (disorder) active ProblemAct [facility] 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 ProblemAct [facility] History of intrauterine active ProblemAct [facility] Hypervolemia (disorder) active ProblemAct [facility] Patient currently (finding) active ProblemAct [facility] Multigravida of advanced maternal age (finding) active ProblemAct [facility] Encounters Encounter Type Encounter Reason Primary Diagnosis Location Date Ambulatory [facility] 03/26/2023 Ambulatory [facility] 03/16/2023 Ambulatory [facility] 02/23/2023 Ambulatory [facility] 02/02/2023 Ambulatory [facility] 01/27/2023 Ambulatory [facility] 01/06/2023 Ambulatory [facility] 12/31/2022 Ambulatory [facility] 12/22/2022 Inpatient [facility] 12/07/2022 Ambulatory [facility] 12/02/2022 Ambulatory [facility] 11/30/2022 Ambulatory [facility] 11/25/2022 Ambulatory [facility] 11/22/2022 Ambulatory [facility] 11/20/2022 Observation [facility] 11[facility]18/2022 Ambulatory [facility] 11/14/2022 Ambulatory [facility] 11[facility]13/2022 Ambulatory [facility] 11/12/2022 Ambulatory [facility] 11/04/2022 Ambulatory [facility] 10[facility]30/2022 Ambulatory [facility] 10/20/2022 Ambulatory [facility] 10/14/2022 Ambulatory [facility] 10/14/2022 Ambulatory [facility] 09/30/2022 Ambulatory [facility] 09/30/2022 Ambulatory [facility] 09/16/2022 Ambulatory [facility] 09/10/2022 Ambulatory [facility] 09[facility]10/2022 Ambulatory [facility] 09/03/2022 Ambulatory [facility] 08/21/2022 Ambulatory [facility] 08/07/2022 Ambulatory [facility] 07/23/2022 Ambulatory [facility] 07/23/2022 Ambulatory [facility] 07/10/2022 Ambulatory [facility] 06/12/2022 Ambulatory [facility] 06/12/2022 Ambulatory [facility] 06/10/2022 Ambulatory [facility] 05/29/2022 Ambulatory [facility] 05/29/2022 Ambulatory [facility] 05[facility]28/2022 Ambulatory [facility] 05/05/2022 Ambulatory [facility] 04/30/2022 Ambulatory [facility] 04/29/2022 Ambulatory [facility] 04/25/2022 Ambulatory [facility] 04/25/2022 Ambulatory [facility] 04/23/2022 Ambulatory [facility] 04/23/2022 Care Team Organization Name Specialty Phone Email Start Date End Da te [facility] 11/13/2022 11/13/2022 [facility] 11/12/2022 11/12/2022 [facility] 08/29/202205/23 Replaced By [facility] Praveen Gomez Primary Care 04/23/2022 08/21/20 [facility] Praveen Gomez Primary Care 04/23/2022 07/23/20
--- OUTSIDE RECORDS SUMMARY | 2025-05-09 12:52 | XMS_ITS | Encounter Summary ---
Author Organization [facility] Address [address] [place] [address] Care Team Providers Care Platen Press Operator Name Role Phone Bennie Jo DO Primary Care Provider [phone] Vikram Duncan MD Primary Care Provider [phone] Aniyah Trammell OIM CONSULTANT Primary Care Provider Buck Santana MD Unavailable Mar Gomez OIM CONSULTANT Primary Care Provider Provider, Historical Unavailable Unavailable Shlomo BessC Unavailable [phone] Rosa Carr Unavailable Unavailable Buck Green MD Unavailable [phone] Sylvester Patel-C Unavailable [phone] Alejandra Doan RN Unavailable Unavailable Radha Duran CORN POPPER Unavailable Unavailable Theresa Colon OIM CONSULTANT Unavailable [phone] Little Koo MD Unavailable [phone] Mariana Schultz OIM CONSULTANT Unavailable [phone] Trino Wolff CORN POPPER Unavailable Unavailable Blanca Whittington CORN POPPER Unavailable Unavailab Blanca Monson CORN POPPER Unavailable Unavailable Desmond Tubbs APRN Primary Care Provider Enma Sneed CORN POPPER Unavailable Unavailable Encounter Details Date Type Department Care Team (Late st Contact Info) Description 12/31/2002 Historical Encounter Global Quentin Schmitt Social History [...] documented as of this encounter Care Teams Platen Press Operator Relationship Specialty Start Date End Date Bennie Jo DO PCP - General 04/24/09 09/20/12 Vikram Duncan MD [address] [place] [address] PCP - General 08/14/08 04/23/09 Aniyah Trammell APRN [id number] [place] [address] PCP - General Nurse Practitioner 09/21/12 02/17/16 Mar Gomez APRN [address] [place] [address] PCP - General Nurse Practitioner 02/18/16 10/02/24 Desmond Tubbs APRN [id number] [place], [place] [address] PCP - General Nurse Practitioner 12/30/24 Buck Santana MD [facility][note 3] [place] [address] Orthopedic Surgery 09/21/12 Provider, Historical 10/07/16 Shlomo Bess PA-C [address] [place] [address] [address] [facility] [address] [place] [address] Physician Lawn And Garden Technician 07/13/20 Rosa Carr 09/03/21 Buck Green MD [address] [place] [address] [address] [place] [address] Obstetrics & Gynecology 09/04/21 Sylvester Patel PA-C [address] [place] [address] Physician Lawn And Garden Technician 09/09/21 Alejandra Doan, RN 09/09/21 Radha Duran LPN LPN 11/01/21 Theresa Colon APRN [address] [place] [address] [address] [place] [address] Nurse Practitioner 11/27/21 Little Koo MD [address] [place] [address] Gastroenterology 11/27/21 Mariana Schultz APRN [address] [place] [address] [place] [address] Nurse Practitioner Gastroenterology 01/28/22 Trino Wolff, CORN POPPER CORN POPPER 04/16/22 Blanca Whittington LPN CORN POPPER 05/05/22 Blanca Reagan, CORN POPPER CORN POPPER 06/30/22 Enma Sneed LPN CORN POPPER 05/09/25 documented as of this encounter
--- OUTSIDE RECORDS SUMMARY | 2025-05-09 12:52 | XMS_ITS | Encounter Summary ---
Author Organization [facility] enter Address [address] [place] [address] Care Team Providers Care Shoe Shanker Name Role Phone Praveen Gomez CLAIMS VICE PRESIDENT Primary Care Provider [phone] Praveen Gomez CLAIMS VICE PRESIDENT Primary Care Provider [phone] Reason for Visit * Reason Onset Date Comments Advice Only 08/21/2023 Encounter Details Date Type Department Care Team (Late st Contact Info) Description 08/21/2023 Telephone Central Scheduling [facility] [place] [address] Lisa Graham Advice Only Social History Tobacco Use Types Packs/Day Years [...] encounter Miscellaneous Notes * Telephone Encounter - Vicky Floyd RN - 08/21/2023 10:50 AM EST Forwarded message to Dr. Muñoz via [employer] chat. Per Dr. Muñoz this is not needed. Relayed to pt, Understanding is verbalized. * Telephone Encounter - Lisa Graham - 08/21/2023 10:[address] Muñoz, Pt calling asking if she needs to do a bowel prep before surgery 08/24/23. Pt is currently doing liver shrink diet. Pt asking for a call back documented in this encounter Plan of Treatment Not on file documented as of this encounter Visit Diagnoses Not on filedocumented in this encounter Care Teams Shoe Shanker Relationship Specialty Start Date End Date Praveen Gomez CNP [address] [place] [address] PCP - General Certified Nurse Practitioner 06/23/23 02/17/24 Praveen Gomez CNP [address] [place] [address] PCP - General Certified Nurse Practitioner 02/18/24 documented as of this encounter
--- OUTSIDE RECORDS SUMMARY | 2025-05-09 12:52 | XMS_ITS | Encounter Summary ---
Author Organization [facility] Address [address] [place] [address] Care Team Providers Care Automatic Coil Machine Operator Name Role Phone Bennie Jo DO Primary Care Provider [phone] Vikram Duncan MD Primary Care Provider [phone] Aniyah Trammell PHOTOGRAPHIC MACHINE OPERATOR Primary Care Provider Buck Santana MD Unavailable Mar Gomez PHOTOGRAPHIC MACHINE OPERATOR Primary Care Provider [phone] Provider, Historical Unavailable Unavailable Shlomo BessC Unavailable [phone] Rosa Carr Unavailable Unavailable Buck Green MD Unavailable [phone] Sylvester Patel-C Unavailable [phone] Alejandra Doan RN Unavailable Unavailable Radha Duran MARKET GARDEN WORKER Unavailable Unavailable Theresa Colon PHOTOGRAPHIC MACHINE OPERATOR Unavailable [phone] Little Koo MD Unavailable [phone] Mariana Schultz PHOTOGRAPHIC MACHINE OPERATOR Unavailable [phone] Trino Wolff MARKET GARDEN WORKER Unavailable Unavailable Blanca Whittington MARKET GARDEN WORKER Unavailable Unavailab Blanca Monson MARKET GARDEN WORKER Unavailable Unavailable Desmond Tubbs APRN Primary Care Provider Enma Sneed MARKET GARDEN WORKER Unavailable Unavailable Encounter Details Date Type Department Care Team (Late st Contact Info) Description 01/15/1999 Historical [facility] Social History Tobacco Use Types [...] documented as of this encounter Care Teams Automatic Coil Machine Operator Relationship Specialty Start Date End Date Bennie Jo DO PCP - General 04/24/09 09/20/12 Vikram Duncan MD [address] [place] [address] PCP - General 08/14/08 04/23/09 Aniyah Trammell APRN [address] [place] [address] PCP - General Nurse Practitioner 09/21/12 02/17/16 Mar Gomez APRN [address] [place] [address] PCP - General Nurse Practitioner 02/18/16 10/02/24 Desmond Tubbs APRN [id number] [place] [address] PCP - General Nurse Practitioner 12/30/24 Buck Santana MD [address] [place] [address] Orthopedic Surgery 09/21/12 Provider, Historical 10/07/16 Shlomo Bess PA-C [address] [place] [address] [address] [facility] [address] [place] [address] Physician Pants Presser 07/13/20 Rosa Carr 09/03/21 Buck Green MD [address] [place] [address] [place] [address] Obstetrics & Gynecology 09/04/21 Sylvester Patel PA-C [address] [place] [address] Physician Pants Presser 09/09/21 Alejandra Doan, RN 09/09/21 Radha Duran LPN LPN 11/01/21 Theresa Colon APRN [address] [place] [address] [address] [place] [address] Nurse Practitioner 11/27/21 Little Koo MD [address] [place] [address] Gastroenterology 11/27/21 Mariana Schultz APRN [address] [place] [address] Nurse Practitioner Gastroenterology 01/28/22 Trino Wolff LPN LPN 04/16/22 Blanca Whittington LPN MARKET GARDEN WORKER 05/05/22 Blanca Reagan LPN MARKET GARDEN WORKER 06/30/22 Enma Sneed LPN MARKET GARDEN WORKER 05/09/25 documented as of this encounter
--- OUTSIDE RECORDS SUMMARY | 2025-05-09 12:52 | XMS_ITS | Encounter Summary ---
Author Organization [facility] enter Address [address] [place] [address] Care Team Providers Care Agent Broker Name Role Phone Praveen Gomez OPERATIONS DEVELOPER Primary Care Provider [phone] Praveen Gomez OPERATIONS DEVELOPER Primary Care Provider [phone] Encounter Details Date Type Department Care Team (Late st Contact Info) Description 08/04/2023 Telephone General and Gastrointestinal Surgery Outpatient Care [address] [place] [address] Alize Bartholomew Social History Tobacco Use Types Packs/Day Years [...] on filedocumented in this encounter Care Teams Agent Broker Relationship Specialty Start Date End Date Praveen Gomez CNP [address] [place] [address] PCP - General Certified Nurse Practitioner 06/23/23 02/17/24 Praveen Gomez CNP [address] [place] [address] PCP - General Certified Nurse Practitioner 02/18/24 documented as of this encounter
--- OUTSIDE RECORDS SUMMARY | 2025-05-09 12:52 | XMS_ITS | Encounter Summary ---
Author Organization [facility] Address [address] [place] [address] Care Team Providers Care Wood Stainer Name Role Phone Bennie Jo DO Primary Care Provider [phone] Vikram Duncan MD Primary Care Provider [phone] Aniyah Trammell DIRECTOR OF ADVERTISING SALES Primary Care Provider Buck Santana MD Unavailable Mar Gomez DIRECTOR OF ADVERTISING SALES Primary Care Provider [phone] Provider, Historical Unavailable Unavailable Shlomo BessC Unavailable [phone] Rosa Carr Unavailable Unavailable Buck Green MD Unavailable [phone] Sylvester Patel-C Unavailable [phone] Alejandra Doan RN Unavailable Unavailable Radha Duran AUDIENCE DEVELOPMENT MANAGER Unavailable Unavailable Theresa Colon DIRECTOR OF ADVERTISING SALES Unavailable [phone] Little Koo MD Unavailable [phone] Mariana Schultz DIRECTOR OF ADVERTISING SALES Unavailable [phone] Trino Wolff AUDIENCE DEVELOPMENT MANAGER Unavailable Unavailable Blanca Whittington AUDIENCE DEVELOPMENT MANAGER Unavailable Unavailab Blanca Monson AUDIENCE DEVELOPMENT MANAGER Unavailable Unavailable Desmond Tubbs APRN Primary Care Provider [phone] Enma Sneed AUDIENCE DEVELOPMENT MANAGER Unavailable Unavailable Encounter Details Date Type Department Care Team (Late st Contact Info) Description 01/17/2003 Historical Encounter Global Garima Maxwell MD [address] [place] [address] RD [place] [place] [id number] Social History Tobacco Use Types Packs/Day Years [...] documented as of this encounter Care Teams Wood Stainer Relationship Specialty Start Date End Date Bennie Jo DO PCP - General 04/24/09 09/20/12 Vikram Duncan MD [address] [place] [address] PCP - General 08/14/08 04/23/09 Aniyah Trammell APRN [id number] [place] [address] PCP - General Nurse Practitioner 09/21/12 02/17/16 Mar Gomez APRN [address] [place] [address] PCP - General Nurse Practitioner 02/18/16 10/02/24 Desmond Tubbs APRN [id number] [address] PCP - General Nurse Practitioner 12/30/[address] [facility] [place] [address] Orthopedic Surgery 09/21/12 Provider, Historical 10/07/16 Shlomo Bess PA-C [address] [place] [address] [address] [place] [address] Physician Dowel Sticker Operator 07/13/20 Rosa Carr 09/03/21 Buck Green MD [address] [place] [address] [address] [place] [address] Obstetrics & Gynecology 09/04/21 Sylvester Patel PA-C [address] [place] [address] [address] [place] [address] Physician Dowel Sticker Operator 09/09/21 Alejandra Doan, SHANIA 09/09/21 Radha Duran LPN LPN 11/01/21 Theresa Colon APRN [address] [place] [address] [address] [place] [address] Nurse Practitioner 11/27/21 Little Koo MD [address] [place] [address] [address] [place] [address] Gastroenterology 11/27/21 Mariana Schultz APRN [address] [place] [address] [address] [place] [address] Nurse Practitioner Gastroenterology 01/28/22 Trino Wolff LPN AUDIENCE DEVELOPMENT MANAGER 04/16/22 Blanca Whittington, AUDIENCE DEVELOPMENT MANAGER AUDIENCE DEVELOPMENT MANAGER 05/05/22 Blanca Reagan, AUDIENCE DEVELOPMENT MANAGER AUDIENCE DEVELOPMENT MANAGER 06/30/22 Enma Sneed, AUDIENCE DEVELOPMENT MANAGER AUDIENCE DEVELOPMENT MANAGER 05/09/25 documented as of this encounter
--- OUTSIDE RECORDS SUMMARY | 2025-05-09 12:52 | XMS_ITS | Encounter Summary ---
Author Organization [facility] Address [address] [place] [address] Care Team Providers Care Adult Ministries Director Name Role Phone Bennie Jo DO Primary Care Provider [phone] Virkam Duncan MD Primary Care Provider [phone] Aniyah Trammell FISH BAIT PICKER Primary Care Provider Buck Santana MD Unavailable Mar Gomez FISH BAIT PICKER Primary Care Provider Provider, Historical Unavailable Unavailable Shlomo BessC Unavailable [phone] Rosa Carr Unavailable Unavailable Buck Green MD Unavailable [phone] Sylvester Patel-C Unavailable [phone] Alejandra Doan RN Unavailable Unavailable Radha Duran LPN PER DIEM Unavailable Unavailable Theresa Colon FISH BAIT PICKER Unavailable [phone] Little Koo MD Unavailable [phone] Mariana Schultz FISH BAIT PICKER Unavailable [phone] Trino Wolff LPN PER DIEM Unavailable Unavailable Blanca Whittington LPN PER DIEM Unavailable Unavailab Blanca Monson LPN PER DIEM Unavailable Unavailable Desmond Tubbs APRN Primary Care Provider Enma Sneed LPN PER DIEM Unavailable Unavailable Encounter Details Date Type Department Care Team (Late st Contact Info) Description 01/14/2003 Historical Encounter Global Quentin Schmitt Social History [...] documented as of this encounter Care Teams Adult Ministries Director Relationship Specialty Start Date End Date Bennie Jo DO PCP - General 04/24/09 09/20/12 Vikram Duncan MD [address] [place] [address] PCP - General 08/14/08 04/23/09 Aniyah Trammell APRN [id number] [place] [address] PCP - General Nurse Practitioner 09/21/12 02/17/16 Mar Gomez APRN [id number] [place] [address] PCP - General Nurse Practitioner 02/18/16 10/02/24 Desmond Tubbs APRN [id number] [place], [place] [id number] PCP - General Nurse Practitioner 12/30/24 Buck Santana MD [facility] [employer] [place] [address] Orthopedic Surgery 09/21/12 Provider, Historical 10/07/16 Shlomo Bess PA-C [address] [place] [address] [address] [facility] [address] [place] [address] Physician Dormitory Supervisor 07/13/20 Rosa Carr 09/03/21 Buck Green MD [address] [place] [address] [address] [place] [address] Obstetrics & Gynecology 09/04/21 Sylvester Patel PA-C [address] [place] [address] Physician Dormitory Supervisor 09/09/21 Alejandra Doan, RN 09/09/21 Radha Duran LPN LPN 11/01/21 Theresa Colon APRN [address] [place] [address] [address] [place] [address] Nurse Practitioner 11/27/21 Little Koo MD [address] [place] [address] Gastroenterology 11/27/21 Mariana Schultz APRN [address] [place] [address] [place] [address] Nurse Practitioner Gastroenterology 01/28/22 Trino Wolff, LPN PER DIEM LPN PER DIEM 04/16/22 Blanca Whittington LPN LPN PER DIEM 05/05/22 Blanca Reagan, LPN PER DIEM LPN PER DIEM 06/30/22 Enma Sneed LPN LPN PER DIEM 05/09/25 documented as of this encounter
--- OUTSIDE RECORDS SUMMARY | 2025-05-09 12:52 | XMS_ITS | Encounter Summary ---
Author Organization [facility] enter Address [address] [place] [address] Care Team Providers Care Data Migration Lead Name Role Phone Praveen Gomez ANESTHESIOLOGY FACULTY Primary Care Provider [phone] Praveen Gomez ANESTHESIOLOGY FACULTY Primary Care Provider [phone] Reason for Visit * Reason Onset Date Comments Reschedule 08/05/2023 Called pt and re scheduled surgery with [facility] for 08/24. Sent surgery info via [employer]. Advice Only 08/05/2023 Encounter Details Date Type Department Care Team (Late st Contact Info) Description 08/05/2023 Telephone Bariatric Surgery [facility] [address] [place] [address] Alize Bartholomew Reschedule (Called pt and rescheduled surgery with [facility] for 08/24. Sent surgery info via [employer]./); Advice Only Social History Tobacco Use Types [...] encounter Miscellaneous Notes * Telephone Encounter - Adarsh Groten - 08/10/2023 8:46 AM EST Pt would like to know if she needs to start the liver shrink diet or bowel prep today-DOS 08/24- This is a revision to remove ulcers. Mila- [id number] * Telephone Encounter - Alize Bartholomew - 08/05/2023 9:09 AM EDT Called pt and rescheduled surgery with Toni for 08/24. Sent surgery info via [employer]. documented in this encounter Plan of Treatment Not on file documented as of this encounter Visit Diagnoses Not on filedocumented in this encounter Care Teams Data Migration Lead Relationship Specialty Start Date End Date Praveen Gomez CNP [address] [place] [address] PCP - General Certified Nurse Practitioner 06/23/23 02/17/24 Praveen Gomez CNP [address] [place] [address] PCP - General Certified Nurse Practitioner 02/18/24 documented as of this encounter
--- OUTSIDE RECORDS SUMMARY | 2025-05-09 12:52 | XMS_ITS | Encounter Summary ---
Author Organization [facility] Address [address] [place] [address] Care Team Providers Care Mobile Plant Operators Name Role Phone Bennie Jo DO Primary Care Provider [phone] Vikram Duncan MD Primary Care Provider [phone] Aniyah Trammell HVAC COMMERCIAL SALESPERSON Primary Care Provider Buck Santana MD Unavailable Mar Gomez HVAC COMMERCIAL SALESPERSON Primary Care Provider Provider, Historical Unavailable Unavailable Shlomo BessC Unavailable [phone] Rosa Carr Unavailable Unavailable Buck Green MD Unavailable [phone] Sylvester Patel-C Unavailable [phone] Alejandra Doan RN Unavailable Unavailable Radha Duran ARCHIVES TECHNICIAN Unavailable Unavailable Theresa Colon HVAC COMMERCIAL SALESPERSON Unavailable [phone] Little Koo MD Unavailable [phone] Mariana Schultz HVAC COMMERCIAL SALESPERSON Unavailable [phone] Trino Wolff ARCHIVES TECHNICIAN Unavailable Unavailable Blanca Whittington ARCHIVES TECHNICIAN Unavailable Unavailab Blanca Monson ARCHIVES TECHNICIAN Unavailable Unavailable Desmond Tubbs APRN Primary Care Provider Enma Sneed ARCHIVES TECHNICIAN Unavailable Unavailable Encounter Details Date Type Department Care Team (Late st Contact Info) Description 04/09/2002 Historical Encounter Global Erin Suárez NISH [address] [place] [address] Social History Tobacco Use Types Packs/Day Years [...] documented as of this encounter Care Teams Mobile Plant Operators Relationship Specialty Start Date End Date Bennie Jo DO PCP - General 04/24/09 09/20/12 Vikram Duncan MD [address] [id number] PCP - General 08/14/08 04/23/09 Aniyah Trammell APRN [address] [place] [address] PCP - General Nurse Practitioner 09/21/12 02/17/16 Mar Gomez APRN [address] [place] [address] PCP - General Nurse Practitioner 02/18/16 10/02/24 Desmond Tubbs APRN [id number] [address] PCP - General Nurse Practitioner 12/30/24 Buck Santana MD [facility] [place] [address] Orthopedic Surgery 09/21/12 Provider, Historical 10/07/16 Shlomo Bess PA-C [address] [place] [address] [address] [place] [address] Physician System Development Engineer 07/13/20 Rosa Carr 09/03/21 Buck Green MD [address] [place] [address] [address] [place] [address] Obstetrics & Gynecology 09/04/21 Sylvester Patel PA-C [address] [place] [address] [address] [place] [address] Physician System Development Engineer 09/09/21 Alejandra Doan, SHANIA 09/09/21 Radha Duran LPN LPN 11/01/21 Theresa Colon APRN [address] [place] [address] [address] [place] [address] Nurse Practitioner 11/27/21 Little Koo MD [address] [place] [address] [address] [place] [address] Gastroenterology 11/27/21 Mariana Schultz APRN [address] [place] [address] [address] [place] [address] Nurse Practitioner Gastroenterology 01/28/22 Trino Wolff ARCHIVES TECHNICIAN ARCHIVES TECHNICIAN 04/16/22 Blanca Whittington, ARCHIVES TECHNICIAN ARCHIVES TECHNICIAN 05/05/22 Blanca Reagan, ARCHIVES TECHNICIAN ARCHIVES TECHNICIAN 06/30/22 Enma Sneed, ARCHIVES TECHNICIAN ARCHIVES TECHNICIAN 05/09/25 documented as of this encounter
--- OUTSIDE RECORDS SUMMARY | 2025-05-09 12:52 | XMS_ITS | Encounter Summary ---
Author Organization [facility] Address [address] [place] [address] Care Team Providers Care Primary Therapist Name Role Phone Bennie Jo DO Primary Care Provider [phone] Vikram Duncan MD Primary Care Provider [phone] Aniyah Trammell RETAIL STORE ASSISTANT Primary Care Provider Buck Santana MD Unavailable Mar Gomez RETAIL STORE ASSISTANT Primary Care Provider [phone] Provider, Historical Unavailable Unavailable Shlomo BessC Unavailable [phone] Rosa Carr Unavailable Unavailable Buck Green MD Unavailable [phone] Sylvester Patel-C Unavailable [phone] Alejandra Doan RN Unavailable Unavailable Radha Duran CENTER MEDICAL SPECIALIST Unavailable Unavailable Theresa Colon RETAIL STORE ASSISTANT Unavailable [phone] Little Koo MD Unavailable [phone] Mraiana Schultz RETAIL STORE ASSISTANT Unavailable [phone] Trino Wolff CENTER MEDICAL SPECIALIST Unavailable Unavailable Blanca Whittington CENTER MEDICAL SPECIALIST Unavailable Unavailab Blanca Monson CENTER MEDICAL SPECIALIST Unavailable Unavailable Desmond Tubbs APRN Primary Care Provider Enma Sneed CENTER MEDICAL SPECIALIST Unavailable Unavailable Encounter Details Date Type Department Care Team (Late st Contact Info) Description 04/26/2002 Historical Encounter Global Amor Clemons MD [address] [place], [place] [id number] Social History Tobacco Use Types Packs/Day Years [...] documented as of this encounter Care Teams Primary Therapist Relationship Specialty Start Date End Date Bennie Jo DO PCP - General 04/24/09 09/20/12 Vikram Duncan MD [facility] [place] [address] PCP - General 08/14/08 04/23/09 Aniyah Trammell APRN [address] [place] [address] PCP - General Nurse Practitioner 09/21/12 02/17/16 Mar Gomez APRN [address] [place] [address] PCP - General Nurse Practitioner 02/18/16 10/02/24 Desmond Tubbs APRN [address] [place], [place] [id number] PCP - General Nurse Practitioner 12/30/24 Buck Santana MD [facility] [place] [address] Orthopedic Surgery 09/21/12 Provider, Historical 10/07/16 Shlomo Bess PA-C [address] [place] [address] [address] [facility] [address] [place] [address] Physician Director Of Software Development 07/13/20 Rosa Carr 09/03/21 Buck Geren MD [address] [place] [address] [address] [place] [address] Obstetrics & Gynecology 09/04/21 Sylvester Patel PA-C [address] [place] [address] [place] [address] Physician Director Of Software Development 09/09/21 Alejandra Doan, SHANIA 09/09/21 Radha Duran LPN LPN 11/01/21 Theresa Colon APRN [address] [place] [address] [address] [place], [place] [address] Nurse Practitioner 11/27/21 Little Koo MD [address] [place] [address] [address] [place] [address] Gastroenterology 11/27/21 Mariana Schultz APRN [address] [place] [address] [place] [address] Nurse Practitioner Gastroenterology 01/28/22 Trino Wolff LPN CENTER MEDICAL SPECIALIST 04/16/22 Blanca Whittington, CENTER MEDICAL SPECIALIST CENTER MEDICAL SPECIALIST 05/05/22 Blanca Reagan, CENTER MEDICAL SPECIALIST CENTER MEDICAL SPECIALIST 06/30/22 Enma Sneed, CENTER MEDICAL SPECIALIST CENTER MEDICAL SPECIALIST 05/09/25 documented as of this encounter
--- OUTSIDE RECORDS SUMMARY | 2025-05-09 12:52 | XMS_ITS | Encounter Summary ---
Author Organization [facility] Address [address] [place] [address] Care Team Providers Care Tellers Supervisor Name Role Phone Buck Santana MD Unavailable Mar Gomez APRN Primary Care Provider [phone] Provider, Historical Unavailable Unavailable Shlomo Bess PA-C Unavailable [phone] Rosa Carr Unavailable Unavailable Buck Green MD Unavailable Sylvester Patel PA-C Unavailable Alejandra Doan RN Unavailable Unavailable Radha Duran COMPOSITION FLOOR SETTER Unavailable Unavailable Theresa Colon MACHINE BOSS Unavailable [phone] Little Koo MD Unavailable Mariana Schultz APRN Unavailable Trino Wolff COMPOSITION FLOOR SETTER Unavailable Unavailable Blanca Whittington COMPOSITION FLOOR SETTER Unavailable Unavailab Blanca Monson COMPOSITION FLOOR SETTER Unavailable Unavailable Desmond Tubbs MACHINE BOSS Primary Care Provider Enma Sneed LPN Unavailable Unavailable Encounter Details Date Type Department Care Team (Late st Contact Info) Description 06/27/2022 Telephone [facility] [address] [place] [address], [address] [place] [address] Mariana Schultz APRN [address] [place] [address] [address] [place] [address] Social History Tobacco Use Types Packs/Day Years [...] encounter Miscellaneous Notes * Telephone Encounter - Meredith Ruiz - 06/27/2022 1:52 PM EDT Pts pharmacy filled out rx of protonix for 1 tablet a day when it is supposed to be 2 a day. Can a new RX be sent into pharmacy documented in this encounter Plan of Treatment Not on file documented as of this encounter Visit Diagnoses Not on filedocumented in this encounter Additional Health Concerns Infection Onset Date Last Indicated Resolved Time Covid-19 (confirmed) 11/05/2022 11/06/2022 023 10:12 PM EST documented as of this encounter Care Teams Tellers Supervisor Relationship Specialty Start Date End Date Mar Gomez APRN [address] [place] [address] PCP - General Nurse Practitioner 02/18/16 10/02/24 Desmond Tubbs APRN [address] [address] [place] [address] PCP - General Nurse Practitioner 12/30/24 Buck Santana MD [address] [place] [address] Orthopedic Surgery 09/21/12 Provider, Historical 10/07/16 Shlomo Bess PA-C [address] [place] [address] [address] [place] [address] Physician Teacher Of The Emotionally Disturbed 07/13/20 Rosa Carr 09/03/21 Buck Green MD [address] [place] [address] [place] [address] Obstetrics & Gynecology 09/04/21 Sylvester Patel PA-C [address] [place] [address] [address] [place] [address] Physician Teacher Of The Emotionally Disturbed 09/09/21 Alejandra Doan, SHANIA 09/09/21 Radha Duran LPN LPN 11/01/21 Theresa Colon APRN [address] [place] [address] [address] [place] [address] Nurse Practitioner 11/27/21 Little Koo MD [address] [place] [address] [address] [place] [address] Gastroenterology 11/27/21 Mariana Schultz APRN [address] [place] [address] [address] [place] [address] Nurse Practitioner Gastroenterology 01/28/22 Trino Wolff, COMPOSITION FLOOR SETTER COMPOSITION FLOOR SETTER 04/16/22 Blanca Whittington, COMPOSITION FLOOR SETTER COMPOSITION FLOOR SETTER 05/05/22 Blanca Reagan, COMPOSITION FLOOR SETTER COMPOSITION FLOOR SETTER 06/30/22 Enma Sneed, COMPOSITION FLOOR SETTER COMPOSITION FLOOR SETTER 05/09/25 documented as of this encounter
--- OUTSIDE RECORDS SUMMARY | 2025-05-09 12:53 | XMS_ITS | Encounter Summary ---
Author Organization [facility] enter Address [address] [place] [address] Care Team Providers Care Industry Segment Specialist Name Role Phone Praveen Gomez BENEFITS SPECIALIST RECRUITER Primary Care Provider [phone] Praveen Gomez BENEFITS SPECIALIST RECRUITER Primary Care Provider [phone] Reason for Visit * Reason Onset Date Comments Advice Only 09/07/2023 Encounter Details Date Type Department Care Team (Late st Contact Info) Description 09/07/2023 Telephone Central Scheduling [address] [place] [phone] Lisa Graham Advice Only Social History [...] on file documented as of this encounter Functional Status * Are you deaf or do you have serious difficulty hearing? Answer Date of Assessment Author No 09/01/2023 10:42 PM Nancy Pascal RN * Are you blind or do you have serious difficulty seeing, even when wearing glasses? Answer Date of Assessment Author No 09/01/2023 10:42 PM Nancy Pascal RN * Do you have serious difficulty walking or climbing stairs (5 years or older)? Answer Date of Assessment Author No 09/01/2023 10:42 PM Nancy Pascal RN * Do you have difficulty dressing or bathing (5 yrs or older)? Answer Date of Assessment Author No 09/01/2023 10:42 PM Nancy Pascal, RN * Because of a physical, mental, or emotional condition, do you have difficulty doing errands alone such as visiting a doctor's office or shopping (5 yrs or older)? Answer Date of Assessment Author No 09/01/2023 10:42 PM Nancy Pascal, RN documented as of this encounter Mental Status * Because of a physical, mental, or emotional condition, do you have serious difficulty concentrating, remembering, or making decisions (5 yrs or older)? Answer Entry Date Author No 09/01/2023 10:42 PM Nancy Pascal, SHANIA documented in this encounter Miscellaneous Notes * Telephone Encounter - Vicky Floyd RN - 09/07/2023 11:14 AM EST Spoke to patient and informed her that as long as she is not on opioids and she can properly perform movements of driving without pain or hesitation she can drive whenever she feels comfortable. Understanding is verbalized. * Telephone Encounter - Lisa Graham - 09/07/2023 9:32 AM EST Pt calling stating she is 2 weeks post op asking if she can drive, and drive her self to her appt tomorrow. Pt has not taken pain medication in a week. Pt asking for a call back documented in this encounter Plan of Treatment Not on file documented as of this encounter Visit Diagnoses Not on filedocumented in this encounter Care Teams Industry Segment Specialist Relationship Specialty Start Date End Date Praveen Gomez CNP [address] [place] [address] PCP - General Certified Nurse Practitioner 06/23/23 02/17/24 Praveen Gomez CNP [address] [place] [address] PCP - General Certified Nurse Practitioner 02/18/24 documented as of this encounter
--- OUTSIDE RECORDS SUMMARY | 2025-05-09 12:53 | XMS_ITS | Encounter Summary ---
Author Organization [facility] Address [address] [place] [address] Care Team Providers Care Criminology Professor Name Role Phone Buck Santana MD Unavailable Mar Goemz APRN Primary Care Provider [phone] Provider, Historical Unavailable Unavailable Shlomo Bess PA-C Unavailable [phone] Rosa Carr Unavailable Unavailable Buck Green MD Unavailable Sylvester Patel PA-C Unavailable Alejandra Doan RN Unavailable Unavailable Radha Duran SERVICE WRITER Unavailable Unavailable Theresa Colon DECORATING SUPERVISOR Unavailable [phone] Little Koo MD Unavailable [phone] Mariana Schultz DECORATING SUPERVISOR Unavailable Trino Wolff SERVICE WRITER Unavailable Unavailable Blanca Whittington SERVICE WRITER Unavailable Unavailab Blanca Monson SERVICE WRITER Unavailable Unavailable Desmond Tubbs DECORATING SUPERVISOR Primary Care Provider Enma Sneed LPN Unavailable Unavailable Encounter Details Date Type Department Care Team (Late st Contact Info) Description 06/15/2023 Telephone [facility] [address] [place] [address] [address] [place] [address] Blanca Whittington LPN Social History Tobacco Use Types Packs/Day [...] on filedocumented in this encounter Care Teams Criminology Professor Relationship Specialty Start Date End Date Mar Gomez APRN [address] [facility] [address] [place] [address] PCP - General Nurse Practitioner 02/18/16 10/02/24 Desmond Tubbs APRN [id number] [id number] PCP - General Nurse Practitioner 12/30/24 Buck Santana MD [facility] [place] [id number] Orthopedic Surgery 09/21/12 Provider, Historical 10/07/16 Shlomo Bess PA-C [address] [place] [address] [address] [place] [address] Physician Director Of Supply Chain 07/13/20 Rosa Carr 09/03/21 Buck Green MD [address] [place] [address] [address] [place] [address] Obstetrics & Gynecology 09/04/21 Sylvester Patel PA-C [address] [place] [address] [address] [place] [address] Physician Director Of Supply Chain 09/09/21 Alejandra Doan, RN 09/09/21 Radha Duran, SERVICE WRITER SERVICE WRITER 11/01/21 Theresa Colon APRN 1729 [facility] [address] [place] [address] Nurse Practitioner 11/27/21 Little Koo MD [address] [place] [address] [address] [place] [address] Gastroenterology 11/27/21 Mariana Schultz APRN [address] [place] [address] [address] [place] [address] Nurse Practitioner Gastroenterology 01/28/22 Trino Wolff, SERVICE WRITER SERVICE WRITER 04/16/22 Blanca Whittington, SERVICE WRITER SERVICE WRITER 05/05/22 Blanca Reagan, SERVICE WRITER SERVICE WRITER 06/30/22 Enma Sneed, SERVICE WRITER SERVICE WRITER 05/09/25 documented as of this encounter
--- OUTSIDE RECORDS SUMMARY | 2025-05-09 12:53 | XMS_ITS | Encounter Summary ---
Author Organization [facility] Address [address] [place] [address] Care Team Providers Care Slunk Skin Curer Name Role Phone Buck Santana MD Unavailable Mar Gomez APRN Primary Care Provider [phone] Provider, Historical Unavailable Unavailable Shlomo Bess PA-C Unavailable [phone] Rosa Carr Unavailable Unavailable Buck Green MD Unavailable Sylvester Patel PA-C Unavailable Alejandra Doan RN Unavailable Unavailable Radha Duran LPN Unavailable Unavailable Theresa Colon SAXOPHONE TEACHER Unavailable [phone] Little Koo MD Unavailable Mariana Schultz SAXOPHONE TEACHER Unavailable Trino Wolff NAIL PULLER Unavailable Unavailable Blanca Whittington NAIL PULLER Unavailable Unavailab Blanca Monson NAIL PULLER Unavailable Unavailable Desmond Tubbs APRN Primary Care Provider Enma Sneed LPN Unavailable Unavailable Encounter Details Date Type Department Care Team (Late st Contact Info) Description 06/30/2022 Orders Only [facility] [address] [place] [address], [address] [place] [address] Blanca Reagan LPN GERD (gastroesophageal reflux disease) (Primary Dx) Social History Tobacco Use Types [...] as of this encounter Visit Diagnoses Diagnosis GERD (gastroesophageal reflux disease)- Primary Esophageal reflux documented in this encounter Additional Health Concerns Infection Onset Date Last Indicated Resolved Time Covid-19 (confirmed) 11/05/2022 11/06/2022 023 10:12 PM EST documented as of this encounter Care Teams Slunk Skin Curer Relationship Specialty Start Date End Date Mar Gomez APRN [address] [place] [address] PCP - General Nurse Practitioner 02/18/16 10/02/24 Desmond Tubbs APRN [address] [id number] PCP - General Nurse Practitioner 12/30/24 Buck Santana MD [address] [employer] [place] [id number] Orthopedic Surgery 09/21/12 Provider, Historical 10/07/16 Shlomo Bess PA-C [address] [place] [address] [address] [place] [address] Physician Contract Negotiator 07/13/20 Rosa Carr 09/03/21 Buck Green MD [address] [place] [address] [address] [place] [address] Obstetrics & Gynecology 09/04/21 Sylvester Patel PA-C [address] [place] [address] [address] [place] [address] Physician Contract Negotiator 09/09/21 Alejandra Doan, RN 09/09/21 Radha Duran, NAIL PULLER NAIL PULLER 11/01/21 Theresa Colon APRN [address] [place] [address] [address] [place] [address] Nurse Practitioner 11/27/21 Little Koo MD [address] [place] [address] [address] [place] [address] Gastroenterology 11/27/21 Mariana Schultz APRN [address] [place] [address] [address] [place] [address] Nurse Practitioner Gastroenterology 01/28/22 Trino Wolff, NAIL PULLER NAIL PULLER 04/16/22 Blanca Whittington, NAIL PULLER NAIL PULLER 05/05/22 Blanca Reagan, NAIL PULLER NAIL PULLER 06/30/22 Enma Sneed, NAIL PULLER NAIL PULLER 05/09/25 documented as of this encounter
--- OUTSIDE RECORDS SUMMARY | 2025-05-09 12:53 | XMS_ITS | Encounter Summary ---
Author Organization [facility] Address [address] [place] [address] Care Team Providers Care Commissioning Editor Name Role Phone Buck Santana MD Unavailable Mar Gomez APRN Primary Care Provider [phone] Provider, Historical Unavailable Unavailable Shlomo Bess PA-C Unavailable Rosa Carr Unavailable Unavailable Buck Green MD Unavailable [phone] Sylvester Patel PA-C Unavailable Alejandra Doan RN Unavailable Unavailable Radha Duran LPN Unavailable Unavailable Theresa Colon ELECTRONICS TECH Unavailable Little Koo MD Unavailable [phone] Mariana Schultz ELECTRONICS TECH Unavailable [phone] Trino Wolff WHEEL AND AXLE INSPECTOR Unavailable Unavailable Blanca Whittington WHEEL AND AXLE INSPECTOR Unavailable Unavailab Blanca Monson WHEEL AND AXLE INSPECTOR Unavailable Unavailable Desmond Tubbs ELECTRONICS TECH Primary Care Provider Enma Sneed LPN Unavailable Unavailable Reason for Visit * Reason Onset Date Comments Advice Only 01/07/2020 Follow-up 01/10/2020 Encounter Details Date Type Department Care Team (Late st Contact Info) Description 01/07/2020 Nurse Triage [facility] [address] [place] [address] [id number] Milly Parson RN Social History Tobacco Use Types Packs/Day [...] Miscellaneous Notes * Telephone Encounter - Radha Mahmood RN - 01/10/2020 4:09 PM EDT Follow-up call placed to patient. She states I'm good . Advised of 27/04 nurse access. She verbalized understanding. * Telephone Encounter - Milly Parson RN - 01/07/2020 12:34 PM EDT Patient called in stating that she needed to pop her ears yesterday took allergy medication it would pop and come back A little bit ago She opened her mouth it popped and she put her finger in her ear and there was blood on it She is instructed to go to she states her is out of town and she has no one to take care of her little girl she I ask her if I can schedule her a tele visit she states she will call back on Thursday if still having issues * Telephone Encounter - Milly Parson RN - 01/07/2020 12:33 PM EDT ----- Message from Shea East sent at 01/07/2020 12:04 PM EDT ----- Patient called stating that she felt like she needed to pop her ears and when she opened her mouth to pop ears, blood came out of her right ear. Please advise patient. documented in this encounter Plan of Treatment Not on file documented as of this encounter Visit Diagnoses Not on filedocumented in this encounter Additional Health Concerns Infection Onset Date Last Indicated Resolved Time Covid-19 (rule out) 05/07/2022 05/07/2022 05/08/20 22 12:33 AM EDT Covid-19 (confirmed) 11/05/2022 11/06/2022 023 10:12 PM EST documented as of this encounter Care Teams Commissioning Editor Relationship Specialty Start Date End Date Mar Gomez APRN [address] [place], [place] [id number] PCP - General Nurse Practitioner 02/18/16 10/02/24 Desmond Tubbs APRN [address] [id number] PCP - General Nurse Practitioner 12/30/24 Buck Santana MD [facility] [employer] [facility] [place] [id number] Orthopedic Surgery 09/21/12 Provider, Historical 10/07/16 Shlomo Bess PA-C [address] [place] [address] [place] [address] Physician Engineering Designer 07/13/20 Rosa Carr 09/03/21 Buck Green MD [address] [place] [address] [place] [address] Obstetrics & Gynecology 09/04/21 Sylvester Patel PA-C [address] [place] [address] [address] [place] [address] Physician Engineering Designer 09/09/21 Alejandra Doan, SHANIA 09/09/21 Radha Duran LPN LPN 11/01/21 Theresa Colon APRN 1729 [facility] 203 [place], [place] 3257[address] Nurse Practitioner 11/27/21 Little Koo MD [address] [place] [address] [address] [place] [address] Gastroenterology 11/27/21 Mariana Schultz APRN [address] [place] [address] [place] [address] Nurse Practitioner Gastroenterology 01/28/22 Trino Wolff, WHEEL AND AXLE INSPECTOR WHEEL AND AXLE INSPECTOR 04/16/22 Blanca Whittington, WHEEL AND AXLE INSPECTOR WHEEL AND AXLE INSPECTOR 05/05/22 Blanca Reagan, WHEEL AND AXLE INSPECTOR WHEEL AND AXLE INSPECTOR 06/30/22 Enma Sneed, WHEEL AND AXLE INSPECTOR WHEEL AND AXLE INSPECTOR 05/09/25 documented as of this encounter
--- OUTSIDE RECORDS SUMMARY | 2025-05-09 12:53 | XMS_ITS | Encounter Summary ---
Author Organization [facility] Address [address] [place] [address] Care Team Providers Care Vineyard Supervisor Name Role Phone Buck Santana MD Unavailable Mar Gomez APRN Primary Care Provider [phone] Provider, Historical Unavailable Unavailable Shlomo Bess PA-C Unavailable [phone] Rosa Carr Unavailable Unavailable Buck Green MD Unavailable Sylvester Patel PA-C Unavailable Alejandra Doan RN Unavailable Unavailable Radha Duran LPN Unavailable Unavailable Theresa Colon ENGINE LATHE SET UP OPERATOR Unavailable [phone] Little Koo MD Unavailable Mariana Schultz ENGINE LATHE SET UP OPERATOR Unavailable [phone] Trino Wolff CHEMICAL LABORATORY CHIEF Unavailable Unavailable Blanca Whittington CHEMICAL LABORATORY CHIEF Unavailable Unavailab Blanca Monson CHEMICAL LABORATORY CHIEF Unavailable Unavailable Desmond Tubbs ENGINE LATHE SET UP OPERATOR Primary Care Provider Enma Sneed LPN Unavailable Unavailable Reason for Visit * Reason Onset Date Comments Other 09/12/2019 new orders neede d bilateral diagnostic mammo and US Right Breast Limited Encounter Details Date Type Department Care Team (Late st Contact Info) Description 09/12/2019 Telephone Centralized Scheduling [address] [place] [address] Mar Gomez, ENGINE LATHE SET UP OPERATOR [address] [place] [address] Other (new orders needed bilateral diagnostic mammo and US Right Breast Limited) Social History Tobacco Use Types Packs/Day Years [...] encounter Miscellaneous Notes * Telephone Encounter - Shae Moreno - 09/12/2019 3:42 PM EST MAMMO DIAGNOSTIC (3D) RIGHT US BREAST/AXILLA RIGHT UNILATERAL-LIMITED N63.10 (ICD-10-CM) - Breast lump on right side at 6 o'clock position We received the above listed order for pt but the dx code does not pass insurance requirements to schedule. Please place new orders for: Bilateral Diagnostic Mammo (if pt has not had one in the last year) Diagnostic Righ Mammo can only be done if pt has had a mammo in the last 9 months) US Right Breast Limited Dx code needs to show quadrant of breast lump is located, use upper/lower and inner/outter to pull correct dx code. It must be 4 digits and not end in zero. Once we have corrected orders we will callpt and schedule Thank You Centralized Scheduling [phone] documented in this encounter Plan of Treatment Not on file documented as of this encounter Visit Diagnoses Not on filedocumented in this encounter Additional Health Concerns Infection Onset Date Last Indicated Resolved Time Covid-19 (rule out) 05/07/2022 05/07/2022 05/08/20 22 12:33 AM EDT Covid-19 (confirmed) 11/05/2022 11/06/2022 023 10:12 PM EST documented as of this encounter Care Teams Vineyard Supervisor Relationship Specialty Start Date End Date Mar Gomez APRN [address] [place] [address] PCP - General Nurse Practitioner 02/18/16 10/02/24 Desmond Tubbs APRN [address] [address] [place], [place] [id number] PCP - General Nurse Practitioner 12/30/24 Buck Santana MD [facility] [place] [address] Orthopedic Surgery 09/21/12 Provider, Historical 10/07/16 Shlomo Bess PA-C [address] [place] [address] [address] [place] [address] Physician Band Aid Machine Operator 07/13/20 Rosa Carr 09/03/21 Buck Green MD [address] [place] [address] [place] [address] Obstetrics & Gynecology 09/04/21 Sylvester Patel PA-C [address] [place] [address] [address] [place] [address] Physician Band Aid Machine Operator 09/09/21 Alejandra Doan, RN 09/09/21 Radha Duran LPN LPN 11/01/21 Theresa Colon APRN [address] [place] [address] [address] [place] [address] Nurse Practitioner 11/27/21 Little Koo MD [address] [id number] Gastroenterology 11/27/21 Mariana Schultz APRN [address] [place] [id number] Nurse Practitioner Gastroenterology 01/28/22 Trino Wolff, CHEMICAL LABORATORY CHIEF CHEMICAL LABORATORY CHIEF 04/16/22 Blanca Whittington, CHEMICAL LABORATORY CHIEF CHEMICAL LABORATORY CHIEF 05/05/22 Blanca Reagan, CHEMICAL LABORATORY CHIEF CHEMICAL LABORATORY CHIEF 06/30/22 Enma Sneed, CHEMICAL LABORATORY CHIEF CHEMICAL LABORATORY CHIEF 05/09/25 documented as of this encounter
--- OUTSIDE RECORDS SUMMARY | 2025-05-09 12:53 | XMS_ITS | Encounter Summary ---
Author Organization [facility] Address [address] [place] [address] Care Team Providers Care Electrical Electronics Technician Name Role Phone Praveen Gomez APPELLATE LAW CLERK Primary Care Provider [phone] Praveen Gomez APPELLATE LAW CLERK Primary Care Provider [phone] Encounter Details Date Type Department Care Team (Late st Contact Info) Description 08/31/2023 Orders Only [facility] [address] [place] [address] Dougie Mendez, DO [address] [place] [address] Social History Tobacco Use Types Packs/Day Years [...] hearing? Answer Date of Assessment Author No 08/24/2023 6:45 PM Taryn Cuevas RN * Are you blind or do you have serious difficulty seeing, even when wearing glasses? Answer Date of Assessment Author No 08/24/2023 6:45 PM Taryn Cuevas RN * Do you have serious difficulty walking or climbing stairs (5 years or older)? Answer Date of Assessment Author No 08/24/2023 6:45 PM Taryn Cuevas RN * Do you have difficulty dressing or bathing (5 yrs or older)? Answer Date of Assessment Author No 08/24/2023 6:45 PM Taryn Cuevas RN * Because of a physical, mental, or emotional condition, do you have difficulty doing errands alone such as visiting a doctor's office or shopping (5 yrs or older)? Answer Date of Assessment Author No 08/24/2023 6:45 PM Taryn Cuevas RN documented as of this encounter Mental Status * Because of a physical, mental, or emotional condition, do you have serious difficulty concentrating, remembering, or making decisions (5 yrs or older)? Answer Entry Date Author No 08/24/2023 6:45 PM Taryn Cuevas RN documented in this encounter Plan of Treatment Not on file documented as of this encounter Visit Diagnoses Not on filedocumented in this encounter Care Teams Electrical Electronics Technician Relationship Specialty Start Date End Date Praveen Gomez CNP [address] [place] [address] PCP - General Certified Nurse Practitioner 06/23/23 02/17/24 Praveen Gomez CNP [address] [place] [address] PCP - General Certified Nurse Practitioner 02/18/24 documented as of this encounter
--- OUTSIDE RECORDS SUMMARY | 2025-05-09 12:53 | XMS_ITS | Encounter Summary ---
Author Organization [facility] Address [address] [place] [address] Care Team Providers Care Stitch Cleaner Name Role Phone Buck Santana MD Unavailable Mar Gomez APRN Primary Care Provider [phone] Provider, Historical Unavailable Unavailable Shlomo Bess PA-C Unavailable [phone] Rosa Carr Unavailable Unavailable Buck Green MD Unavailable [phone] Sylvester Patel PA-C Unavailable Alejandra Doan RN Unavailable Unavailable Radha Duran LPN Unavailable Unavailable Theresa Colon MOTOR EQUIPMENT LIEUTENANT Unavailable [phone] Little Koo MD Unavailable [phone] Mariana Schultz MOTOR EQUIPMENT LIEUTENANT Unavailable [phone] Trino Wolff WOOL SAMPLER Unavailable Unavailable Blanca Whittington WOOL SAMPLER Unavailable Unavailab Blanca Monson WOOL SAMPLER Unavailable Unavailable Desmond Tubbs APRN Primary Care Provider [phone] Enma Sneed LPN Unavailable Unavailable Reason for Referral * Radiology Services (Routine) - Closed Specialty Diagnoses / Procedures Referred By Contjessica t Referred To Contact Radiology Diagnoses Mass of lower inner quadrant of right breast Procedures Mammo Diagnostic (3D) Bilateral Mar Gomez APRN [address] [place] [address] Phone: tel: fax: [facility]- Mammography [address] [facility] [place] [address] Phone: tel: Referral ID Status Reason Start Date Expiration Date Visits Re quested Visits Authorized [id number] Closed 09/14/2019 09/14/2020 1 1 Encounter Details Date Type Department Care Team (Late st Contact Info) Description 09/14/2019 Orders Only [facility] [address] [place] [address] Mar Gomez APRN [address] [place] [address] Mass of lower inner quadrant of right breast (Primary Dx) Social History Tobacco Use Types [...] Type Priority Associated Diagnoses Orde r Schedule Mammo Diagnostic (3D) Bilateral Imaging Routine Mass of lower inner quadrant of right breast 1 Occurrences starting 09/14/2019 until 09/14/2020 documented as of this encounter Visit Diagnoses Diagnosis Mass of lower inner quadrant of right breast- Primary documented in this encounter Additional Health Concerns Infection Onset Date Last Indicated Resolved Time Covid-19 (rule out) 05/07/2022 05/07/2022 05/08/20 22 12:33 AM EDT Covid-19 (confirmed) 11/05/2022 11/06/2022 023 10:12 PM EST documented as of this encounter Care Teams Stitch Cleaner Relationship Specialty Start Date End Date Mar Gomez APRN [address] [place] [address] PCP - General Nurse Practitioner 02/18/16 10/02/24 Desmond Tubbs APRN [address] [id number] PCP - General Nurse Practitioner 12/30/24 Buck Santana MD [facility] [address] [employer] [place] [address] Orthopedic Surgery 09/21/12 Provider, Historical 10/07/16 Shlomo Bess PA-C [address] [place] [address] [address] [place] [address] Physician Axminster Weaver 07/13/20 Rosa Carr 09/03/21 Buck Green MD [address] [place] [address] [place] [address] Obstetrics & Gynecology 09/04/21 Sylvester Patel PA-C [address] [place] [address] [place] [address] Physician Axminster Weaver 09/09/21 Alejandra Doan, SHANIA 09/09/21 Radha Durna LPN LPN 11/01/21 Theresa Colon APRN [address] [place] [address] [address] [place], [place] [address] Nurse Practitioner 11/27/21 Little Koo MD [address] [place] [address] [address] [place] [address] Gastroenterology 11/27/21 Mariana Schultz APRN [address] [place] [address] Nurse Practitioner Gastroenterology 01/28/22 Trino Wolff, WOOL SAMPLER WOOL SAMPLER 04/16/22 Blanca Whittington, WOOL SAMPLER WOOL SAMPLER 05/05/22 Blanca Reagan, WOOL SAMPLER WOOL SAMPLER 06/30/22 Enma Sneed, WOOL SAMPLER WOOL SAMPLER 05/09/25 documented as of this encounter
[2025-05-09 13:49] LABS: Glucose Urine UA NEGATIVE (NEGATIVE)
[2025-05-09 14:01] LABS: Cast Seen? NONE SEEN #/LPF (NONE SEEN); Crystals Seen? None Seen #/HPF (None Seen); Urine Culture Indicated NO
[2025-05-09 14:19] LABS: HCG Qualitative Urine* NEGATIVE (NEGATIVE)
[2025-05-09 14:29] LABS: Hematocrit 40.8 % (36.0-48.0); Hemoglobin 13.8 g/dL (12.0-16.0); Immature Granulocytes Abs Auto 0.00 10^3/uL (0.00-0.03); Immature Granulocytes Pct Auto 0.0 % (0.0-0.5); Lymphocytes Absolute Auto 2.8 10^3/uL (1.2-3.8); Mean Corpuscular HGB Conc 33.8 g/dL (29.9-35.2); Mean Corpuscular Hemoglobin 30.8 pg (26.7-34.0); Mean Corpuscular Volume 91.1 fL (81.0-99.0); Platelet Count 217 10^3/uL (150-450); Red Blood Count 4.48 10^6/uL (4.20-5.40); White Blood Count 6.6 10^3/uL (4.0-11.0)
--- NOTE | 2025-05-09 14:39 | US_ITS ---
The [address] [address] Patient Name: NOEMI CROSS MRN: [id number] date: 1980 Sex: F Assigned Patient Location: ER Current Patient Location: ER Accession/Order Number: [id number] Exam Date: 05/09/2025 15:39 Report Date: 05/09/2025 15:41 At the request of: NARGIS ANGELES Procedure: US pelvis transvaginal Pelvic ultrasound. Reason for exam: Heavy vaginal bleeding for 4 days Comparison: none Technique: Transvaginal imaging of the uterus and ovaries was also obtained. Additional spectral Doppler analysis of the ovaries was also obtained. Findings: Uterus measures 8.5 x 4.5 x 5.4 cm. Intramural fibroid involving the fundus measuring 2.9 x 2.8 x 2.2 cm. Endometrium measures 3.1 mm without focal abnormality. Left ovary has been removed. Right ovary measures 3.7 x 2.0 x 2.2 cm without mass or cyst. Normal arterial and venous Doppler waveforms. No free fluid is seen. US/US pelvis transvaginal Impression: Fibroid uterus. Unremarkable endometrium and right ovary. Impression dictated by: Stephen Nation Jr., D.O. 05/09/2025 3:41 PM Dictation Location: [place] [address] Electronically authenticated by: [id number] Y Date: 05/09/2025 15:41
--- NOTE | 2025-05-09 14:43 | ED_ITS ---
HPI - Female Genitourinary General Chief complaint: Vaginal Bleeding Stated complaint: VAGINAL BLEED Time Seen by Provider: 05/09/25 13:16 Source: patient Mode of arrival: walk-in History of Present Illness HPI Narrative: 43-year-old female who is with 1 stillbirth and 3 living children presents to the ED with a complaint of vaginal bleeding. In February she had a surgery where she had a fallopian tube and 1 ovary removed. She had a fallopian tube removed several years ago after tubal ligation. She had the tubal ligation reversed about 4 years ago. She states in February since her surgery she has never had a normal period since then. She does not believe herself to be . She states she was not prior to the surgery but her administrative medical director did have some concerns of this after she consulted with him today about the vaginal bleeding and pain. She states this morning she woke up and had significant cramping in the lower abdomen. She states it felt like labor pains. It did eventually subside however she still has a deep pressure. She states she is going through a pad and a tampon every 60 to 90 minutes. She states initially the blood was dark and black but now it is more red. Patient has not on any hormones. She does not have any bleeding abnormalities or clotting issues. She does not have any nausea or vomiting no lightheadedness or dizziness. She does not have any bowel or urine changes. No flank pain or abdominal pain otherwise. 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 She does have a history of having an IUD which was removed about 4 years ago as well. When she had the IUD placed she did ever had any cessation of bleeding and actually made her bleeding worse. Since she had the fallopian tube removed obviously no other contraception has been used. No history of DVT or PE. She is not a smoker. Patient is 5 hours from home at this point she does live in [facility] she is here vacationing. Her administrative medical director recommended she come and get evaluated instead of trying to drive home and get evaluated. She denies any chance of STD concern. MD elicited complaint: Reports vaginal bleeding and pelvic pain Pertinent past history: Reports IUD and tubal ligation Onset (ago): day(s) Location of symptoms: Reports suprapubic Severity: moderate Quality of pain: Reports cramping and aching Consistency: Reports constant Sexual activity: Reports Yes Patient : No Related Data : 4 Para: 3 Previous Rx's ?Medication ?Instructions ?Recorded medroxyprogesterone 10 mg tablet 10 mg PO DAILY 5 days #5 tabs 05/09/25 (Provera) oxycodone-acetaminophen 5 mg-325 1 tab PO Q6H PRN pain #10 tabs 05/09/25 mg tablet (Percocet) Allergies Allergy/AdvReac Type Severity Reaction Status Date / Time erythromycin base Allergy Unknown Verified 05/09/25 12:48 levofloxacin (From Levaquin) Allergy Unknown Verified 05/09/25 12:48 PFSH PFSH Social History Little interest or pleasure in doing things: not at all Feeling down, depressed, or hopeless: not at all Exam Constitutional Vital Signs, click to edit/add: Last Vital Signs Temp 98.8 F 05/09/25 12:50 Pulse 59 L 05/09/25 17:24 Resp 16 05/09/25 12:50 BP 119/70 05/09/25 17:24 Pulse Ox 99 05/09/25 12:50 O2 Del Method Room Air 05/09/25 12:50 Documenting provider has reviewed patient's vital signs: yes Common normals: no apparent distress, average body habitus, oriented x3 and no limitations General appearance: cooperative, comfortable, well kempt and well developed Respiratory Common normals: normal respiratory effort and clear to auscultation bilaterally Cardio Common normals: regular rate, regular rhythm and no murmurs GI Common normals: Normal to inspection, nondistended, normoactive bowel sounds present, soft to palpation and non-tender Inspection: normal to inspection Palpation: tender Rectal Exam - Female: external hemorrhoid(s) Common normals: no CVA tenderness and appearance of the vagina normal External Female Exam: normal appearance of the urethra; normal introitus, no inguinal lymphadenopathy and no external swelling Speculum exam - vagina: vaginal bleeding; no vaginal erythema, no foreign body in vagina, no tissue present in vagina and no vaginal mass Speculum exam - cervix: cervical os closed and cervical bleeding; no tissue present in the cervical os Bimanual exam- adnexa, other: adnexal tenderness Uterus palpation: uterus tender Course Reevaluation(s) Time: 17:45 Additional Reevaluation(s): Pain is better controlled. Discussed discharge plan Consultations Consultation #1: Lauren recommended giving the patient Provera 10 mg for the next 5 days. Will also give her pain control. Time: 17:20 Vital Signs Vital signs: Vital Signs Temperature 98.8 F 05/09/25 12:50 Pulse Rate 68 05/09/25 12:50 Respiratory Rate 16 05/09/25 12:50 Blood Pressure 118/76 05/09/25 12:50 Pulse Oximetry 99 05/09/25 12:50 Oxygen Delivery Method Room Air 05/09/25 12:50 Temperature 98.8 F 05/09/25 12:50 Pulse Rate 59 L 05/09/25 17:24 Respiratory Rate 16 05/09/25 12:50 Blood Pressure 119/70 05/09/25 17:24 Pulse Oximetry 99 05/09/25 12:50 Oxygen Delivery Method Room Air 05/09/25 12:50 MDM - Female Genitourinary MDM Narrative Medical decision making narrative: 43-year-old female who is with 1 stillbirth and 3 living children presents to the ED with a complaint of vaginal bleeding. In February she had a surgery where she had a fallopian tube and 1 ovary removed. She had a fallopian tube removed several years ago after tubal ligation. She had the tubal ligation reversed about 4 years ago. She states in February since her surgery she has never had a normal period since then. She does not believe herself to be . She states she was not prior to the surgery but her administrative medical director did have some concerns of this after she consulted with him today about the vaginal bleeding and pain. She states this morning she woke up and had significant cramping in the lower abdomen. She states it felt like labor pains. It did eventually subside however she still has a deep pressure. She states she is going through a pad and a tampon every 60 to 90 minutes. She states initially the blood was dark and black but now it is more red. Patient has not on any hormones. She does not have any bleeding abnormalities or clotting issues. She does not have any nausea or vomiting no lightheadedness or dizziness. She does not have any bowel or urine changes. No flank pain or abdominal pain otherwise. 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 She does have a history of having an IUD which was removed about 4 years ago as well. When she had the IUD placed she did ever had any cessation of bleeding and actually made her bleeding worse. Since she had the fallopian tube removed obviously no other contraception has been used. No history of DVT or PE. She is not a smoker. Patient is 5 hours from home at this point she does live in [facility] she is here vacationing. Her administrative medical director recommended she come and get evaluated instead of trying to drive home and get evaluated. She denies any chance of STD concern. Alert and oriented resting in her room. She is a very pleasant interactive appropriately. Patient's heart and lung exam is unremarkable she is not tachycardic. She is pale but states she does have a baseline anemia. Her abdomen is soft she does have suprapubic and lower pelvic tenderness. She is afebrile vital signs are unremarkable. On pelvic exam patient's cervical os is closed. Her cervix does seem to be swollen. She does have a small amount of blood from the cervical os she is not hemorrhaging or any pulsating blood. She does not have any external lesions or abnormal discharge. She does have several hemorrhoids which are nontender. Patient's lab values did not show a anemia. TSH is normal she is not a static. Awake on his under will. Altered and showed 5. Other labs remarkable. There was a I discussed with Dr. gAuilar as Well to get hold of the patient's administrative medical director and he recommended doing Provera 10 mg for the next couple days. I will give her some pain medication as well for the discomfort. Prior to discharge she was feeling much better pain quan. We had a long conversation with appropriate follow-up with her administrative medical director she is agreeable to this plan. Patient's is also present at this time. She had no additional questions and is agreeable to follow-up as discussed she was satisfied with the plan of care here and has no other questions Differential Diagnosis Differential diagnosis: Likely urinary tract infection, bacterial vaginosis, vaginitis, dysmenorrhea and other (Hormone imbalance, hypothyroid, fibroid, postoperative bleeding,) Medical Records Attestation: I reviewed the patient's medical records. Lab Data Attestation: I reviewed the patient's lab results. Labs: Lab Results 05/09/25 05/09/25 Range/Units 13:10 14:23 WBC 6.6 (4.0-11.0) 10^3/uL RBC 4.48 (4.20-5.40) 10^6/uL Hgb 13.8 (12.0-16.0) g/dL Hct 40.8 (36.0-48.0) % MCV 91.1 (81.0-99.0) fL MCH 30.8 (26.7-34.0) pg MCHC 33.8 (29.9-35.2) g/dL RDW 13.1 (11.0-15.0) % Plt Count 217 (150-450) 10^3/uL MPV 10.1 (9.5-13.5) fL Neut % (Auto) 50.2 (43.0-75.0) % Lymph % (Auto) 42.4 (20.5-60.0) % [place] % (Auto) 4.7 (1.7-12.0) % Eos % (Auto) 1.8 (0.9-7.0) % Baso % (Auto) 0.9 (0.2-2.0) % Neut # (Auto) 3.3 (1.4-6.5) 10^3/uL Lymph # (Auto) 2.8 (1.2-3.8) 10^3/uL [place] # (Auto) 0.3 (0.3-0.8) 10^3/uL Eos # (Auto) 0.1 (0.0-0.7) 10^3/uL Baso # (Auto) 0.1 (0.0-0.1) 10^3/uL Abs Immat Gran (auto) 0.00 (0.00-0.03) 10^3/uL Imm/Tot Granulo (auto) 0.0 (0.0-0.5) % PT 10.1 (9.0-11.6) sec INR 0.95 Sodium 142 (136-145) mmol/L Potassium 3.9 (3.5-5.1) mmol/L Chloride 106 (98-107) mmol/L Carbon Dioxide 28.3 (21.0-32.0) mmol/L Anion Gap 11.6 BUN 12.0 (7.0-18.0) mg/dL Creatinine 0.71 (0.55-1.02) mg/dL Est GFR ( Amer) >60 (>=60 mL/min/1.73m^2) Est GFR (Non-Af Amer) >60 (>=60 mL/min/1.73m^2) BUN/Creatinine Ratio 16.9 Glucose 89 (74-106) mg/dL Calcium 8.7 (8.5-10.1) mg/dL Total Bilirubin 0.3 (0.2-1.0) mg/dL AST 22 (15-37) U/L ALT 28 (14-59) U/L Alkaline Phosphatase 69 (46-116) U/L Total Protein 7.6 (6.4-8.2) g/dL Albumin 3.9 (3.4-5.0) g/dL Globulin 3.7 g/dL Albumin/Globulin Ratio 1.1 TSH 0.739 (0.358-3.740) uIU/mL Urine Color Lt. yellow (YELLOW) Urine Clarity Clear (CLEAR) Urine pH 5.5 (5.0-9.0) Ur Specific [place] 1.020 (1.005-1.025) Urine Protein Negative (NEG/TRACE) mg/dL Urine Glucose (UA) Negative (NEGATIVE) mg/dL Urine Ketones Negative (NEGATIVE) mg/dL Urine Occult Blood Small A (NEGATIVE) Urine Nitrite Negative (NEGATIVE) Urine Bilirubin Negative (NEGATIVE) Urine Urobilinogen 0.2 (0.2-1.0) EU/dL Ur Leukocyte Esterase Negative (NEGATIVE) Urine RBC 0-2 (0-2) #/HPF Urine WBC 0-2 A (NONE SEEN) #/HPF Ur Squamous Epith Cells Few A (NONE/RARE) #/LPF Urine Crystals None seen (None Seen) #/HPF Urine Bacteria Trace A (NONE SEEN) #/HPF Urine Casts None seen (NONE SEEN) #/LPF Urine Mucus None seen (NONE SEEN) Ur Culture Indicated? No Urine HCG, Qual Negative (NEGATIVE) Blood Type B Negative Antibody Screen Negative Imaging Data us : Attestation: I have reviewed the pertinent imaging results. Radiologist's impression: ITS Impressions Transvaginal US 05/09/25 14:39 Impression: Fibroid uterus. Unremarkable endometrium and right ovary. Impression dictated by: Pj Marino Jr.OChaz 05/09/2025 3:41 PM Dictation Location: [id number] Electronically authenticated by: [id number] Y Date: 05/09/2025 15:41 Discharge Plan Discharge Chief Complaint: Vaginal Bleeding Clinical Impression: Vaginal bleeding, Fibroid, uterine, Pelvic pain Patient Disposition: Home, Self-Care Time of Disposition Decision: 17:54 Condition: Good Prescriptions / Home Meds: New oxycodone-acetaminophen [Percocet] 5-325 mg tablet 1 tab PO Q6H PRN (Reason: pain) Qty: 10 0RF medroxyprogesterone [Provera] 10 mg tablet 10 mg PO DAILY 5 Days Qty: 5 0RF Print Language: Andorran Instructions: Abnormal (Dysfunctional) Uterine Bleeding (ED), Uterine Fibroids (ED) Referrals: Physician,Non-Staff, MD [Primary Care Provider] - 1 week Discharge Date/Time: 05/09/25 18:30
[2025-05-09 14:44] LABS: Alanine Aminotransferase 28 U/L (14-59); Albumin Globulin Ratio 1.1; Albumin Level 3.9 g/dL (3.4-5.0); Alkaline Phosphatase 69 U/L (46-116); Anion Gap 11.6; Aspartate Amino Transferase 22 U/L (15-37); Blood Urea Nitrogen 12.0 mg/dL (7.0-18.0); Calcium 8.7 mg/dL (8.5-10.1); Carbon Dioxide 28.3 mmol/L (21.0-32.0); Chloride 106 mmol/L (98-107); Estimated GFR (African America >60 (>=60 mL/min/1.73m^2); Estimated GFR (Non-African Ame >60 (>=60 mL/min/1.73m^2); Globulin 3.7 g/dL; Glucose 89 mg/dL (74-106); Potassium 3.9 mmol/L (3.5-5.1); Sodium 142 mmol/L (136-145); Total Protein 7.6 g/dL (6.4-8.2)
[2025-05-09 14:47] LABS: INR 0.95; Prothrombin Time 10.1 sec (9.0-11.6)
[2025-05-09 14:52] LABS: Thyroid Stimulating Hormone 0.739 uIU/mL (0.358-3.740)
[2025-05-09] MEDS: MORPHINE SULFATE 4 MG/ML VIAL IV (15:19)
[2025-05-09] MEDS: OXYCODONE HCL/ACETAMINOPHEN 5MG/325MG 1 TAB PO (16:14)
[2025-05-09] MEDS: KETOROLAC TROMETHAMINE 30 MG/ML VIAL 15 MG IVP (16:15)
[2025-05-09 17:24] VITALS: BP 110/71; BP 119/70; BP 130/83; PULSE 59; PULSE 64; PULSE 66
== END 2025-05-09 18:30 | disposition home or self-care (01) ==
PROVIDERS: Physician Assistant; Emergency Provider Emergency Medicine
DX: N93.9 Abnormal uterine and vaginal bleeding, unspecified (principal); D25.9 Leiomyoma of uterus, unspecified; R10.2 Pelvic and perineal pain; Z90.721 Acquired absence of ovaries, unilateral; Z90.79 Acquired absence of other genital organ(s)
CPT/HCPCS: 36415; 76830; 80053; 81001; 84443; 84703; 85025; 85610; 86850; 86900; 86901; 99283; J1885; J2270; J2405